=== PATIENT | female | born 2000 | race Caucasian/White ===

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

== ENCOUNTER 2019-04-14 21:14 | Emergency (ER) | payer BC, MEDICAID ==
--- OUTSIDE RECORDS SUMMARY | 2019-04-14 21:16 | XMS REPORT ---
:2000 [facility] Address [address] [place] [address] Care Team Providers Name Role Phone Unavailable Unavailable Unavailable Problems This patient has no known problems. Allergies, Adverse Reactions, Alerts This patient has no known allergies or adverse reactions. Medications This patient has no known medications. Encounters Start End Encounter Admission Attending Care Care Encounter Date/Time Date/Time Type Type Clinicians Facility Department ID 2017-11-27 2017-11-27 Emergency [facility] [id number] 13:56:45 13:56:45
--- OUTSIDE RECORDS SUMMARY | 2019-04-14 21:18 | XMS REPORT | Summary of Care ---
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 U Negative Negative [facility] BRIAN U Negative Negative [facility] AMPHET Negative Negative [facility] THC Negative Negative [facility] METHADONE Negative Negative [facility] Meth U Negative Negative [facility] OPIATES Negative Negative [facility] Cocaine Metabolite Presumptive Negative [facility] Positive (A) HOSPITAL LABORATORY PROPOXY Negative Negative [facility] Tric U Negative Negative [facility] PCP Negative Negative [facility] OXYCOD Negative Negative [facility] Specimen Urine - URINE, CLEAN CATCH Narrative Performed At Urine Drug Cutoff Ranges [facility] Benzodiazepines: 150 ng/mL Barbiturates: 200 ng/mL Amphetamine: 500 ng/mL Cannabinoids: 50ng/mL Methadone: 200 ng/mL Methamphetamine: 500 ng/mL Opiates: 100 ng/mL or 2000 ng/mL Cocaine: 150 ng/mL Propoxyphene:300 ng/mL Tricyclics:300 ng/mL Oxycodone: 100 ng/mL PCP: 25ng/mL The results are to be used only for medical (i.e., treatment) purposes. Unconfirmed screening results must not be used for non-medical purposes (e.g., employment testing, legal testing). Performing Organization Address [facility]/Zipcode Phone Number [facility] CLIA: [id number], [address] [place] [address] CBC WITH DIFFERENTIAL (10/18/2018 2:13 AM CDT) WBC 6.67 4.30 - 11.10 [facility] 10*3/L HOSPITAL LABORATORY RBC 4.52 3.93 - 5.25 [facility] 10*6/L HOSPITAL LABOR[facility]ORY HGB 13.6 11.6 - 15.0 g/dL [facility] HCT 42.4 35.7 - 45.2 % [facility] MCV 93.8 80.6 - 95.5 fL [facility] MCH 30.1 25.9 - 32.8 pg [facility] MCHC 32.1 31.6 - 35.1 g/dL [facility] RDW-SD 48.2 39.0 - 49.9 fL [facility] RDW-CV 13.9 12.0 - 15.5 % [facility] PLT 232 166 - 358 [facility] 10*3/L [facility] MPV 10.3 9.5 - 12.9 fL [facility] NRBC/100 WBC 0.0 0.0 - 10.0 /100 [facility] WBCs [facility] NRBC x10^3 <0.01 10*3/L [facility] GRAN MAT (NEUT) % 46.7 % [facility] IMM GRAN % 0.30 % [facility] LYMPH % 46.8 % [facility] MONO % 5.2 % [facility] EOS % 0.7 % [facility] BASO % 0.3 % [facility] GRAN MAT x10^3(ANC) 3.11 1.88 - 7.09 [facility] 10*3/uL HOSPITAL LABORATORY IMM GRAN x10^3 <0.03 0.00 - 0.06 [facility] 10*3/uL HOSPITAL [facility] LYMPH x10^3 3.12 1.32 - 3.29 [facility] 10*3/uL [facility]ITAL [facility] MONO x10^3 0.35 0.33 - 0.92 [facility] 10*3/uL HOSPITAL LAB[facility] EOS x10^3 0.05 0.03 - 0.39 [facility] 10*3/uL [facility]PITAL LAB[facility] BASO x10^3 <0.03 0.01 - 0.07 [facility] 10*3/uL [facility] Specimen Blood - VENOUS Performing Organization Address City/State/Zipcode Phone Number [facility] CLIA: [id number], [address] [place] [address] [facility] (10/18/2018 2:13 AM CDT) ALCOHOL 203 mg/dL [facility] Specimen Blood - VENOUS Narrative Performed At <10 Negative [facility] 50-100 Toxic >100 Depression of TEACHER DANCING >400 Fatalities Reported Performing Organization Address [facility] Phone Number [facility] CLIA: [id number], [address] [place] [address] SALICYLATE (10/18/2018 2:13 AM CDT) SALICYLATE <10 mg/L [facility] Specimen Blood - VENOUS Narrative Performed At Therapeutic Range: [facility] Analgesic and Antipyretic Use 20-100 mg/L Anti-Inflammatory Use 100-250 mg/L Toxic Range: Greater than 300 mg/L Performing Organization Address [facility] Phone Number [facility] CLIA: [id number], [address] [place] [address] ACETAMINOPHEN (10/18/2018 2:13 AM CDT) ACETAMINOP <10.0 (L) 10.0 - 30.0 ug/mL [facility] Specimen Blood - VENOUS Narrative Performed At Toxic: Greater than 200 ug/mL @ 4 hour post [facility] ingestion or greater than 50 ug/mL @ 12 hour post ingestion Performing Organization Address [facility] Phone Number [facility] CLIA: [id number], [address] [place] [address] URINALYSIS (10/18/2018 2:13 AM CDT) APPEARANCE Clear Clear [facility] COLOR Yellow Yellow [facility] PH 6.0 4.8 - 8.0 [facility] SP GRAVITY 1.015 1.003 - 1.030 [facility] GLU U QUAL Negative Negative [facility] BLOOD Trace (A) Negative [facility] KETONES Negative Negative [facility] PROTEIN Negative Negative [facility] UROBILIN 0.2 mg/dL 0-1.0 mg/dL [facility] BILIRUBIN Negative Negative [facility] NITRITE Negative Negative [facility] LEUK DARREL Negative Negative [facility] RBC/HPF 2 0 - 3 HPF [facility] WBC/HPF 3 0 - 5 HPF [facility] BACTERIA Few (A) Negative [facility] MUCOUS Slight (A) Negative LPF [facility] SQ EPITH 3 HPF [facility] Specimen Urine - URINE, CLEAN CATCH Performing Organization Address City/State/Zipcode Phone Number [facility] CLIA: [id number], [address] [place] [address] COMP. METABOLIC PANEL ([id number]) (10/18/2018 2:13 AM CDT) NA 149 (H) 135 - 145 [facility] mmol/L [facility] K 3.5 3.5 - 5.0 [facility] mmol/L [facility] CL 110 (H) 98 - 108 mmol/L [facility] CO2 TOTAL 24 23 - 31 mmol/L [facility] AGAP 15 2 - 16 [facility] BUN 6 (L) 7 - 23 mg/dL [facility] GLUCOSE 78 70 - 110 mg/dL [facility] CREATININE 0.75 0.50 - 1.04 [facility] mg/dL [facility] TOTAL BILI 0.5 0.1 - 1.1 mg/dL [facility] CALCIUM 9.0 8.6 - 10.6 [facility] mg/dL [facility] T PROTEIN 7.1 6.3 - 8.2 g/dL [facility] ALBUMIN 4.4 3.5 - 5.0 g/dL [facility] ALK PHOS 58 34 - 122 U/L [facility] ALT(SGPT) 25 9 - 51 U/L [facility] AST(SGOT) 36 13 - 40 U/L [facility] eGFR Calculation 99.5 mL/min/1.73m2 [facility] ([facility] LABORATORY English) eGFR Calculation 120.7 mL/min/1.73m2 [facility] () [facility] Specimen Blood - VENOUS Narrative Performed At Association of Glomerular Filtration Rate (GFR) [facility] and Staging of Kidney Disease* + + +- + | GFR (mL/min/1.73 m2)| With Kidney Damage|Without Kidney Damage + + +- + |>90| Stage one| Normal + + +- + |60-89|S tage two| Decreased GFR + + +- + |30-59|S tage three| Stage three + + +- + |15-29|S tage four | Stage four + + +- + |<15 (or dialysis)|Stage five | Stage five + + +- + *Each stage assumes the associated GFR level has been in effect for at least three months.Stages 1 to 5, with or without kidney disease, indicate chronic kidney disease. Notes: Determination of stages one and two (with eGFR >59mL/min/1.73 m2) requires estimation of kidney damage for at least three months as defined by structural or functional abnormalities of the kidney, manifested by either: Pathological abnormalities or Markers of kidney damage (including abnormalities in the composition of the blood or urine or abnormalities in imaging tests). Performing Organization Address City/State/Zipcode Phone Number [facility] CLIA: [id number], [address] [place] [address] documented in this encounter Visit Diagnoses Diagnosis Intentional drug overdose, initial encounter - Primary Respiratory failure requiring intubation Alcoholic intoxication without complication Cocaine abuse Cocaine abuse, unspecified Drug intoxication with complication Intoxication by drug Other specified drug-induced mental disorder documented in this encounter Administered Medications Medication Order MAR Action Action Date Dose Rate Site albuterol (PROVENTIL) 2.5 mg /3 Given 10/20/2018 6:28 PM CDT 2.5 mg mL (0.083 %) nebulizer solution 2.5 mg 2.5 mg, Inhalation, QID, First dose on Tue10/20/18 at 1600, Until Discontinued, Routine Given 10/20/2018 3:58 PM CDT 2.5 mg Given 10/20/2018 12:57 PM CDT 2.5 mg alum-mag hydroxide-simeth (MAALOX PLUS / Given 10/19/2018 2:36 PM CDT 15 mL MAG-AL PLUS) 200-200-20 mg/5 mL suspension 15 mL 15 mL, Oral, Q6HPRN, Starting Shanice 10/19/18 at 1143, Until Discontinued, Routine, Indigestion, Mouth pain benzocaine-menthol (CEPACOL SORE THROAT Given 10/20/2018 12:51 PM CDT 1 Lozenge (FLORIN-MEN)) lozenge 1 Lozenge 1 Lozenge, Oral, Q4HPRN, Starting Tue10/19/18 at 2015, Until Discontinued, Routine, Sore throat Given 10/20/2018 12:00 AM CDT 1 Lozenge ipratropium (ATROVENT) 0.02 % nebulizer Given 10/20/2018 6:28 PM CDT 0.5 mg solution 0.5 mg 0.5 mg, Inhalation, QID, First dose on Tue10/20/18 at 1600, Until Discontinued, Routine Given 10/20/2018 3:58 PM CDT 0.5 mg Given 10/20/2018 12:58 PM CDT 0.5 mg Medication Order MAR Action Action Date Dose Rate Site dexamethasone (DECADRON PHOSPHATE) Given 10/18/2018 2:18 AM CDT 10 mg injection 10 mg 10 mg, IV Push, ONCE, 1 dose, Tue10/18/18 at 0315, STAT esomeprazole (NEXIUM) 40 mg in NaCl 0.9% (NS) Given 10/19/2018 9:36 AM CDT 40 mg 100 mL MINI-BAG 40 mg, IV Piggyback, DAILY, First dose on Tue10/19/18 at 0900, Until Discontinued, 100 mL FENTanyl PF (SUBLIMAZE) STD Rate Change 10/18/2018 1:47 PM CDT 75 mcg/hr 7.5 mL/hr 2,500 mcg in NaCl 0.9% (NS) 250 mL infusion RTU 25 mcg/hr (2.5 mL/hr), IV Infusion, TITRATE, Starting Tue10/18/18 at 0841, Until Tue10/20/18 at 1049 New Bag 10/18/2018 10:23 AM CDT 50 mcg/hr 5 mL/hr lactated ringers IV infusion New Bag 10/18/2018 8:00 PM CDT 1,000 mL 125 mL/hr 1,000 mL at 125 mL/hr, 1,000 mL, IV Infusion, CONTINUOUS, Starting Tue10/18/18 at 1200, Until Tue10/19/18 at 1758, Routine New Bag 10/18/2018 11:17 AM CDT 1,000 mL 125 mL/hr midazolam (VERSED) 50 mg in Rate Change 10/19/2018 5:32 AM CDT 1 mg/hr 1 mL/hr NaCl 0.9% (NS) infusion 2 mg/hr (2 mL/hr), IV Infusion, TITRATE, Starting Tue10/18/18 at 2210, Until Tue10/20/18 at 1049 New Bag 10/18/2018 11:35 PM CDT 2 mg/hr 2 mL/hr midazolam (VERSED) injection 1 mg Given 10/18/2018 1:51 PM CDT 1 mg 1 mg, IV Push, ONCE, 1 dose, Tue10/18/18 at 0815, STAT midazolam (VERSED) injection 2 mg Given 10/18/2018 4:55 AM CDT 2 mg 2 mg, IV Push, ONCE, 1 dose, Tue10/18/18 at 0530, STAT midazolam (VERSED) injection 2 mg Given 10/18/2018 9:28 PM CDT 2 mg 2 mg, IV Push, ONCE, 1 dose, Tue10/18/18 at 2215, Routine propofol injection New Bag 10/19/2018 6:02 AM CDT 65 mcg/kg/min 23.87 mL/hr 5 mcg/kg/min 61.2 kg (1.836 mL/hr, rounded to 1.84 mL/hr), IV Infusion, at 1.84 mL/hr, CONTINUOUS, Starting Tue10/18/18 at 0315, Until Tue10/19/18 at 1010, Routine New Bag 10/19/2018 2:00 AM CDT 80 mcg/kg/min 29.38 mL/hr New Bag 10/18/2018 11:37 PM CDT 80 mcg/kg/min 29.38 mL/hr propofol injection New Bag 10/18/2018 8:42 PM CDT 80 mcg/kg/min 29.38 mL/hr 5 mcg/kg/min 61.2 kg (1.836 mL/hr, rounded to 1.84 mL/hr), IV Infusion, at 1.84 mL/hr, CONTINUOUS, Starting Tue10/18/18 at 0615, Until Tue10/19/18 at 1758, Routine New Bag 10/18/2018 5:44 PM CDT 80 mcg/kg/min 29.38 mL/hr New Bag 10/18/2018 11:32 AM CDT 80 mcg/kg/min 29.38 mL/hr thiamine (VITAMIN B1) 100 mg in NaCl 0.9% Given 10/19/2018 9:37 AM CDT 100 mg (NS) piggyback IV Piggyback, DAILY, First dose on Tue10/18/18 at 1500, Until Discontinued, 50 mL Given 10/18/2018 6:19 PM CDT 100 mg thiamine (VITAMIN B1) 100 mg, foLIC acid New Bag 10/19/2018 9:00 AM CDT 50 mL/hr (FOLATE) 1 mg, multivitamin adult (INFUVITE ADULT) 3,300 unit- 150 mcg/10 mL 10 mL in D5W 0.45% NaCl (1/2NS) IV Solution IV Infusion, at 50 mL/hr, DAILY, First dose on Tue10/18/18 at 1500, Until Discontinued, 1,000 mL New Bag 10/18/2018 6:15 PM CDT 50 mL/hr documented in this encounter Insurance Payer Benefit Plan / Subscriber ID Effective Phone Address Type Group Dates TERRY STEWART xxxxxxxxx 2018-[address] [place] [id number] MANAGED MEDICAID [place], [place]ICA[place] (Home) [place] [address] documented as of this encounter Advance Directives Name Relationship Healthcare Agent Relationship Communication Nimco Rene Grandparent Primary healthcare agent [phone]
--- OUTSIDE RECORDS SUMMARY | 2019-04-14 21:18 | XMS REPORT | Summary of Care ---
:2000 Author Organization [facility] Address [address] [place] [address] Care Team Providers Name Role Phone Lidia Can Primary Care Provider Martina Ervin Insurance Hmo Reason for Visit Reason Comments NURSE VISIT Encounter Details Date Type Department Care Team Description 03/08/2019 Nurse Visit [facility]- Lidia Can, ASSOCIATE SPA DIRECTOR [address] [place] [address] Screening for STD [place] Visit, [facility] Nurse (sexually transmitted [address] [facility] disease) (Primary Dx) [place] [address] Allergies No Known Allergiesdocumented as of this encounter (statuses as of 03/22/2019) Medications No known medicationsdocumented as of this encounter (statuses as of 03/22/2019) Active Problems Problem Noted Date Dysuria 11/30/2018 Intoxication by drug 10/18/2018 Screening examination for venereal disease 09/11/[address] 07/18/2018 Overview: Inserted 07/18/18 Gonorrhea 07/18/2018 Chlamydia 06/29/2018 Trichomoniasis 06/28/2018 Maternal varicella, non-immune 01/11/2018 Overview: Varivax pp History of trauma 01/10/2018 History of depression 01/10/2018 History of anxiety disorder 01/10/2018 Influenza vaccination declined 01/10/2018 documented as of this encounter (statuses as of 03/22/2019) Resolved Problems Problem Noted Date Resolved Date Trichomonosis 06/28/2018 06/28/2018 History of bipolar disorder 01/10/2018 01/10/2018 documented as of this encounter (statuses as of 03/22/2019) Social History Tobacco Use Types Packs/Day Years [...] Health Maintenance Due Date Last Done Comments VARICELLA VACCINES (1 of 2 - 06/07/2000 2-dose childhood series) PNEUMOCOCCAL 0-64 YEARS 06/07/2005 COMBINED SERIES (1 of 1 - PPSV23) MENINGOCOCCAL B VACCINES (1 06/07/2009 of 2 - Risk Bexsero 2-dose series) DTaP,Tdap,and Td Vaccines (1 06/07/2010 - Tdap) HPV VACCINES (1 - Female 06/07/2010 2-dose series) WELL CARE VISIT: 12-21 YEARS 2011 (yearly) INFLUENZA VACCINE (#1) 2018 CHLAMYDIA SCREENING 03/08/2020 03/08/2019, 11/30/2018, 09/11/2018, Additional history exists MENINGOCOCCAL VACCINE Aged Out No longer eligible based on patient's age to complete this topic documented as of this encounter Implants Implanted Type Area Outcomes Specialist Device Shelf Model / Identifier Expiration Serial / Date Lot Control-09/13/2018 Left: Implanted: 09/13/2018 (Quantity not on file) Control Arm documented as of this encounter Procedures Procedure Name Priority Date/Time Associated Diagnosis Comments GC & CHLAMYDIA Routine 03/08/2019 3:50 PM Screening for STD Results for this AMPLIFIED ASSAY 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 documented in this encounter Results GC & CHLAMYDIA AMPLIFIED ASSAY (03/08/2019 3:50 PM OPERATING ROOM TECHNICIAN) C. trachomatis Nucleic Negative Negative [facility] Acid SERVICES N. gonorrhoeae Nucleic Negative Negative [facility] Specimen Fluid - URINE, CLEAN CATCH Performing Organization Address City/State/Zipcode Phone Number [facility] CLIA: [id number], [address] [place] [address] [facility] documented in this encounter Visit Diagnoses Diagnosis Screening for STD (sexually transmitted disease) - Primary Screening examination for venereal disease documented in this encounter Insurance Payer Benefit Plan Subscriber ID Effective Dates Phone Address Type / Group [facility] [id number] 2019-Mac [phone] [address] PPO/POS [place] [id number] [place] [address] (Home) [place] [address] documented as of this encounter Advance Directives Name Relationship Healthcare Agent Relationship Communication Nimco Rene Grandparent Primary healthcare agent
--- OUTSIDE RECORDS SUMMARY | 2019-04-14 21:18 | XMS REPORT | Summary of Care ---
:2000 Author Organization [facility] - Health Address [address] [place] [address] Care Team Providers Name Role Phone Lidia Can LOTTERIES AGENT Primary Care Provider Martina Ervin Insurance Hmo Encounter Details Date Type Department Care Team Description 03/08/2019 Orders Only [facility] Doctor Unassigned, No [address] [facility] [place] [address] [address] [place] [address] Allergies No Known Allergiesdocumented as of this encounter (statuses as of 03/08/2019) Medications No known medicationsdocumented as of this encounter (statuses as of 03/08/2019) Active Problems Problem Noted Date Dysuria 11/30/2018 Intoxication by drug 10/18/2018 Screening examination for venereal disease 09/11/[address] 07/18/2018 Overview: Inserted 07/18/18 Gonorrhea 07/18/2018 Chlamydia 06/29/2018 Trichomoniasis 06/28/2018 Maternal varicella, non-immune 01/11/2018 Overview: Varivax pp History of trauma 01/10/2018 History of depression 01/10/2018 History of anxiety disorder 01/10/2018 Influenza vaccination declined 01/10/2018 documented as of this encounter (statuses as of 03/08/2019) Resolved Problems Problem Noted Date Resolved Date Trichomonosis 06/28/2018 06/28/2018 History of bipolar disorder 01/10/2018 01/10/2018 documented as of this encounter (statuses as of 03/08/2019) Social History Tobacco Use Types Packs/Day Years [...] (yearly) INFLUENZA VACCINE (#1) 2018 CHLAMYDIA SCREENING 12/01/2019 11/30/2018, 09/11/2018, 06/27/2018, Additional history exists MENINGOCOCCAL VACCINE Aged Out No longer eligible based on patient's age to complete this topic documented as of this encounter Implants Implanted Type Area Environmental Services Supervisor Device Shelf Model / Identifier Expiration Serial / Date Lot Control-09/13/2018 Left: Implanted: 09/13/2018 (Quantity not on file) Control Arm documented as of this encounter Procedures Procedure Name Priority Date/Time Associated Diagnosis Comments ASSIGNMENT OF BENEFITS Routine 03/08/2019 1:20 PM TRANSFORMER BUILDER documented in this encounter Results Not on filedocumented in this encounter Insurance Payer Benefit Plan Subscriber ID Effective Phone Address Type / Group Dates [facility] [id number] 2019-Prese [phone] [address] PPO/POS nt [id number] [place] [address] [employer] [place] HTW-RMCHP xxxxxxxxx 2018-Pres [phone] [address] Medicaid WOMEN ent [address] [place] [address] documented as of this encounter Advance Directives Name Relationship Healthcare Agent Relationship Communication Nimco Edgard Grandparent Primary healthcare agent
[2019-04-14 22:40] LABS: Basophils % 0.5 % (0-1.3); Hematocrit 39.8 % (36.0-45.0); Lymphocytes % 20.1 % (15.3-44.8); MPV 8.9 fL (7.6-11.3); Protime INR 1.05; RBC Red Blood Cell Count 4.48 M/uL (3.86-4.86)
[2019-04-14] MEDS ORDERED: NA CHLORIDE 0.9% 1,000 ML ONE (22:45)
[2019-04-14 23:00] LABS: ALT/SGPT 22 U/L (12-78); AST/SGOT 23 U/L (15-37); Alkaline Phosphatase 74 U/L (45-117); BUN Blood Urea Nitrogen 15 mg/dL (7-18); Bicarbonate 25 mmol/L (21-32); Bilirubin Direct 0.2 mg/dL (0-0.2); Bilirubin Total 0.4 mg/dL (0.2-1.0); Glucose Level 78 mg/dL (74-106); Magnesium 2.1 mg/dL (1.8-2.4); NT PRO-BNP 39 pg/mL (<125); Potassium 3.5 mmol/L (3.5-5.1); Protein, Total 7.7 g/dL (6.4-8.2); Sodium Level 138 mmol/L (136-145); Troponin (Emerg Dept Use Only) < 0.02 ng/mL (0.0-0.045)
[2019-04-14] MEDS ORDERED: ACETAMINOPHEN 325 MG TABLET ONE (23:05)
--- NOTE | 2019-04-15 00:11 | EDPHYS ---
Physician Documentation [facility] Name: Angeles Field Age: 18 yrs Sex: Female : 2000 Arrival Date: 04/14/2019 Time: 21:16 Bed 20 Private MD: ED Physician Zain Storey HPI: 04/14 00:12 This 18 yrs old Female presents to ER via Ambulatory with complaints of tw4 Dizziness, Irregular Heart Beat, Weakness. 00:12 The patient presents with dizziness, generalized weakness. Onset: The symptoms/episode tw4 began/occurred today. Context: occurred at home. Modifying factors: The symptoms are alleviated by nothing, the symptoms are aggravated by nothing. Associated signs and symptoms: Pertinent positives: chest pain. Associated signs and symptoms: The patient has no apparent associated signs or symptoms. Severity of symptoms: At their worst the symptoms were moderate in the emergency department the symptoms have resolved. Patient's baseline: Neuro: alert and fully oriented, Motor: no deficits, Ambulation: walks without assistance, Speech: normal. The patient has not experienced similar symptoms in the past. Historical: - Allergies: 21:35 NKA; sg - PMHx: 21:35 Anxiety; Bipolar disorder; mood disorder; psychosis; sg - PSHx: 21:35 None; sg - Immunization history:: Adult Immunizations up to date. - Social history:: Smoking status: Patient denies any tobacco usage or history of. ROS: 04/14 00:12 Constitutional: Negative for fever, chills, and weight loss, Eyes: Negative for injury, tw4 pain, redness, and discharge, Respiratory: Negative for shortness of breath, cough, wheezing, and pleuritic chest pain, Abdomen/GI: Negative for abdominal pain, nausea, vomiting, diarrhea, and constipation, Back: Negative for injury and pain, MS/Extremity: Negative for injury and deformity, Skin: Negative for injury, rash, and discoloration. Cardiovascular: Positive for chest pain, Negative for edema, orthopnea, palpitations, paroxysmal nocturnal dyspnea. Neuro: Positive for dizziness, Negative for altered mental status, gait disturbance, headache, hearing loss, loss of consciousness, numbness, seizure activity, speech changes, syncope, near syncope, tingling, tinnitus, tremor, visual changes. Exam: 00:12 Constitutional: This is a well developed, well nourished patient who is awake, alert, tw4 and in no acute distress. Head/Face: Normocephalic, atraumatic. Chest/axilla: Normal chest wall appearance and motion. Nontender with no deformity. No lesions are appreciated. Respiratory: Lungs have equal breath sounds bilaterally, clear to auscultation and percussion. No rales, rhonchi or wheezes noted. No increased work of breathing, no retractions or nasal flaring. Abdomen/GI: Soft, non-tender, with normal bowel sounds. No distension or tympany. No guarding or rebound. No evidence of tenderness throughout. Back: No spinal tenderness. No costovertebral tenderness. Full range of motion. Skin: Warm, dry with normal turgor. Normal color with no rashes, no lesions, and no evidence of cellulitis. MS/ Extremity: Pulses equal, no cyanosis. Neurovascular intact. Full, normal range of motion. Neuro: Awake and alert, GCS 15, oriented to person, place, time, and situation. Cranial nerves II-XII grossly intact. Motor strength 5/5 in all extremities. Sensory grossly intact. Cerebellar exam normal. Normal gait. 00:12 Cardiovascular: Rate: tachycardic, Rhythm: regular, Pulses: no pulse deficits are appreciated. Vital Signs: 21:30 Pulse 115 MON; Resp 18 S; Pulse Ox 100% on R/A; Weight 74.84 kg (R); Height 5 ft. 9 in. sg (175.26 cm) (R); Pain 8/10; 21:38 BP 119 / 81; lw1 21:38 Temp 99.3(O); lw1 22:21 BP 121 / 72; Pulse 113; Resp 20; Pulse Ox 98% on R/A; lw1 22:45 Temp 101.4; lw1 03 00:15 BP 116 / 77; Pulse 114; Resp 20; Temp 99.6; Pulse Ox 98% on R/A; lw1 21:30 Body Mass Index 24.37 (74.84 kg, 175.26 cm) sg MDM: 21:28 Patient medically screened. tw4 04/14 00:30 Differential diagnosis: cardiac arrhythmia, idiopathic dizziness. Data reviewed: vital tw4 signs, nurses notes. Data interpreted: Pulse oximetry: Interpretation: normal. Counseling: I had a detailed discussion with the patient and/or guardian regarding: the historical points, exam findings, and any diagnostic results supporting the discharge/admit diagnosis, lab results, radiology results. Special discussion: Based on the patient's history, exam, and Dx evaluation, there is no indication for emergent intervention or inpatient Tx. It is understood by the patient/guardian that if the Sx's persist or worsen they need to return immediately for re-evaluation. Based on the patient's history, exam and DX evaluation, there is no indication for emergent intervention or inpatient [place]. It is understood by the patient/guardian that if the SXs persist or worsen they need to return immediately for re-evaluation. 21:34 Order name: Basic Metabolic Panel; Complete Time: 23:48 23:48 Interpretation: Within normal limits. 21:34 Order name: CBC with Diff; Complete Time: 23:48 23:49 Interpretation: Within normal limits. 21:34 Order name: LFT's; Complete Time: 23:48 23:48 Interpretation: Normal except: GLOB 3.7. 21:34 Order name: Magnesium; Complete Time: 23:48 23:49 Interpretation: Within normal limits: MG 2.1. 21:34 Order name: NT PRO-BNP; Complete Time: 23:48 23:49 Interpretation: Within normal limits: NT PRO-BNP 39. 21:34 Order name: PT-INR; Complete Time: 23:48 23:49 Interpretation: PT 12.4. 21:34 Order name: Troponin (emerg Dept Use Only); Complete Time: 23:48 23:49 Interpretation: Within normal limits: TROPED < 0.02. 21:34 Order name: XRAY Chest (1 view) 21:34 Order name: EKG; Complete Time: 21:36 22:05 Order name: D-Dimer; Complete Time: 23:48 22:23 Order name: Urine Dipstick--Ancillary (enter results) [facility] 22:23 Order name: Urine --Ancillary (enter results) [facility] 22:57 Order name: Flu; Complete Time: 00:09 4 21:34 Order name: Cardiac monitoring; Complete Time: 21:56 21:34 Order name: EKG - Nurse/Tech; Complete Time: 21:56 21:34 Order name: IV Saline Lock; Complete Time: 21:50 21:34 Order name: Labs collected and sent; Complete Time: 21:56 21:34 Order name: O2 Per Protocol; Complete Time: :56 21:34 Order name: O2 Sat Monitoring; Complete Time: : EC:45 Rate is 104 beats/min. Rhythm is regular. QRS [place] is Normal. MT interval is normal. tw4 QRS interval is normal. QT interval is normal. No Q waves. T waves are Normal. No ST changes noted. Clinical impression: Sinus tachycardia. Interpreted by me. Reviewed by me. Administered Medications: 22:47 Drug: NS 0.9% 1000 ml Route: IV; Rate: 1 bolus; Site: right antecubital; lw1 Disposition: 04/15/19 00:09 Discharged to Home. Impression: Influenza due to identified novel influenza A virus. - Condition is Stable. - Discharge Instructions: Influenza, Adult. - Prescriptions for Tamiflu 75 mg Oral Capsule - take 1 tablet by ORAL route every 12 hours for 5 days; 10 tablet. - Medication Reconciliation Form, Thank You Letter, Antibiotic Education, Prescription Opioid Use, Work release form form. - Follow up: Private Physician; When: Upon discharge from the Emergency Department; Reason: Recheck today's complaints, Continuance of care. - Problem is new. - Symptoms have improved. Signatures: Dispatcher [employer] EDBhavik Servin, RN RN sg Zain Storey MD MD tw4 Micky Mcqueen RN RN lw1 Corrections: (The following items were deleted from the chart) 04/14 00:24 00:09 04/15/2019 00:09 Discharged to Home. Impression: Influenza due to identified lw1 novel influenza A virus. Condition is Stable. Forms are Medication Reconciliation Form, Thank You Letter, Antibiotic Education, Prescription Opioid Use. Follow up: Private Physician; When: Upon discharge from the Emergency Department; Reason: Recheck today's complaints, Continuance of care. Problem is new. Symptoms have improved. tw4 00:45 00:12 Rhythm is regular. QRS [place] is Normal. MT interval is normal. QRS interval is tw4 normal. QT interval is normal. T waves are Normal. No ST changes noted. Clinical impression: Sinus tachycardia. Interpreted by me. Reviewed by me. tw4
--- NOTE | 2019-04-15 00:11 | ER ---
Nurse's Notes [facility] Name: Angeles Field Age: 18 yrs Sex: Female : 2000 Arrival Date: 04/14/2019 Time: 21:16 Bed 20 Private MD: Diagnosis: Influenza due to identified novel influenza A virus Presentation: 21:30 Chief complaint: Patient states: About two weeks ago, I had what I thought was strep sg throat. I looked up how much abx I would need, and my grandmother had some Azithromycin tablets so I took those. Symptoms improved until about this beginning of this week, So I went to the doctors office and got an abx for Cefdinir, Now my body aches, my chest is so painful when touched, my knees hurt, and my heart rate has been really fast and irregular it feels like, the pain scared me so I came here. Coronavirus screen: The patient has NOT traveled to [place] in the past 14 days. The patient has NOT had contact with known and/or suspected case of Coronavirus. Ebola Screen: Patient negative for fever greater than or equal to 101.5 degrees Fahrenheit, and additional compatible Ebola Virus Disease symptoms Patient denies exposure to infectious person. Patient denies travel to an Ebola-affected area in the 21 days before illness onset. No symptoms or risks identified at this time. Initial Sepsis Screen: Does the patient meet any 2 criteria? HR > 90 bpm. Yes Does the patient have a suspected source of infection? No. Patient's initial sepsis screen is negative. 21:30 Method Of Arrival: Ambulatory sg 21:30 Acuity: CADY 3 sg Historical: - Allergies: 21:35 NKA; sg - PMHx: 21:35 Anxiety; Bipolar disorder; mood disorder; psychosis; sg - PSHx: 21:35 None; sg - Immunization history:: Adult Immunizations up to date. - Social history:: Smoking status: Patient denies any tobacco usage or history of. Vital Signs: 21:30 Pulse 115 MON; Resp 18 S; Pulse Ox 100% on R/A; Weight 74.84 kg (R); Height 5 ft. 9 in. sg (175.26 cm) (R); Pain 8/10; 21:38 BP 119 / 81; lw1 21:38 Temp 99.3(O); lw1 22:21 BP 121 / 72; Pulse 113; Resp 20; Pulse Ox 98% on R/A; lw1 22:45 Temp 101.4; lw1 04/14 00:15 BP 116 / 77; Pulse 114; Resp 20; Temp 99.6; Pulse Ox 98% on R/A; lw1 21:30 Body Mass Index 24.37 (74.84 kg, 175.26 cm) ED Course: 21:16 Patient arrived in ED. cl3 21:28 Zain Storey MD is Attending Physician. tw4 21:29 Micky Mcqueen, RN is Primary Nurse. lw1 21:30 EKG done, by ED staff, reviewed by Zain Storey MD. lw1 21:34 Triage completed. sg 21:34 Arm band placed on. sg 21:49 Inserted saline lock: 20 gauge in right antecubital area, using aseptic technique. lw1 Blood collected. 21:51 Initial lab(s) drawn, by pr, sent to lab. lw1 22:04 XRAY Chest (1 view) In Process Unspecified. EDMS 22:19 Urine collected: clean catch specimen, clear. lw1 23:07 Flu Sent. lw1 23:07 Urine --Ancillary (enter results) Sent. lw1 23:07 Flu and/or RSV swab sent to lab. lw1 04/14 00:15 IV discontinued, intact, No redness/swelling at site. Pressure dressing applied. lw1 Administered Medications: 22:47 Drug: NS 0.9% 1000 ml Route: IV; Rate: 1 bolus; Site: right antecubital; lw1 Outcome: 04/14 00:09 Discharge ordered by . tw4 00:24 Patient left the ED. lw1 Signatures: Dispatcher [employer] EDMS Bhavik Garcia, RN RN Zain Storey MD MD [facility] Cristina Mendez 3 Micky Mcqueen, DILEEP RN lw1
[2019-04-15 00:48] LABS: Urine Blood 2+ (NEG); Urine Glucose NEGATIVE (NEG); Urine Protein NEGATIVE (NEG); Urine pH 6.5 (5.0-7.0)
[2019-04-15 00:51] VITALS: O2SAT 98
[2019-04-15 00:54] VITALS: BP 116/77; TEMP 99.6
--- NOTE | 2019-04-15 05:57 | EKG ---
Test Date: 2019-04-14 Test Time: 21:35:10 Postal Service Clerk: ELIZABETH MEASUREMENT RESULTS: Intervals: Rate: 106 ME: 168 QRSD: 74 QT: 334 QTc: 443 [place]: P: 47 ME: 168 QRS: 44 T: 35 INTERPRETIVE STATEMENTS: Sinus tachycardia Otherwise normal ECG No previous ECG available for comparison Electronically Signed On 04-15-19 05:56:29 JUVENILE PROBATION OFFICER by Cristobal Thomas
--- NOTE | 2019-04-15 11:59 | RAD REPORT ---
EXAM DESCRIPTION: RAD - Chest Single View - 04/14/2019 10:04 pm CLINICAL HISTORY: CHEST PAIN Chest pain. COMPARISON: No comparisons FINDINGS: Portable technique limits examination quality. The lungs are grossly clear. The heart is normal in size. No displaced fractures. IMPRESSION: No acute intrathoracic process suspected.
== END 2019-04-15 00:24 | disposition home or self-care (01) ==
LOC: ER 21:14
DX: J09.X9 Influenza due to identified novel influenza A virus with other manifestations (principal)
CPT/HCPCS: 93005; 85025; 80048; 36415; 83735; 81025; 85610; 85379; 80076; 81003; 84484; 83880; 87804 ×2; 71045; 99284; J7030

== ENCOUNTER 2020-02-23 04:10 | Emergency (ER) | payer BC ==
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
--- OUTSIDE RECORDS SUMMARY | 2020-02-23 04:32 | XMS REPORT | Summary of Care ---
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 Primary Care Provider Madhuri Ervin Insurance H[employer] Reason for Visit Reason Comments Well Woman Exam Encounter Details Date Type Department Care Team Description 12/07/2019 Office Visit [facility]- Faith Davalos Oth er general counseling and advice for contraceptive management (Primary Dx); JONN Coron[place] Nexplanon in place; [address] Screen for STD (sexually transmitted dis ease); Street [address] A Well woman exam [place], [place] [phone] Allergies No Known Allergiesdocumented as of this encounter (statuses as of 12/07/2019) Medications No known medicationsdocumented as of this encounter (statuses as of 12/07/2019) Active Problems Problem Noted Date Well woman exam 12/07/2019 Other general counseling and advice for contraceptive management 12/07/2019 Drug overdose 11/12/2019 Dysuria 11/30/2018 Intoxication by drug 10/18/2018 Screening examination for venereal disease 09/11/[address] 07/18/2018 Overview: Inserted 07/18/18 Gonorrhea 07/18/2018 Chlamydia 06/29/2018 Trichomoniasis 06/28/2018 Maternal varicella, non-immune 01/11/2018 Overview: Varivax pp History of trauma 01/10/2018 History of depression 01/10/2018 History of anxiety disorder 01/10/2018 Influenza vaccination declined 01/10/2018 documented as of this encounter (statuses as of 12/07/2019) Resolved Problems Problem Noted Date Resolved Date Trichomonosis 06/28/2018 06/28/2018 History of bipolar disorder 01/10/2018 01/10/2018 documented as of this encounter (statuses as of 12/07/2019) Social History Tobacco Use Types Packs/Day Years Used Date Current Every Day Smoker Cigarettes 0.2 4 Sta rted: 01/10/2015 Smokeless Tobacco: Never Used Tobacco Cessation: Ready to Quit: No; Co unseling Given: Yes Comments: Smokes 5 ciggs a day Alcohol Use Drinks/Week oz/Week Comments Yes occasional Sex Assigned at Date Recorded Not on file COVID-19 Exposure Response Date Recorded In the last month, have you been in contact with No / Unsure 12/07/2019 2:52 PM CDT someone who was confirmed or suspected to have Coronavirus / COVID-19? documented as of this encounter Last Filed Vital Signs Vital Sign Reading Time Taken Comments Blood Pressure 121/72 12/07/2019 3:12 PM CDT Pulse 73 12/07/2019 3:12 PM CDT Temperature 36.4 C (97.6 F) 12/07/2019 3:12 PM CDT Respiratory Rate 16 12/07/2019 3:12 PM CDT Oxygen Saturation - - Inhaled Oxygen Concentration - - Weight 87.2 kg (192 lb 3 oz) 12/07/2019 3:12 PM CDT Height 177.8 cm (5' 10") 12/07/2019 3:12 PM CDT Body Mass Index 27.58 12/07/2019 3:12 PM CDT documented in this encounter Patient Instructions Patient InstructionsBelen Harrington LVN - 12/07/2019 3:15 PM CDT Patient Education Clinical Breast Exam Many health organizations recommend a yearly clinical breast exam. This exam may be done by a metal cut off saw tender, family healthcare provider, nurse practitioner, nurse ingot header, or specially trained nurse. Yearly breast exams help tomake surethat breast conditions are found early. Your healthcare providers role A healthcare professional knows the tests and follow-up care needed if a problem is found. Your clinical exam is also a great time to ask questions about breast self-exams. You can find out if yourechecking your breasts in the best way. Or you may want to ask how , breast implants, or breast reduction surgery affect the way you should check your breasts. Diagnostic tests If a clinical exam reveals a breast change, you may have other tests to find out more. These tests may include: Mammography. A low-dose X-ray of your breast tissue. Ultrasound. An imaging test that uses sound waves to create images of your breast. Biopsy. A small amount of breast tissue is removed by needle or by a cut (incision). The tissue is then checked under a microscope. Guidelines for having clinical breast exams The [employer] recommends that starting at age 29, you should have a clinical breast exam every 1 to 3 years. After age 40, have a clinical breast exam each year. If youre at higher risk for breast cancer, you may need exams more often. Risk factors for breast cancer may include: Being over 50 or postmenopausal Having a family history of breast cancer Having the BRCA1 or BRCA2 gene mutation or certain other gene mutations Having more menstrual periods due to starting menstruation early(before age 12) or having a late menopause (after age 55) Having no pregnancies Having a first after age 30 Being obese Having a history of radiation treatment to your chest area Exposure to STEVE during your mother's Not being active Drinking too much alcohol Having dense breast tissue Taking hormone therapy after menopause Other health organizations have different recommendations. Talk with your healthcare provider about what is best for you. [employer] last reviewed this educational content on 05/16/201919997118-8864 The [employer]. All rights reserved. This information is not intended as a substitute for professional medical care. Always follow your healthcare professional's instructions. Patient Education Breast Health: Breast Self-Awareness What is breast self-awareness? Breast self-awareness is knowing how your breasts normally look and feel. Your breasts change as yougo through different stages of your life. So its important to learn what is normal for your breasts. Knowing about your breasts helps you spot any changes in them right away. Tell your healthcare provider about any changes. Why is breast self-awareness important? Many experts now say that women should focus on breast self-awareness instead of doing a breast self-examination (BSE). These experts include the [employer] and the [place]. Some experts even advise not teaching women to do a BSE. Thats because research hasnt shown a clear benefit to doing BSEs. Breast self-awareness is different than a BSE. It isnt about following a certain method and schedule. Its about knowing what's normal for your breasts. That way you can spot even small changes right away. If you see any changes, tell your healthcare provider. Changes to look for Call your healthcare provider if you find any changes in your breasts that worry you. These changes may be: A lump Nipple discharge other than breast milk, especially if it's bloody Swelling A change in size or shape Skin changes, such as redness, thickening, or dimpling of the skin Swollen lymph nodes in the armpit Nipple problems, such as pain or redness If you find a lump Call your provider if you find lumpiness in one breast. Also call if you feel something different inthe tissue or feel a definite lump. Sometimes lumpiness may be due to menstrual changes. But there may be reason for concern. Your provider may want to see you right away if you have: Nipple discharge that is bloody Skin changes on your breast, such as dimpling or puckering Its okay to be upset if you find a lump. Be sure to call your provider right away. Remember that most breast lumps are benign. This means they are not cancer. [employer] last reviewed this educational content on 06/15/201919998877-0763 The [employer]. All rights reserved. This information is not intended as a substitute for professional medical care. Always follow your healthcare professional's instructions. Patient Education Prevention Guidelines,Women Ages 18 to 39 Screening tests and vaccines are an important part of managing your health. A screening test is doneto find possible disorders or diseases in people who don't have any symptoms. The goal is to find a disease early so lifestyle changes can be made and you can be watched more closely to reduce the riskof disease, or to detect it early enough to treat it most effectively. Screening tests are not considered diagnostic, but are used to determine if more testing is needed. Health counseling is essential, too. Below are guidelines for these, for women ages 18 to 39. Talk with your healthcare provider tomake sure youre up-to-date on what you need. Screening Who needs it How often Alcohol misuse All women in this age group At routine exams Blood pressure All women in this age group Yearly checkup if your blood pressure is normal Normal blood pressure is less than 120/80 mm Hg If your blood pressure reading is higher than normal, follow the advice of your healthcare provider Breast cancer All women in this age group should talk with their healthcare providers about the needfor clinical breast exams (CBE)1 Clinical breast exam every 3 years1 Cervical cancer Women ages 21 and older Women between ages 21 and 29 should have a Pap test every 3years; women between ages 30 and 65 are advised to have a Pap test plus an HPV test every 5 years Chlamydia Sexually active women ages 24 and younger, and women at increased risk for infection Every 3 years if you're at risk or have symptoms Depression All women in this age group At routine exams Diabetes mellitus, type 2 Adults with no symptoms who are overweight or obese and have 1 or more other risk factors for diabetes At least every 3 years. Also, testing for diabetes during after the 24th week. Gonorrhea Sexually active women at increased risk for infection At routine exams Hepatitis C Anyone at increased risk At routine exams HIV All women At routine exams3 Obesity All women in this age group At routine exams Syphilis Women at increased risk for infection should talk with their healthcare provider At routine exams Tuberculosis Women at increased risk for infection should talk with their healthcare provider Ask your healthcare provider Vision All women in this age group At least 1 complete exam in your 20s, and 2 in your 30s Vaccine Who needs it How often Chickenpox (varicella) All women in this age group who have no record of this infection or vaccine2 doses; the second dose should be given 4 to 8 weeks after the first dose Hepatitis A Women at increased risk for infection should talk with their healthcare provider 2 doses given at least 6 months apart Hepatitis B Women at increased risk for infection should talk with their healthcare provider 3 doses over 6 months; second dose should be given 1 month after the first dose; the third dose should be given at least 2 months after the second dose and at least 4 months after the first dose Haemophilus influenzae Type B (HIB) Women at increased risk for infection should talk with their healthcare provider 1 to 3 doses Human papillomavirus (HPV) All women in this age group up to age 26 3 doses; the second dose should be given 1 to 2 months after the first dose and the third dose given 6 months after the first dose Influenza (flu) All women in this age group Once a year Measles, mumps, rubella (MMR) All women in this age group who have no record of these infections orvaccines 1 or 2 doses Meningococcal Women at increased risk for infection should talk with their healthcare provider 1 ormore doses Pneumococcal conjugate vaccine (PCV13)and pneumococcal polysaccharidevaccine(PPSV23) Women atincreased risk for infection should talk with their healthcare provider PCV13: 1 dose ages 19 to 65(protects against 13 types of pneumococcal bacteria) PPSV23: 1 to2 doses through age 64, or 1 dose at 65 or older (protects against 23 types of pneumococcal bacteria) Tetanus/diphtheria/pertussis (Td/Tdap) booster All women in this age group Td every 10 years, or a one-time dose of Tdap instead of a Td booster after age 18, then Td every 10 years Counseling Who needs it How often BRCA gene mutation testing for breast and ovarian cancer susceptibility Women with increased risk for having gene mutation When your risk is known Breast cancer and chemoprevention Women at high risk for breast cancer When your risk is known Diet and exercise Women who are overweight or obese When diagnosed, and then at routine exams Domestic violence Women at the age in which they are able to have children At routine exams Sexually transmitted infection prevention Women who are sexually active At routine exams Skin cancer Prevention of skin cancer in fair-skinned adults At routine exams Use of tobacco and the health effects it can cause All women in this age group Every visit 1 According to the ACS, women ages 20 to 39 years should have a clinical breast exam (CBE) as part of their routine health exam every 3 years. Breast self-exams are an option for women starting in their 20s.But the U.S. Preventive Services Task Force (USPSTF) does not recommend CBE. 2 Those who are 18 years old and not up-to-date on their childhood vaccines should get all appropriate catch-up vaccines recommended by the CDC. 3 The USPSTF recommends that all people ages 15 to 65 years be screened for HIV and those younger orolder people at increased risk. The CDC recommends that everyone between the ages of 13 and 64 get tested for HIV at least once as part of routine health care. [employer] last reviewed this educational content on 11/14/201619997919-7952 The [employer], [employer]. All rights reserved. This information is not intended as a substitute for professional medical care. Always follow your healthcare professional's instructions. Patient Education Understanding STIs When it comes to sex, nothing is risk-free. Any sexual contact with the penis, vagina, anus, or mouth can spread a sexually transmitted infection (STI). These include chlamydia, gonorrhea, herpes, HIV,and genital warts. STIs are also known as sexually transmitted diseases (STDs). The only sure way toprevent STIs is not having sex (abstinence). But there are ways to make sex safer. Use a latex condom each time you have sex. And choose your partner wisely. Use condoms for safer sex If you have sex, latex condoms provide the best protection against STIs. Latex condoms stop the exchange of body fluids that carry certain STIs. They also limit contact with affected skin. Be aware that a condom doesnt cover all skin. So affected skin that isn't covered can still transfer disease. But youre safer with a condom than without one. Use a condom even if you use other control. control methods such as the pill or IUD help prevent , but they don't protect against STIs. Choose the right condom Condoms made of latex prevent disease best. If youre allergic to latex, use polyurethane condoms instead. Male condoms fit over the penis. Female condoms line the vagina. Before buying a condom, read the label to be sure it prevents disease. Some novelty condoms dont. The right lubricant helps Buy lubricated condoms or use lubricant. This provides greater comfort and reduces the risk for condom breakage. Use only water-based lubricants. Dont use oil, lotion, or petroleum jelly. They can weaken the condom, causing breakage. Also, you may want to choose lubricants without nonoxynol-9. This spermicide may cause irritation. It can raise the risk for certain STIs. Use condoms correctly For condoms to work, they must be used the right way. Keep these tips in mind: Use a new latex condom each time you have sex. Slip the condom on the penis before any contact ismade. When ready to withdraw, hold the rim of the condom as the penis pulls out. This prevents the condom from slipping off. Check the expiration date before using a condom. Dont store condoms in places that can get hot, such as a car or a wallet that is carried in a back pocket. Get to know your partner Safer sex is a process. It involves getting to know your partner and making informed choices. Ask each other how many partners you have had in the past, and how many you have now. Find out if either ofyou has HIV or any other STI. If you decide to have sex, use a condom each time. Dont stop using condoms unless youre sure neither of you has other partners and youve both been tested to confirm you dont have HIV or other STIs. Then stay free of disease by having sex only with each other (monogamy). Keep your cool Dont let alcohol or drugs cloud your judgment. They could lead you to have sex with someone you wouldnt have chosen if you were sober. Or you might forget to use a condom. If you do plan to have sex, keep a latex condom with you. Dont wait until youre in the heat of passion to try to find one. Consider abstinence The only way to be sure you wont get an STI is to abstain from sex. Abstinence is a choice that many people make at some point in their life. Maybe you want to wait until you are sure youre readybefore you have sex. Maybe youd like a break from the responsibilities of sex for a while. Or maybe you just want to know your partner better before taking the next step. Abstinence is a choice you can make now to protect your future. [employer] last reviewed this educational content on 01/14/201819998937-9323 The [employer]. [address] [place] [address], [place] [address]. All rights reserved. This information is not intended as a substitute for professional medical care. Always follow your healthcare professional's instructions. Patient Education Understanding HIV and AIDS It's important to know how HIV can get into your body and what happens once its there. Then youll be better prepared to protect yourself or others against this virus. A person with HIV can look and feel perfectly healthy. But that person can give HIV to others as soon as he or she is infected with the virus. Having unsafe or unprotected sex or sharing needles puts you at risk for HIV. Talk with your healthcare provider about ways to protect yourself or a loved one from getting HIV. How HIV infection progresses After HIV enters the body, it attacks the immune system in the stages below. A person with HIV can infect others once the virus gets into the blood. HIV with no symptoms. A person with HIV may have no symptoms for years. The only sign of infection may be a positive blood test for HIV 2 weeks to 3 months or later after HIV enters the body. HIV with symptoms. Some people develop an illness similar to mono (mononucleosis) 2 to 4 weeks after the virus enters the body. This is called acute retroviral syndrome. Symptoms may include swollen lymph glands, chills, fever, night sweats, weakness, weight loss, skin rashes, mouth ulcers, or sore t hroat. Symptoms may be mild or the person can feel quite sick. Even without treatment the symptoms almost always go away in a few days or up to 2 to 3 weeks. Then the person has no symptoms, often for years. But over time the immune system starts to get weaker and symptoms start appearing. People at this stage may have a yeast infection in the mouth (oral thrush), shingles, skin problems, pneumonia, diarrhea that keeps coming back, or weight loss. AIDS. AIDS is the most advanced stage of HIV infection, when the immune system is severely weakened.Certain rare diseases and cancers that normally would not occur, now can occur because the body can no longer fight them well enough. It is often these diseases that cause in people with AIDS. HIV may also directly attack the brain and nervous system. This causes seizures and loss of memory and body movement. It also affects many other parts of the body. This leads to problems such as anemia, low white blood cell count, diarrhea, belly pain, skin problems, and many others. How HIV enters the body HIV is carried in semen, vaginal fluid, blood, and breastmilk. During sex, HIV can enter the body. It gets in through the fragile tissue and linings, sores, or cuts in or around the vagina, penis, anus, and mouth. During drug use, tattooing, or body piercing, the virus can enter the blood through an infected needle. A mother who has HIV can infect her child during , childbirth, and . [employer]Line last reviewed this educational content on 07/15/201819992526-4118 The [employer]. [address] [place] [address]. All rights reserved. This information is not intended as a substitute for professional medical care. Always follow your healthcare professional's instructions. Patient Education Eating Heart-Healthy Foods Eating has a big impact on your heart health. In fact, eating healthier can improve several of your heart risks at once. For instance, it helps you manage weight, cholesterol, and blood pressure. Here are ideas to help you make heart- healthy changes without giving up allthe foods and flavors you love. Getting started Talk with your healthcare provider about eating plans, such as the DASH or Mediterranean diet. You may also be referred to a dietitian. Change a few things at a time. Give yourself time to get used to a few eating changes before adding more. Work to create a tasty, healthy eating plan that you can stick to for the rest of your life. Goals for healthy eating Below are some tips to improve your eating habits: Limit saturated fats and trans fats. Saturated fats raise your levels of cholesterol, so keep these fats to a minimum. They are found in foods such as fatty meats, whole milk, cheese, and palm and coconut oils. Avoid trans fats because they lower good cholesterol as well as raise bad cholesterol. Trans fats are most often found in processed foods, such as pastries, cookies, pies, muffins, fried foods, stick margarines, and shortening. Reduce how much sodium (salt) you have. Eating too much salt may increase your blood pressure. Limit your sodium intake to 2,300 milligrams (mg) per day(the amount in 1 teaspoon of salt), or less if your healthcare provider recommends it. Dining out less often and eating fewer processed foods aretwo great ways to decrease the amount of salt you consume. At home, flavor your foods with other spices and herbs instead of salt. Managing calories. A calorie is a unit of energy. Your body shaw calories for fuel, but if you eat more calories than your body shaw, the extras are stored as fat. Your healthcare provider can help you create a diet plan to manage your calories. This will likely include eating healthier foods andgetting regular exercise. To help you track your progress, keep a diary to record what you eat and how often you exercise. Choose the right foods Aim to make these foods peace of your diet. If you have diabetes, you may have different recommendations than what is listed here: Fruits and vegetables provide plenty of nutrients without a lot of calories. At meals, fill half your plate with these foods. Choose between fresh, frozen, canned, or dried without added sauces, salt, or sugars. Split the other half of your plate between whole grains and lean protein. Whole grains are high in fiber and rich in vitamins and nutrients. Good choices include whole wheat bread, pasta, oats, and brown rice. Make at least half of your grains whole grains. Lean proteins give you nutrition with less fat. Good choices include fish, skinless chicken and turkey, and beans. Draining the fat from cooked ground meat is another way to reduce the amount of fatyou eat. Low-fat and nonfat dairy provide nutrients without a lot of fat. Try low-fat or nonfat milk, cheese, or yogurt. Healthy fats can be good for you in small amounts. These are unsaturated fats, such as olive oil,nuts, and fish. Try to have at least 2 servings per week of fatty fish, such as salmon, sardines, mackerel, rainbow trout, and albacore tuna. These contain omega-3 fatty acids, which are good for your heart. Flaxseed and walnuts are other sources of heart-healthy fats. More on heart-healthy eating Read food labels Healthy eating starts at the grocery store. Be sure to pay attention to food labels on packaged foods. Look for products that are high in fiber and protein, and low in saturated fat, added sugars, and sodium. Avoid products that contain trans fat. And pay close attention to serving size. For instance,if you plan to eat two servings, double all the numbers on the label. Prepare food right A schreiber part of healthy cooking is cutting down on added fat, sugar and salt. Look on the internet forlower-fat, lower-sodium recipes without a lot of added sugars. Also try these tips: Remove fat from meat and skin from poultry before cooking. Skim fat from the surface of soups and sauces. Broil, roast, boil, bake, steam, grill, or microwave food without added fats. Choose ingredients that spice up your food without adding calories, fat, sugar, or sodium. Try these items: horseradish, hot sauce, lemon, mustard, nonfat salad dressings, and vinegar. Small amountsof olive oil-based vinaigrettes are OK, too. For salt-free herbs and spices, try basil, cilantro, cinnamon, cumin, paprika, pepper, and esme. [employer] last reviewed this educational content on 08/15/201919990367-6888 The [employer]. All rights reserved. This information is not intended as a substitute for professional medical care. Always follow your healthcare professional's instructions. Patient Education Understanding USDA MyPlate The USDA has guidelines to help you make healthy food choices. These are called MyPlate. MyPlate shows the food groups that make up healthy meals using the image of a place setting. Before you eat, think about the healthiest choices for what to put on your plate or in your cup or bowl. To learn more about building a healthy plate, visit www.choosemyplate.gov. The food groups Fruits. Any fruit or 100% fruit juice counts as part of the Fruit Group. Fruits may be fresh, canned, frozen, or dried, and may be whole, cut-up, or pureed. Make 1/2 of your plate fruits and vegetables. Vegetables. Any vegetable or 100% vegetable juice counts as a member of the Vegetable Group. Vegetables may be fresh, frozen, canned, or dried. They can be served raw or cooked and may be whole, cut-up, or mashed. Make 1/2 of your plate fruits and vegetables. Grains. All foods made from grains are part of the Grains Group. These include wheat, rice, oats,cornmeal, and barley. Grains are often used to make foods such as bread, pasta, oatmeal, cereal, tortillas, and grits. Grains should be no more than 1/4 of your plate. At least half of your grains should be whole grains. Protein. This group includes meat, poultry, seafood, beans and peas, eggs, processed soy products(such as tofu), nuts (including nut butters), and seeds. Make protein choices no more than 1/4 of your plate. Meat and poultry choices should be lean or low fat. Dairy. The Dairy Group includes all fluid milk products and foods made from milk that contain calcium, such as yogurt and cheese. (Foods that have little calcium, such as cream, butter, and cream cheese, are not part of this group.) Most dairy choices should be low-fat or fat-free. Oils. Oils aren't a food group, but they do contain essential nutrients. However it's important to watch your intake of oils. These are fats that are liquid at room temperature. They include canola,corn, olive, soybean, vegetable, and sunflower oil. Foods that are mainly oil include mayonnaise, certain salad dressings, and soft margarines. You likely already get your daily oil allowance from the foods you eat. Things to limit Eating healthy also means limiting these things in your diet: Salt (sodium). Many processed foods have a lot of sodium. To keep sodium intake down, eat fresh vegetables, meats, poultry, and seafood when possible. Purchase low-sodium, reduced-sodium, or [id number] food products at the store. And don't add salt to your meals at home. Instead, season them with herbs and spices such as dill, oregano, cumin, and paprika. Or try adding flavor with lemon or limezest and juice. Saturated fat. Saturated fats are most often found in animal products such as beef, pork, and chicken. They are often solid at room temperature, such as butter. To reduce your saturated fat intake, choose leaner cuts of meat and poultry. And try healthier cooking methods such as grilling, broiling,roasting, or baking. For a simple lower-fat swap, use plain nonfat yogurt instead of mayonnaise whenmaking potato salad or macaroni salad. Added sugars. These are sugars added to foods. They are in foods such as ice cream, candy, soda, fruit drinks, sports drinks, energy drinks, cookies, pastries, jams, and syrups. Cut down on added sugars by sharing sweet treats with a family member or friend. You can also choose fruit for dessert, and drink water or other unsweetened beverages. Stra[employer]Line last reviewed this educational content on 07/16/201919999128-0361 The [employer]. All rights reserved. This information is not intended as a substitute for professional medical care. Always follow your healthcare professional's instructions. documented in this encounter Progress Notes Faith Davalos, CNP - 12/07/2019 3:15 PM CDT Chief complaint: Chief Complaint Patient presents with Well Woman Exam HPI: the patient is here today for WWE and contraceptive management. She reports she is doing well for the most part and denies any issues or concerns. She desires STI testing today but declines the need for HIV testing today. She reports nexplanon for control but desires removal due to mood swings and weight gain. Pt (denies) current or past physical, sexual or emotional abuse. Histories OB History Para Term AB Living 1 1 SAB TAB Ectopic Multiple Live Births 1 # Outcome Date GA Lbr Matt/2nd Weight Sex Delivery Anes PTL Lv 1 SAB Past Medical History: Diagnosis Date Anxiety resolved [...] MGFa Alive PGMo PGFa NoFHx (Not Specified) History reviewed. No pertinent surgical history. Social History Socioeconomic History Marital status: Single Spouse name: Not on file Number of children: Not on file Years of education: Not on file Highest education level: Not on file Occupational History Not on file Social Needs Financial resource strain: Not on file Food insecurity Worry: Not on file Inability: Not on file Transportation needs Medical: Not on file Non-medical: Not on file Tobacco Use Smoking status: Current Every Day Smoker Packs/day: 0.20 Years: 4.00 Pack years: 0.80 Types: Cigarettes Start date: 01/10/2015 Smokeless tobacco: Never Used Tobacco comment: Smokes 5 ciggs a day Substance and Sexual Activity Alcohol use: Yes Comment: occasional Drug use: No Sexual activity: Yes Partners: Male control/protection: Implant Comment: last sexual intercourse: 12/06/2019 Lifestyle Physical activity Days per week: Not on file Minutes per session: Not on file Stress: Not on file Relationships Social connections Talks on phone: Not on file Gets together: Not on file Attends sikhism service: Not on file Active member of club or organization: Not on file Attends meetings of clubs or organizations: Not on file Relationship status: Not on file Intimate partner violence Fear of current or ex partner: Not on file Emotionally abused: Not on file Physically abused: Not on file Forced sexual activity: Not on file Other Topics Concern Not on file Social History Narrative Jainism preference none. Patient lives with grandmother. Social History Substance and Sexual Activity Sexual Activity Yes Partners: Male control/protection: Implant Comment: last sexual intercourse: 12/06/2019 Labs No new labs, Labs are pending. and Admission on 11/12/2019, Discharged on 11/13/2019 Component Date Value BENZO U 11/12/2019 Negative BRIAN U 11/12/2019 Negative AMPHET 11/12/2019 Negative THC 11/12/2019 Negative METHADONE 11/12/2019 Negative Meth U 11/12/2019 Negative OPIATES 11/12/2019 Negative Cocaine Metabolite 11/12/2019 Negative PROPOXY 11/12/2019 Negative Tric U 11/12/2019 Negative PCP 11/12/2019 Negative OXYCOD 11/12/2019 Negative ACETAMINOP 11/12/2019 <10.0* NA 11/12/2019 144 K 11/12/2019 4.3 CL 11/12/2019 108 CO2 TOTAL 11/12/2019 27 AGAP 11/12/2019 9 BUN 11/12/2019 9 GLUCOSE 11/12/2019 108 CREATININE 11/12/2019 0.84 TOTAL BILI 11/12/2019 0.3 CALCIUM 11/12/2019 9.5 T PROTEIN 11/12/2019 7.4 ALBUMIN 11/12/2019 4.3 ALK PHOS 11/12/2019 57 ALTv 11/12/2019 22 AST(SGOT) 11/12/2019 31 eGFR Calculation (Non-Af* 11/12/2019 86.4 eGFR Calculation (Lenora* 11/12/2019 104.8 ALCOHOL 11/12/2019 268 POCT PREG 11/12/2019 Negative On board controls accept* 11/12/2019 present POCT PREG LOT # 11/12/2019 [id number] POCT PREG TEST DA* 11/12/2019 10/14/2020 SALICYLATE 11/12/2019 <10 APPEARANCE 11/12/2019 Clear COLOR 11/12/2019 Colorless* PH 11/12/2019 6.0 SP GRAVITY 11/12/2019 1.003 GLU U QUAL 11/12/2019 Normal BLOOD 11/12/2019 1+* KETONES 11/12/2019 Negative PROTEIN 11/12/2019 Negative UROBILIN 11/12/2019 Normal BILIRUBIN 11/12/2019 Negative NITRITE 11/12/2019 Negative LEUK DARREL 11/12/2019 Negative RBC/HPF 11/12/2019 <1 WBC/HPF 11/12/2019 <1 BACTERIA 11/12/2019 Few* SQ EPITH 11/12/2019 1 SARS-CoV-2 Rapid ID NOW 11/12/2019 Not Detected WBC 11/12/2019 6.96 RBC 11/12/2019 4.81 HGB 11/12/2019 14.7 HCT 11/12/2019 44.1 MCH 11/12/2019 30.6 MCV 11/12/2019 91.7 MCHC 11/12/2019 33.3 PLT 11/12/2019 251 MPV 11/12/2019 9.7 RDW-CV 11/12/2019 14.1 RDW-SD 11/12/2019 48.2 NRBC x10^3 11/12/2019 <0.01 NRBC/100 WBC 11/12/2019 0.0 PH 11/12/2019 7.36 PCO2 HERNANDEZ 11/12/2019 46 PO2 HERNANDEZ 11/12/2019 36 HCO3 HERNANDEZ 11/12/2019 25 AC VBE(BEAKER) 11/12/2019 -0.6 THB HERNANDEZ 11/12/2019 15.2 %O2HB HERNANDEZ 11/12/2019 65.3* %COHB HERNANDEZ 11/12/2019 1.4 %METHB HERNANDEZ 11/12/2019 0.3* VOL%O2 HERNANDEZ 11/12/2019 13.9* NA 11/12/2019 143 K+ 11/12/2019 4.1 AC CA IONZ 11/12/2019 5.70* GLUCOSE 11/12/2019 289* LACTIC ACID 11/12/2019 1.90 POCT GLU 11/12/2019 184* MRSA Screen by PCR, Nares 11/12/2019 Negative MSSA Screen by PCR, Nares 11/12/2019 Negative MRSA/MSSA Positive? 11/12/2019 No POCT GLU 11/12/2019 57* POCT GLU 11/12/2019 115* NA 11/12/2019 140 K 11/12/2019 4.7 CL 11/12/2019 107 CO2 TOTAL 11/12/2019 21* AGAP 11/12/2019 12 BUN 11/12/2019 10 GLUCOSE 11/12/2019 116* CREATININE 11/12/2019 0.72 CALCIUM 11/12/2019 8.9 eGFR Calculation (Non-Af* 11/12/2019 103.3 eGFR Calculation (Lenora* 11/12/2019 125.2 NA 11/12/2019 144 K 11/12/2019 4.4 CL 11/12/2019 111* CO2 TOTAL 11/12/2019 23 AGAP 11/12/2019 10 BUN 11/12/2019 9 GLUCOSE 11/12/2019 117* CREATININE 11/12/2019 0.74 CALCIUM 11/12/2019 9.5 eGFR Calculation (Non-Af* 11/12/2019 100.1 eGFR Calculation (Lenora* 11/12/2019 121.3 NA 11/12/2019 140 K 11/12/2019 4.4 CL 11/12/2019 106 CO2 TOTAL 11/12/2019 23 AGAP 11/12/2019 11 BUN 11/12/2019 12 GLUCOSE 11/12/2019 117* CREATININE 11/12/2019 0.70 CALCIUM 11/12/2019 8.7 eGFR Calculation (Non-Af* 11/12/2019 106.7 eGFR Calculation (Lenora* 11/12/2019 129.3 POCT GLU 11/12/2019 107 POCT GLU 11/12/2019 84 NA 11/12/2019 139 K 11/12/2019 3.9 CL 11/12/2019 106 CO2 TOTAL 11/12/2019 24 AGAP 11/12/2019 9 BUN 11/12/2019 10 GLUCOSE 11/12/2019 374* CREATININE 11/12/2019 0.60 CALCIUM 11/12/2019 8.3* eGFR Calculation (Non-Af* 11/12/2019 127.5 eGFR Calculation (Lenora* 11/12/2019 154.5 POCT GLU 11/12/2019 114* POCT GLU 11/12/2019 156* POCT GLU 11/12/2019 103 NA 11/13/2019 135 K 11/13/2019 3.6 CL 11/13/2019 104 CO2 TOTAL 11/13/2019 25 AGAP 11/13/2019 6 BUN 11/13/2019 9 GLUCOSE 11/13/2019 90 CREATININE 11/13/2019 0.66 CALCIUM 11/13/2019 8.3* eGFR Calculation (Non-Af* 11/13/2019 114.2 eGFR Calculation (Lenora* 11/13/2019 138.4 POCT GLU 11/12/2019 68* POCT GLU 11/12/2019 209* POCT GLU 11/12/2019 68* POCT GLU 11/13/2019 59* POCT GLU 11/13/2019 151* POCT GLU 11/13/2019 121* POCT GLU 11/13/2019 100 POCT GLU 11/13/2019 90 POCT GLU 11/13/2019 87 POCT GLU 11/13/2019 127* POCT GLU 11/13/2019 104 Radiology No new radiology. Allergies [place] has No Known Allergies. Medications [place] currently has no medications in their medication list. Review of Systems Constitutional: Negative. HENT: Negative. Eyes: Negative. Respiratory: Negative. Breasts: Negative. Cardiovascular: Negative. Gastrointestinal: Negative. Genitourinary: Negative. Musculoskeletal: Negative. Skin: Negative. Neurological: Negative. Psychiatric/Behavioral: Negative. Endocrine: Endocrine negative BP 121/72 (BP Location: Right arm, Patient Position: Sitting, BP CUFF SIZE: Adult Medium) | Pulse 73 | Temp 36.4 C (97.6 F) (Oral) | Resp 16 | Ht 5' 10" (1.778 m) | Wt 192 lb 3 oz (87.2 kg) |LMP 12/06/2019 (Approximate) | BMI 27.58 kg/m Pregravid BMI: Could not be calculated Physical Exam Vitals reviewed. Constitutional: She is oriented to person, place, and time. She appears well- developed and well-nourished. Her body habitus is normal. Cardiovascular: Regular rate and rhythm. No peripheral edema present. Pulmonary/Chest: Normal inspiratory effort. Neuro/Psychiatric: She has a normal mood and affect. She is oriented to person, place, and time. Skin: Skin normal. No lesion, no rash and no ulceration present. Assessment/Plan Return to clinic in 1 weeks. for nexplanon removal Return to clinic in 1 year for WWE or sooner as needed Rubella/VZV: immune/ health dept BMI: 27 Td: pending health dept Pap Smear: na Gardasil: reports completed, Mammogram/Guaiac/Colonoscopy:na Other general counseling and advice for contraceptive management (primary encounter diagnosis) Nexplanon in place Comment: desires removal Plan: return in 1 week Screen for STD (sexually transmitted disease) Comment: as ordered Plan: GC & CHLAMYDIA AMPLIFIED ASSAY Well woman exam Comment: routine Plan: return in 1 year Over weight Comment: see bmi Plan: BMI discussed, appropriate weight gain, sensible diet, and exercise, increased fiber and waterintake and protein low in fat. Encouraged exercise for 30 min everyday; begin regimen with caution to prevent injury. Encouraged to decrease BMI to <25. Educated on how obesity and smoking can affect future and health. Educated on the effects of chronic health problems, tobacco use, and mental health on future pregnancies and/or senior care health. This visit did not involve counseling and coordination that comprised more than 50% of the visit time. JONN Ly 12/07/2019 4:04 PM Ann Marie Osborne RN - 12/07/2019 3:15 PM CDT19 year old presents to the clinic for wwe. 1) Previous BCM: Nexplanon 2) Desired BCM: None 3) LMP: 11/15/2019 4) Last Iantha: 12/06/2019 5) Last Pap: Never Results: N/A 6) Tdap: N/A 7) Gardasil: Declines 8) C/O: Patient having irregular cycle with depo, requesting nexplanon removal 9) Patient denies history of physical, emotional, or sexual abuse. Patient states that she currently feels safe at home. ANN MARIE OSBORNE RN 12/07/2019 3:21 PM documented in this encounter Plan of Treatment Date Type Specialty Care Team Description 12/14/2019 Office Visit [facility] Dragan Davalos, [facility] [address] [address] [phone] Name Type Priority Associated Diagnoses Order S chedule GC & CHLAMYDIA AMPLIFIED LAB Routine Screen for STD ( sexually Ordered: 12/07/2019 ASSAY transmitted disease) Health Maintenance Due Date Last Done Comments HPV VACCINES (1 - 2-dose 02/06/2020 Postpon ed from series) 06/07/2010 (Refu sed) CHLAMYDIA SCREENING 03/08/2020 03/08/2019, 11/30/2018, 09/11/2018, Additional history exists INFLUENZA VACCINE (#1) 2020 Postponed from 10/16/2019 (Refu sed) DTaP,Tdap,and Td Vaccines 12/06/2020 Postpo dirk from (1 - Tdap) 06/07/2018 (Alternative Guidelines) Depression Screening 12/06/2020 12/07/2019 MENINGOCOCCAL B VACCINES (1 12/06/2020 Post poned from of 2 - Risk Bexsero 2-dose 06/07 series) (Alternative Guidelines) VARICELLA VACCINES (1 of 2 12/06/2020 Postp oned from - 2-dose childhood series) 06/07 (Alternative Guidelines) WELL CARE VISIT: 12-12/06/2020 12/07/2019 YEARS (yearly) MENINGOCOCCAL VACCINE Aged Out No longer eligible based on patient 's age to complete this topic PNEUMOCOCCAL 0-64 YEARS Discontinued COMBINED SERIES documented as of this encounter Implants Implanted Type Area Bilingual Operator Device Shelf Model / Identifier Expiration Serial / Date Lot Control-09/13/2018 Left: Implanted: 09/13/2018 (Quantity not on file) Control Arm documented as of this encounter Results Not on filedocumented in this encounter Visit Diagnoses Diagnosis Other general counseling and advice for contraceptive management - Primary Nexplanon in place Presence of subdermal contraceptive haily ce Screen for STD (sexually transmitted dis ease) Screening examination for venereal disea se Well woman exam Routine general medical examination at a health care facility documented in this encounter Insurance Payer Benefit Plan Subscriber ID Effective Dates Phone Address Type / Group BCBS OF [facility] [id number] 2019-[employer] [phone] [address] PPO/POS [address] [id number] [place] [address] (Home) [place] [address] documented as of this encounter Advance Directives Name Relationship Healthcare Agent Relationship Co mmunication Nimco Rene Grandparent Health Care Agent
--- OUTSIDE RECORDS SUMMARY | 2020-02-23 04:33 | XMS REPORT | Summary of Care ---
:2000 Author Organization [facility] Address [address] [place] [address] Care Team Providers Name Role Phone Fei Can WAGON WINDER Primary Care Provider Madhuri Ervin Insurance Hmo Reason for Visit Reason Comments NEXPLANON Removal Encounter Details Date Type Department Care Team Description 01/30/2020 Office Visit [facility]- Faith Davalos Oth er general counseling and advice for contraceptive management (Primary Dx); JONN Coronado Nexplanon removal [address] [facility] [address] [place], [place] [phone] Allergies No Known Allergiesdocumented as of this encounter (statuses as of 01/30/2020) Medications No known medicationsdocumented as of this encounter (statuses as of 01/30/2020) Active Problems Problem Noted Date Nexplanon removal 01/30/2020 Well woman exam 12/07/2019 Other general counseling and advice for contraceptive management 12/07/2019 Drug overdose 11/12/2019 Dysuria 11/30/2018 Intoxication by drug 10/18/2018 Screening examination for venereal disease 09/11/[address] 07/18/2018 Overview: Inserted 06/04/19 Gonorrhea 07/18/2018 Chlamydia 06/29/2018 Trichomoniasis 06/28/2018 Maternal varicella, non-immune 01/11/2018 Overview: Varivax pp History of trauma 01/10/2018 History of depression 01/10/2018 History of anxiety disorder 01/10/2018 Influenza vaccination declined 01/10/2018 documented as of this encounter (statuses as of 01/30/2020) Resolved Problems Problem Noted Date Resolved Date Trichomonosis 06/28/2018 06/28/2018 History of bipolar disorder 01/10/2018 01/10/2018 documented as of this encounter (statuses as of 01/30/2020) Social History Tobacco Use Types Packs/Day Years Used Date Current Every Day Smoker Cigarettes 0.2 4 Sta rted: 01/10/2015 Smokeless Tobacco: Never Used Comments: Smokes 5 ciggs a day Alcohol Use Drinks/Week oz/Week Comments Yes occasional Sex Assigned at Date Recorded Not on file COVID-19 Exposure Response Date Recorded In the last month, have you been in contact with No / Unsure 01/30/2020 3:42 PM FIREMAN someone who was confirmed or suspected to have Coronavirus / COVID-19? documented as of this encounter Last Filed Vital Signs Vital Sign Reading Time Taken Comments Blood Pressure 115/81 01/30/2020 4:08 PM FIREMAN Pulse 74 01/30/2020 4:08 PM FIREMAN Temperature 36.6 C (97.8 F) 01/30/2020 4:08 PM FIREMAN Respiratory Rate 16 01/30/2020 4:08 PM FIREMAN Oxygen Saturation - - Inhaled Oxygen Concentration - - Weight 90.3 kg (199 lb) 01/30/2020 4:08 PM FIREMAN Height 177.8 cm (5' 10") 01/30/2020 4:08 PM FIREMAN Body Mass Index 28.55 01/30/2020 4:08 PM FIREMAN documented in this encounter Progress Notes Faith Davalos, [facility] - 01/30/2020 3:45 PM CSTNexplanon REMOVAL PROCEDURE NOTE Preoperative Diagnoses: desires removal due to desire for . The risks, benefits and alternatives were discussed. The patient voiced her understanding. She wished to proceed and an informed consent was obtained. Patient has been identified by name and and will be undergoing Nexplanon removal. Patient is right handed. Patient, procedure and site have been confirmed by the following clinicians: Lou Davalos DNP and Amarilis Vogt RN . Timeout performed by JONN Ly at 1620. Procedure: The patient is placed on the exam table in a supine position. The implant was palpated onthe inner aspect of the left arm. The Nexplanon implant site is prepped with alcohol. Local area is injected subcutaneously with 2 cc of lidocaine 1% without epinephrine along the planned incision site. A small incision is made with a sterile scalpel. Straight hemostat is used to access the implant through the incision site. The implant is secured with the hemostat and carefully removed through the incision. There is minimal bleeding from the incision site. Sterile gauze and a pressure dressing isplaced over the removal site. The patient tolerated the procedure well and there were no complications. Post-procedure instructions given. Patient verbalized understanding. Findings/Assessment Nexplanon removed successfully, patient tolerated procedure well Plan Return to clinic in 10 months for WWE or sooner as needed documented in this encounter Plan of Treatment Health Maintenance Due Date Last Done Comments HPV VACCINES (1 - 2-dose 02/06/2020 Postpon ed from series) 06/07/2010 (Refu sed) INFLUENZA VACCINE (#1) 2020 Postponed from 10/16/2019 (Refu sed) CHLAMYDIA SCREENING 12/06/2020 12/07/2019, 03/08/2019, 11/30/2018, Additional history exists DTaP,Tdap,and Td Vaccines 12/06/2020 Postpo dirk from [...] of this encounter Implants Implanted Type Area Traffic Attendant Device Shelf Model / Identifier Expiration Serial / Date Lot Control-09/13/2018 Left: Implanted: 09/13/2018 (Quantity not on file) Control Arm documented as of this encounter Results Not on filedocumented in this encounter Visit Diagnoses Diagnosis Other general counseling and advice for contraceptive management - Primary Nexplanon removal Surveillance of previously prescribed im plantable subdermal contraceptive documented in this encounter Insurance Payer Benefit Plan Subscriber ID Effective Dates Phone Address Type / Group BCBS OF [facility] [id number] 2019-[facility] [phone] [address] PPO/POS [address] [id number] [place] [address] (Home) [place] [address] documented as of this encounter Advance Directives Name Relationship Healthcare Agent Relationship Co mmunication Nimco Rene Grandparent Health Care Agent
--- OUTSIDE RECORDS SUMMARY | 2020-02-23 04:33 | XMS REPORT | Summary of Care ---
:2000 Author Organization [facility] - Health Address [address] [place] [address] Care Team Providers Name Role Phone Fei Can KNIFE SETTER Primary Care Provider Madhuri Ervin Insurance Hmo Encounter Details Date Type Department Care Team Description 01/30/2020 Orders Only [facility] Doctor Unassigned, No [address] [facility] Name [phone] [place] [address] Allergies No Known Allergiesdocumented as of this encounter (statuses as of 02/11/2020) Medications No known medicationsdocumented as of this encounter (statuses as of 02/11/2020) Active Problems Problem Noted Date Nexplanon removal [...] as of this encounter (statuses as of 02/11/2020) Resolved Problems Problem Noted Date Resolved Date Trichomonosis 06/28/2018 06/28/2018 History of bipolar disorder 01/10/2018 01/10/2018 documented as of this encounter (statuses as of 02/11/2020) Social History Tobacco Use Types Packs/Day Years [...] with No / Unsure 01/30/2020 3:42 PM CARBONATOR someone who was confirmed or suspected to have Coronavirus / COVID-19? documented as of this encounter Last Filed Vital Signs Not on filedocumented in this encounter Plan of Treatment Health Maintenance Due Date Last Done Comments HPV VACCINES (1 - 2-dose 06/07/2010 series) INFLUENZA VACCINE (#1) 2020 Postponed from 10/16/2019 [...] series) 06/07 (Alternative Guidelines) WELL CARE VISIT: -12/06/2020 12/07/2019 YEARS (yearly) MENINGOCOCCAL VACCINE Aged Out No longer eligible based on patient 's age to complete this topic PNEUMOCOCCAL 0-64 YEARS Discontinued COMBINED SERIES documented as of this encounter Implants Implanted Type Area Director Of Agriculture Device Shelf Model / Identifier Expiration Serial / Date Lot Control-09/13/2018 Left: Implanted: 09/13/2018 (Quantity not on file) Control Arm documented as of this encounter Procedures Procedure Name Priority Date/Time Associated Diagnosis Comme nts DISCLOSURE AND CONSENT, Routine 01/30/2020 12:01 AM MEDICAL AND SURGICAL CARBONATOR PROCEDURES documented in this encounter Results Not on filedocumented in this encounter Insurance Payer Benefit Plan Subscriber ID Effective Phone Address Typ e / Group Dates [facility] [id number] 2019-Prese [phone] [address] PPO/POS nt [id number] [place] [address] [facility] [id number] 2018-Pres [phone] [address] Medicaid WOMEN ent [id number] [place] [address] documented as of this encounter Advance Directives Name Relationship Healthcare Agent Relationship Co mmunication Nimco Rene Grandparent Health Care Agent
--- OUTSIDE RECORDS SUMMARY | 2020-02-23 04:33 | XMS REPORT | Summary of Care ---
:2000 Author Organization [facility] Address [address] [place] [address] Care Team Providers Name Role Phone Fei Can DIESEL ELECTRICIAN Primary Care Provider Madhuri Ervin Insurance Hmo Reason for Visit Reason Comments NEXPLANON Removal Encounter Details Date Type Department Care Team Description 01/30/2020 Office Visit [facility]- Faith Davalos Oth er general counseling and advice for contraceptive management (Primary Dx); JONN Coronado Nexplanon removal [address] [facility] [address] [place], [place] [phone] Allergies No Known [...] with No / Unsure 01/30/2020 3:42 PM JAVA SYBASE DEVELOPER someone who was confirmed or suspected to have Coronavirus / COVID-19? documented as of this encounter Last Filed Vital Signs Vital Sign Reading Time Taken Comments Blood Pressure 115/81 01/30/2020 4:08 PM JAVA SYBASE DEVELOPER Pulse 74 01/30/2020 4:08 PM JAVA SYBASE DEVELOPER Temperature 36.6 C (97.8 F) 01/30/2020 4:08 PM JAVA SYBASE DEVELOPER Respiratory Rate 16 01/30/2020 4:08 PM JAVA SYBASE DEVELOPER Oxygen Saturation - - Inhaled Oxygen Concentration - - Weight 90.3 kg (199 lb) 01/30/2020 4:08 PM JAVA SYBASE DEVELOPER Height 177.8 cm (5' 10") 01/30/2020 4:08 PM JAVA SYBASE DEVELOPER Body Mass Index 28.55 01/30/2020 4:08 PM JAVA SYBASE DEVELOPER documented in this encounter Progress Notes Faith Davalos, [facility] - 01/30/2020 3:45 PM CSTNexplanon REMOVAL [...] Vogt RN . Timeout performed by JONN yL at 1620. Procedure: The patient is placed [...] of this encounter Implants Implanted Type Area Twister Tender Paper Device Shelf Model / Identifier Expiration Serial [...] Address Type / Group BCBS OF [facility] [id number] 2019-[facility] [phone] [address] PPO/POS [place] [address] [phone] [place] [address] (Home) [place] [address] documented as of this encounter Advance Directives Name Relationship Healthcare Agent Relationship Co mmunication Nimco Rene Grandparent Health Care Agent
--- OUTSIDE RECORDS SUMMARY | 2020-02-23 04:33 | XMS REPORT | Summary of Care ---
:2000 Author Organization [facility] Address [address] [place] [address] Care Team Providers Name Role Phone Fei Can WELDER JOURNEYMAN Primary Care Provider Madhuri Ervin Insurance Hmo Reason for Visit Reason Comments Well Woman Exam Encounter Details Date Type Department Care Team Description 12/07/2019 Office Visit [facility]- Faith Davalos Oth er general counseling and advice for contraceptive management (Primary Dx); JONN Coronado Nexplanon in place; [address] [place] [address] Screen for STD (sexually transmitted dis ease); Street DEMARCUS A Well woman exam [place], [place] [phone] Allergies No Known Allergiesdocumented as of this [...] This exam may be done by a intellectual property legal assistant, family healthcare provider, nurse practitioner, nurse foreign legal consultant, or specially trained nurse. Yearly breast exams [...] Guidelines for having clinical breast exams The [place] College of Obstetricians and Gynecologists recommends that [...] provider about what is best for you. [facility] [facility] last reviewed this educational content on 05/16/201919994145-7118 The [employer]. All rights reserved. This information is not [...] breast self-examination (BSE). These experts include the [place] Cancer Society and the [place] Congress of Obstetricians and Gynecologists. Some experts [...] benign. This means they are not cancer. [employer] last reviewed this educational content on 06/15/201919997518-2112 The [employer]. All rights reserved. This information is not [...] once as part of routine health care. [employer] [facility] last reviewed this educational content on 11/14/201619991685-5097 The [employer], [employer]. All rights reserved. This information is not [...] can make now to protect your future. [employer] [facility] last reviewed this educational content on 01/14/201819996679-2841 The [employer]. [address] [place] [address], [place] [address]. All rights reserved. This information is not [...] her child during , childbirth, and . [employer] last reviewed this educational content on 07/15/201819990115-0302 The [employer]. [address] [place] [address]. All rights reserved. This information is not [...] cilantro, cinnamon, cumin, paprika, pepper, and esme. [employer] [facility] last reviewed this educational content on 08/15/201919995140-3264 The [employer]. All rights reserved. This information is not [...] seafood when possible. Purchase low-sodium, reduced-sodium, or mh-mmwt-kdzrn food products at the store. And don't [...] and drink water or other unsweetened beverages. [employer] [facility] last reviewed this educational content on 07/16/201919996848-9869 The [employer]. All rights reserved. This information is not [...] file Gets together: Not on file Attends jew service: Not on file Active member of [...] Concern Not on file Social History Narrative Mormon preference none. Patient lives with grandmother. Social [...] 11/12/2019 present POCT PREG LOT # 11/12/2019 [id number] POCT PREG TEST DA* 11/12/2019 10/14/2020 SALICYLATE [...] and mental health on future pregnancies and/or long-term health. This visit did not involve counseling and coordination that comprised more than 50% of the visit time. JONN Ly 12/07/2019 4:04 PM Ann Marie Osborne RN - 12/07/2019 3:15 PM CDT19 year old presents to the clinic for wwe. 1) Previous BCM: Nexplanon 2) Desired BCM: None 3) LMP: 11/15/2019 4) Last [place]: 12/06/2019 5) Last Pap: Never Results: N/A [...] 12/14/2019 Office Visit [facility] Dragan Davalos, [facility] [address] [address] [phone] Name Type Priority Associated Diagnoses Order S [...] of this encounter Implants Implanted Type Area Water And Sewer Systems Superintendent Device Shelf Model / Identifier Expiration Serial [...] Phone Address Type / Group BCBS OF [facility] [id number] 2019-Mac [phone] [address] PPO/POS [place] [address] [phone] [place] [address] (Home) [place] [address] documented as of this encounter Advance Directives Name Relationship Healthcare Agent Relationship Co mmunication Nimco Rene Grandparent Health Care Agent
--- OUTSIDE RECORDS SUMMARY | 2020-02-23 04:33 | XMS REPORT | Summary of Care ---
:2000 Author Organization [facility] Address [address] [place] [address] Care Team Providers Name Role Phone Fei Can STAFF FIELD ENGINEER Primary Care Provider Madhuri Ervin Insurance Hmo Reason for Visit Reason Comments Appointment reschedule Nexplanon removal Encounter Details Date Type Department Care Team Description 01/28/2020 Telephone [facility]- AkinsiFaith allison Melida ointment JONN Coronado (reschedule Nexplanon [address] [place] [address] removal) [place], [place] [phone] Allergies No Known Allergiesdocumented as of this encounter (statuses as of 01/28/2020) Medications No known medicationsdocumented as of this encounter (statuses as of 01/28/2020) Active Problems Problem Noted Date Well woman [...] as of this encounter (statuses as of 01/28/2020) Resolved Problems Problem Noted Date Resolved Date Trichomonosis 06/28/2018 06/28/2018 History of bipolar disorder 01/10/2018 01/10/2018 documented as of this encounter (statuses as of 01/28/2020) Social History Tobacco Use Types Packs/Day Years Used Date Current Every Day Smoker Cigarettes 0.2 4 Sta rted: 01/10/2015 Smokeless Tobacco: Never Used Comments: Smokes 5 ciggs a day Alcohol Use Drinks/Week oz/Week Comments Yes occasional Sex Assigned at Date Recorded Not on file documented as of this encounter Last Filed Vital Signs Not on filedocumented in this encounter Miscellaneous Notes Telephone Encounter - Tiffanie Awad - 01/28/2020 2:41 PM CSTPatient has appointment URY PURIFIER Telephone Encounter - Melodie Dow - 01/28/2020 11:16 AM CSTBrangelo Field is a 19 year old female Is calling to reschedule the Nexplanon removal appointment she missed. Please call after 2:00pm. documented in this encounter Plan of Treatment Date Type Specialty Care Team Description 01/30/2020 Office Visit [facility] Dragan Davalos, [facility] [address] [place], [place] [address] [phone] Health Maintenance Due Date Last Done Comments [...] series) 06/07 (Alternative Guidelines) WELL CARE VISIT: 02-0312/06/2020 12/07/2019 YEARS (yearly) MENINGOCOCCAL VACCINE Aged Out No longer eligible based on patient 's age to complete this topic PNEUMOCOCCAL 0-64 YEARS Discontinued COMBINED SERIES documented as of this encounter Implants Implanted Type Area Milling Supervisor Device Shelf Model / Identifier Expiration Serial / Date Lot Control-09/13/2018 Left: Implanted: 09/13/2018 (Quantity not on file) Control Arm documented as of this encounter Results Not on filedocumented in this encounter Insurance Payer Benefit Plan Subscriber ID Effective Phone Address Typ e / Group Dates [facility] [id number] 2019-Prese [phone] [address] PPO/POS nt 87 [id number] [place] [address] [facility] [id number] 2018-Pres [phone] [address] Medicaid WOMEN ent 00 [id number] [place] [address] documented as of this encounter Advance Directives Name Relationship Healthcare Agent Relationship Co mmunication Nimco Rene Grandparent Health Care Agent
--- OUTSIDE RECORDS SUMMARY | 2020-02-23 04:33 | XMS REPORT | Summary of Care ---
:2000 Author Organization [facility] Address [address] [place] [address] Care Team Providers Name Role Phone Fei Can IC DESIGNER GATE ARRAYS Primary Care Provider Madhuri Ervin Insurance Hmo Reason for Visit Reason Comments Well Woman Exam Encounter Details Date Type Department Care Team Description 12/07/2019 Office Visit [facility]- Faith Davalos Oth er general counseling and advice for contraceptive management (Primary Dx); JONN Coronado Nexplanon in place; [address] [place] [address] Screen for STD (sexually transmitted dis ease); Street DEMARCUS A Well woman exam [place], [place] [phone] Allergies No Known Allergiesdocumented as of this [...] This exam may be done by a relay tester, family healthcare provider, nurse practitioner, nurse child attendant, or specially trained nurse. Yearly breast exams [...] Guidelines for having clinical breast exams The [place] College of Obstetricians and Gynecologists recommends that [...] provider about what is best for you. [employer] last reviewed this educational content on 05/16/201919996370-1487 The [employer]. All rights reserved. This information is not [...] breast self-examination (BSE). These experts include the [place] Cancer Society and the [place] Congress of Obstetricians and Gynecologists. Some experts [...] benign. This means they are not cancer. [employer] last reviewed this educational content on 06/15/201919997401-9702 The [employer]. All rights reserved. This information is not [...] once as part of routine health care. [employer]ina Sh[employer] last reviewed this educational content on 11/14/201619990212-7216 The [employer], [employer]. All rights reserved. This information is not [...] can make now to protect your future. Mamina Shkola last reviewed this educational content on 01/14/201819990570-2829 The [employer]. [address] [place] [address], [place] [address]. All rights reserved. This information is not [...] her child during , childbirth, and . Mamina Shk[employer] last reviewed this educational content on 07/15/201819995151-0905 The [employer]. [address] [place] [address]. All rights reserved. This information is not [...] cilantro, cinnamon, cumin, paprika, pepper, and esme. [employer] last reviewed this educational content on 08/15/201919995884-5292 The [employer]. All rights reserved. This information is not [...] seafood when possible. Purchase low-sodium, reduced-sodium, or hw-kxga-oxgaf food products at the store. And don't [...] and drink water or other unsweetened beverages. [employer]ina [employer] last reviewed this educational content on 07/16/201919996505-8353 The [employer]. All rights reserved. This information is not [...] file Gets together: Not on file Attends episcopalian service: Not on file Active member of [...] Concern Not on file Social History Narrative Rastafari preference none. Patient lives with grandmother. Social [...] 11/12/2019 present POCT PREG LOT # 11/12/2019 [id number] POCT PREG TEST DA* 11/12/2019 10/14/2020 SALICYLATE [...] and mental health on future pregnancies and/or correction health. This visit did not involve counseling and coordination that comprised more than 50% of the visit time. JONN Ly 12/07/2019 4:04 PM Ann Marie Osborne RN - 12/07/2019 3:15 PM CDT19 year old presents to the clinic for wwe. 1) Previous BCM: Nexplanon 2) Desired BCM: None 3) LMP: 11/15/2019 4) Last [place]: 12/06/2019 5) Last Pap: Never Results: N/A [...] 12/14/2019 Office Visit [facility] Dragan Davalos, [facility] [address] [place], [place] [address] [phone] Name Type Priority Associated Diagnoses Date/Ti me GC [facility] Routine Screen for STD (sexually 1 4:21 PM CDT AMPLIFIED ASSAY transmitted disease) Health Maintenance Due Date [...] of this encounter Implants Implanted Type Area Communications Executive Device Shelf Model / Identifier Expiration Serial [...] Dates Phone Address Type / Group BCBS [facility] [id number] 2019-Mac [phone] [address] PPO/POS [place] [address] [phone] [id number] [place] [address] (Home) [place] [address] documented as of this encounter Advance Directives Name Relationship Healthcare Agent Relationship Co mmunication Nimco Rene Grandparent Health Care Agent
[2020-02-23 05:20] LABS: Absolute Lymphocytes (CBC) 2.4 K/uL (0.7-4.9); Basophils % 0.5 % (0-1.3); Hematocrit 41.9 % (36.0-45.0); Lymphocytes % 33.5 % (15.3-44.8); MPV 8.9 fL (7.6-11.3); RBC Red Blood Cell Count 4.62 M/uL (3.86-4.86)
[2020-02-23 05:24] LABS: Protime INR 0.94
[2020-02-23] MEDS ORDERED: ACT CHARCOAL/SORB 50 GM/240ML ONE (05:30)
[2020-02-23 05:43] LABS: Barbiturates NEGATIVE (NEGATIVE); Benzodiazepines NEGATIVE (NEGATIVE); Cocaine NEGATIVE (NEGATIVE); METHAMPHETAM NEGATIVE (NEGATIVE); Methadone NEGATIVE (NEGATIVE); Opiates NEGATIVE (NEGATIVE); Phencyclidine NEGATIVE (NEGATIVE); THC Cannibis NEGATIVE (NEGATIVE)
[2020-02-23 05:51] LABS: ALT/SGPT 26 U/L (12-78); AST/SGOT 21 U/L (15-37); Albumin 3.6 g/dL (3.4-5.0); Alkaline Phosphatase 74 U/L (45-117); BUN Blood Urea Nitrogen 10 mg/dL (7-18); Bicarbonate 23 mmol/L (21-32); Bilirubin Direct < 0.1 mg/dL (0-0.2); Bilirubin Total 0.2 mg/dL (0.2-1.0); Glucose Level 101 mg/dL (74-106); Potassium 4.1 mmol/L (3.5-5.1); Protein, Total 7.4 g/dL (6.4-8.2); Sodium Level 144 mmol/L (136-145)
[2020-02-23 05:52] LABS: Urine Blood NEGATIVE (NEG); Urine Glucose NEGATIVE (NEG); Urine Protein NEGATIVE (NEG)
--- NOTE | 2020-02-23 09:06 | ER ---
Nurse's Notes [facility] Name: Angeles Field Age: 19 yrs Sex: Female : 2000 Arrival Date: 02/23/2020 Time: 04:31 Bed 3 Private MD: Diagnosis: Alcohol use, unspecified with intoxication Presentation: 02/22 04:20 Chief complaint: Mother states witnessing patient take handful of pills of lp1 Spironlactone 50mg tablets and Montelukast 10mg tablets about 0400; patient denies taking medications at this time, boyfriend with patient talking to patient's mother on phone. 04:20 Coronavirus screen: Client denies travel out of the [place] in the last 14 days. At this lp1 time, the client does not indicate any symptoms associated with coronavirus-19. Ebola Screen: No symptoms or risks identified at this time. 04:20 Method Of Arrival: Wheelchair lp1 04:35 Initial Sepsis Screen: Does the patient meet any 2 criteria? No. Patient's initial lp1 sepsis screen is negative. Does the patient have a suspected source of infection? No. Patient's initial sepsis screen is negative. Risk Assessment: Do you want to hurt yourself or someone else? Patient reports no desire to harm self or others. Other: Patient reports "I just took them because I wanted to get high". Note Patient agrees to register as ER patient at this time. Onset of symptoms was February 23, 2020 at 04:00. 04:35 Acuity: CADY 2 lp1 THIOKOL OPERATOR: 04:58 LMP N/A - Irregular menses lp1 Historical: - Allergies: 04:58 NKA; lp1 - Home Meds: 04:58 None [Active]; lp1 - PMHx: 04:58 Anxiety; Bipolar disorder; mood disorder; psychosis; lp1 - PSHx: 04:58 None; lp1 - Immunization history:: Adult Immunizations up to date. - Social history:: Smoking status: Patient reports the use of cigarette tobacco products, Patient uses street drugs, cocaine, marijuana. Screenin:59 Abuse screen: Denies threats or abuse. Denies injuries from another. Nutritional lp1 screening: No deficits noted. Tuberculosis screening: No symptoms or risk factors identified. Fall Risk Total Melara Fall Scale indicates High Risk Score (45 or more points). Fall prevention measures have been instituted. Side Rails Up X 2 Family Present and informed to notify staff if the need to leave the bedside As available patient and family educated on Fall Prevention Program and Strategies. Assessment: 04:59 General: Appears in no apparent distress. Behavior is cooperative. Pain: Denies pain. lp1 Neuro: Level of Consciousness is awake, alert, obeys commands, Oriented to person, place, situation. Cardiovascular: Patient's skin is warm and dry. Respiratory: Respiratory effort is even, unlabored. GI: Abdomen is non-distended. : No signs and/or symptoms were reported regarding the genitourinary system. EENT: No signs and/or symptoms were reported regarding the EENT system. Derm: Skin is pink, warm \\T\\ dry. Derm: No deficits noted. Musculoskeletal: No deficits noted. 05:07 Reassessment: Poison Control called, Blu states monitor patient for dehydration, EKG lp1 changes, electrolyte imbalances, for Spironolactone ingestion; Treat with supportive care; Recommended to give Activated Charcoal 1-2g/kg. 05:12 Reassessment: Patient reports to Dr. Herrera drinking "about 6 beers". lp1 05:20 Reassessment: Patient attempting to drink activated charcoal at this time. lp1 05:30 Reassessment: Patient reports "I'm not drinking that"; refuses to drink Activated lp1 Charcoal. 05:59 Reassessment: Patient resting, eyes closed, respirations even, unlabored; significant lp1 other at bedside. 06:10 Reassessment: Spoke with Charis at Poison Control, reports to monitor patient for about lp1 4-6 hours for possible Spironolactone ingestion. 07:00 Reassessment: Patient appears in no apparent distress at this time. Patient and/or bp family updated on plan of care and expected duration. Pain level reassessed. RECD REPORT FROM ALANNA FALK. 19YO WF P/W ETOH ABUSE AND RECREATIONAL INGESTION. ALL CURRENT ORDERS COMPLETE. 07:59 Reassessment: Patient appears in no apparent distress at this time. Patient and/or jd3 family updated on plan of care and expected duration. Pain level reassessed. pt's cell phone handed to boyfriend at bedside. 09:05 Reassessment: Patient appears in no apparent distress at this time. Patient and/or jd3 family updated on plan of care and expected duration. Pain level reassessed. Patient is alert, oriented x 3, equal unlabored respirations, skin warm/dry/pink. pt with even and steady gait to restroom. Patient states feeling better. Neuro: Level of Consciousness is awake, alert, obeys commands, Oriented to person, place, time, situation. 09:16 Reassessment: PT D/C HOME AMBULATORY WITH FAMILY, DX WITH ALCOHOL INTOXICATION. bp Overdose: 05:00 Patient took Spironolactone 50mg tabs x20, estimated; Mother states "a couple" of lp1 Montelukast 10mg tabs. Overdose occurred 30 minutes to 1 hour ago. Vital Signs: 04:35 BP 161 / 134; Pulse 94; Resp 18; Pulse Ox 100% on R/A; Weight 88.45 kg (R); Height 5 lp1 ft. 10 in. (177.80 cm); 05:30 BP 98 / 68; Pulse 93; Resp 16; Temp 97.1; Pulse Ox 99% on R/A; lp1 05:45 BP 105 / 80; Pulse 89; Resp 20; Pulse Ox 98% on R/A; lp1 06:07 BP 111 / 81; Pulse 98; Resp 20; Pulse Ox 97% on R/A; lp1 07:00 BP 103 / 77; Pulse 85; Resp 20; Pulse Ox 98% ; bp 08:02 BP 95 / 64; Pulse 82; Resp 19 S; Pulse Ox 97% on R/A; jd3 09:06 BP 109 / 78; Pulse 87; Resp 17 S; Pulse Ox 99% on R/A; jd3 04:35 Body Mass Index 27.98 (88.45 kg, 177.80 cm) lp1 ED Course: 04:31 Patient arrived in ED. am2 04:47 Josiah Herrera MD is Attending Physician. mh7 04:55 Inserted saline lock: 20 gauge in left antecubital area, using aseptic technique. Blood ds4 collected. 04:58 Triage completed. lp1 04:58 Arm band placed on. lp1 04:58 Patient has correct armband on for positive identification. Placed in gown. Bed in low lp1 position. Call light in reach. school lunch monitor on. Pulse ox on. NIBP on. 05:56 Mini Ambrose, RN is Primary Nurse. lp1 07:05 Attending Physician role handed off by Josiah Herrera MD rn 07:05 Pool Roland MD is Attending Physician. rn 07:11 Primary Nurse role handed off by Mini Ambrose RN bp 07:11 Christian Downing, RN is Primary Nurse. bp 07:34 Warm blanket given. jd3 09:06 No provider procedures requiring assistance completed. jd3 09:20 IV discontinued, intact, bleeding controlled, No redness/swelling at site. Pressure bp dressing applied. Administered Medications: 05:15 Drug: Activated Charcoal Suspension (50 g/240 mL) 1 g/kg Route: PO; lp1 07:12 Follow up: Response: No adverse reaction bp Outcome: 09:06 Discharge ordered by MD. rn 09:16 Discharged to home ambulatory, with family. bp 09:16 Condition: stable 09:16 Discharge instructions given to patient, Instructed on discharge instructions, follow up and referral plans. Demonstrated understanding of instructions, follow-up care. 09:20 Patient left the ED. bp Signatures: Pool Roland MD MD rn Mini Ambrose RN RN lp1 Wayne Linares ds4 Francie Poole am2 Tian Jarquin RN RN Christian Humphrey RN RN bp Josiah Herrera MD MD mh7 Corrections: (The following items were deleted from the chart) 05:14 05:07 Reassessment: Poison Control called, Blu states monitor patient for lp1 dehydration, EKG changes, electrolyte imbalances, for Spironolactone ingestion; Treat with supportive care; Recommended to give Activated Charcoal 1-2mg/kg lp1
--- NOTE | 2020-02-23 09:07 | EDPHYS ---
Physician Documentation [facility] Name: Angeles Field Age: 19 yrs Sex: Female : 2000 Arrival Date: 02/23/2020 Time: 04:31 Bed 3 Private MD: ED Physician Pool Roland HPI: 02/22 05:11 This 19 yrs old Female presents to ER via Wheelchair with complaints of mh7 Possible Overdose. 05:11 The patient presents to the emergency department after a known overdose, that was mh7 intentional, a result of recreational substance abuse. Context: Method: the patient has a confirmed or suspected ingestion, Spironolactone, Montelukast, Time: just prior to arrival, Extent: moderate ingestion, Spironolactone 50 mg tablets, possibly 20. Montelukast 10 mg tablets, possibly 20., the OD/poisoning occurred at at home, and was witnessed by family, mother, Psychiatric history: the patient has a known psychiatric disorder, bipolar disorder, Previous OD/poisoning history: none. Associated signs and symptoms: Pertinent negatives: anxiety, apnea, auditory hallucinations, burning of skin, decreased level of consciousness, depression, diaphoresis, diarrhea, dizziness, incontinence, loss of consciousness, nausea, palpitations, shortness of breath, tearfulness, visual hallucinations, vomiting. Severity of symptoms: At their worst the symptoms were moderate today, in the emergency department the symptoms have improved moderately. Patient admits to drinking alcohol. She states that she took pills to get high. Denies any suicidal or homicidal ideation. Denies any auditory or visual hallucinations.. 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 - Social history:: Smoking status: Patient reports the use of cigarette tobacco products, Patient uses street drugs, cocaine, marijuana. ROS: 05:11 Constitutional: Negative for fever, chills, and weight loss, Eyes: Negative for injury, mh7 pain, redness, and discharge, ENT: Negative for injury, pain, and discharge, Neck: Negative for injury, pain, and swelling, Cardiovascular: Negative for chest pain, palpitations, and edema, Respiratory: Negative for shortness of breath, cough, wheezing, and pleuritic chest pain, Abdomen/GI: Negative for abdominal pain, nausea, vomiting, diarrhea, and constipation, Back: Negative for injury and pain, : Negative for injury, bleeding, discharge, and swelling, MS/Extremity: Negative for injury and deformity, Skin: Negative for injury, rash, and discoloration, Neuro: Negative for headache, weakness, numbness, tingling, and seizure, Psych: Negative for depression, anxiety, suicide ideation, homicidal ideation, and hallucinations, Allergy/Immunology: Negative for hives, rash, and allergies, Endocrine: Negative for neck swelling, polydipsia, polyuria, polyphagia, and marked weight changes, Hematologic/Lymphatic: Negative for swollen nodes, abnormal bleeding, and unusual bruising. Exam: 05:11 Head/Face: Normocephalic, atraumatic. Eyes: Pupils equal round and reactive to light, mh7 extra-ocular motions intact. Lids and lashes normal. Conjunctiva and sclera are non-icteric and not injected. Cornea within normal limits. Periorbital areas with no swelling, redness, or edema. Neck: Trachea midline, no thyromegaly or masses palpated, and no cervical lymphadenopathy. Supple, full range of motion without nuchal rigidity, or vertebral point tenderness. No Meningismus. Chest/axilla: Normal chest wall appearance and motion. Nontender with no deformity. No lesions are appreciated. Cardiovascular: Regular rate and rhythm with a normal S1 and S2. No gallops, murmurs, or rubs. Normal PMI, no JVD. No pulse deficits. Respiratory: Lungs have equal breath sounds bilaterally, clear to auscultation and percussion. No rales, rhonchi or wheezes noted. No increased work of breathing, no retractions or nasal flaring. Abdomen/GI: Soft, non-tender, with normal bowel sounds. No distension or tympany. No guarding or rebound. No evidence of tenderness throughout. Back: No spinal tenderness. No costovertebral tenderness. Full range of motion. Skin: Warm, dry with normal turgor. Normal color with no rashes, no lesions, and no evidence of cellulitis. MS/ Extremity: Pulses equal, no cyanosis. Neurovascular intact. Full, normal range of motion. Neuro: Awake and alert, GCS 15, oriented to person, place, time, and situation. Cranial nerves II-XII grossly intact. Motor strength 5/5 in all extremities. Sensory grossly intact. Cerebellar exam normal. Normal gait. 05:11 Constitutional: The patient appears in no acute distress, alert, awake, Appears intoxicated 05:11 Psych: Behavior/mood is cooperative, Affect is calm, Oriented to person, place, time, Patient has no thoughts/intents to harm self or others. Judgement / Insight is impaired. Memory is normal. Delusions/hallucinations are not present. Vital Signs: 04:35 BP 161 / 134; Pulse 94; Resp 18; Pulse Ox 100% on R/A; Weight 88.45 kg (R); Height 5 lp1 ft. 10 in. (177.80 cm); 05:30 BP 98 / 68; Pulse 93; Resp 16; Temp 97.1; Pulse Ox 99% on R/A; lp1 05:45 BP 105 / 80; Pulse 89; Resp 20; Pulse Ox 98% on R/A; lp1 06:07 BP 111 / 81; Pulse 98; Resp 20; Pulse Ox 97% on R/A; lp1 07:00 BP 103 / 77; Pulse 85; Resp 20; Pulse Ox 98% ; bp 08:02 BP 95 / 64; Pulse 82; Resp 19 S; Pulse Ox 97% on R/A; jd3 09:06 BP 109 / 78; Pulse 87; Resp 17 S; Pulse Ox 99% on R/A; jd3 04:35 Body Mass Index 27.98 (88.45 kg, 177.80 cm) lp1 MDM: 07:05 Patient medically screened. rn 09:05 Differential diagnosis: Ingestion/exposure to ETOH and pills. Data reviewed: vital rn signs, nurses notes, lab test result(s), and as a result, I will discharge patient. Counseling: I had a detailed discussion with the patient and/or guardian regarding: the historical points, exam findings, and any diagnostic results supporting the discharge/admit diagnosis, lab results, the need for outpatient follow up, to return to the emergency department if symptoms worsen or persist or if there are any questions or concerns that arise at home. Response to treatment: the patient's symptoms have markedly improved after treatment, and as a result, I will discharge patient. Special discussion: I discussed with the patient/guardian in detail that at this point there is no indication for admission to the hospital. It is understood, however, that if the symptoms persist or worsen the patient needs to return immediately for re-evaluation. ED course: Pt awake, does not appear clinically intoxicated, stated boyfriend is waiting to take her home, wants to leave, again denies suicidal or homicidal ideation, reports taking meds to "get high". Stable vitals. . 02/22 04:53 Order name: Acetaminophen; Complete Time: 05:51 02/22 04:53 Order name: Basic Metabolic Panel; Complete Time: 05:51 02/22 04:53 Order name: CBC with Diff; Complete Time: 05:51 02/22 04:53 Order name: ETOH Level; Complete Time: 06:06 02/22 04:53 Order name: Hepatic Function; Complete Time: 05:51 02/22 04:53 Order name: PT-INR; Complete Time: 05:51 02/22 04:53 Order name: Ptt, Activated; Complete Time: 05:51 02/22 04:53 Order name: Salicylate; Complete Time: 05:51 02/22 04:53 Order name: Urine Drug Screen; Complete Time: 05:51 02/22 04:53 Order name: EKG; Complete Time: 04:54 02/22 04:53 Order name: EKG - Nurse/Tech; Complete Time: 05:04 02/22 05:24 Order name: Urine --Ancillary (enter results); Complete Time: 06:06 02/22 05:24 Order name: Urine Dipstick--Ancillary (enter results); Complete Time: 06:06 02/22 04:53 Order name: IV Saline Lock; Complete Time: 05:04 02/22 04:53 Order name: Labs collected and sent; Complete Time: 05:04 02/22 04:53 Order name: Urine Dipstick-Ancillary (obtain specimen); Complete Time: 05:19 02/22 04:53 Order name: Urine Test (obtain specimen); Complete Time: 05:19 lp1 Administered Medications: 05:15 Drug: Activated Charcoal Suspension (50 g/240 mL) 1 g/kg Route: PO; lp1 07:12 Follow up: Response: No adverse reaction bp Disposition: 02/23/20 09:06 Discharged to Home. Impression: Alcohol use, unspecified with intoxication. - Condition is Stable. - Discharge Instructions: Alcohol Intoxication. - Medication Reconciliation Form, Thank You Letter, Antibiotic Education, Prescription Opioid Use, Work release form form. - Follow up: Private Physician; When: As needed; Reason: Recheck today's complaints, Re-evaluation by your physician. - Problem is new. - Symptoms have improved. Signatures: Dispatcher [employer] EDMS Pool Roland MD MD rn Pena, Laura, RN RN 1 Christian Downing RN RN bp Holmes, Maurice, MD MD mh7 Corrections: (The following items were deleted from the chart) 09:20 09:06 02/23/2020 09:06 Discharged to Home. Impression: Alcohol use, unspecified with bp intoxication. Condition is Stable. Forms are Medication Reconciliation Form, Thank You Letter, Antibiotic Education, Prescription Opioid Use. Follow up: Private Physician; When: As needed; Reason: Recheck today's complaints, Re-evaluation by your physician. Problem is new. Symptoms have improved. rn
[2020-02-23 09:33] VITALS: TEMP 97.1
[2020-02-23 09:39] VITALS: BP 109/78; O2SAT 99
--- NOTE | 2020-02-24 07:27 | EKG ---
Test Date: 2020-02-23 Test Time: 04:46:07 Clerical Aide: VILMA MEASUREMENT RESULTS: Intervals: Rate: 90 MT: 176 QRSD: 70 QT: 336 QTc: 411 Almond: P: 51 MT: 176 QRS: 63 T: 48 INTERPRETIVE STATEMENTS: Normal sinus rhythm Normal ECG Compared to ECG 04/14/2019 21:35:10 Sinus tachycardia no longer present Electronically Signed On 02-24-20 07:24:14 BERRY PICKER by Cristobal Thomas
== END 2020-02-23 09:20 | disposition home or self-care (01) ==
LOC: ER 04:10
DX: F10.129 Alcohol abuse with intoxication, unspecified (principal); F31.9 Bipolar disorder, unspecified; F41.9 Anxiety disorder, unspecified; F17.210 Nicotine dependence, cigarettes, uncomplicated; Y90.8 Blood alcohol level of 240 mg/100 ml or more
CPT/HCPCS: 36415; 80048; 80076; 80307; 80320; 80329; 81003; 81025; 85025; 85610; 85730; 93005; 99284

== ENCOUNTER 2020-10-08 14:18 | Emergency (ER) | payer BC, SELFPAY ==
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
--- NOTE | 2020-10-08 15:49 | ER ---
Nurse's Notes [facility] Name: Angeles Field Age: 20 yrs Sex: Female : 2000 Arrival Date: 10/08/2020 Time: 14:23 Bed Waiting Private MD: Diagnosis: Acute tonsillitis, unspecified Presentation: 10/08 14:26 Chief complaint: Patient states: body aches, chest pain, vomiting, swollen tonsils, sv fever Tmax 100 x 2 weeks. Coronavirus screen: Client denies travel out of the [place] in the last 14 days. At this time, the client does not indicate any symptoms associated with coronavirus-19. Ebola Screen: No symptoms or risks identified at this time. Risk Assessment: Do you want to hurt yourself or someone else? Patient reports no desire to harm self or others. Onset of symptoms was September 2020. 14:26 Method Of Arrival: Ambulatory sv 14:26 Acuity: CADY 4 sv 14:27 Initial Sepsis Screen: Does the patient meet any 2 criteria? HR > 90 bpm. No. Patient's sv initial sepsis screen is negative. Does the patient have a suspected source of infection? No. Patient's initial sepsis screen is negative. Triage Assessment: 14:26 General: Appears in no apparent distress. comfortable, Behavior is calm, cooperative, sv appropriate for age. Pain: Complains of pain in throat. Neuro: Level of Consciousness is awake, alert, obeys commands, Oriented to person, place, time, situation, Gait is steady. Respiratory: Respiratory effort is even, unlabored, Respiratory pattern is regular, symmetrical. Historical: - Allergies: 14:27 NKA; sv - PMHx: 14:27 Anxiety; Bipolar disorder; mood disorder; psychosis; sv - Immunization history:: Client reports having NOT received the Covid vaccine. - Social history:: Smoking status: Patient denies any tobacco usage or history of. Screenin:44 Abuse screen: Denies threats or abuse. Denies injuries from another. Abuse screen: sv Denies threats or abuse. Nutritional screening: No deficits noted. Tuberculosis screening: No symptoms or risk factors identified. Fall Risk None identified. Assessment: 16:44 Reassessment: Patient appears in no apparent distress at this time. No changes from sv previously documented assessment. Patient and/or family updated on plan of care and expected duration. Pain level reassessed. Patient is alert, oriented x 3, equal unlabored respirations, skin warm/dry/pink. Vital Signs: 14:27 BP 116 / 68; Pulse 111; Resp 16; Temp 98.4; Pulse Ox 100% ; Weight 95.25 kg; Height 5 sv ft. 9 in. (175.26 cm); Pain 4/10; 14:27 Body Mass Index 31.01 (95.25 kg, 175.26 cm) sv ED Course: 14:23 Patient arrived in ED. as 14:25 Jail[facility] Segal [facility]C [facility] kb 14:25 Deon Moss MD is Attending Physician. kb 14:27 Triage completed. sv 14:27 Arm band placed on. sv 14:39 COVID swab sent to lab. sv 16:44 Chapis Alvarado, DILEEP is Primary Nurse. sv 16:44 Patient has correct armband on for positive identification. sv 16:44 No provider procedures requiring assistance completed. Patient did not have IV access sv during this emergency room visit. Administered Medications: No medications were administered Outcome: 15:48 Discharge ordered by MD. kb 16:44 Patient left the ED. sv 16:44 Discharged to home ambulatory. sv 16:44 Condition: stable 16:44 Discharge instructions given to patient, Instructed on discharge instructions, follow up and referral plans. medication usage, Demonstrated understanding of instructions, follow-up care, medications, Prescriptions given X 1. Signatures: Jailyn Segal FNP-C ECLECTIC DOCTOR-Ckb Chapis Alvarado RN RN Rosey Ontiveros as Corrections: (The following items were deleted from the chart) 14:39 14:27 95.25 kg; Height 5 ft. 9 in.; BMI: 31.0; Pain 4/10; sv sv 14:40 14:26 Acuity: CADY 4 sv sv 14:40 14:26 Acuity: CADY 3 sv sv
--- NOTE | 2020-10-08 15:49 | EDPHYS ---
Physician Documentation [facility] Name: Angeles Field Age: 20 yrs Sex: Female : 2000 Arrival Date: 10/08/2020 Time: 14:23 Bed Waiting Private MD: ED Physician Deon Moss HPI: 10/08 15:46 This 20 yrs old Female presents to ER via Ambulatory with complaints of r/o kb covid. 15:46 The patient presents with sore throat. The patient describes throat pain as constant. kb Onset: The symptoms/episode began/occurred 2 week(s) ago. Severity of symptoms: At their worst the symptoms were mild, in the emergency department the symptoms are unchanged. Modifying factors: The symptoms are alleviated by nothing, the symptoms are aggravated by swallowing, Patient's oral intake status: good. Associated signs and symptoms: Pertinent positives: Sore throat bodyaches. The patient has not experienced similar symptoms in the past. The patient has not recently seen a physician. Pt reports sore throat and bodyaches for 2 weeks. States there were white patches on her tonsils, but they have cleared up . Historical: - Allergies: 14:27 NKA; sv - PMHx: 14:27 Anxiety; Bipolar disorder; mood disorder; psychosis; sv - Immunization history:: Client reports having NOT received the Covid vaccine. - Social history:: Smoking status: Patient denies any tobacco usage or history of. ROS: 15:44 Respiratory: Negative for shortness of breath, cough, wheezing, and pleuritic chest kb pain. 15:44 Constitutional: Positive for body aches, Negative for chills, fatigue, fever, malaise, poor PO intake, weight loss. 15:44 ENT: Positive for sore throat. 15:44 All other systems are negative. Exam: 15:44 Constitutional: This is a well developed, well nourished patient who is awake, alert, kb and in no acute distress. Head/Face: Normocephalic, atraumatic. Respiratory: Respirations even and unlabored. No increased work of breathing, no retractions or nasal flaring. Skin: Warm, dry with normal turgor. Normal color. MS/ Extremity: Pulses equal, no cyanosis. Neurovascular intact. Full, normal range of motion. Neuro: Awake and alert, GCS 15, oriented to person, place, time, and situation. Moves all extremities. Normal gait. Psych: Awake, alert, with orientation to person, place and time. Behavior, mood, and affect are within normal limits. 15:44 ENT: Posterior pharynx: Airway: normal, no evidence of obstruction, Tonsils: bilaterally enlarged, with erythema, Uvula: normal, midline, swelling, that is mild, erythema, that is moderate, exudate, is not appreciated. Vital Signs: 14:27 BP 116 / 68; Pulse 111; Resp 16; Temp 98.4; Pulse Ox 100% ; Weight 95.25 kg; Height 5 sv ft. 9 in. (175.26 cm); Pain 4/10; 14:27 Body Mass Index 31.01 (95.25 kg, 175.26 cm) sv MDM: 14:34 Patient medically screened. kb 15:45 Data reviewed: vital signs, nurses notes. Data interpreted: Pulse oximetry: on room air kb is 100 %. Interpretation: normal. Counseling: I had a detailed discussion with the patient and/or guardian regarding: the historical points, exam findings, and any diagnostic results supporting the discharge/admit diagnosis, lab results, the need for outpatient follow up, a family practitioner, to return to the emergency department if symptoms worsen or persist or if there are any questions or concerns that arise at home. 10/08 14:34 Order name: Strep kb 10/08 14:34 Order name: Group A Streptococcus Rapid Sc; Complete Time: 15:29 EDMS 10/08 15:18 Order name: Throat Culture EDMS Administered Medications: No medications were administered Disposition: 10/09 14:49 Co-signature as Attending Physician, Deon Moss MD I agree with the assessment and zion plan of care. Disposition Summary: 10/08/20 15:48 Discharge Ordered Location: Home Condition: Stable kb Diagnosis - Acute tonsillitis, unspecified kb Followup: kb - With: Emergency Department - When: As needed - Reason: Worsening of condition Followup: kb - With: Private Physician - When: 2 - 3 days - Reason: Recheck today's complaints, Continuance of care, Re-evaluation by your physician Discharge Instructions: - Discharge Summary Sheet kb - Tonsillitis, [id number] kb Forms: - Medication Reconciliation Form kb - Thank You Letter kb - Antibiotic Education kb - Prescription Opioid Use kb Prescriptions: - Amoxicillin 875 mg Oral Tablet - take 1 tablet by ORAL route every 12 hours for 10 days; 20 tablet; Refills: 0, kb Product Selection Permitted Signatures: Dispatcher [employer] EDJailyn Link FNP-C FNP-Ckb Verde, Stephanie, RN RN sv Anderson, Corey, MD MD cha Corrections: (The following items were deleted from the chart) 10/08 14:45 14:35 CORONAVIRUS+BRHoward ordered. EDMS EDMS
[2020-10-08 16:48] VITALS: BP 116/68; TEMP 98.4; O2SAT 100
== END 2020-10-08 16:44 | disposition home or self-care (01) ==
LOC: ER 14:18
DX: J03.90 Acute tonsillitis, unspecified (principal)
CPT/HCPCS: 87070; 87081; 99282

== ENCOUNTER 2021-03-14 09:05 | Emergency (ER) | payer OTHER, SELFPAY ==
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
[2021-03-14] MEDS ORDERED: LIDOCAINE VISCOUS 2% SOLN 15 ML UDC ONE (09:22)
[2021-03-14] MEDS ORDERED: dexAMETHasone 4 MG TAB ONE (09:22)
--- NOTE | 2021-03-14 09:22 | ER ---
Nurse's Notes [facility] Name: Angeles Field Age: 20 yrs Sex: Female : 2000 Arrival Date: 03/14/2021 Time: 09:08 Bed Waiting Private MD: Diagnosis: Acute tonsillitis, unspecified Presentation: 03/14 09:13 Chief complaint: Patient states: sore throat, fever, chills, bodyaches for 4 days. vg1 Coronavirus screen: Vaccine status: Patient reports being unvaccinated. Ebola Screen: Patient negative for fever greater than or equal to 101.5 degrees Fahrenheit, and additional compatible Ebola Virus Disease symptoms Patient denies exposure to infectious person. Patient denies travel to an Ebola-affected area in the 21 days before illness onset. No symptoms or risks identified at this time. Initial Sepsis Screen: Does the patient meet any 2 criteria? No. Patient's initial sepsis screen is negative. Does the patient have a suspected source of infection? No. Patient's initial sepsis screen is negative. Risk Assessment: Do you want to hurt yourself or someone else? Patient reports no desire to harm self or others. Onset of symptoms was March 10, 2021. 09:13 Method Of Arrival: Ambulatory 1 09:13 Acuity: CADY 3 vg1 Triage Assessment: 09:16 General: Appears in no apparent distress. comfortable, Behavior is calm, cooperative. vg1 Pain: Complains of pain in left aspect of posterior pharynx and right aspect of posterior pharynx Pain does not radiate. Pain currently is 8 out of 10 on a pain scale. EENT: Throat Cervical nodes enlarged. Historical: - Allergies: 09:16 NKA; vg1 - Home Meds: 09:16 None [Active]; vg1 - PMHx: 09:16 None; vg1 - PSHx: 09:16 None; vg1 - Immunization history:: Adult Immunizations not up to date. - Social history:: Smoking status: Patient denies any tobacco usage or history of. Screenin: Abuse screen: Denies threats or abuse. Nutritional screening: No deficits noted. vg1 Tuberculosis screening: No symptoms or risk factors identified. Fall Risk None identified. Assessment: 09:30 Respiratory: Airway is patent Respiratory effort is even, unlabored. vg1 Vital Signs: 09:13 BP 141 / 98; Pulse 116; Resp 20; Temp 97.6; Pulse Ox 100% ; Weight 99.79 kg; Height 5 vg1 ft. 9 in. (175.26 cm); Pain 8/10; 09:13 Body Mass Index 32.49 (99.79 kg, 175.26 cm) vg1 ED Course: 09:08 Patient arrived in ED. rg4 09:10 Jailyn Segal FNP-C is [facility]. kb 09:10 Deon Moss MD is Attending Physician. kb 09:16 Triage completed. vg1 09:19 Arm band placed on left wrist. vg1 09:29 Patient has correct armband on for positive identification. vg1 09:29 No provider procedures requiring assistance completed. Patient did not have IV access vg1 during this emergency room visit. Administered Medications: 09:27 Drug: Decadron (dexamethasone) 10 mg Route: PO; vg1 09:28 Follow up: Response: Medication administered at discharge. vg1 09:27 Drug: Augmentin (Amoxicillin-Clavulanate) 875 mg Route: PO; vg1 09:28 Follow up: Response: Medication administered at discharge. vg1 09:28 Drug: GI Cocktail without - (Maalox Suspension 30 ml, Lidocaine Liquid 2 % 15 vg1 ml) Route: PO; 09:28 Follow up: Response: Medication administered at discharge. vg1 Outcome: 09:21 Discharge ordered by . kb 09:29 Discharged to home ambulatory, with family. vg1 09:29 Condition: good 09:29 Discharge instructions given to patient, Instructed on discharge instructions, follow up and referral plans. medication usage, Demonstrated understanding of instructions, follow-up care, medications, Prescriptions given X 2. 09:30 Patient left the ED. vg1 Signatures: Jailyn Segal FNP-C FNP-Ckb Garcia, Rubi rg4 Katia Javier RN RN vg1 Corrections: (The following items were deleted from the chart) 09:18 09:16 PMHx: psychosis; vg1 vg1 09:18 09:16 PMHx: mood disorder; vg1 vg1 09:18 09:16 PMHx: Bipolar disorder; vg1 vg1 09:18 09:16 PMHx: Anxiety; vg1 vg1 09:19 09:13 Pulse 116bpm; Resp 20bpm; Pulse Ox 100%; Temp 97.6F; 99.79 kg; Height 5 ft. 9 vg1 in.; BMI: 32.4; Pain 8/10; vg1
--- NOTE | 2021-03-14 09:22 | EDPHYS ---
Physician Documentation [facility] Name: Angeles Field Age: 20 yrs Sex: Female : 2000 Arrival Date: 03/14/2021 Time: 09:08 Bed Waiting Private MD: ED Physician Deon Moss HPI: 03/14 09:53 This 20 yrs old Female presents to ER via Ambulatory with complaints of Fever, Sore kb Throat, Body Aches, Chills. 09:53 The patient presents with sore throat. The patient describes throat pain as constant. kb Onset: The symptoms/episode began/occurred 4 day(s) ago. Severity of symptoms: At their worst the symptoms were moderate, in the emergency department the symptoms are unchanged. Modifying factors: The symptoms are alleviated by nothing, the symptoms are aggravated by swallowing, Patient's oral intake status: good. Associated signs and symptoms: Pertinent positives: chills, fever, Sore throat. The patient has not experienced similar symptoms in the past. The patient has not recently seen a physician. Pt reports fever, chills, bodyaches and sore throat for 4 days. States she went to urgent care and was tested for strep and covid which were both negative. . Historical: - Allergies: 09:16 NKA; vg1 - Home Meds: 09:16 None [Active]; vg1 - PMHx: 09:16 None; vg1 - PSHx: 09:16 None; vg1 - Immunization history:: Adult Immunizations not up to date. - Social history:: Smoking status: Patient denies any tobacco usage or history of. ROS: 09:51 Respiratory: Negative for shortness of breath, cough, wheezing, and pleuritic chest kb pain. 09:51 Constitutional: Positive for body aches, chills, fever. 09:51 ENT: Positive for sore throat. 09:51 All other systems are negative. Exam: 09:52 Constitutional: This is a well developed, well nourished patient who is awake, alert, kb and in no acute distress. Head/Face: Normocephalic, atraumatic. Cardiovascular: Regular rate and rhythm with a normal S1 and S2. No gallops, murmurs, or rubs. No pulse deficits. Respiratory: Respirations even and unlabored. No increased work of breathing. Talking in full sentences Skin: Warm, dry with normal turgor. Normal color. MS/ Extremity: Pulses equal, no cyanosis. Neurovascular intact. Full, normal range of motion. Neuro: Awake and alert, GCS 15, oriented to person, place, time, and situation. Moves all extremities. Normal gait. Psych: Awake, alert, with orientation to person, place and time. Behavior, mood, and affect are within normal limits. 09:52 ENT: Posterior pharynx: Airway: normal, no evidence of obstruction, Tonsils: bilaterally enlarged, with erythema, with exudate, swelling, that is marked, erythema, that is moderate, exudate, that is marked. 09:56 Neck: Lymph nodes: lymphadenopathy is appreciated, anterior cervical nodes, kb submandibular nodes. Vital Signs: 09:13 BP 141 / 98; Pulse 116; Resp 20; Temp 97.6; Pulse Ox 100% ; Weight 99.79 kg; Height 5 vg1 ft. 9 in. (175.26 cm); Pain 8/10; 09:13 Body Mass Index 32.49 (99.79 kg, 175.26 cm) vg1 MDM: 09:10 Patient medically screened. kb 09:51 Data reviewed: vital signs, nurses notes. Data interpreted: Pulse oximetry: on room air kb is 100 %. Interpretation: normal. 09:52 Counseling: I had a detailed discussion with the patient and/or guardian regarding: the kb historical points, exam findings, and any diagnostic results supporting the discharge/admit diagnosis, lab results, the need for outpatient follow up, a family practitioner, to return to the emergency department if symptoms worsen or persist or if there are any questions or concerns that arise at home. Administered Medications: 09:27 Drug: Decadron (dexamethasone) 10 mg Route: PO; vg1 09:28 Follow up: Response: Medication administered at discharge. vg1 09:27 Drug: Augmentin (Amoxicillin-Clavulanate) 875 mg Route: PO; vg1 09:28 Follow up: Response: Medication administered at discharge. vg1 09:28 Drug: GI Cocktail without - (Maalox Suspension 30 ml, Lidocaine Liquid 2 % 15 vg1 ml) Route: PO; 09:28 Follow up: Response: Medication administered at discharge. vg1 Disposition Summary: 03/14/21 09:21 Discharge Ordered Location: Home kb Condition: Stable kb Diagnosis - Acute tonsillitis, unspecified kb Followup: kb - With: Emergency Department - When: As needed - Reason: Worsening of condition Followup: kb - With: Private Physician - When: 2 - 3 days - Reason: Recheck today's complaints, Continuance of care, Re-evaluation by your physician Discharge Instructions: - Discharge Summary Sheet kb - Tonsillitis, [id number] kb Forms: - Medication Reconciliation Form kb - Thank You Letter kb - Antibiotic Education kb - Prescription Opioid Use kb Prescriptions: - Prednisone 20 mg Oral Tablet - take 1 tablet by ORAL route once daily for 5 days; 5 tablet; Refills: 0, kb Product Selection Permitted - Augmentin 875-125 mg Oral Tablet - take 1 tablet by ORAL route every 12 hours for 10 days; 20 tablet; Refills: 0, kb Product Selection Permitted Addendum: 03/15/2021 13:20 Co-signature as Attending Physician, Deon Moss MD I agree with the assessment and c kline plan of care. Signatures: Jailyn Segal, VINYL WELDER AND FABRICATOR-C VINYL WELDER AND FABRICATOR-Ckb Deon Moss MD MD cha Garcia, Victoria, RN RN vg1 Corrections: (The following items were deleted from the chart) 03/14 09:18 09:16 PMHx: psychosis; vg1 vg1 09:18 09:16 PMHx: mood disorder; vg1 vg1 09:18 09:16 PMHx: Bipolar disorder; vg1 vg1 09:18 09:16 PMHx: Anxiety; vg1 vg1 09:57 09:56 Neck: Lymph nodes: lymphadenopathy is appreciated, anterior cervical nodes, kb kb
[2021-03-14] MEDS ORDERED: MAGNES/ALUMIN/SIMET 30ML UCUP ONE (09:23)
[2021-03-14] MEDS ORDERED: AMOX/K CLAV 875 MG TAB ONE (09:24)
[2021-03-14 09:35] VITALS: BP 141/98; TEMP 97.6; O2SAT 100
== END 2021-03-14 09:30 | disposition home or self-care (01) ==
LOC: ER 09:05
DX: J03.90 Acute tonsillitis, unspecified (principal)
CPT/HCPCS: 99283; J8540

== ENCOUNTER 2021-08-03 09:54 | Emergency (ER) | payer OTHER ==
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
--- NOTE | 2021-08-03 13:29 | ER ---
Nurse's Notes [facility] Name: Angeles Field Age: 21 yrs Sex: Female : 2000 Arrival Date: 08/03/2021 Time: 09:55 Bed 12 Private MD: Harmony Tubbs Diagnosis: Acute pharyngitis, unspecified Presentation: 08/03 10:18 Chief complaint: Patient states: rash on chest stomach and back and sore throat and iw swollen lymph nodes. Coronavirus screen: Client presents with at least one sign or symptom that may indicate coronavirus-19. Ebola Screen: Patient negative for fever greater than or equal to 101.5 degrees Fahrenheit, and additional compatible Ebola Virus Disease symptoms Patient denies exposure to infectious person. Patient denies travel to an Ebola-affected area in the 21 days before illness onset. No symptoms or risks identified at this time. Initial Sepsis Screen: Does the patient meet any 2 criteria? No. Patient's initial sepsis screen is negative. Does the patient have a suspected source of infection? No. Patient's initial sepsis screen is negative. Risk Assessment: Do you want to hurt yourself or someone else? Patient reports no desire to harm self or others. Onset of symptoms was July 27, 2021. 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 - Social history:: Smoking status: Patient denies any tobacco usage or history of. Screenin:48 Abuse screen: Denies threats or abuse. Denies injuries from another. Nutritional ld1 screening: No deficits noted. Tuberculosis screening: No symptoms or risk factors identified. Fall Risk None identified. Assessment: 12:48 General: Appears in no apparent distress. comfortable, Behavior is calm, cooperative, ld1 appropriate for age. Pain: Denies pain. Neuro: Level of Consciousness is awake, alert, obeys commands, Oriented to person, place, time, situation. Cardiovascular: Capillary refill < 3 seconds Patient's skin is warm and dry. Respiratory: Airway is patent Respiratory effort is even, unlabored, Breath sounds are clear bilaterally. GI: Abdomen is flat, non-distended. : No signs and/or symptoms were reported regarding the genitourinary system. EENT: Throat is pink is reddened. Derm: No signs and/or symptoms reported regarding the dermatologic system. Musculoskeletal: No signs and/or symptoms reported regarding the musculoskeletal system. Vital Signs: 10:18 BP 109 / 89; Pulse 98; Resp 16; Temp 97.5; Pulse Ox 99% on R/A; Weight 95.25 kg; Height iw 5 ft. 9 in. (175.26 cm); 12:48 BP 111 / 86; Pulse 95; Resp 18; Pulse Ox 99% on R/A; ld1 13:26 BP 116 / 82; Pulse 91; Resp 18; Pulse Ox 99% on R/A; ld1 10:18 Body Mass Index 31.01 (95.25 kg, 175.26 cm) iw ED Course: 09:55 Patient arrived in ED. am2 09:56 Harmony Tubbs MD is Private Physician. am2 10:13 Santiago Townsend PA is PHCP. jmm 10:13 Deon Moss MD is Attending Physician. [facility] 10:17 Elena Mckeon, RN is Primary Nurse. iw 10:19 Triage completed. iw 10:20 Arm band placed on. iw 12:48 Patient has correct armband on for positive identification. Placed in gown. Bed in low ld1 position. Call light in reach. Side rails up X2. spot sprayer on. Pulse ox on. NIBP on. Door closed. Noise minimized. Warm blanket given. 12:48 No provider procedures requiring assistance completed. ld1 13:28 Harmony Tubbs MD is Referral Physician. vern 13:48 Patient did not have IV access during this emergency room visit. ld1 Administered Medications: No medications were administered Medication: 12:48 VIS not applicable for this client. ld1 Outcome: 13:28 Discharge ordered by . roro 13:48 Discharged to home ambulatory. ld1 13:48 Condition: stable 13:48 Discharge instructions given to patient, Instructed on discharge instructions, follow up and referral plans. medication usage, Demonstrated understanding of instructions, follow-up care, medications, Prescriptions given X 1. 13:48 Patient left the ED. ld1 Signatures: Santiago Townsend PA PA jmm Williams, Irene, RN RN Francie Poole Lauren, RN RN ld1 Corrections: (The following items were deleted from the chart) 10:19 10:18 Onset of symptoms was August 03, 2021 [facility] 11:06 10:18 Resp 16bpm; Pulse Ox 99% RA; Temp 97.5F; 95.25 kg; Height 5 ft. 9 in.; BMI: 31.0; iw iw
--- NOTE | 2021-08-03 13:29 | EDPHYS ---
Physician Documentation [facility] Name: Angeles Field Age: 21 yrs Sex: Female : 2000 Arrival Date: 08/03/2021 Time: 09:55 Bed 12 Private MD: Harmony Tubbs ED Physician Deon Moss HPI: 08/03 10:15 This 21 yrs old Female presents to ER via Ambulatory with complaints of lymph node jmm swelling, Sore Throat, Rash. 10:15 The patient presents with sore throat. Onset: The symptoms/episode began/occurred jmm gradually. Modifying factors: The symptoms are alleviated by nothing, the symptoms are aggravated by nothing. This is a 21 year old female with no chronic medical conditions that presents to the ED with complaints of sore throat, rash. Denies vomiting, diarrhea. . 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 - Social history:: Smoking status: Patient denies any tobacco usage or history of. ROS: 10:15 Constitutional: Negative for fever, chills, and weight loss. jmm 10:15 ENT: Positive for sore throat. 10:15 All other systems are negative. Exam: 10:15 Constitutional: This is a well developed, well nourished patient who is awake, alert, jmm and in no acute distress. Head/Face: atraumatic. Eyes: EOMI, no conjunctival erythema appreciated 10:15 Neck: Trachea midline, Supple Chest/axilla: Normal chest wall appearance and motion. Cardiovascular: Regular rate and rhythm. No edema appreciated Respiratory: Normal respirations, no respiratory distress appreciated Abdomen/GI: Non distended, soft Back: Normal ROM Skin: General appearance color normal MS/ Extremity: Moves all extremities, no obvious deformities appreciated, no edema noted to the lower extremities Neuro: Awake and alert Psych: Behavior is normal, Mood is normal, Patient is cooperative and pleasant 10:15 ENT: Posterior pharynx: erythema, that is moderate. Vital Signs: 10:18 BP 109 / 89; Pulse 98; Resp 16; Temp 97.5; Pulse Ox 99% on R/A; Weight 95.25 kg; Height iw 5 ft. 9 in. (175.26 cm); 12:48 BP 111 / 86; Pulse 95; Resp 18; Pulse Ox 99% on R/A; ld1 13:26 BP 116 / 82; Pulse 91; Resp 18; Pulse Ox 99% on R/A; ld1 10:18 Body Mass Index 31.01 (95.25 kg, 175.26 cm) iw MDM: 10:15 Patient medically screened. zion 13:27 Data reviewed: vital signs, nurses notes. Counseling: I had a detailed discussion with [facility] the patient and/or guardian regarding: the historical points, exam findings, and any diagnostic results supporting the discharge/admit diagnosis, the need for outpatient follow up, to return to the emergency department if symptoms worsen or persist or if there are any questions or concerns that arise at home. ED course: Patient is alert and non toxic in appearance in the ED. No signs of resp distress. Advised to follow up with pcp and otherwise given strict return precautions. patient understood and agrees with the plan of care. . 08/03 10:15 Order name: SARS-COV-2 RT PCR (Document "Date of Onset" if Symptomatic); Complete Time: [facility] 12:38 08/03 10:15 Order name: Influenza Screen (a \\T\\ B); Complete Time: 12:03 [facility] 08/03 10:16 Order name: Strep; Complete Time: 12:03 [facility] 08/03 10:46 Order name: [place] Screen Profile; Complete Time: 11:58 [facility] 08/03 12:01 Order name: Throat Culture EDMS Administered Medications: No medications were administered Disposition Summary: 08/03/21 13:28 Discharge Ordered Location: Home [facility] Condition: Stable [facility] Diagnosis - Acute pharyngitis, unspecified [facility] Followup: [facility] - With: Harmony Tubbs MD - When: 2 - 3 days - Reason: Recheck today's complaints, Continuance of care, Re-evaluation by your physician Discharge Instructions: - Discharge Summary Sheet [facility] - Pharyngitis [facility] Forms: - Medication Reconciliation Form [facility] - Thank You Letter [facility] - Antibiotic Education [facility] - Prescription Opioid Use [facility] Prescriptions: - Amoxicillin 875 mg Oral Tablet - take 1 tablet by ORAL route every 12 hours for 10 days; 20 tablet; Refills: 0, jmm Product Selection Permitted Signatures: Dispatcher [employer] Deon Navas MD MD cha Mickail, Joel, PA PA jmm Williams, Irene, RN RN iw
[2021-08-03 14:15] VITALS: TEMP 97.5; O2SAT 99
[2021-08-03 14:19] VITALS: BP 116/82
== END 2021-08-03 13:48 | disposition home or self-care (01) ==
LOC: ER 09:54
DX: J02.9 Acute pharyngitis, unspecified (principal); R21 Rash and other nonspecific skin eruption; Z20.822 Contact with and (suspected) exposure to COVID-19
CPT/HCPCS: 87070; 36415; 86308; 87081; 87804 ×2; U0003; 99284

== ENCOUNTER 2022-02-19 02:17 | Emergency (ER) | payer OTHER ==
--- OUTSIDE RECORDS SUMMARY | 2022-02-19 02:23 | XMS REPORT | Continuity of Care Document ---
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 2022-01-21 16:59:00 [facility] GLOBULIN [facility] SGOT (ASPARTATE AMINO 2022-01-21 16:50:[address] [facility] TRANSFER) Medical Branch ALANINE AMINO 2022-01-21 16:50:00 Rodriguez [facility] TRANSFERASE(SGPT Medical Branch CBC WITH DIFF 2022-01-21 16:50:00 Rodriguez [facility] GALV ONLY - SYPHILIS 2022-01-21 16:50:00 Rodriguez Sapp[facility] IGG/IGM [facility] HEPATITIS B SURFACE 2022-01-21 16:50:00 Rodriguez [facility] ANTIGEN [facility] Branch RPR (QUANTITATIVE) 2022-01-21 16:50:00 Sapphire Frias [facility] HIV 1/2 AG-AB WITH 2022-01-21 16:50:00 Rodriguez [facility] REFLEX [facility] Branch HOSPITAL ADMISSION 2022-01-21 06:01:00 Doctor Unassigned, No Uni [facility] POCT URINALYSIS 2022-01-05 21:44:00 Lidia Gunn [facility] URINALYSIS 2022-01-02 22:59:00 Speedy Dimas [facility] CONSENT/REFUSAL FOR 2022-01-02 21:58:20 Doctor Unassigned, No [facility] [place] DIAGNOSIS AND [facility] TREATMENT L&D VISIT 2022-01-02 06:01:00 Doctor Unassigned, No [facility] (NON-DELIVERED) Name Medical Branch POCT URINALYSIS 2021-12-24 00:00:00 Lidia Gunn [facility] POCT URINALYSIS 2021-12-09 20:24:00 Lidia Gunn [facility] COMP. METABOLIC PANEL 2021-11-26 17:00:00 John Mcgee [facility] ([id number]) Medical Branch CBC WITH DIFF 2021-11-26 17:00:00 John Mcgee [facility] URINALYSIS 2021-11-19 22:35:00 Isauro Samantha [facility] ADC CLC OR LCC ONLY - 2021-11-19 22:35:00 Isauro [facility] ASSIGNMENT OF BENEFITS 2021-11-19 21:49:27 Doctor Unassigned, No [facility] Branch NOTICE OF PRIVACY 2021-11-19 21:49:06 Doctor Unassigned, No [facility] PRACTICES [facility] Medical Branch CONSENT/REFUSAL FOR 2021-11-19 21:48:47 Doctor Unassigned, No [facility] DIAGNOSIS AND [facility] Branch TREATMENT POCT URINALYSIS 2021-11-02 18:52:00 Lidia Gunn [facility] URINALYSIS 2021-11-02 14:43:00 Shamika Garcia [facility] ADC CLC OR LCC ONLY - 2021-11-02 14:43:00 Shamika Garcia [facility] Branch ASSIGNMENT OF BENEFITS 2021-11-02 13:36:01 Doctor Unassigned, No [facility] Branch CONSENT/REFUSAL FOR 2021-11-02 13:35:30 Doctor Unassigned, No [facility] DIAGNOSIS AND Name Medical Branch TREATMENT POCT URINALYSIS 2021-10-05 19:56:00 Lidia Gunn [facility] Plan of Care Planned Activity Planned Date Details Comments Source Future Scheduled Test 2021-11-14 00:00:00 IMM Influenza [facility] Seasonal (>/= 19 yrs) [code = IMM Influenza Seasonal (>/= 19 yrs)] Future Scheduled Test 2020-11-14 00:00:00 IMM Influenza [facility] Seasonal Nov to April (>/= 19 yrs) [code = IMM Influenza Seasonal Nov to April (>/= 19 yrs)] Future Scheduled Test 2020-06-07 00:00:00 Screening for [facility] malignant neoplasm of cervix (procedure) [code = 490969152] Future Scheduled Test 2020-06-07 00:00:00 Screening for [facility] malignant neoplasm of cervix (procedure) [code = 670030793] Future Scheduled Test 2011 00:00:00 COVID-19 Vaccine (1) [facility] [code = COVID-19 Vaccine (1)] Future Scheduled Test 1999 00:00:00 COVID-19 Vaccine (#1) [facility] [code = COVID-19 Vaccine (#1)] Encounters Start End Encounter Admission Attending Care Care Encounter Source Date/Time Date/Time Type Type Clinicians Facility Department ID 2021-11-02 Outpatient X [facility] LUCY [id number] Univers 12:05:16 ity [facility] 2021-08-21 Outpatient Álvarez, [facility] [id number] Common 11:03:02 Pedro [facility] 2021-05-12 Outpatient BOZENAA, [facility] [id number] [place] 09:56:57 FRANCES [id number] [facility] 2021-03-[address] [facility] [id number] Common 09:00:02 Pedro [facility] 2020-12-12 Emergency [facility] [id number] Univers 19:39:41 ity [facility] 2022-03-08 2022-03-08 Outpatient R AKINSIPE, [facility] [id number] Univers 14:00:00 14:00:00 SHARRON xiong o f [facility] 2022-02-15 2022-02-15 [facility] 1.2.251.187 [id number] Univers 15:30:00 15:45:00 Sharron Richter CAR DESIGNER [id number] ity of Visit REGIONAL 4.2.7.2.686 Nick as MATERNAL [phone] [facility] & CHILD [address] [place] [address] 2022-02-15 2022-02-15 Outpatient R [facility] [id number] Univers 15:30:00 15:30:[address]g o f [facility] 2022-02-15 2022-02-15 Orders Doctor FAIN Zendejas2.840.114 [id number] Univers 00:00:00 00:00:00 Only Unassigned, LEATHA [id number] ity of [place] [facility] 4.2.7.2.686 Nick as [phone] [facility] [address] 2022-01-28 2022-01-28 Outpatient R [facility] [id number] Univers 12:45:00 12:45:[address] [facility] 2022-01-26 2022-01-26 Telephone [facility] 1.2.840.114 [id number] Univers 00:00:00 00:00:00 Sharron Richter CAR DESIGNER 350.1.13.[address]2.686 Nick as MATERNAL [phone] Med ical & CHILD 107 [facility] 2022-01-21 2022-01-24 Inpatient X [facility] LUC[facility] [id number] Univers 08:33:00 15:20:[address] [facility] 2022-01-21 2022-01-24 [facility] FANI Goodwin 1.2.840.114 [id number] Univers 08:33:00 15:20:00 Encounter Deon ZHANG 350.1.13.10 ity [place] [id number] Nick as [phone] [facility] [address] 2022-01-22 2022-01-22 Anesthesia Angel Grubbs 1.2.840. 114 [id number] Univers 03:05:00 19:18:00 Event Ye Jurado 350.1.13.10 ity of [facility] 42.7.2.686 Nick as [id number] [facility] [address] 2022-01-21 2022-01-21 Orders Doctor FANI Garay.2.840.114 [id number] Univers 00:00:00 00:00:00 Only Unassigned, LEATHA 350.1.13.10 ity of [place] [facility] 4.2.7.2.686 Nick as [id number] [address] 2022-01-20 2022-01-[address] [facility] 1.2.840.114 [id number] Univers 00:00:00 00:00:00 Sharron C CAR DESIGNER [id number] ity of [facility] 4.2.7.2.686 Nick as MATERNAL [id number] [facility] ical & CHILD [address] [place] [address] 2022-01-19 2022-01-[address] [facility] 1.2.840.114 [id number] Univers 00:00:00 00:00:00 Sharron C CAR DESIGNER 350.1.13.10 ity of [facility] 4.2.7.2.686 Nick as MATERNAL [phone] [facility] & [address] 2022-01-18 2022-01-18 Outpatient R ANOOP, [facility] [id number] Univers 15:15:00 15:55:[address] o f [facility] 2022-01-18 2022-01-[address] [facility] 1.2.189.020 [id number] Univers 15:15:00 15:55:56 Sharron C CAR DESIGNER 350.1.13.10 ity of Visit [facility] 4.2.7.2.686 Nick as MATERNAL [phone] [facility] & CHILD [address] [place] [address] 2022-01-06 2022-01-06 Outpatient R MULU [facility] [id number] Univers 15:45:00 15:45:00 SHAUN ity [facility] 2022-01-05 2022-01-05 Outpatient R ANOOP, [facility] [id number] Univers 15:15:00 16:05:[address]y o f [facility] 2022-01-05 2022-01-05 Routine Akinpe, [facility] 1.2.303.997 [id number] Univers 15:15:00 16:05:00 Sharron C CAR DESIGNER 350.1.13.10 ity of Visit REGIONAL 4.2.7.2.686 Nick as MATERNAL [phone] [facility] ical & CHILD [address] [place] [address] 2022-01-02 2022-01-02 Outpatient X SHAMIKA GARCIA [facility] LUCY [id number] Univers 16:08:00 18:10:[address] [facility] 2022-01-02 2022-01-02 Emergency Judie [place] [facility] 1.2.84 0.114 [id number] Univers 16:08:00 18:10:00 Sandee López HENSEL 350.1.13.10 ity of GarciaShamika Severo [place] 4.2.7.2.686 [facility] [id number] [address] 2021-12-30 2021-12-30 Telephone [facility] 1.2.840.114 [id number] Univers 00:00:00 00:00:00 Sharron Richter CAR DESIGNER 350.1.13.10 ity of REGIONAL 4.2.7.2.686 Nick as MATERNAL [phone] [facility] & CHILD [address] [place] [address] 2021-12-28 2021-12-28 Outpatient R [facility] [id number] Univers 11:00:00 11:00:[address] [facility] 2021-12-24 2021-12-24 Outpatient Fei GUNN [facility] [id number] Univers 10:30:00 11:41:09 [address] o f [facility] 2021-12-24 2021-12-24 Routine Provider, Ang-[facility] 1 .2.840.114 [id number] Univers 10:30:00 11:41:09 Lidia Gunn CAR DESIGNER 350.1.13.1 0 ity of Visit REGIONAL 4.2.7.2.686 Nick as MATERNAL [phone] [facility] & CHILD [address] [place] [address] 2021-12-23 2021-12-23 Outpatient R [facility] [id number] Univers 15:45:00 15:45:[address] ity o f [facility] 2021-12-15 2021-12-15 Telephone Anoop [facility] 1.2.840.114 [id number] Univers 00:00:00 00:00:00 Sharron Richter CAR DESIGNER 350.1.13.10 ity of REGIONAL 4.2.7.2.686 Nick as MATERNAL [id number] [facility] & [address] 2021-12-09 2021-12-09 Outpatient R ANOOP [facility] [id number] Univers 15:15:00 15:37:51 SHARRON smith [facility] 2021-12-09 2021-12-09 Routine Sharron Davalos [facility] 1.2.8 40.114 [id number] Univers 15:15:00 15:30:00 Lidia Gunn CAR DESIGNER 350.1.13.1 0 ity of Visit REGIONAL 4.2.7.2.686 Nick as MATERNAL [phone] [facility] & CHILD [address] [place] [address] 2021-12-07 2021-12-07 Outpatient R LUIS A [facility] [id number] Univers 13:45:00 13:45:00 LIDIA smith [facility] 2021-11-26 2021-11-26 Office Disease, Gloria & Pcp Pedi Infec [facility] 1.2.840.114 [id number] Univers 10:30:00 11:00:00 Visit Arnie Goodman SPECIALTY 350.1.13.1 0 [place] [id number] [address] 2021-11-26 2021-11-26 Outpatient R ARNIE GOODMAN [facility] [id number] Univers 10:30:00 10:30:00 ARNIE GOODMAN [facility] 2021-11-23 2021-11-23 Outpatient R LUIS A [facility] [id number] Univers 13:45:00 14:31:13 LIDIA smith [facility] 2021-11-23 2021-11-23 Routine Luis A [facility] 1.2.840.114 [id number] Univers 13:45:00 14:31:13 Roshunda R CAR DESIGNER 350.1.13.10 ity of Visit REGIONAL 4.2.7.2.686 Nick as MATERNAL [phone] [facility] ica & CHILD [address] [place] [address] 2021-11-19 2021-11-19 Outpatient X [facility] LUCY [id number] Univers 16:58:00 18:45:[address] [facility] 2021-11-19 2021-11-19 Emergency FishSamantha [facility] 1.2.840.114 [id number] Univers 16:58:00 18:45:00 HENSEL 350.1.13.10 i ty of [place] 4.2.7.2.686 [place] [facility] [id number] [facility] [address] 2021-11-19 2021-11-19 Nurse Nurse, Alber [facility] 1.2.840.114 [id number] Univers 16:30:00 16:50:00 Visit [facility] 350.1.13.10 ity [facility] 4.2.7.2.686 Nick as EVE?BLEA [phone] [address] MEDICAL OFFICE BUILDING 2021-11-19 2021-11-19 Outpatient R LINK [facility] [id number] Univers 16:30:00 16:41:32 MELINA ity [facility] 2021-11-19 2021-11-19 Telephone Luis A [facility] 1.2.347.381 [id number] Univers 00:00:00 00:00:00 Rosjuaquinnda R CAR DESIGNER 350.1.13.10 ity of REGIONAL 4.2.7.2.686 Nick as MATERNAL [phone] [facility] & CHILD [address] [place] [address] 2021-11-19 2021-11-19 Orders Doctor MOHR 1.2.840.114 [id number] Univers 00:00:00 00:00:00 Only Unassigned, LEATHA 350.1.13.10 ity of [place] [facility] 4.2.7.2.686 Nick as [phone] [facility] [address] 2021-11-02 2021-11-02 Outpatient R LUIS A [facility] [id number] Univers 13:30:00 14:13:[address] ity o f [facility] 2021-11-02 2021-11-02 Routine Luis [facility] 1.2.840.114 [id number] Univers 13:30:00 14:13:36 Roshunda R CAR DESIGNER 350.1.13.10 ity of Visit [facility] 4.2.7.2.686 Nick as MATERNAL [phone] Med ical & CHILD [address] [place] [address] 2021-11-02 2021-11-02 Outpatient X SHAMIKA GARCIA [facility] LUCY [id number] Univers 08:43:00 12:05:[address] [facility] 2021-11-02 2021-11-02 Emergency [facility] 1.2.840.114 [id number] Univers 08:43:00 12:05:00 [facility] 350.1.13.10 i ty [facility] 4.2.7.2.686 [place] [id number] [facility] [address] 2021-11-02 2021-11-02 Orders Doctor FANI 1.2.840.114 [id number] Univers 00:00:00 00:00:00 Only Unassigned, LEATHA 350.1.13.10 ity of [place] [facility] 4.2.7.2.686 Nick as [phone] [facility] [address] 2021-10-07 2021-10-07 Outpatient R LUIS A [facility] [id number] Univers 15:45:00 15:45:[address]y o f [facility] 2021-10-05 2021-10-05 Outpatient R [facility] [id number] Univers 14:30:00 15:19:[address] ity o f [facility] 2021-10-05 2021-10-05 Routine Luis [facility] 1.2.840.114 [id number] Univers 14:30:00 15:19:47 Roshunda R CAR DESIGNER 350.1.13.10 ity of Visit [facility] 4.2.7.2.686 Nick as MATERNAL [phone] Med ical & CHILD [address] [place] [address] 2021-10-05 2021-10-05 Outpatient R LUIS A [facility] [id number] Univers 14:30:00 14:30:[address] o f [facility] 2021-09-28 2021-09-28 Nurse Visit, [facility] 1.2 .840.114 [id number] Univers 15:00:00 15:56:15 Visit Lidia Gunn CAR DESIGNER 350.1.13.10 [facility]y [facility] 4.2.7.2.686 Nick as MATERNAL [id number] [facility] & CHILD [address] [place] [address] 2021-09-28 2021-09-28 Nurse Visit, [facility] 1.2 .840.114 [id number] [facility] 15:00:00 15:15:00 Visit Lidia Gunn CAR DESIGNER 350.1.13.10 ity [facility] 4.2.7.2.686 Nick as MATERNAL [id number] [facility] & CHILD [address] [place] [address] 2021-09-28 2021-09-28 Outpatient R LUIS A [facility] [id number] Univers 15:00:00 15:00:[address] [facility] 2021-09-21 2021-09-21 Nurse Visit, [facility] 1.2 .840.114 [id number] Univers 15:00:00 15:21:03 Visit Lidia Gunn CAR DESIGNER 350.1.13.10 ity [facility] 4.2.7.2.686 Nick as MATERNAL [id number] [facility] & CHILD [address] [place] [address] 2021-09-21 2021-09-21 Outpatient R LUIS A [facility] [id number] Univers 15:00:00 15:00:00 LIDIA xiong o [facility] 2021-09-21 2021-09-21 Telephone Luis A [facility] 1.2.561.543 [id number] Univers 00:00:00 00:00:00 Roshunda R CAR DESIGNER 350.1.13.10 ity of REGIONAL 4.2.7.2.686 Nick as MATERNAL [phone] [facility] & CHILD [address] [place] [address] 2021-09-18 2021-09-18 Telephone Luis A [facility] 1.2.420.887 [id number] Univers 00:00:00 00:00:00 Ambersocrates R CAR DESIGNER 350.1.13.10 ity of REGIONAL 4.2.7.2.686 Nick as MATERNAL [id number] [facility] & CHILD [address] [place] [address] 2021-09-17 2021-09-17 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 2021-09-17 2021-09-17 Prekindergarten Teacher Lab, AlberRmp [facility] 1.2.840. 114 [id number] Univers 07:45:00 09:50:42 Visit Amber Gunnsocrates Enamorado CAR DESIGNER 350.1.13.10 ity of REGIONAL 4.2.7.2.686 Nick as MATERNAL [phone] [facility] & CHILD [address] [place] [address] 2021-09-17 2021-09-17 Outpatient P [facility] [id number] Univers 09:30:00 09:30:00 ity [facility] 2021-09-17 2021-09-17 Outpatient P [facility] [id number] Univers 09:30:00 09:30:00 ity [facility] 2021-09-17 2021-09-17 Abstract Luis A [facility] 1.2.840.114 [id number] Univers 00:00:00 00:00:00 Roshunda R CAR DESIGNER 350.1.13.10 ity of [facility] 4.2.7.2.686 Nick as MATERNAL [id number] [facility] & CHILD [address] [place] [address] 2021-09-09 2021-09-09 Routine Luis A [facility] 1.2.840.114 [id number] Univers 15:15:00 16:04:04 Roshunda R CAR DESIGNER 350.1.13.10 ity of Visit REGIONAL 4.2.7.2.686 Nick as MATERNAL [phone] [address] 2021-09-09 2021-09-09 Outpatient R LUIS A [facility] [id number] Univers 15:15:00 16:04:04 LIDIA xiong o [facility] 2021-09-09 2021-09-09 Outpatient [facility] [id number] Univers 15:15:00 15:15:00 ASHERNDA tyrese o [facility] 2021-08-28 2021-08-28 (TEL) [facility] [id number] Co mmon 00:00:00 00:00:00 [facility] 2021-08-18 2021-08-18 Telephone Luis [facility] 1.2.113.998 [id number] Univers 00:00:00 00:00:00 Ambersocrates Fei HENSEL 350.1.13.10 ity of [place] 4[place]2.7.2.[place] PROF[place] [id number] Vt dical [address] 2021-08-13 2021-08-13 Case Luis [facility] 1.2.840.114 [id number] Univers 00:00:00 00:00:00 Management Ashernda R CAR DESIGNER 350.1.13.10 ity of [facility] 4.2.7.2.686 Nick as MATERNAL [phone] [facility] & [address] 2021-08-12 2021-08-12 Outpatient R [facility] [id number] Univers 13:15:00 13:49:[address] ity o f [facility] 2021-08-12 2021-08-[address] 1.2.840.114 [id number] Univers 13:15:00 13:49:47 Roshunda R CAR DESIGNER 350.1.13.10 ity of Visit REGIONAL 4.2.7.2.686 Nick as MATERNAL [id number] [facility] & CHILD [address] [place] [address] 2021-08-12 2021-08-12 Outpatient R [facility] [id number] Univers 13:15:00 13:15:00 ROSHUNDA ity o f [facility] 2021-08-11 2021-08-11 Telephone [facility] 1.2.108.335 [id number] Univers 00:00:00 00:00:00 Roshunda R CAR DESIGNER 350.1.13.10 ity of REGIONAL 4.2.7.2.686 Nick as MATERNAL [phone] [facility] & CHILD [address] [place] [address] 2021-08-03 2021-08-03 Outpatient R [facility] [id number] Univers 10:00:00 10:00:[address] o f [facility] 2021-08-03 2021-08-[address] [place] [facility] 1.2.096.736 [id number] Univers 00:00:00 00:00:00 Roshunda R CAR DESIGNER 350.1.13.10 ity of REGIONAL 4.2.7.2.686 Nick as MATERNAL [phone] [facility] & CHILD [address] [place] [address] 2021-07-27 2021-07-27 [facility] 1.2.852.675 [id number] Univers 00:00:00 00:00:00 Roshunda R CAR DESIGNER 350.1.13.10 ity of REGIONAL 4.2.7.2.686 Nick as MATERNAL [phone] [facility] & CHILD [address] [place] [address] 2021-07-16 2021-07-16 [facility]3] [facility] 1.2.840.114 [id number] Univers 00:00:00 00:00:00 Roshunda R CAR DESIGNER 350.1.13.10 ity of REGIONAL 4.2.7.2.686 Nick as MATERNAL [phone] [facility] & CHILD [address] [place] [address] 2021-07-16 2021-07-16 Abstract Luis A [facility] 1.2.840.114 [id number] Univers 00:00:00 00:00:00 Rosjuaquinnda R CAR DESIGNER 350.1.13.10 ity of REGIONAL 4.2.7.2.686 Nick as MATERNAL [phone] [facility] & CHILD [address] [place] [address] 2021-07-15 2021-07-15 Outpatient R LUIS A [facility] [id number] Univers 13:00:00 13:00:[address] o f 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 13.10 ity of REGIONAL 4.2.7.2.686 Nick as MATERNAL [phone] [facility] & CHILD [address] [place] [address] 2021-07-15 2021-07-15 Outpatient P [facility] [id number] Univers 10:00:00 10:00:00 ity [facility] 2021-06-17 2021-06-17 Outpatient R GEORGE [facility] [id number] Univers 14:00:00 14:00:00 FALGUNI itjoshua [facility] 2021-06-17 2021-06-17 Initial [facility] 1.2.840.114 [id number] Univers 09:15:00 10:26:59 Lidia Enamorado CAR DESIGNER 350.1.13.10 ity of Visit [facility] 4.2.7.2.686 Nick as MATERNAL [phone] Med ical & CHILD [address] [place] [address] 2021-06-17 2021-06-17 Outpatient R [facility] [id number] Univers 09:15:00 10:26:[address] o f [facility] 2021-06-17 2021-06-17 Outpatient R [facility] [id number] Univers 09:15:00 09:15:[address] o f [facility] 2021-06-17 2021-06-17 Orders Doctor FANI 1.2.840.114 [id number] Univers 00:00:00 00:00:00 Only Unassigned, LEATHA 350.1.13.10 ity of [place] [facility] 4.2.7.2.686 Nick as [phone] [address] 2021-05-26 2021-05-26 [facility] [id number] Common 00:00:00 00:00:00 EST AGE Spirit 18-39 - [facility] 2021-05-20 2021-05-20 Case [facility] 1.2.782.894 [id number] Univers 00:00:00 00:00:00 Management Gaudencio ROUSSEAU 350.1.13.10 ity of [place] [phone] Vt dical NAL [address] [place] [address] 2021-05-20 2021-05-20 Telephone Alexandro [facility] 1.2.840.114 [id number] Univers 00:00:00 00:00:00 Gaudencio ROUSSEAU 350.1.13.10 i ty of [place] [phone] Vt dical NAL [address] [place] [address] 2021-05-18 2021-05-18 Outpatient R ALEXANDRO [facility] [id number] Univers 11:00:00 12:12:38 GAUDENCIO xiong [facility] 2021-05-18 2021-05-18 Office [facility] 1.2.016.847 [id number] Univers 11:00:00 12:12:38 Visit Gaudenciobabar ROUSSEAU 350.1.13.10 i ty [facility] 4.2.7.2.[place] [phone] Vt simon [place] [address] [address] [facility] 2021-05-18 2021-05-18 Outpatient R ALEXANDRO [facility] [id number] Univers 11:00:00 12:12:38 GAUDENCIO xiong [facility] 2021-04-21 2021-04-21 OFFICE STLMLC STLMLC [id number] Co mmon 00:00:00 00:00:00 VISIT EST Spir it PT LEVEL 3 - [facility] 2021-03-19 2021-03-19 OFFICE STLMLC STLMLC [id number] Co mmon 00:00:00 00:00:00 VISIT NEW Spir it PT LEVEL 3 - [facility] 2021-03-12 2021-03-12 Outpatient Fei THOMSON [facility] [id number] Univers 11:20:00 12:05:20 MELINA xiong [facility] 2021-03-12 2021-03-12 Urgent Melina Thomson [facility] 1.2.840.114 [id number] Univers 11:20:00 11:40:00 [facility] 350.1.13.10 ity [facility] 4.2.7.2.686 Nick as EVE?BLEA [phone] Vt dicofelia [facility] [address] MEDICAL OFFICE BUILDING 2021-01-26 2021-01-26 Олег Alfredo [facility] 1.2.840.114 [id number] Univers 00:00:00 00:00:00 Holly Jean CAR DESIGNER 350.1.13.10 it y [facility] 4.2.7.2.686 Nick as MATERNAL [phone] Med ical & CHILD [address] [place] [address] 2021-01-23 2021-01-23 Outpatient R SAYDA [facility] [id number] Univers 13:00:00 13:49:00 HOLLY xiong [facility] 2021-01-23 2021-01-23 Outpatient R SAYDA [facility] [id number] Univers 13:00:00 13:49:00 HOLLY xiong [facility] 2021-01-23 2021-01-23 Office [facility] 1.2.540.905 [id number] Univers 12:51:03 13:49:00 Visit Holly Miranda CAR DESIGNER 350.1.13.10 it y of [facility] 4.2.7.2.686 Nick as MATERNAL [phone] Med ical & CHILD [address] [place] [address] 2021-01-23 2021-01-23 Orders Doctor FANI 1.2.840.114 [id number] Univers 00:00:00 00:00:00 Only Unassigned, LEATHA 350.1.13.10 ity of [place] [facility] 4.2.7.2.686 Nick as [phone] [facility] [address] 2021-01-23 2021-01-23 Letter [facility] 1.2.807.091 [id number] Univers 00:00:00 00:00:00 (Out) Holly Miranda CAR DESIGNER 350.1.13.10 it y of [facility] 4.2.7.2.686 Nick as MATERNAL [phone] [facility] [address] [place] [address] 2020-02-27 2020-02-27 Emergency [facility] 1.2.625.092 [id number] Univers 18:29:00 21:11:00 Samantha Rousseau 350.1.13.10 i ty of [place].7.2.686 [place] [phone] [facility] [address] 2020-02-27 2020-02-27 Emergency X [facility] ERT [id number] Univers 18:29:00 21:11:00 SAMANTHA xiong [facility] 2020-02-27 2020-02-27 Emergency [facility] 1.2.452.270 [id number] 18:29:00 21:11:00 Samantha Rousseau 350.1.13.10 [place] 4.2.7.2.686 [place] [id number] [id number] 2020-02-27 2020-02-[address] [facility] 1.2.840.114 [id number] Univers 00:00:00 00:00:00 Sharron C CAR DESIGNER 350.1.13.10 ity of REGIONAL 4.2.7.2.686 Nick as MATERNAL [phone] [facility] ical & CHILD [address] [place] [address] 2020-02-27 2020-02-27 Orders Doctor FANI 1.2.840.114 [id number] Univers 00:00:00 00:00:00 Only Unassigned, LEATHA 350.1.13.10 ity of [place] [facility] 4.2.7.2.686 Nick as [phone] [address] 2020-02-27 2020-02-[address] [facility] 1.2.840.114 [id number] 00:00:00 00:00:00 Sharron C CAR DESIGNER 350.1.13.10 REGIONAL 4.2.7.2.686 MATERNAL [phone] & CHILD [address] [place] [address] 2020-02-27 2020-02-27 Orders Doctor FANI 1.2.840.114 [id number] 00:00:00 00:00:00 Only Unassigned, LEATHA 350.1.13.10 [place] [facility] 4.2.7.2.686 [id number] 009 2020-01-30 2020-01-[address] [facility] 1.2.603.961 [id number] [facility] 15:43:52 16:13:52 Visit Sharron C CAR DESIGNER 350.1.13.10 ity of REGIONAL 4.2.7.2.686 Nick as MATERNAL [phone] [facility] ical & CHILD [address] [place] [address] 2020-01-30 2020-01-[address] [facility], [facility] 1.2.377.190 [id number] 15:43:52 16:13:52 Visit Sharron C CAR DESIGNER 350.1.13.10 REGIONAL 4.2.7.2.686 MATERNAL [id number] & CHILD [address] [place] [address] 2020-01-30 2020-01-30 Outpatient R ANOOP, [facility] [id number] Univers 15:45:00 15:45:[address] [facility] 2020-01-30 2020-01-30 Orders Doctor FANI 1.2.840.114 [id number] Univers 00:00:00 00:00:00 Only Unassigned, LEATHA 350.1.13.10 ity of [place] [facility] 4.2.7.2.686 Nick as [phone] [address] 2020-01-30 2020-01-30 Orders Doctor FANI 1.2.840.114 [id number] 00:00:00 00:00:00 Only Unassigned, LEATHA 350.1.13.10 [place] [facility] 4.2.7.2.686 [id number] [facility] 2020-01-28 2020-01-28 Telephone [facility] 1.2.840.114 [id number] Univers 00:00:00 00:00:00 Sharron Richter CAR DESIGNER 350.1.13.10 ity of [facility] 4.2.7.2.686 Nick as MATERNAL [phone] Med ical & CHILD [address] [place] [address] 2019-12-14 2019-12-14 [facility] [id number] Univers 13:30:00 13:30:[address] [facility] 2019-12-07 2019-12-07 Office [facility] 1.2.971.393 [id number] Univers 15:02:34 16:02:09 Visit Sharron Richter CAR DESIGNER 350.1.13.10 ity of [facility] 4.2.7.2.686 Nick as MATERNAL [phone] [facility] ical & CHILD [address] [place] [address] 2019-12-07 2019-12-07 [facility] [id number] Univers 14:45:00 14:45:[address] [facility] 2019-11-14 2019-11-14 Transition Natalia Renee 1.2.840.114 [id number] Univers 00:00:00 00:00:00 of Care Martina Gentiley 350.1.13.10 i ty of [place] 4.2.7.2.686 Akshat berg [phone] [facility] [address] 2019-11-12 2019-11-13 [facility] Josiah Hanna 1.2.840.1 14 [id number] Univers 05:53:00 17:45:00 Encounter Nery Stockton 350.1 .13.10 ity of [place] [facility] 4.2.7.2.686 [place] Juan Goel [phone] [place] [address] [address] 2019-03-08 2019-03-08 Nurse Visit, Kenrick Nurse [facility] 1.2 .840.114 [id number] Univers 13:32:55 13:48:09 Visit Lidia Gunn CAR DESIGNER 350.1.13.10 ity of [facility] 4.2.7.2.686 Nick as MATERNAL [phone] Med ical & CHILD [address] [place] [address] 2019-03-08 2019-03-08 Orders Doctor FANI 1.2.840.114 [id number] Univers 00:00:00 00:00:00 Only Unassigned, LEATHA 350.1.13.10 ity of [place] [facility] 4.2.7.2.686 Nick as [phone] [facility] [address] 2018-10-18 2018-10-20 [facility] Lesley Bhandari 1.2.840. 114 [id number] Univers 02:05:51 21:00:00 Encounter Jairo Issa 350.1.13.10 ity of Anurag Luciano [facility] 4.2.7.2.686 [place] [phone] [facility] [address] 2018-09-14 2018-09-14 Nurse Visit, Sesarsara Nurse [facility] 1.2 .840.114 [id number] Univers 13:53:27 14:21:33 Visit Lidia Gunn CAR DESIGNER 350.1.13.10 ity of [facility] 4.2.7.2.686 Nick as MATERNAL [phone] [facility] ical & CHILD [address] [place] [address] 2018-09-12 2018-09-12 Telephone Luis A [facility] 1.2.305.222 [id number] Univers 00:00:00 00:00:00 Lidia Enamorado CAR DESIGNER 350.1.13.10 ity [facility] 4.2.7.2.686 Nick as MATERNAL [phone] [facility] & CHILD [address] [place] [address] 2018-09-11 2018-09-11 Office Luis A [facility] 1.2.840.114 [id number] Univers 13:17:27 13:32:27 Visit Lidia Enamorado CAR DESIGNER 350.1.13.10 ity of [facility] 4.2.7.2.686 Nick as MATERNAL [phone] [facility] & CHILD [address] [place] [address] 2017-11-27 2017-11-27 Emergency [facility] [id number] Quinn 13:56:45 13:56:45 Health Results Test Description Test Time Test Comments Results Result Comments Source RHO (D) IMMUNE GLOBULIN 2022-01-23 03:35:07 Test Item Value Reference Range Interpretation Comme nts RHIG CANDIDATE? (test code = No- see comment Patient is not a candidate for RhIg- 5055) Patient is Rh P ositive.Performed at [facility] Laboratory Services - [facility] Blood [address] [place] [address] 40[address]Cczv Free: [phone] A No. [id number] [facility] [id number] 00:05:07 Test Item Value Reference Range Interpretation Comments VENOUS BASE EXCESS, mEq/L CORD (test code = 1457943014) VENOUS PH, CORD (test 7.25-7.45 code = 8926203111) VENOUS PC02, CORD See_Comment [Automate d message] The (test code = system which ge nerated 8251978035) this result tra nsmitted reference range : 27 - 49 mmHg. The refer ence range was not used to interpret this result as normal/abnormal . VENOUS PO2, CORD (test See_Comment [Aut omated message] The code = 9430726189) system ich generated this result tra nsmitted reference range : 17 - 41 mmHg. The refer ence range was not used to interpret this result as normal/abnormal . VENOUS BICARBONATE, See_Comment QUES [Au tomated message] CORD (test code = The system which generated 3154792104) this result tra nsmitted reference range : 12 - 29 mEq/L. The refe rence range was not used to interpret this result as normal/abnormal . [facility] [id number] 00:04:42 Test Item Value Reference Range Interpretation Comments BASE EXCESS, CORD mEq/L (test code = 6230298547) AC PH, CORD (BEAKER) 7.18-7.38 (test code = 0853212054) PC02, CORD (test code See_Comment [Auto mated message] The = 9318979118) system which g enerated this result transmit shani reference range : 32 - 66 mmHg. The refer ence range was not used to interpret this result as normal/abnormal . PO2, CORD (test code See_Comment [Autom ated message] The = 0365229106) system which g enerated this result transmit shani reference range : 10 - 30 mmHg. The refer ence range was not used to interpret this result as normal/abnormal . BICARBONATE, CORD See_Comment [Automate d message] The (test code = system which ge nerated this 9199790365) result transmit shani reference range : 17 - 27 mEq/L. The refe rence range was not used to interpret this result as normal/abnormal . [facility] Screen - ONCE [id number] 17:43:42 Test Item Value Reference Range Interpretation Comments ABO & RH (test code A POSITIVE Performe d at [facility] = 20) Laboratory [facility] Blood Bank3 [facility] [address]Rews Free: [phone] A No. [id number] IAT (test code = Negative Performed a t [facility] 1185) Laboratory [facility] Blood Bank3 [facility] [address]Wuak Free: [phone] A No. [id number] [facility] W SPECIFIC [id number] 21:44:00 Test Item Value Reference Range Interpretation Comments POCT U SP GRAV (test code = 3255) . 1.005-1.025 POCT PH U (test code = 3254) . 5-8 POCT U LEUK EST (test code = 3263) . Negative - Negative POCT U NIT (test code = 3262) . Negative - Negative POCT U PROT (test code = 3259) Trace Negative - Negative POCT U GLU (test code = 3256) Neg Negative - Negative POCT U KETONE (test code = 3258) . Negative - Negative POCT U UROBILI (test code = 3260) . 0.2-1 POCT U BILI (test code = 3261) . Negative - Negative POCT U BLD (test code = 3257) . Negative - Negative POCT U COLOR (test code = 3266) . POCT U APPEAR (test code = 3267) . General acute hospital URINALYSIS W SPECIFIC [id number] 21:44:00 Test Item Value Reference Range Interpretation Comments POCT U SP GRAV (test code = 3255) . 1.005-1.025 POCT PH U (test code = 3254) . 5-8 POCT U LEUK EST (test code = 3263) . Negative - Negative POCT U NIT (test code = 3262) . Negative - Negative POCT U PROT (test code = 3259) Trace Negative - Negative POCT U GLU (test code = 3256) Neg Negative - Negative POCT U KETONE (test code = 3258) . Negative - Negative POCT U UROBILI (test code = 3260) . 0.2-1 POCT U BILI (test code = 3261) . Negative - Negative POCT U BLD (test code = 3257) . Negative - Negative POCT U COLOR (test code = 3266) . POCT U APPEAR (test code = 3267) . General acute hospital URINALYSIS W SPECIFIC [id number] 16:48:00 Test Item Value Reference Range Interpretation Comments POCT U SP GRAV (test code = . 1.005-1.025 3255) POCT PH U (test code = 3254) 7 mg/dl 5-8 POCT U LEUK EST (test code = 2+ Negative - Negative 3263) POCT U NIT (test code = 3262) negative Negative - Negative POCT U PROT (test code = 3259) 1+ Negative - Negative POCT U GLU (test code = 3256) negative Negative - Negative POCT U KETONE (test code = 3258) negative Negative - Negative POCT U UROBILI (test code = . 0.2-1 3260) POCT U BILI (test code = 3261) . Negative - Negative POCT U BLD (test code = 3257) negative Negative - Negative POCT U COLOR (test code = 3266) taryn POCT U APPEAR (test code = 3267) clear [facility] W SPECIFIC [id number] 20:24:00 Test Item Value Reference Range Interpretation Comments POCT U SP GRAV (test code = 3255) . 1.005-1.025 POCT PH U (test code = 3254) . 5-8 POCT U LEUK EST (test code = 3263) . Negative - Negative POCT U NIT (test code = 3262) . Negative - Negative POCT U PROT (test code = 3259) Trace Negative - Negative POCT U GLU (test code = 3256) Neg Negative - Negative POCT U KETONE (test code = 3258) . Negative - Negative POCT U UROBILI (test code = 3260) . 0.2-1 POCT U BILI (test code = 3261) . Negative - Negative POCT U BLD (test code = 3257) . Negative - Negative POCT U COLOR (test code = 3266) POCT U APPEAR (test code = 3267) [facility] WITH [id number] 20:26:15 Test Item Value Reference Range Interpretation Comments WBC (test code = See_Comment [Automated 7962-2) message] The sy stem which generated this result transmitted reference range : 4.30 - 11.10 10*3/?L. The reference range was not used to interpret this result as normal/abnormal . RBC (test code = See_Comment [Automated 396-8) message] The sy stem which generated this result transmitted reference range : 3.93 - 5.25 10*6/?L. The reference range was not used to interpret this result as normal/abnormal . HGB (test code = 11.2 g/dL 11.6-15 L 718-7) HCT (test code = 33.1 % 35.7-45.2 L 4544-3) MCV (test code = 82.8 fL 80.6-95.5 787-2) MCH (test code = 28.0 pg 25.9-32.8 785-6) MCHC (test code = 33.8 g/dL 31.6-35.1 786-4) RDW-SD (test code = 42.4 fL 39-49.9 05041-0) RDW-CV (test code = 14.2 % 12-15.5 788-0) PLT (test code = See_Comment [Automated 777-3) message] The sy stem which generated this result transmitted reference range : 166 - 358 10*3/ ?L. The reference r stephan was not used to interpret this result as normal/abnormal . MPV (test code = 10.8 fL 9.5-12.9 83757-2) NRBC/100 WBC (test See_Comment [Automat ed code = 6101742366) message] The system which generated this result transmitted reference range : 0.0 - 10.0 /100 WBCs. The refer ence range was not u sed to interpret th is result as normal/abnormal . NRBC x10^3 (test code See_Comment [Auto mated = 8175803909) message] The s ystem which generated this result transmitted reference range : 10*3/?L. The reference range was not used to interpret this result as normal/abnormal . GRAN MAT (NEUT) % 75.2 % (test code = 770-8) IMM GRAN % (test code 0.60 % = 3283382602) LYMPH % (test code = 18.4 % 736-9) MONO % (test code = 5.2 % 5905-5) EOS % (test code = 0.5 % 713-8) BASO % (test code = 0.1 % 706-2) GRAN MAT x10^3(ANC) 6.63 10*3/uL 1.88-7.09 (test code = 2852874730) IMM GRAN x10^3 (test 0.05 10*3/uL 0-0.06 code = 3494567370) LYMPH x10^3 (test code 1.62 10*3/uL 1.32-3.29 = 731-0) MONO x10^3 (test code 0.46 10*3/uL 0.33-0.92 = 742-7) EOS x10^3 (test code = 0.04 10*3/uL 0.03-0.39 711-2) BASO x10^3 (test code 0.01-0.07 = 704-7) Lab Interpretation Abnormal (test code = 56919-3) [facility] WITH [id number] 20:26:15 Test Item Value Reference Range Interpretation Comments WBC (test code = See_Comment [Automated 5990-2) message] The sy stem which generated this result transmitted reference range : 4.30 - 11.10 10*3/?L. The reference range was not used to interpret this result as normal/abnormal . RBC (test code = See_Comment [Automated 789-8) message] The sy stem which generated this result transmitted reference range : 3.93 - 5.25 10*6/?L. The reference range was not used to interpret this result as normal/abnormal . HGB (test code = 11.2 g/dL 11.6-15 L 718-7) HCT (test code = 33.1 % 35.7-45.2 L 4544-3) MCV (test code = 82.8 fL 80.6-95.5 787-2) MCH (test code = 28.0 pg 25.9-32.8 785-6) MCHC (test code = 33.8 g/dL 31.6-35.1 786-4) RDW-SD (test code = 42.4 fL 39-49.9 58001-6) RDW-CV (test code = 14.2 % 12-15.5 788-0) PLT (test code = See_Comment [Automated 777-3) message] The sy stem which generated this result transmitted reference range : 166 - 358 10*3/ ?L. The reference r stephan was not used to interpret this result as normal/abnormal . MPV (test code = 10.8 fL 9.5-12.9 71009-5) NRBC/100 WBC (test See_Comment [Automat ed code = 3579489674) message] The system which generated this result transmitted reference range : 0.0 - 10.0 /100 WBCs. The refer ence range was not u sed to interpret th is result as normal/abnormal . NRBC x10^3 (test code See_Comment [Auto mated = 0582190074) message] The s ystem which generated this result transmitted reference range : 10*3/?L. The reference range was not used to interpret this result as normal/abnormal . GRAN MAT (NEUT) % 75.2 % (test code = 770-8) IMM GRAN % (test code 0.60 % = [id number]) LYMPH % (test code = 18.4 % 736-9) MONO % (test code = 5.2 % 5905-5) EOS % (test code = 0.5 % 713-8) BASO % (test code = 0.1 % 706-2) GRAN MAT x10^3(ANC) 6.63 10*3/uL 1.88-7.09 (test code = [id number]) IMM GRAN x10^3 (test 0.05 10*3/uL 0-0.06 code = [id number]) LYMPH x10^3 (test code 1.62 10*3/uL 1.32-3.29 = 731-0) MONO x10^3 (test code 0.46 10*3/uL 0.33-0.92 = 742-7) EOS x10^3 (test code = 0.04 10*3/uL 0.03-0.39 711-2) BASO x10^3 (test code 0.01-0.07 = 704-7) Lab Interpretation Abnormal (test code = 46635-2) [facility] WITH [id number] 20:26:15 Test Item Value Reference Range Interpretation Comments WBC (test code = See_Comment [Automated 1890-2) message] The sy stem which generated this result transmitted reference range : 4.30 - 11.10 10*3/?L. The reference range was not used to interpret this result as normal/abnormal . RBC (test code = See_Comment [Automated 249-8) message] The sy stem which generated this result transmitted reference range : 3.93 - 5.25 10*6/?L. The reference range was not used to interpret this result as normal/abnormal . HGB (test code = 11.2 g/dL 11.6-15 L 718-7) HCT (test code = 33.1 % 35.7-45.2 L 4544-3) MCV (test code = 82.8 fL 80.6-95.5 787-2) MCH (test code = 28.0 pg 25.9-32.8 785-6) MCHC (test code = 33.8 g/dL 31.6-35.1 786-4) RDW-SD (test code = 42.4 fL 39-49.9 36041-0) RDW-CV (test code = 14.2 % 12-15.5 788-0) PLT (test code = See_Comment [Automated 777-3) message] The sy stem which generated this result transmitted reference range : 166 - 358 10*3/ ?L. The reference r stephan was not used to interpret this result as normal/abnormal . MPV (test code = 10.8 fL 9.5-12.9 19131-7) NRBC/100 WBC (test See_Comment [Automat ed code = 9711456053) message] The system which generated this result transmitted reference range : 0.0 - 10.0 /100 WBCs. The refer ence range was not u sed to interpret th is result as normal/abnormal . NRBC x10^3 (test code See_Comment [Auto mated = 6080947154) message] The s ystem which generated this result transmitted reference range : 10*3/?L. The reference range was not used to interpret this result as normal/abnormal . GRAN MAT (NEUT) % 75.2 % (test code = 770-8) IMM GRAN % (test code 0.60 % = 8325636239) LYMPH % (test code = 18.4 % 736-9) MONO % (test code = 5.2 % 5905-5) EOS % (test code = 0.5 % 713-8) BASO % (test code = 0.1 % 706-2) GRAN MAT x10^3(ANC) 6.63 10*3/uL 1.88-7.09 (test code = 4645743774) IMM GRAN x10^3 (test 0.05 10*3/uL 0-0.06 code = 0900203950) LYMPH x10^3 (test code 1.62 10*3/uL 1.32-3.29 = 731-0) MONO x10^3 (test code 0.46 10*3/uL 0.33-0.92 = 742-7) EOS x10^3 (test code = 0.04 10*3/uL 0.03-0.39 711-2) BASO x10^3 (test code 0.01-0.07 = 704-7) Lab Interpretation Abnormal (test code = 79107-8) [facility]. METABOLIC PANEL ([id number])2021-11-26 20:12:10 Test Item Value Reference Range Interpretation Comments NA (test code = 135 mmol/L 135-145 4648819755) K (test code = 4.2 mmol/L 3.5-5 3031664550) CL (test code = 107 mmol/L 98-108 7934865698) CO2 TOTAL (test code = 23 mmol/L 23-31 4027921216) AGAP (test code = 2-16 4405717059) BUN (test code = 4 mg/dL 7-23 L 7799317580) GLUCOSE (test code = 74 mg/dL 70-110 2414599419) CREATININE (test code = 0.46 mg/dL 0.5-1.04 L 2332550607) TOTAL BILI (test code = 0.4 mg/dL 0.1-1.7 5426223103) CALCIUM (test code = 9.4 mg/dL 8.6-10.6 4461990813) T PROTEIN (test code = 6.4 g/dL 6.3-8.2 6295087982) ALBUMIN (test code = 3.6 g/dL 3.5-5 1235777772) ALK PHOS (test code = 146 U/L 34-122 H 8083521519) ALTv (test code = 57 U/L 5-35 H 1742-6) AST(SGOT) (test code = 36 U/L 13-40 0183417471) eGFR (test code = mL/min/1.73m2 5668156866) MORTEZA (test code = MORTEZA) Association of Glomerular Filtration Rate (GFR) and Staging of Kidney Disease* + --+ --+ ------+| GFR (mL/min/1.73 m2) ?| With Kidney Damage ?| ?Without Kidney Damage+ --------+ --------+ +| ?>90 ?| ?Stage one ?| ? Normal ?+ ---+ ---+ -------+| ?60-89 ?| ?Stage two ?| ? Decreased GFR ? + --+ --+ ------+| ?30-59 ?| ?Stage three ?| ? Stage three ? + --+ --+ ------+| ?15-29 ?| ?Stage four ? | ? Stage four ?+ ---+ ---+ -------+| ?<15 (or dialysis) ? ?| ?Stage five ? | ? Stage five ?+ ---+ ---+ -------+ *Each stage assumes the associated GFR level has been in effect for at least three months. ?Stages 1 to 5, with or without kidney disease, indicate chronic kidney disease. Notes: Determination of stages one and two (with eGFR >59mL/min/1.73 m2) requires estimation of kidney damage for at least three months as defined by structural or functional abnormalities of the kidney, manifested by either:Pathological abnormalities or Markers of kidney damage (including abnormalities in the composition of the blood or urine or abnormalities in imaging tests). Lab Interpretation Abnormal (test code = 96766-9) [facility]. METABOLIC PANEL ([id number])2021-11-26 20:12:10 Test Item Value Reference Range Interpretation Comments NA (test code = 135 mmol/L 135-145 8582017804) K (test code = 4.2 mmol/L 3.5-5 9697745664) CL (test code = 107 mmol/L 98-108 1463280153) CO2 TOTAL (test code = 23 mmol/L 23-31 9509566662) AGAP (test code = 2-16 3457274431) BUN (test code = 4 mg/dL 7-23 L 0251508216) GLUCOSE (test code = 74 mg/dL 70-110 2267376641) CREATININE (test code = 0.46 mg/dL 0.5-1.04 L 7723675853) TOTAL BILI (test code = 0.4 mg/dL 0.1-1.9 7574872635) CALCIUM (test code = 9.4 mg/dL 8.6-10.6 0582124954) T PROTEIN (test code = 6.4 g/dL 6.3-8.2 6797304841) ALBUMIN (test code = 3.6 g/dL 3.5-5 9268172884) ALK PHOS (test code = 146 U/L 34-122 H 0232237327) ALTv (test code = 57 U/L 5-35 H 1742-6) AST(SGOT) (test code = 36 U/L 13-40 5803358615) eGFR (test code = mL/min/1.73m2 6309407511) MORTEZA (test code = MORTEZA) Association of Glomerular Filtration Rate (GFR) and Staging of Kidney Disease* + --+ --+ ------+| GFR (mL/min/1.73 m2) ?| With Kidney Damage ?| ?Without Kidney Damage+ --------+ --------+ +| ?>90 ?| ?Stage one ?| ? Normal ?+ ---+ ---+ -------+| ?60-89 ?| ?Stage two ?| ? Decreased GFR ? + --+ --+ ------+| ?30-59 ?| ?Stage three ?| ? Stage three ? + --+ --+ ------+| ?15-29 ?| ?Stage four ? | ? Stage four ?+ ---+ ---+ -------+| ?<15 (or dialysis) ? ?| ?Stage five ? | ? Stage five ?+ ---+ ---+ -------+ *Each stage assumes the associated GFR level has been in effect for at least three months. ?Stages 1 to 5, with or without kidney disease, indicate chronic kidney disease. Notes: Determination of stages one and two (with eGFR >59mL/min/1.73 m2) requires estimation of kidney damage for at least three months as defined by structural or functional abnormalities of the kidney, manifested by either:Pathological abnormalities or Markers of kidney damage (including abnormalities in the composition of the blood or urine or abnormalities in imaging tests). Lab Interpretation Abnormal (test code = 46687-9) [facility] METABOLIC PANEL ([id number])2021-11-26 20:12:10 Test Item Value Reference Range Interpretation Comments NA (test code = 135 mmol/L 135-145 6286920173) K (test code = 4.2 mmol/L 3.5-5 3245979112) CL (test code = 107 mmol/L 98-108 5456431951) CO2 TOTAL (test code = 23 mmol/L 23-31 3622769864) AGAP (test code = 2-16 7886062681) BUN (test code = 4 mg/dL 7-23 L 0345779438) GLUCOSE (test code = 74 mg/dL 70-110 9854029408) CREATININE (test code = 0.46 mg/dL 0.5-1.04 L 2304366429) TOTAL BILI (test code = 0.4 mg/dL 0.1-1.6 8158821066) CALCIUM (test code = 9.4 mg/dL 8.6-10.6 2886125157) T PROTEIN (test code = 6.4 g/dL 6.3-8.2 8201671860) ALBUMIN (test code = 3.6 g/dL 3.5-5 7140214299) ALK PHOS (test code = 146 U/L 34-122 H 1336899245) ALTv (test code = 57 U/L 5-35 H 1742-6) AST(SGOT) (test code = 36 U/L 13-40 8354958803) eGFR (test code = mL/min/1.73m2 4583025666) MORTEZA (test code = MORTEZA) Association of Glomerular Filtration Rate (GFR) and Staging of Kidney Disease* + --+ --+ ------+| GFR (mL/min/1.73 m2) ?| With Kidney Damage ?| ?Without Kidney Damage+ --------+ --------+ +| ?>90 ?| ?Stage one ?| ? Normal ?+ ---+ ---+ -------+| ?60-89 ?| ?Stage two ?| ? Decreased GFR ? + --+ --+ ------+| ?30-59 ?| ?Stage three ?| ? Stage three ? + --+ --+ ------+| ?15-29 ?| ?Stage four ? | ? Stage four ?+ ---+ ---+ -------+| ?<15 (or dialysis) ? ?| ?Stage five ? | ? Stage five ?+ ---+ ---+ -------+ *Each stage assumes the associated GFR level has been in effect for at least three months. ?Stages 1 to 5, with or without kidney disease, indicate chronic kidney disease. Notes: Determination of stages one and two (with eGFR >59mL/min/1.73 m2) requires estimation of kidney damage for at least three months as defined by structural or functional abnormalities of the kidney, manifested by either:Pathological abnormalities or Markers of kidney damage (including abnormalities in the composition of the blood or urine or abnormalities in imaging tests). Lab Interpretation Abnormal (test code = 36930-7) [facility] URINALYSIS W SPECIFIC [id number] 18:53:00 Test Item Value Reference Range Interpretation Comments POCT U SP GRAV (test code = * 1.005-1.025 3255) POCT PH U (test code = 3254) * 5-8 POCT U LEUK EST (test code = * Negative - Negative 3263) POCT U NIT (test code = 3262) * Negative - Negative POCT U PROT (test code = 3259) trace Negative - Negative POCT U GLU (test code = 3256) negative Negative - Negative POCT U KETONE (test code = 3258) * Negative - Negative POCT U UROBILI (test code = * 0.2-1 3260) POCT U BILI (test code = 3261) * Negative - Negative POCT U BLD (test code = 3257) * Negative - Negative POCT U COLOR (test code = 3266) * POCT U APPEAR (test code = 3267) * General acute hospital URINALYSIS W SPECIFIC [id number] 19:56:00 Test Item Value Reference Range Interpretation Comments POCT U SP GRAV (test code = * 1.005-1.025 3255) POCT PH U (test code = 3254) * 5-8 POCT U LEUK EST (test code = * Negative - Negative 3263) POCT U NIT (test code = 3262) * Negative - Negative POCT U PROT (test code = 3259) TRACE Negative - Negative POCT U GLU (test code = 3256) NEGATIVE Negative - Negative POCT U KETONE (test code = 3258) * Negative - Negative POCT U UROBILI (test code = * 0.2-1 3260) POCT U BILI (test code = 3261) * Negative - Negative POCT U BLD (test code = 1607) * Negative - Negative POCT U COLOR (test code = 3266) POCT U APPEAR (test code = 3267) [facility]"
[2022-02-19] MEDS ORDERED: ASPIRIN 81 MG CHEWABLE TABLET ONE (02:44)
[2022-02-19] MEDS ORDERED: LORazepam 2 MG/ML VIAL ONE (02:45)
[2022-02-19 02:50] LABS: Hematocrit 38.4 % (36.0-45.0); Lymphocytes % 46.6 % (15.3-44.8); MCV 75.7 fL (80-100); MPV 8.5 fL (7.6-11.3); RBC Red Blood Cell Count 5.07 M/uL (3.86-4.86)
[2022-02-19 03:09] LABS: Potassium 3.4 mmol/L (3.5-5.1); Troponin High Sensitivity 4.1 pg/mL (<58.9)
--- NOTE | 2022-02-19 04:03 | ER ---
Nurse's Notes [facility] Name: Angeles Field Age: 21 yrs Sex: Female : 2000 Arrival Date: 02/19/2022 Time: 02:18 Bed 7 Private MD: Diagnosis: Panic attack;Acute midsternal chest pain Presentation: 02/19 02:27 Chief complaint: Patient states: Patient states " THERE IS SOMETHING WRONG WITH ME! MY tw5 CHEST HURTS, HELP ME." Patient further state that pain started suddenly 20 min prior to arrival when she was sitting in bed breast feeding her new born. Ebola Screen: Patient negative for fever greater than or equal to 101.5 degrees Fahrenheit, and additional compatible Ebola Virus Disease symptoms Patient denies exposure to infectious person. Patient denies travel to an Ebola-affected area in the 21 days before illness onset. Initial Sepsis Screen: Does the patient meet any 2 criteria? HR > 90 bpm. Does the patient have a suspected source of infection? No. Patient's initial sepsis screen is negative. Risk Assessment: Do you want to hurt yourself or someone else? Patient reports no desire to harm self or others. Onset of symptoms was February 19, 2022 at 02:00. 02:27 Method Of Arrival: Wheelchair tw5 02:27 Acuity: CADY 3 tw5 Triage Assessment: 02:32 General: Appears distressed, Behavior is agitated, anxious, crying. Pain: Complains of tw5 pain in mid-sternal area Pain currently is 10 out of 10 on a pain scale. Cardiovascular: Rhythm is sinus rhythm. 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 - Social history:: Smoking status: Patient denies any tobacco usage or history of. Screenin:10 [facility] ED Fall Risk Assessment (Adult) History of falling in the last 3 months, kd3 including since admission No falls in past 3 months (0 pts) Confusion or Disorientation No (0 pts) Intoxicated or Sedated No (0 pts) Impaired Gait No (0 pts) Mobility Assist Device Used No (0 pt) Altered Elimination No (0 pt) Score/Fall Risk Level 0 - 2 = Low Risk Oriented to surroundings. Abuse screen: Denies threats or abuse. Denies injuries from another. Nutritional screening: No deficits noted. Tuberculosis screening: No symptoms or risk factors identified. Assessment: 02:30 General: Appears in no apparent distress. uncomfortable, Behavior is cooperative, jb4 anxious, crying, restless. Pain: Complains of pain in chest Pain does not radiate. Pain currently is 10 out of 10 on a pain scale. Pain began 30 min ago. Neuro: Level of Consciousness is awake, alert, obeys commands, Oriented to person, place, time, situation. Cardiovascular: Patient's skin is warm and dry. Respiratory: Airway is patent Respiratory effort is even, labored, Respiratory pattern is symmetrical, hyperventilation. GI: No signs and/or symptoms were reported involving the gastrointestinal system. : No signs and/or symptoms were reported regarding the genitourinary system. EENT: No signs and/or symptoms were reported regarding the EENT system. Derm: Skin is intact, Skin is pink, warm \\T\\ dry. Musculoskeletal: Circulation, motion, and sensation intact. Range of motion: intact in all extremities. 02:35 General: Patient on the phone with family member stating " THEY ARE NOT TAKING ME tw5 SERIOUSLY!". 03:10 Reassessment: Patient and/or family updated on plan of care and expected duration. Pain kd3 level reassessed. Patient is alert, oriented x 3, equal unlabored respirations, skin warm/dry/pink. Patient states symptoms have improved. 04:15 Reassessment: Patient appears in no apparent distress at this time. Patient and/or jb4 family updated on plan of care and expected duration. Pain level reassessed. Patient is alert, oriented x 3, equal unlabored respirations, skin warm/dry/pink. Patient states feeling better. Patient states symptoms have improved. Vital Signs: 02:27 BP 161 / 102; Pulse 78; Resp 20; Pulse Ox 100% on R/A; tw5 02:28 Temp 98.2(O); kd3 03:10 BP 117 / 89; Pulse 57; Resp 19; Pulse Ox 100% on R/A; kd3 04:15 BP 120 / 79; Pulse 70; Resp 16; Pulse Ox 95% on R/A; jb4 ED Course: 02:18 Patient arrived in ED. ja2 02:21 Connie Valadez, RN is Primary Nurse. kd3 02:23 Chapis De La Rosa MD is Attending Physician. sd2 02:31 Triage completed. tw5 02:32 Arm band placed on right wrist. 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 02:33 EKG done, by ED staff, reviewed by Chapis De La Rosa MD. tw5 02:34 No provider procedures requiring assistance completed. Inserted saline lock: 20 gauge kd3 in right antecubital area, using aseptic technique. Blood collected. Patient maintains SpO2 saturation greater than 95% on room air. 03:04 XRAY Chest (1 view) In Process Unspecified. EDMS 03:11 Patient has correct armband on for positive identification. Placed in gown. Bed in low kd3 position. Call light in reach. Client placed on continuous cardiac and pulse oximetry monitoring. NIBP monitoring applied. tapper shank on. 04:18 IV discontinued, intact, bleeding controlled, No redness/swelling at site. Pressure jb4 dressing applied. Administered Medications: 02:49 Drug: Aspirin Chewable Tablet 324 mg Route: PO; jb4 04:13 Follow up: Response: No adverse reaction kd3 02:49 Drug: Ativan (LORazepam) 1 mg Route: IVP; Site: right antecubital; jb4 04:13 Follow up: Response: No adverse reaction; Anxiety decreased kd3 Medication: 03:11 VIS not applicable for this client. kd3 Outcome: 04:02 Discharge ordered by . sd2 04:17 Discharged to home ambulatory. jb4 04:17 Condition: stable 04:17 Discharge instructions given to patient, Instructed on discharge instructions, follow up and referral plans. Demonstrated understanding of instructions, follow-up care. 04:19 Patient left the ED. jb4 Signatures: Dispatcher [employer] EDChristopher Worthy, RN RN jb4 Cee Mosqueda ja2 Kenia Valdez tw5 Connie Valadez, DILEEP [email or web address] Chapis De La Rosa MD MD sd2 Corrections: (The following items were deleted from the chart) 02:34 02:30 General: Appears in no apparent distress. comfortable, Behavior is calm, jb4 cooperative, appropriate for age, jb4
--- NOTE | 2022-02-19 04:03 | EDPHYS ---
Physician Documentation [facility] Name: Angeles Field Age: 21 yrs Sex: Female : 2000 Arrival Date: 02/19/2022 Time: 02:18 Bed 7 Private MD: ED Physician Chapis De La Rosa HPI: 02/19 02:41 This 21 yrs old Female presents to ER via Wheelchair with complaints of Chest Pain. sd2 02:41 21 yo F presents with CC of midsternal chest pain that started around 0200 after she sd2 finished her baby. Denies associated SOB, nausea, vomiting or diaphoresis. No radiation of pain. Reports pain did not improve and felt like it worsened since she took Tylenol at home for the pain. Denies any prior cardiac history. . 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 - Social history:: Smoking status: Patient denies any tobacco usage or history of. ROS: 02:41 Constitutional: Negative for fever, chills, and weight loss, Eyes: Negative for injury, sd2 pain, redness, and discharge, Cardiovascular: Positive for chest pain, Negative for palpitations, and edema, Respiratory: Negative for shortness of breath, cough, wheezing. Abdomen/GI: Negative for abdominal pain, nausea, vomiting, diarrhea. Skin: Negative for injury, rash, and discoloration, Neuro: Negative for headache, numbness and tingling. Psych: Negative for depression, anxiety, suicide ideation, homicidal ideation, and hallucinations. 02:41 Cardiovascular: Positive for chest pain, Negative for edema, orthopnea, palpitations. 02:41 Abdomen/GI: Exam: 02:41 Constitutional: This is a well developed, well nourished patient who is awake, alert, sd2 and very anxious appearing. Head/Face: Normocephalic, atraumatic. Eyes: EOMI, normal conjunctiva bilaterally Chest/axilla: Normal chest wall appearance and motion. Nontender with no deformity. Cardiovascular: Regular rate and rhythm with a normal S1 and S2. No gallops, murmurs, or rubs. 2+ distal pulses. Respiratory: Lungs have equal breath sounds bilaterally, clear to auscultation and percussion. No rales, rhonchi or wheezes noted. No increased work of breathing, no retractions or nasal flaring. Abdomen/GI: Soft, non-tender, with normal bowel sounds. No guarding or rebound. No evidence of tenderness throughout. Back: No spinal tenderness. No costovertebral tenderness. Full range of motion. Skin: Warm, dry with normal turgor. Normal color with no rashes, no lesions, and no evidence of cellulitis. MS/ Extremity: Pulses equal, no cyanosis. Neurovascular intact. Full, normal range of motion. Ambulatory without difficulty. Psych: Awake, alert, with orientation to person, place and time. Very anxious appearing and tearful. 02:41 ECG was reviewed by the Attending Physician. NSR, rate 69, no STEMI criteria Vital Signs: 02:27 BP 161 / 102; Pulse 78; Resp 20; Pulse Ox 100% on R/A; tw5 02:28 Temp 98.2(O); kd3 03:10 BP 117 / 89; Pulse 57; Resp 19; Pulse Ox 100% on R/A; kd3 04:15 BP 120 / 79; Pulse 70; Resp 16; Pulse Ox 95% on R/A; jb4 MDM: 02:23 Patient medically screened. sd2 02:45 Differential diagnosis: Differential diagnosis includes but is not limited to: ACS, sd2 DVT/PE, pneumothorax, dissection, musculoskeletal, anxiety, anemia, electrolyte abnormality, pneumonia, CHF, COPD among others. Data reviewed: vital signs, nurses notes. 03:58 HEART Score: History: Slightly Suspicious (0), ECG: Normal (0), Age: < or = 45 years sd2 (0), Risk Factors: 1 or 2 risk factors (1), Troponin: < or = 1 x Normal Limit (0), Total Score = 1. Data reviewed: lab test result(s), EKG, radiologic studies. Counseling: I had a detailed discussion with the patient and/or guardian regarding: the historical points, exam findings, and any diagnostic results supporting the discharge/admit diagnosis, lab results, radiology results, the need for outpatient follow up, to return to the emergency department if symptoms worsen or persist or if there are any questions or concerns that arise at home. Medical screen evaluation completed. EMTALA emergency medical condition absent. Medication response: Ativan. Response to treatment: the patient's symptoms have resolved after treatment, the patient's condition has returned to base line, the patient is now symptom free. ED course: Labs and imaging reviewed. Labs grossly WNCL. Trop neg. EKG with no ischemic changes. CXR with no acute process. Pt with resolution of symptoms following Ativan. Suspect panic attack based upon patient's clinical presentation. Pt is also 1 month . Discussed continued supportive care and outpatient resources. Pt is comfortable with plan for discharge and outpatient follow up and verbalizes understanding of strict return precautions. . 02/19 02:35 Order name: CBC with Diff; Complete Time: 03:10 sd2 02/19 02:35 Order name: BMP; Complete Time: 03:10 sd2 02/19 02:35 Order name: Troponin High Sensitivity; Complete Time: 03:10 sd2 02/19 02:35 Order name: XRAY Chest (1 view) sd2 02/19 02:35 Order name: EKG - Nurse/Tech; Complete Time: 02:35 sd2 Administered Medications: 02:49 Drug: Aspirin Chewable Tablet 324 mg Route: PO; jb4 04:13 Follow up: Response: No adverse reaction kd3 02:49 Drug: Ativan (LORazepam) 1 mg Route: IVP; Site: right antecubital; jb4 04:13 Follow up: Response: No adverse reaction; Anxiety decreased kd3 Disposition Summary: 02/19/22 04:02 Discharge Ordered Location: Home sd2 Problem: new sd2 Symptoms: are resolved sd2 Condition: Stable sd2 Diagnosis - Panic attack sd2 - Acute midsternal chest pain sd2 Followup: sd2 - With: Private Physician - When: 2 - 3 days - Reason: Recheck today's complaints, Continuance of care, Re-evaluation by your physician Discharge Instructions: - Discharge Summary Sheet sd2 - Panic Attack sd2 - Baby Blues sd2 - Managing Anxiety, Adult sd2 Forms: - Medication Reconciliation Form sd2 - Thank You Letter sd2 - Antibiotic Education sd2 - Prescription Opioid Use sd2 Signatures: Dispatcher [employer] EDMS Christopher Montgomery RN RN jb4 Kenia Valdez tw5 Chapis De La Rosa MD MD sd2 Connie Valadez RN kd3
[2022-02-19 04:42] VITALS: TEMP 98.2
[2022-02-19 04:44] VITALS: BP 120/79; O2SAT 95
--- NOTE | 2022-02-20 12:04 | RAD REPORT ---
EXAM DESCRIPTION: RAD - Chest Single View - 02/19/2022 3:02 am CLINICAL HISTORY: 21 years, Female, CHEST PAIN COMPARISON: None. FINDINGS: Single view of the chest was obtained portable. No prior films are available for compariso n. The cardiomediastinal silhouette demonstrate to be unremarkable. The heart is not enlarged. The th oracic aorta is unremarkable. The pulmonary vasculature is normal distribution. Costophrenic angles a re sharp. No areas of consolidation or masses are seen. The rest of the soft tissue and bony stru ctures demonstrate to be unremarkable. IMPRESSION: No acute cardiopulmonary disease seen. Electronically signed by: Riki Ballesteros MD 02/19/2022 3:15 AM AIRWORTHINESS INSPECTOR Due to temporary technical issues with the PACS/Fluency reporting system, reports are being signed by the in house radiologists without review as a courtesy to insure prompt reporting. The interpreting radiologist is fully responsible for the content of the report.
--- NOTE | 2022-02-20 17:41 | EKG ---
Test Date: 2022-02-19 Test Time: 02:26:36 Music Engraver: NADIYA MEASUREMENT RESULTS: Intervals: Rate: 69 DE: 152 QRSD: 76 QT: 394 QTc: 422 [place]: P: 27 DE: 152 QRS: 67 T: 56 INTERPRETIVE STATEMENTS: Normal sinus rhythm Normal ECG Compared to ECG 02/23/2020 04:46:07 No significant changes Electronically Signed On 02-20-22 17:39:48 SENIOR OCCUPATIONAL THERAPIST by Scar Almanza
== END 2022-02-19 04:19 | disposition home or self-care (01) ==
LOC: ER 02:17
DX: R07.89 Other chest pain (principal); F41.0 Panic disorder [episodic paroxysmal anxiety]
CPT/HCPCS: 36415; 71045; 80048; 84484; 85025; 93005; 96374; 99285

== ENCOUNTER 2022-09-19 01:39 | Emergency (ER) | payer OTHER ==
--- OUTSIDE RECORDS SUMMARY | 2022-09-19 01:46 | XMS REPORT | Continuity of Care Document ---
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 Completed University of 00:00:00 [facility] HPV9 2022-03-08 Completed University of 00:00:00 [facility] 2022-03-08 Completed [facility] 00:00:00 [facility] 2022-03-08 Completed [facility] of 00:00:00 [facility] Vital Signs Vital Name Observation Time Observation Value Comments Source Systolic blood 2022-05-25 14:40:00 127 mm[Hg] Univer sity of pressure [facility] Diastolic blood 2022-05-25 14:40:00 76 mm[Hg] Unive rsity of pressure [facility] Heart rate 2022-05-25 14:40:00 79 /min Universi ty of [facility] Body temperature 2022-05-25 14:40:00 36.67 Licha [facility] Respiratory rate 2022-05-25 14:40:00 18 /min [facility] Body height 2022-05-25 14:40:00 175.3 cm [facility] Body weight 2022-05-25 14:40:00 96.253 kg [facility] BMI 2022-05-25 14:40:00 31.34 kg/m2 [facility] Systolic blood 2022-05-06 19:52:00 126 mm[Hg] [facility] Diastolic blood 2022-05-06 19:52:00 74 mm[Hg] Unive rsity of [facility] Heart rate 2022-05-06 19:52:00 63 /min [facility] Body temperature 2022-05-06 19:52:00 36.56 Licha [facility] Respiratory rate 2022-05-06 19:52:00 18 /min [facility] Body height 2022-05-06 19:52:00 175.3 cm [facility] Body weight 2022-05-06 19:52:00 95.709 kg [facility] BMI 2022-05-06 19:52:00 31.16 kg/m2 [facility] Systolic blood 2022-03-08 20:22:00 132 mm[Hg] [facility] Diastolic blood 2022-03-08 20:22:00 89 mm[Hg] Unive rsity [facility] Heart rate 2022-03-08 20:22:00 90 /min [facility] Body temperature 2022-03-08 20:22:00 35.89 Licha [facility] Respiratory rate 2022-03-08 20:22:00 20 /min [facility] Body height 2022-03-08 20:22:00 175.3 cm [facility] Body weight 2022-03-08 20:22:00 98.941 kg [facility] BMI 2022-03-08 20:22:00 32.21 kg/m2 Universi ty of [facility] Systolic blood 2022-02-15 21:37:00 113 mm[Hg] Univer [facility]ity [facility] Diastolic blood 2022-02-15 21:37:00 70 mm[Hg] Unive rsity [facility] Heart rate 2022-02-15 21:37:00 71 /min Universi ty of [facility] Body temperature 2022-02-15 21:37:00 36.33 Licha Univ ersity of [facility] Respiratory rate 2022-02-15 21:37:00 18 /min Univ ersity of [facility] Body height 2022-02-15 21:37:00 175.3 cm Universi ty of [facility] Body weight 2022-02-15 21:37:00 96.871 kg Universi ty of [facility] BMI 2022-02-15 21:37:00 31.54 kg/m2 Universi ty of [facility] Systolic blood 2022-01-24 13:44:00 117 mm[Hg] Univer sity of pressure [facility] Diastolic blood 2022-01-24 13:44:00 82 mm[Hg] Unive rsity of pressure [facility] Heart rate 2022-01-24 13:44:00 85 /min Universi ty of [facility] Body temperature 2022-01-24 13:44:00 36.89 Licha Univ ersity of [facility] Respiratory rate 2022-01-24 13:44:00 18 /min Univ ersity of [facility] Oxygen saturation in 2022-01-24 13:44:00 97 /min University of Arterial blood by [facility] Pulse oximetry Branch Systolic blood 2022-01-18 21:33:00 121 mm[Hg] Univer sity of pressure [facility] Diastolic blood 2022-01-18 21:33:00 80 mm[Hg] Unive rsity of pressure [facility] Heart rate 2022-01-18 21:33:00 103 /min Universi ty of [facility] Body temperature 2022-01-18 21:33:00 36.44 Licha Univ ersity of [facility] Respiratory rate 2022-01-18 21:33:00 18 /min Univ ersity of [facility] Body height 2022-01-18 21:33:00 175.3 cm [facility] Body weight 2022-01-18 21:33:00 107.673 kg [facility] BMI 2022-01-18 21:33:00 35.05 kg/m2 [facility] Systolic blood 2022-01-05 21:42:00 130 mm[Hg] Univer sity of pressure [facility] Diastolic blood 2022-01-05 21:42:00 78 mm[Hg] Unive rsity of pressure [facility] Heart rate 2022-01-05 21:42:00 101 /min Universi ty of [facility] Body temperature 2022-01-05 21:42:00 36.39 Licha Univ ersity of [facility] Respiratory rate 2022-01-05 21:42:00 18 /min Univ ersity of [facility] Body height 2022-01-05 21:42:00 175.3 cm [facility] [place] [facility] [place] Body weight 2022-01-05 21:42:00 106.765 kg [facility] BMI 2022-01-05 21:42:00 34.76 kg/m2 [facility] Systolic blood 2022-01-02 22:30:00 112 mm[Hg] Univer sity of pressure [facility] Diastolic blood 2022-01-02 22:30:00 68 mm[Hg] Unive rsity of pressure [facility] Heart rate 2022-01-02 22:30:00 107 /min Universi ty of [facility] Oxygen saturation in 2022-01-02 22:30:00 99 /min University of Arterial blood by [facility] Pulse oximetry Branch Body temperature 2022-01-02 22:06:00 36.67 Licha Univ ersity of [facility] Respiratory rate 2022-01-02 22:06:00 18 /min Univ ersity of [facility] Body height 2022-01-02 22:06:00 175.3 cm [facility] Body weight 2022-01-02 22:00:00 106.142 kg [facility] BMI 2022-01-02 22:00:00 34.56 kg/m2 Universi ty of [facility] Systolic blood 2021-12-24 16:45:00 127 mm[Hg] Univer sity of pressure [facility] Diastolic blood 2021-12-24 16:45:00 71 mm[Hg] Unive rsity of pressure [facility] Heart rate 2021-12-24 16:45:00 113 /min [facility] Body temperature 2021-12-24 16:45:00 36.28 Licha [facility] Respiratory rate 2021-12-24 16:45:00 17 /min [facility] Body height 2021-12-24 16:45:00 175.3 cm [facility] Body weight 2021-12-24 16:45:00 105.371 kg [facility] BMI 2021-12-24 16:45:00 34.30 kg/m2 [facility] Systolic blood 2021-12-09 20:23:00 132 mm[Hg] [facility]iver [facility] Diastolic blood 2021-12-09 20:23:00 73 mm[Hg] Unive rsity of pressure [facility] Heart rate 2021-12-09 20:23:00 84 /min [facility] Body temperature 2021-12-09 20:23:00 36.61 Licha [facility] Respiratory rate 2021-12-09 20:23:00 18 /min [facility] Body height 2021-12-09 20:23:00 175.3 cm [facility] Body weight 2021-12-09 20:23:00 104.951 kg [facility] BMI 2021-12-09 20:23:00 34.17 kg/m2 [facility] Systolic blood 2021-11-26 16:09:00 122 mm[Hg] Univer sity of pressure [facility] Diastolic blood 2021-11-26 16:09:00 78 mm[Hg] Unive rsity of pressure [facility] Heart rate 2021-11-26 16:09:00 99 /min [facility] Body temperature 2021-11-26 16:09:00 36.33 Licha [facility] Respiratory rate 2021-11-26 16:09:00 18 /min [facility] Body height 2021-11-26 16:09:00 175.3 cm [facility] Body weight 2021-11-26 16:09:00 104.3 kg [facility] BMI 2021-11-26 16:09:00 33.96 kg/m2 Universi ty of [facility] Systolic blood 2021-11-23 19:00:00 123 mm[Hg] Univer sity of [facility] Diastolic blood 2021-11-23 19:00:00 72 mm[Hg] Unive rsity of pressure [facility] Heart rate 2021-11-23 19:00:00 95 /min Universi ty of [facility] Body temperature 2021-11-23 19:00:00 36.44 Licha Univ ersity of [facility] Respiratory rate 2021-11-23 19:00:00 16 /min Univ ersity of [facility] Body height 2021-11-23 19:00:00 175.3 cm [facility] Body weight 2021-11-23 19:00:00 104.781 kg [facility] BMI 2021-11-23 19:00:00 34.11 kg/m2 [facility] Heart rate 2021-11-19 23:40:00 86 /min Universi ty of [facility] Oxygen saturation in 2021-11-19 23:40:00 99 /min University Arterial blood by [facility] Pulse oximetry Branch Systolic blood 2021-11-19 22:15:00 127 mm[Hg] Univer sity of pressure [facility] Diastolic blood 2021-11-19 22:15:00 74 mm[Hg] Unive rsity of pressure [facility] Respiratory rate 2021-11-19 22:15:00 18 /min Univ ersity of [facility] Body temperature 2021-11-19 21:55:00 36.72 Licha Univ ersity of [facility] Body height 2021-11-19 21:55:00 175.3 cm [facility] Body weight 2021-11-19 21:55:00 105.008 kg [facility] BMI 2021-11-19 21:55:00 34.19 kg/m2 [facility] Systolic blood 2021-11-19 21:36:00 117 mm[Hg] Univer sity of pressure [facility] Diastolic blood 2021-11-19 21:36:00 80 mm[Hg] Unive rsity of pressure [facility] Heart rate 2021-11-19 21:36:00 90 /min [facility] Body temperature 2021-11-19 21:36:00 37.06 Licha [facility] Respiratory rate 2021-11-19 21:36:00 18 /min Univ [facility] Body weight 2021-11-19 21:36:00 104.872 kg [facility] BMI 2021-11-19 21:36:00 34.14 kg/m2 [facility] Oxygen saturation in 2021-11-19 21:36:00 98 /min University of Arterial blood by [place] [employer] [facility] Pulse oximetry Branch Systolic blood 2021-11-02 18:40:00 119 mm[Hg] Univer sity of pressure [facility] Diastolic blood 2021-11-02 18:40:00 80 mm[Hg] Unive rsity of pressure [facility] Heart rate 2021-11-02 18:40:00 103 /min [facility] Body temperature 2021-11-02 18:40:00 36.72 Licha [facility] Respiratory rate 2021-11-02 18:40:00 18 /min [facility] Body weight 2021-11-02 18:40:00 102.74 kg [facility] BMI 2021-11-02 18:40:00 33.45 kg/m2 [facility] Heart rate 2021-11-02 16:00:00 83 /min [facility] Oxygen saturation in 2021-11-02 16:00:00 100 /min University of Arterial blood by [employer] pat Pulse oximetry Branch Systolic blood 2021-11-02 14:00:00 116 mm[Hg] Univer sity of pressure [facility] Diastolic blood 2021-11-02 14:00:00 76 mm[Hg] Unive rsity of pressure [facility] Body temperature 2021-11-02 13:54:00 36.61 Licha [facility] Respiratory rate 2021-11-02 13:54:00 18 /min [facility] Body height 2021-11-02 13:54:00 175.3 cm [facility] Body weight 2021-11-02 13:54:00 103.511 kg [facility] BMI 2021-11-02 13:54:00 33.70 kg/m2 [facility] Systolic blood 2021-10-05 19:54:00 128 mm[Hg] Univer sity of pressure [facility] Diastolic blood 2021-10-05 19:54:00 72 mm[Hg] Unive rsity of pressure [facility] Heart rate 2021-10-05 19:54:00 80 /min [facility] Body temperature 2021-10-05 19:54:00 35.56 Licha [facility] Respiratory rate 2021-10-05 19:54:00 18 /min [facility] Body weight 2021-10-05 19:54:00 100.381 kg [facility] BMI 2021-10-05 19:54:00 32.68 kg/m2 [facility] Systolic blood 2021-09-28 20:29:00 121 mm[Hg] Univer sity of [facility] Diastolic blood 2021-09-28 20:29:00 74 mm[Hg] Unive rsity of pressure [facility] Heart rate 2021-09-28 20:29:00 107 /min [facility] Body temperature 2021-09-28 20:29:00 36.56 Licha [facility] Respiratory rate 2021-09-28 20:29:00 20 /min [facility] Body height 2021-09-28 20:29:00 175.3 cm [facility] Body weight 2021-09-28 20:29:00 100.154 kg [facility] BMI 2021-09-28 20:29:00 32.61 kg/m2 [facility] Systolic blood 2021-09-28 20:29:00 121 mm[Hg] Univer sity of [facility] Diastolic blood 2021-09-28 20:29:00 74 mm[Hg] Unive rsity of pressure [facility] Heart rate 2021-09-28 20:29:00 107 /min Universi [facility] Body temperature 2021-09-28 20:29:00 36.56 Licha [facility] 2021-09-28 20:29:00 20 /min [facility] Body height 2021-09-28 20:29:00 175.3 cm Universi [facility] Body weight 2021-09-28 20:29:00 100.154 kg [facility] BMI 2021-09-28 20:29:00 32.61 kg/m2 [facility] height 2021-05-26 13:20:00 69 [in_i] [facility] weight 2021-05-26 13:20:00 224.6 [lb_av] [facility] temperature 2021-05-26 13:20:00 98.7 [degF] [facility] bmi 2021-05-26 13:20:00 33.16 kg/m2 [facility] oximetry 2021-05-26 13:20:00 98 % [facility] respiratory rate 2021-05-26 13:20:00 16 /min Comm on [facility] blood pressure 2021-05-26 13:20:00 118 mm[Hg] Common [facility] - systolic [facility] blood pressure 2021-05-26 13:20:00 68 mm[Hg] Common [facility] diastolic [facility] height 2021-04-21 11:20:00 69 [in_i] Common [facility] weight 2021-04-21 11:20:00 219.8 [lb_av] [facility] temperature 2021-04-21 11:20:00 97.9 [degF] [facility] bmi 2021-04-21 11:20:00 32.46 kg/m2 Common S [facility] oximetry 2021-04-21 11:20:00 96 % Common [facility] respiratory rate 2021-04-21 11:20:00 16 /min Comm on [facility] blood pressure 2021-04-21 11:20:00 131 mm[Hg] Common [facility] - systolic [facility] blood pressure 2021-04-21 11:20:00 86 mm[Hg] Common [facility] - diastolic [facility] height 2021-03-19 09:00:00 69 [in_i] [facility] weight 2021-03-19 09:00:00 223.2 [lb_av] [facility] temperature 2021-03-19 09:00:00 97.2 [degF] [facility] bmi 2021-03-19 09:00:00 32.96 kg/m2 [facility] oximetry 2021-03-19 09:00:00 97 % [facility] respiratory rate 2021-03-19 09:00:00 16 /min Comm on [facility] blood pressure 2021-03-19 09:00:00 119 mm[Hg] [facility] systolic [facility] blood pressure 2021-03-19 09:00:00 75 mm[Hg] [facility] diastolic [facility] Procedures Procedure Date / Time Performed Performing Clinician [facility] salomón [facility] PATIENT FINANCIAL 2022-05-25 14:37:06 Doctor Unassigned, No [facility] POLICY Name [facility] POCT TEST 2022-05-25 00:00:00 Adilene [facility] GARDASIL 9 (HPV 9V) 2022-03-08 21:11:07 [facility] CONSENT/REFUSAL FOR 2022-02-15 21:20:48 Doctor Unassigned, No [facility] DIAGNOSIS AND Name [facility] TREATMENT ASSIGNMENT OF BENEFITS 2022-02-15 21:20:31 Doctor Unassigned, No [facility] CBC WITH DIFF 2022-01-23 08:13:00 Jessica [facility] VENOUS CORD GAS 2022-01-22 23:45:00 Rodriguez [facility] CENTRAL NEURAXIAL 2022-01-22 09:35:58 Angel Grubbs [facility] BLOCK [facility] HB ABO GROUPING 2022-01-21 16:59:00 Rodriguez [facility] RHO (D) IMMUNE 2022-01-21 16:59:00 Jessica [facility] GLOBULIN [facility] SGOT (ASPARTATE AMINO 2022-01-21 16:50:00 Rodriguez [facility] TRANSFER) Medical Branch ALANINE AMINO 2022-01-21 16:50:00 Rodriguez [facility] TRANSFERASE(SGPT Medical Branch CBC WITH DIFF 2022-01-21 16:50:00 Rodriguez [facility] GALV ONLY - SYPHILIS 2022-01-21 16:50:00 Rodriguez [place] [facility] IGG/IGM [facility] HEPATITIS B SURFACE 2022-01-21 16:50:00 Rodriguez [facility] ANTIGEN [facility] RPR (QUANTITATIVE) 2022-01-21 16:50:00 Rodriguez [place] [facility] HIV 1/2 AG-AB WITH 2022-01-21 16:50:00 Rodriguez [facility] REFLEX [facility] HOSPITAL ADMISSION 2022-01-21 06:01:00 Doctor [facility]assigned, No [facility] 2022-01-05 21:44:00 Lidia Gunn [facility] URINALYSIS 2022-01-02 22:59:00 Speedy Dimas [facility] CONSENT/REFUSAL FOR 2022-01-02 21:58:20 Doctor Unassigned, No [facility] DIAGNOSIS AND [facility] TREATMENT L&D VISIT 2022-01-02 06:01:00 Doctor Unassigned, No [facility] (NON-DELIVERED) [facility] POCT URINALYSIS 2021-12-24 00:00:00 Lidia Gunn [facility] POCT URINALYSIS 2021-12-09 20:24:00 Lidia Gunn [facility] COMP. METABOLIC PANEL 2021-11-26 17:00:00 Everardo [facility] ([id number]) [facility] CBC WITH DIFF 2021-11-26 17:00:00 John Mcgee [facility] URINALYSIS 2021-11-19 22:35:00 Isauro Samantha [facility] ADC CLC OR LCC ONLY - 2021-11-19 22:35:00 Isauro [facility] ASSIGNMENT OF BENEFITS 2021-11-19 21:49:27 Doctor Unassigned, No [facility] NOTICE OF PRIVACY 2021-11-19 21:49:06 Doctor Unassigned, No [facility] Branch CONSENT/REFUSAL FOR 2021-11-19 21:48:47 Doctor Unassigned, No [facility] TREATMENT POCT URINALYSIS 2021-11-02 18:52:00 Lidia Gunn [facility] URINALYSIS 2021-11-02 14:43:00 Shamika Garcia [facility] ADC CLC OR LCC ONLY - 2021-11-02 14:43:00 Shamika Garcia [facility] Branch ASSIGNMENT OF BENEFITS 2021-11-02 13:36:01 Doctor Unassigned, No [facility] CONSENT/REFUSAL FOR 2021-11-02 13:35:30 Doctor Unassigned, No Un [facility] DIAGNOSIS AND [facility] TREATMENT POCT URINALYSIS 2021-10-05 19:56:00 Lidia Gunn [facility] Plan of Care Planned Activity Planned Date Details Comments Source Future Scheduled Test 2022-11-14 00:00:00 IMM Influenza [facility] Seasonal (>/= 19 yrs) [code = IMM Influenza Seasonal (>/= 19 yrs)] Future Scheduled Test 2021-11-14 00:00:00 IMM Influenza [facility] Seasonal (>/= 19 yrs) [code = IMM Influenza Seasonal (>/= 19 yrs)] Future Scheduled Test 2020-11-14 00:00:00 IMM Influenza [facility] Seasonal Nov to April (>/= 19 yrs) [code = IMM Influenza Seasonal Nov to April (>/= 19 yrs)] Future Scheduled Test 2020-06-07 00:00:00 Screening for [facility] malignant neoplasm of cervix (procedure) [code = 285625405] Future Scheduled Test 2020-06-07 00:00:00 Screening for [facility] malignant neoplasm of cervix (procedure) [code = 717844673] Future Scheduled Test 2020-06-07 00:00:00 Screening for [facility] malignant neoplasm of cervix (procedure) [code = 666922762] Future Scheduled Test 2011 00:00:00 COVID-19 Vaccine (1) [facility] [code = COVID-19 Vaccine (1)] Future Scheduled Test 1999 00:00:00 COVID-19 Vaccine (#1) [facility] [code = COVID-19 Vaccine (#1)] Future Scheduled Test 1999 00:00:00 COVID-19 Vaccine (#1) [facility] [code = COVID-19 Vaccine (#1)] Encounters Start End Encounter Admission Attending Care Care Encounter Source Date/Time Date/Time Type Type Clinicians Facility Department ID 2022-04-[address] TORRES Álvarez [facility] [id number] Common 13:56:01 Pedro [id number] [facility] 2022-02-[address]lvarez [facility] [id number] Common 10:10:02 Pedro [id number] [facility] 2021-11-02 Outpatient X [facility] LUCY [id number] Univers 12:05:16 it of [facility] 2021-08-[address]lvarez [facility] [id number] Common 11:03:02 Pedro [id number] [facility] 2021-05-12 Outpatient ZEBDA, [facility] [id number] [place] 09:56:57 FRANCES [id number] [facility] 2021-03-19 Outpatient Álvarez, [facility] [id number] Common 09:00:02 Pedro [facility] 2020-12-12 Emergency [facility] [id number] Univers 19:39:41 ity of [facility] 2023-05-30 2023-05-30 Outpatient R RASHEL PALAFOXL [facility] U TMB [id number] Univers 10:00:00 10:00:00 ADILENE PALAFOX ity [facility] 2022-09-16 2022-09-16 Outpatient SFA SFA [id number] A[place] 15:25:14 15:25:14 [id number] [facility] [place] 2022-09-01 2022-09-01 Outpatient SFA SFA [id number] [place] 17:48:36 17:48:36 [id number] [facility] [place] 2022-08-11 2022-08-11 Outpatient SFA [facility] [id number] A[place] 09:04:15 09:04:15 [id number] [facility] [place] 2022-06-07 2022-06-07 Outpatient R AKINSIPE, [facility] [id number] Univers 13:15:00 13:15:00 SHARRON ity o f [facility] 2022-05-25 2022-05-25 Office Eddie [facility] [id number] Univers 09:30:00 10:00:00 Visit Adilene berg ONELIA 350.1.13.10 ity [facility] [place].2.7.2.[place]HAR[place] [id number] Md dical [address] 2022-05-25 2022-05-25 Outpatient R RASHEL PALAFOXL [facility] [id number] Univers 09:30:00 09:30:00 [facility]-25 2022-05-25 Orders Doctor MOHR 1.2.840.114 [id number] Univers 00:00:00 00:00:00 Only Unassigned, LEATHA 350.1.13.10 ity of [place] [facility] 4.2.7.2.686 Nick as [id number] [address] 2022-05-10 2022-05-10 [facility] 1.2.533.445 [id number] Univers 00:00:00 00:00:00 Management Gaudencio ONELIA 350.1.13.10 it[place] of [place] [id number] Md dical NAL [address] [facility] 2022-05-10 2022-05-10 Telephone [facility] 1.2.840.114 [id number] Univers 00:00:00 00:00:00 Gaudencio ROUSSEAU 350.1.13.10 i ty of [facility] [place].2.[place] [id number] Md dical NAL [address] [facility] 2022-05-07 2022-05-07 Outpatient R ANOOP, [facility] [id number] Univers 13:30:00 13:30:00 SHARRON ruvalcaba [facility] 2022-05-06 2022-05-06 Titrator 2, Adc Lab [facility] 1.2.840.114 [id number] Univers 15:30:00 15:30:00 Visit Alexandro Gaudenciobabar ROUSSEAU 350.1.13.10 ity [facility] [place].2.[place] [id number] [facility] [address] [facility] 2022-05-06 2022-05-06 Office Alexandro [facility] 1.2.803.692 [id number] Univers 15:00:00 15:30:00 Visit Gaudencio ROUSSEAU 350.1.13.10 i ty [facility] 4.2.7.[place] [phone] Md dical NAL [address] [facility] 2022-05-06 2022-05-06 Outpatient R ALEXANDRO [facility] [id number] Univers 15:00:00 15:08:38 GAUDENCIO xiong [facility] 2022-03-08 2022-03-08 Outpatient R ANOOP, [facility] [id number] Univers 14:00:00 15:21:42 SHARRON ruvalcaba [facility] 2022-03-08 2022-03-08 Office Akinsipe, [facility] 1.2.916.876 [id number] Univers 14:00:00 15:21:42 Visit Sharron C FRESCO ARTIST 350.1.13.10 ity of [facility] 4.2.7.2.686 Nick as MATERNAL [id number] [facility] CHILD [address] [place] [address] 2022-02-15 2022-02-15 Routine [facility] 1.2.105.831 [id number] Univers 15:30:00 15:45:00 Sharron C FRESCO ARTIST 350.1.13.10 ity of Visit [facility] 4.2.7.2.686 Nick as MATERNAL [id number] [facility] & [address] 2022-02-15 2022-02-15 Outpatient R [facility] [id number] Univers 15:30:00 15:30:00 SHARRON ity o f [facility] 2022-02-15 2022-02-15 Orders Doctor FANI 1.2.840.114 [id number] Univers 00:00:00 00:00:00 Only Unassigned, LEATHA 350.1.13.10 ity of [place] [facility] 4.2.7.2.686 Nick as [phone] [address] 2022-01-28 2022-01-28 Outpatient R [facility] [id number] Univers 12:45:00 12:45:00 ity of [facility] 2022-01-26 2022-01-26 Telephone [facility] 1.2.840.114 [id number] Univers 00:00:00 00:00:00 Sharron C FRESCO ARTIST 350.1.13.10 ity of [facility] 4.2.7.2.686 Nick as MATERNAL [id number] [facility] & CHILD [address] [place] [address] 2022-01-21 2022-01-24 Inpatient X BUDDY CASTANFORD LUCY [id number] Univers 08:33:00 15:20:00 DEON ity of [facility] 2022-01-21 2022-01-24 [facility] FANI Goodwin 1.2.840.114 [id number] Univers 08:33:00 15:20:00 Encounter Deon LEATHA 350.1.13.10 ity of HOSPITAL 4.2.7.2.686 Nick as [phone] [facility] [address] 2022-01-22 2022-01-22 Anesthesia Angel Grubbs 1.2.840. 114 [id number] Univers 03:05:00 19:18:00 Event RhiannonYe mcnallyY 350.1.13.10 ity of HOSPITAL 4.2.7.2.686 Nick as [id number] [facility] [address] 2022-01-21 2022-01-21 Orders Doctor FANI 1.2.840.114 [id number] Univers 00:00:00 00:00:00 Only Unassigned, LEATHA 350.1.13.10 ity of [place] [facility] 4.2.7.2.686 Nick as [phone] [facility] [address] 2022-01-20 2022-01-20 Telephone [facility] 1.2.840.114 [id number] Univers 00:00:00 00:00:00 Sharron C FRESCO ARTIST 350.1.13.10 ity of REGIONAL 4.2.7.2.686 Nick as MATERNAL [phone] Med ical & CHILD [address] [place] [address] 2022-01-19 2022-01-19 Telephone [facility] 1.2.840.114 [id number] Univers 00:00:00 00:00:00 Sharron C FRESCO ARTIST 350.1.13.10 ity of [facility] 4.2.7.2.686 Nick as MATERNAL [phone] Med ical & CHILD [address] [place] [address] 2022-01-18 2022-01-18 Outpatient R [facility] [id number] Univers 15:15:00 15:55:56 SHARRONISAAC xiong o f [facility] 2022-01-18 2022-01-18 Routine [facility] 1.2.975.140 [id number] Univers 15:15:00 15:55:56 Sharron C FRESCO ARTIST 350.1.13.10 ity of Visit REGIONAL 4.2.7.2.686 Nick as MATERNAL [id number] [facility] & CHILD [address] [place] [address] 2022-01-06 2022-01-06 Outpatient R MULU [facility] [id number] Univers 15:45:00 15:45:00 SHAUN ity [facility] 2022-01-05 2022-01-05 Outpatient R AKINLE, [facility] [id number] Univers 15:15:00 16:05:00 SHARRON ity o f [facility] 2022-01-05 2022-01-05 Routine [facility], [facility] 1.2.134.731 [id number] Univers 15:15:00 16:05:00 Sharron C FRESCO ARTIST 350.1.13.10 ity of Visit REGIONAL 4.2.7.2.686 Nick as MATERNAL [phone] [facility] & CHILD [address] [place] [address] 2022-01-02 2022-01-02 Outpatient X SHAMIKA GARCIA [facility] LUCY [id number] Univers 16:08:00 18:10:00 ity [facility] 2022-01-02 2022-01-02 Emergency Speedy Dimas [facility] 1.2.84 0.114 [id number] Univers 16:08:00 18:10:00 Sandee López [place] 350.1.13.10 ity of Shamika Garcia 4.2.7.2.686 [facility] [phone] [address] 2021-12-30 2021-12-30 Telephone [facility] 1.2.840.114 [id number] Univers 00:00:00 00:00:00 Sharron C FRESCO ARTIST 350.1.13.10 ity of REGIONAL 4.2.7.2.686 Nick as MATERNAL [phone] [facility] & CHILD [address] [place] [address] 2021-12-28 2021-12-28 Outpatient R [facility] [id number] Univers 11:00:00 11:00:00 ity [facility] 2021-12-24 2021-12-24 Outpatient [facility] [id number] Univers 10:30:00 11:41:09 LIDIA ruvalcaba [facility] 2021-12-24 2021-12-24 Routine Provider, Kenrick Velez [facility] 1 .2.840.114 [id number] Univers 10:30:00 11:41:09 Lidia Gunn R FRESCO ARTIST 350.1.13.1 0 ity of Visit REGIONAL 4.2.7.2.686 Nick as MATERNAL [phone] Med ical & CHILD [address] [place] [address] 2021-12-23 2021-12-23 Outpatient Fei GUNN [facility] [id number] Univers 15:45:00 15:45:00 LIDIA hollisjoshua sarah [facility] 2021-12-15 2021-12-15 Telephone Anoop [facility] 1.2.840.114 [id number] Univers 00:00:00 00:00:00 Sharron Richter FRESCO ARTIST 350.1.13.10 ity of REGIONAL 4.2.7.2.686 Nick as MATERNAL [phone] Med ical & CHILD [address] [place] [address] 2021-12-09 2021-12-09 Outpatient R ANOOP [facility] [id number] Univers 15:15:00 15:37:51 SHARRON smith [facility] 2021-12-09 2021-12-09 Routine Sharron Davalos [facility] 1.2.8 40.114 [id number] Univers 15:15:00 15:30:00 Lidia Gunn R FRESCO ARTIST 350.1.13.1 0 ity of Visit REGIONAL 4.2.7.2.686 Nick as MATERNAL [phone] Med [facility] & CHILD [address] [place] [address] 2021-12-07 2021-12-07 Outpatient Fei GUNN [facility] [id number] Univers 13:45:00 13:45:00 SELINJt ruvalcaba [facility] 2021-11-26 2021-11-26 Office Disease, Gloria & Pcp Pedi Infec [facility] 1.2.840.114 [id number] Univers 10:30:00 11:00:00 Visit Casola, Arnie SPECIALTY 350.1.13.1 0 ity of [place].2.[place] [phone] [facility] [address] 2021-11-26 2021-11-26 Outpatient R CORRIE ARNIE [facility] [id number] Univers 10:30:00 10:30:00 ARNIE GOODMAN itjoshua of [facility] 2021-11-23 2021-11-23 Outpatient [facility] [id number] Univers 13:45:00 14:31:13 ROSHUNDA ity o f [facility] 2021-11-23 2021-11-23 Routine Luis [facility] 1.2.840.114 [id number] Univers 13:45:00 14:31:13 Lidia R FRESCO ARTIST 350.1.13.10 ity of Visit [facility] 4.2.7.2.686 Nick as MATERNAL [id number] Med ical & CHILD [address] [place] [address] 2021-11-19 2021-11-19 Outpatient X [facility] LUCY [id number] Univers 16:58:00 18:45:00 ity [facility] 2021-11-19 2021-11-19 Emergency Fish, Samantha [facility] 1.2.840.114 [id number] Univers 16:58:00 18:45:00 [place] 350.1.13.10 i ty of [place].7.2.[place] [phone] [facility] [address] 2021-11-19 2021-11-19 Nurse Nurse, Alber [facility] 1.2.840.114 [id number] Univers 16:30:00 16:50:00 Visit Goodoc 350.1.13.10 ity of [place] 4.2.7.2.686 Nick as EVE?BLEA [phone] Md simon BABB [address] [place] [address] MEDICAL OFFICE BUILDING 2021-11-19 2021-11-19 Outpatient R ALIX [facility] [id number] Univers 16:30:00 16:41:32 MELINA ity [facility] 2021-11-19 2021-11-19 Олег [facility] 1.2.056.392 [id number] Univers 00:00:00 00:00:00 Roshunda R FRESCO ARTIST 350.1.13.10 ity of REGIONAL 4.2.7.2.686 Nick as MATERNAL [phone] [facility] & CHILD [address] [place] [address] 2021-11-19 2021-11-19 Orders Doctor FANI 1.2.840.114 [id number] Univers 00:00:00 00:00:00 Only Unassigned, LEATHA 350.1.13.10 ity of [place] [facility] 4.2.7.2.686 Nick as [phone] [address] 2021-11-02 2021-11-02 Outpatient R [facility] [id number] Univers 13:30:00 14:13:36 ROSHUNDA ity o f [facility] 2021-11-02 2021-11-02 Routine [facility] 1.2.840.114 [id number] Univers 13:30:00 14:13:36 Rosjennifernda R FRESCO ARTIST 350.1.13.10 ity of Visit REGIONAL 4.2.7.2.686 Nick as MATERNAL [phone] [facility] & [address] 2021-11-02 2021-11-02 Outpatient X SHAMIKA GARCIA [facility] LUCY [id number] Univers 08:43:00 12:05:00 ity of [facility] 2021-11-02 2021-11-02 Emergency Shamika Garcia [facility] 1.2.840.114 [id number] Univers 08:43:00 12:05:00 [facility] 350.1.13.10 i ty of [place].2.[place] [phone] [facility] [address] 2021-11-02 2021-11-02 Orders Doctor FANI 1.2.840.114 [id number] Univers 00:00:00 00:00:00 Only Unassigned, LEATHA 350.1.13.10 ity of [place] [facility] 4.2.7.2.686 Nick as [phone] [address] 2021-10-07 2021-10-07 Outpatient R LUIS A [facility] [id number] Univers 15:45:00 15:45:00 LIDIA ruvalcaba [facility] 2021-10-05 2021-10-05 Outpatient Fei GUNN [facility] [id number] Univers 14:30:00 15:19:47 LIDIA xiong o [facility] 2021-10-05 2021-10-05 Routine Luis [facility] 1.2.840.114 [id number] Univers 14:30:00 15:19:47 Lidia R FRESCO ARTIST 350.1.13.10 ity of Visit REGIONAL 4.2.7.2.686 Nick as MATERNAL [phone] [facility] ical & CHILD [address] [place] [address] 2021-10-05 2021-10-05 Outpatient Fei GUNN [facility] [id number] Univers 14:30:00 14:30:00 LIDIA bunnyjoshua smith [facility] 2021-09-28 2021-09-28 Nurse Visit, Ang-Rmchp Nurse [facility] 1.2 .840.114 [id number] Univers 15:00:00 15:56:15 Visit Lidia Gunn R FRESCO ARTIST 350.1.13.10 ity of REGIONAL 4.2.7.2.686 Nick as MATERNAL [phone] [facility] [address] [place] [address] 2021-09-28 2021-09-28 Nurse Visit, Ang-Rmchp Nurse [facility] 1.2 .840.114 [id number] Univers 15:00:00 15:15:00 Visit Lidia Gunn R FRESCO ARTIST 350.1.13.10 ity of REGIONAL 4.2.7.2.686 Nick as MATERNAL [phone] [facility] & CHILD [address] [place] [address] 2021-09-28 2021-09-28 [facility] [id number] Univers 15:00:00 15:00:00 LIDIA bunnyjoshua smith [facility] 2021-09-21 2021-09-21 Nurse Visit, Ang-Rmchp Nurse [facility] 1.2 .840.114 [id number] Univers 15:00:00 15:21:03 Visit Luis A Lidia Enamorado FRESCO ARTIST 350.1.13.10 ity of REGIONAL 4.2.7.2.686 Nick as MATERNAL [id number] [facility] [address] [place] [address] 2021-09-21 2021-09-21 Outpatient R LUIS A [facility] [id number] Univers 15:00:00 15:00:00 LIDIA xiong o [facility] 2021-09-21 2021-09-21 Telephone Luis [facility] 1.2.205.087 [id number] Univers 00:00:00 00:00:00 Lidia Enamorado FRESCO ARTIST 350.1.13.10 ity of [facility] 4.2.7.2.686 Nick as MATERNAL [id number] [facility] & [address] 2021-09-18 2021-09-18 Telephone Gunn [facility] 1.2.330.268 [id number] Univers 00:00:00 00:00:00 Lidia Enamorado FRESCO ARTIST 350.1.13.10 ity of REGIONAL 4.2.7.2.686 Nick as MATERNAL [id number] [facility] & [address] 2021-09-17 2021-09-17 Titrator [facility] 1.2 .840.114 [id number] Univers 09:30:00 10:45:00 Visit Luis A Lidia Enamorado FRESCO ARTIST 350.1.13.10 ity of [facility] 4.2.7.2.686 Nick as MATERNAL [id number] [facility] CHILD [address] [place] [address] 2021-09-17 2021-09-17 Outpatient Fei GUNN [facility] [id number] Univers 07:45:00 09:50:42 LIDIA ixong o [facility] 2021-09-17 2021-09-17 Titrator Lab, Alber-Rmp [facility] 1.2.840. 114 [id number] Univers 07:45:00 09:50:42 Visit Gunn, Roshunda R FRESCO ARTIST 350.1.13.10 ity of REGIONAL 4.2.7.2.686 Nick as MATERNAL [id number] [facility] [address] [place] [address] 2021-09-17 2021-09-17 Outpatient P [facility] [id number] Univers 09:30:00 09:30:00 ity of [facility] 2021-09-17 2021-09-17 Outpatient P [facility] [id number] Univers 09:30:00 09:30:00 ity of [facility] 2021-09-17 2021-09-17 Abstract Luis [facility] 1.2.840.114 [id number] Univers 00:00:00 00:00:00 Lidia R FRESCO ARTIST 350.1.13.10 ity of REGIONAL 4.2.7.2.686 Nick as MATERNAL [id number] [facility] & CHILD [address] [place] [address] 2021-09-09 2021-09-09 Routine Luis [facility] 1.2.840.114 [id number] Univers 15:15:00 16:04:04 Lidia Enamorado FRESCO ARTIST 350.1.13.10 ity of Visit REGIONAL 4.2.7.2.686 Nick as MATERNAL [id number] [facility] & CHILD [address] [place] [address] 2021-09-09 2021-09-09 Outpatient R LUIS A [facility] [id number] Univers 15:15:00 16:04:04 ROSJENNIFERNDA ity o f [facility] 2021-09-09 2021-09-09 Outpatient [facility] [id number] Univers 15:15:00 15:15:00 ROSHUNDA ity o f [facility] 2021-08-28 2021-08-28 (TEL) STLC STLC [id number] Co mmon 00:00:00 00:00:00 [facility] 2021-08-18 2021-08-18 Telephone Luis A [facility] 1.2.874.679 [id number] Univers 00:00:00 00:00:00 Lidia Enamorado [place] 350.1.13.10 ity of [place] [phone] Md dical [address] 2021-08-13 2021-08-13 Case Luis [facility] 1.2.840.114 [id number] Univers 00:00:00 00:00:00 Management Rosjennifernda R FRESCO ARTIST 350.1.13.10 ity of [facility] 4.2.7.2.686 Nick as MATERNAL [phone] Med ical & CHILD [address] [place] [address] 2021-08-12 2021-08-12 Outpatient R LUIS A [facility] [id number] Univers 13:15:00 13:49:47 ROSHUNDA ity o [facility] 2021-08-12 2021-08-12 Routine Luis [facility] 1.2.840.114 [id number] Univers 13:15:00 13:49:47 Roshunda R FRESCO ARTIST 350.1.13.10 ity of Visit [facility] 4.2.7.2.686 Nick as MATERNAL [phone] [facility] & CHILD [address] [place] [address] 2021-08-12 2021-08-12 Outpatient R LUIS A [facility] [id number] Univers 13:15:00 13:15:00 ROSHUNDA ity o f [facility] 2021-08-11 2021-08-11 Telephone Luis [facility] 1.2.856.855 [id number] Univers 00:00:00 00:00:00 Roshunda R FRESCO ARTIST 350.1.13.10 ity of [facility] 4.2.7.2.686 Nick as MATERNAL [id number] [facility] & CHILD [address] [place] [address] 2021-08-03 2021-08-03 Outpatient R LUIS A [facility] [id number] Univers 10:00:00 10:00:00 ROSHUNDA ity o f [facility] 2021-08-03 2021-08-03 Telephone Luis [facility] 1.2.669.295 [id number] Univers 00:00:00 00:00:00 Roshunda R FRESCO ARTIST 350.1.13.10 ity of REGIONAL 4.2.7.2.686 Nick as MATERNAL [id number] [facility] [address] [place] [address] 2021-07-27 2021-07-27 [facility]phone [facility] 1.2.282.386 [id number] Univers 00:00:00 00:00:00 Roshunda R FRESCO ARTIST 350.1.13.10 ity of REGIONAL 4.2.7.2.686 Nick as MATERNAL [phone] [facility] [address] [place] [address] 2021-07-16 2021-07-16 Abstract [facility] 1.2.840.114 [id number] Univers 00:00:00 00:00:00 Roshunda R FRESCO ARTIST 350.1.13.10 ity of REGIONAL 4.2.7.2.686 Nick as MATERNAL [id number] [address] 2021-07-16 2021-07-16 Abstract [facility] 1.2.840.114 [id number] Univers 00:00:00 00:00:00 Roshunda R FRESCO ARTIST 350.1.13.10 ity of REGIONAL 4.2.7.2.686 Nick as MATERNAL [id number] [address] 2021-07-15 2021-07-15 Outpatient Fei GUNN [facility] [id number] Univers 13:00:00 13:00:00 ROSJENNIFERNDA ity o f [facility] 2021-07-15 2021-07-15 [facility] 1.2.840.114 [id number] Univers 13:00:00 13:00:00 Roshunda R FRESCO ARTIST 350.1.13.10 ity of Visit REGIONAL 4.2.7.2.686 Nick as MATERNAL [id number] [facility] & CHILD [address] [place] [address] 2021-07-15 2021-07-15 [facility] [id number] Univers 13:00:00 11:11:09 ROSJENNIFERNDA ity o f [facility] 2021-07-15 2021-07-15 Titrator Ultrasound, Stephen [facility] 1.2 .840.114 [id number] Univers 10:00:00 10:30:00 Visit Jm Tothanastacia FRESCO ARTIST 350.1. 13.10 ity of [facility] 4.2.7.2.686 Nick as MATERNAL [id number] Med ical & CHILD [address] [facility] 2021-07-15 2021-07-15 Outpatient P [facility] [id number] Univers 10:00:00 10:00:00 ity [facility] 2021-06-17 2021-06-17 Outpatient R GEORGE [facility] [id number] Univers 14:00:00 14:00:00 FALGUNI [facility] 2021-06-17 2021-06-17 [facility] 1.2.840.114 [id number] Univers 09:15:00 10:26:59 Rosnda Fei FRESCO ARTIST 350.1.13.10 ity of Visit [facility] 4.2.7.2.686 Nick as MATERNAL [id number] [facility] ical & CHILD [address] [place] [address] 2021-06-17 2021-06-17 Outpatient R LUIS A [facility] [id number] Univers 09:15:00 10:26:59 ROSHUNDA itjoshua o [facility] 2021-06-17 2021-06-17 Outpatient Fei GUNN [facility] [id number] Univers 09:15:00 09:15:00 ROSNDA itjoshua o [facility] 2021-06-17 2021-06-17 Orders Doctor [facility] 1.2.840.114 [id number] Univers 00:00:00 00:00:00 Only Unassigned, LEATHA 350.1.13.10 ity of [place] [facility] 4.2.7.2.686 Nick as [phone] [address] 2021-05-26 2021-05-26 [facility] [id number] Common 00:00:00 00:00:00 EST AGE Spirit 17-39 - [facility] 2021-05-20 2021-05-20 Case Alexandro [facility] 1.2.542.888 [id number] Univers 00:00:00 00:00:00 Management Gaudencio ROUSSEAU 350.1.13.10 ity [facility] [place] [id number] [address] 2021-05-20 2021-05-20 Telephone [facility] 1.2.840.114 [id number] Univers 00:00:00 00:00:00 Gaudencio ROUSSEAU 350.1.13.10 i ty [facility] [place].2.[place] [id number] [address] 2021-05-18 2021-05-18 Outpatient R ALEXANDRO [facility] [id number] Univers 11:00:00 12:12:38 GAUDENCIO xiong [facility] 2021-05-18 2021-05-18 Office [facility] 1.2.818.552 [id number] Univers 11:00:00 12:12:38 Visit Gaudencio ROUSSEAU 350.1.13.10 i ty of [place] [id number] [address] 2021-05-18 2021-05-18 Outpatient R ALEXANDRO [facility] [id number] Univers 11:00:00 12:12:38 GAUDENCIO tyrese [facility] 2021-04-21 2021-04-21 OFFICE STLC STLC [id number] Co mmon 00:00:00 00:00:00 VISIT EST Spir it PT LEVEL 3 - [facility] 2021-03-19 2021-03-19 OFFICE STLMLC STLMLC [id number] Co mmon 00:00:00 00:00:00 VISIT NEW Spir it PT LEVEL 3 - [facility] 2021-03-12 2021-03-12 Outpatient Fei THOMSON [facility] [id number] Univers 11:20:00 12:05:20 MELINA xiong [facility] 2021-03-12 2021-03-12 Urgent Melina Thomson [facility] 1.2.840.114 [id number] Univers 11:20:00 11:40:00 Care [facility] 350.1.13.10 ity of [place] 4.2.7.2.686 Nick as EVE?BLEA [phone] Md simon [address] MEDICAL OFFICE BUILDING 2021-01-26 2021-01-26 Telephone [facility] 1.2.840.114 [id number] Univers 00:00:00 00:00:00 Holly Jean FRESCO ARTIST 350.1.13.10 it y of REGIONAL 4.2.7.2.686 Nick as MATERNAL [phone] [facility] ical & CHILD [address] [place] [address] 2021-01-23 2021-01-23 [id number] Univers 13:00:00 13:49:00 HOLLY xiong [facility] 2021-01-23 2021-01-23 [facility] [id number] Univers 13:00:00 13:49:00 HOLLY xiong [facility] 2021-01-23 2021-01-23 Office [facility] [id number] Univers 12:51:03 13:49:00 Visit Holly Jean FRESCO ARTIST 350.1.13.10 it y of [facility] 4.2.7.2.686 Nick as MATERNAL [phone] [facility] & [address] 2021-01-23 2021-01-23 Orders Doctor [facility] 1.2.840.114 [id number] Univers 00:00:00 00:00:00 Only Unassigned, LEATHA 350.1.13.10 ity of [place] [facility] 4.2.7.2.686 Nick as [phone] [address] 2021-01-23 2021-01-23 [facility] [id number] Univers 00:00:00 00:00:00 (Out) Holly Jean FRESCO ARTIST 350.1.13.10 it y of REGIONAL 4.2.7.2.686 Nick as MATERNAL [phone] [facility] ical & CHILD [address] [place] [address] 2020-02-27 2020-02-27 Emergency [facility] [id number] Univers 18:29:00 21:11:00 Samantha Rousseau 350.1.13.10 i ty of [place] 4[place]2.7.2.[place] [phone] [facility] [address] [place] 2020-02-27 2020-02-27 Emergency X [facility] [id number] Univers 18:29:00 21:11:00 SAMANTHA ity of [facility] 2020-02-27 2020-02-27 Emergency [facility] [id number] 18:29:00 21:11:00 Samantha Rousseau 350.1.13.10 [place] 4.2.7.2.686 [place] [phone] [facility] 2020-02-27 2020-02-27 Telephone [employer] [facility] 1.2.840.114 [id number] Univers 00:00:00 00:00:00 Sharron Richter FRESCO ARTIST 350.1.13.10 ity of [facility] 4.2.7.2.686 Nick as MATERNAL [phone] Med ical & CHILD [address] [place] [facility] 2020-02-27 2020-02-27 Orders Doctor FANI 1.2.840.114 [id number] Univers 00:00:00 00:00:00 Only Unassigned, LEATHA 350.1.13.10 ity of [place] [facility] 4.2.7.2.686 Nick as [phone] [facility] [address] [place] 2020-02-27 2020-02-27 Telephone [facility], [facility] 1.2.840.114 [id number] 00:00:00 00:00:00 Sharron C FRESCO ARTIST 350.1.13.10 REGIONAL 4.2.7.2.686 MATERNAL [phone] & CHILD [address] [facility] 2020-02-27 2020-02-27 Orders Doctor FANI 1.2.840.114 [id number] 00:00:00 00:00:00 Only Unassigned, LEATHA 350.1.13.10 [place] [facility] 4.2.7.2.686 [id number] [facility] 2020-01-30 2020-01-30 Office [facility] [id number] [id number] Univers 15:43:52 16:13:52 Visit Sharron Richter FRESCO ARTIST 350.1.13.10 ity of [facility] 4.2.7.2.686 Nick as MATERNAL [phone] [facility] ical & CHILD [address] [place] [address] 2020-01-30 2020-01-30 Office [facility] 1.2.526.166 [id number] 15:43:52 16:13:52 Visit Sharron Richter FRESCO ARTIST 350.1.13.10 REGIONAL 4.2.7.2.686 MATERNAL [phone] & [address] 2020-01-30 2020-01-30 Outpatient R [facility] [id number] Univers 15:45:00 15:45:00 SHARRON ruvalcaba [facility] 2020-01-30 2020-01-30 Orders Doctor MOHR 1.2.840.114 [id number] Univers 00:00:00 00:00:00 Only Unassigned, LEATHA 350.1.13.10 ity of [place] [facility] 4.2.7.2.686 Nick as [phone] [address] 2020-01-30 2020-01-30 Orders Doctor MOHR 1.2.840.114 [id number] 00:00:00 00:00:00 Only Unassigned, LEATHA 350.1.13.10 [place] [facility] 4.2.7.2.686 [id number] [facility] 2020-01-28 2020-01-28 Telephone [facility] 1.2.840.114 [id number] Univers 00:00:00 00:00:00 Sharron C FRESCO ARTIST 350.1.13.10 ity of REGIONAL 4.2.7.2.686 Nick as MATERNAL [phone] [facility] ical & CHILD [address] [place] [address] 2019-12-14 2019-12-14 Outpatient R [facility] [id number] Univers 13:30:00 13:30:00 SHARRON ruvalcaba [facility] 2019-12-07 2019-12-07 Office Anoop [facility] 1.2.628.343 [id number] Univers 15:02:34 16:02:09 Visit Sharron Richter FRESCO ARTIST 350.1.13.10 ity of [facility] 4.2.7.2.686 Nick as MATERNAL [phone] [facility] ical & CHILD [address] [place] [address] 2019-12-07 2019-12-07 Outpatient R ANOOP [facility] [id number] Univers 14:45:00 14:45:00 SHARRON ruvalcaba [facility] 2019-11-14 2019-11-14 Transition Natalia Renee 1.2.840.114 [id number] Univers 00:00:00 00:00:00 of Care Martina Meza 350.1.13.10 i [place] of [place]2.7.2.[place] [phone] [facility] [address] 2019-11-12 2019-11-13 [facility] Josiah Hanna 1.2.840.1 14 [id number] Univers 05:53:00 17:45:00 Encounter Nery [place]ton 350.1 .13.10 ity of [facility] 4.2.7.2.686 [place] Goel Juan [phone] [place] 756526 [place] 2019-03-08 2019-03-08 Nurse Visit, [facility] Nurse [facility] 1.2 .840.114 [id number] Univers 13:32:55 13:48:09 Visit Lidia Gunn FRESCO ARTIST 350.1.13.10 ity of [facility] 4.2.7.2.686 Nick as MATERNAL [phone] [facility] ical & CHILD [address] [place] [address] 2019-03-08 2019-03-08 Orders Doctor MOHR 1.2.840.114 [id number] Univers 00:00:00 00:00:00 Only Unassigned, LEATHA 350.1.13.10 ity of [place] [facility] 4.2.7.2.686 Nick as [phone] [facility] [address] [place] 2018-10-18 2018-10-20 [facility] Lesley Bhandari 1.2.840. 114 [id number] Univers 02:05:51 21:00:00 Encounter Jairo Issa 350.1.13.10 ity of [place] Luciano [facility] 4.2.7.2.686 [place] [phone] [facility] [address] [place] 2018-09-14 2018-09-14 Nurse Visit, [facility] Nurse [facility] 1.2 .840.114 [id number] Univers 13:53:27 14:21:33 Visit Luis ALidia FRESCO ARTIST 350.1.13.10 ity of [facility] 4.2.7.2.686 Nick as MATERNAL [phone] [facility] ical & CHILD [address] [place] [address] 2018-09-12 2018-09-12 Telephone Luis A [place] 1.2.219.655 [id number] Univers 00:00:00 00:00:00 Amberstephen FRESCO ARTIST 350.1.13.10 ity of [facility] 4.2.7.2.686 Nick as MATERNAL [phone] Med ical & CHILD [address] [place] [address] 2018-09-11 2018-09-11 Office Luis A [facility] 1.2.840.114 [id number] Univers 13:17:27 13:32:27 Visit Lidia Fei FRESCO ARTIST 350.1.13.10 ity of [facility] 4.2.7.2.686 Nick as MATERNAL [phone] [facility] ical & CHILD [address] [place] [address] 2017-11-27 2017-11-27 Emergency [facility] MED [id number] [place] 13:56:45 13:56:45 Health Results Test Description Test Time Test Comments Results Result Comments Source POCT TEST 2022-05-25 15:07:00 Test Item Value Reference Range Interpretation Comme nts POCT PREG (test code = 1605) Negative On board controls acceptable with C Line (test code = 3574) Yes POCT PREG LOT # (test code = 3575) POCT PREG TEST DATE (test code = 3576) [facility] IMM[facility] [id number] 03:35:07 Test Item Value Reference Range Interpretation Comments RHIG CANDIDATE? No- see comment Patient i s not a (test code = candidate for R hIg- 5055) Patient is Rh Positive.Perfor med at [facility] Laboratory Services - [facility] Blood [address] [place] [address] 189[address]Xdix Free: [phone] A No. [id number] [facility] [id number] 00:05:07 Test Item Value Reference Range Interpretation Comments VENOUS BASE EXCESS, mEq/L CORD (test code = 9949942740) VENOUS PH, CORD (test 7.25-7.45 code = 0376072393) VENOUS PC02, CORD See_Comment [Automate d message] The (test code = system which ge nerated 4005828970) this result tra nsmitted reference range : 27 - 49 mmHg. The refer ence range was not used to interpret this result as normal/abnormal . VENOUS PO2, CORD (test See_Comment [Aut omated message] The code = 4676730416) system wh ich generated this result tra nsmitted reference range : 17 - 41 mmHg. The refer ence range was not used to interpret this result as normal/abnormal . VENOUS BICARBONATE, See_Comment QUES [Au tomated message] CORD (test code = The system which generated 7678074909) this result tra nsmitted reference range : 12 - 29 mEq/L. The refe rence range was not used to interpret this result as normal/abnormal . [facility] C[facility] [id number] 00:04:42 Test Item Value Reference Range Interpretation Comments BASE EXCESS, CORD mEq/L (test code = 6770921286) AC PH, CORD (BEAKER) 7.18-7.38 (test code = 3835540073) PC02, CORD (test code See_Comment [Auto mated message] The = 1605860135) system which g enerated this result transmit shani reference range : 32 - 66 mmHg. The refer ence range was not used to interpret this result as normal/abnormal . PO2, CORD (test code See_Comment [Autom ated message] The = 6572454582) system which g enerated this result transmit shani reference range : 10 - 30 mmHg. The refer ence range was not used to interpret this result as normal/abnormal . BICARBONATE, CORD See_Comment [Automate d message] The (test code = system which ge nerated this 0600055010) result transmit shani reference range : 17 - 27 mEq/L. The refe rence range was not used to interpret this result as normal/abnormal . [facility] and Screen - ONCE [id number] 17:43:42 Test Item Value Reference Range Interpretation Comments ABO & RH (test code A POSITIVE Performe d at [facility] = 20) Laboratory Serv [facility] Blood Bank3 [address] [facility] s [id number] Free: [phone] A No. [id number] IAT (test code = Negative Performed a t [facility] 1185) Laboratory Serv [facility] Blood Bank3 [address] [facility] s [address]Edxj Free: [phone] A No. [id number] [facility] W SPECIFIC [id number] 21:44:00 Test Item Value Reference Range Interpretation [...] U APPEAR (test code = 3267) . [facility] URINALYSIS W SPECIFIC [id number] 21:44:00 Test Item Value Reference Range Interpretation [...] U APPEAR (test code = 3267) . [facility] URINALYSIS W SPECIFIC [id number] 16:48:00 Test Item Value Reference Range Interpretation [...] U APPEAR (test code = 3267) clear [facility] URINALYSIS W SPECIFIC [id number] 20:24:00 Test Item Value Reference Range Interpretation [...] POCT U APPEAR (test code = 3267) General acute hospital WITH [id number] 20:26:15 Test Item Value Reference Range Interpretation Comments WBC (test code = See_Comment [Automated 6690-2) message] The sy stem which generated this [...] RDW-SD (test code = 42.4 fL 39-49.9 81823-8) RDW-CV (test code = 14.2 % 12-15.5 788-0) PLT (test code = See_Comment [Automated 777-3) message] The sy stem which generated this result transmitted reference range : 166 - 358 10*3/ ?L. The reference r stephan was not used to interpret this result as normal/abnormal . MPV (test code = 10.8 fL 9.5-12.9 81062-5) NRBC/100 WBC (test See_Comment [Automat ed code = 1364261362) message] The system which generated this result transmitted reference range : 0.0 - 10.0 /100 WBCs. The refer ence range was not u sed to interpret th is result as normal/abnormal . NRBC x10^3 (test code See_Comment [Auto mated = 6302148326) message] The s ystem which generated this result transmitted reference range : 10*3/?L. The reference range was not used to interpret this result as normal/abnormal . GRAN MAT (NEUT) % 75.2 % (test code = 770-8) IMM GRAN % (test code 0.60 % = 6447735856) LYMPH % (test code = 18.4 % 736-9) MONO % (test code = 5.2 % 5905-5) EOS % (test code = 0.5 % 713-8) BASO % (test code = 0.1 % 706-2) GRAN MAT x10^3(ANC) 6.63 10*3/uL 1.88-7.09 (test code = 0122065318) IMM GRAN x10^3 (test 0.05 10*3/uL 0-0.06 code = 6165407056) LYMPH x10^3 (test code 1.62 10*3/uL 1.32-3.29 = 731-0) MONO x10^3 (test code 0.46 10*3/uL 0.33-0.92 = 742-7) EOS x10^3 (test code = 0.04 10*3/uL 0.03-0.39 711-2) BASO x10^3 (test code 0.01-0.07 = 704-7) Lab Interpretation Abnormal (test code = 52835-0) General acute hospital WITH [id number] 20:26:15 Test Item Value Reference Range Interpretation Comments WBC (test code = See_Comment [Automated 6990-2) message] The sy stem which generated this result transmitted reference range : 4.30 - 11.10 10*3/?L. The reference range was not used to interpret this result as normal/abnormal . RBC (test code = See_Comment [Automated 698-8) message] The sy stem which generated this [...] RDW-SD (test code = 42.4 fL 39-49.9 03690-1) RDW-CV (test code = 14.2 % 12-15.5 788-0) PLT (test code = See_Comment [Automated 777-3) message] The sy stem which generated this result transmitted reference range : 166 - 358 10*3/ ?L. The reference r stephan was not used to interpret this result as normal/abnormal . MPV (test code = 10.8 fL 9.5-12.9 04185-4) NRBC/100 WBC (test See_Comment [Automat ed code = 6829574196) message] The system which generated this result transmitted reference range : 0.0 - 10.0 /100 WBCs. The refer ence range was not u sed to interpret th is result as normal/abnormal . NRBC x10^3 (test code See_Comment [Auto mated = 8693723185) message] The s ystem which generated this result transmitted reference range : 10*3/?L. The reference range was not used to interpret this result as normal/abnormal . GRAN MAT (NEUT) % 75.2 % (test code = 770-8) IMM GRAN % (test code 0.60 % = 7462871087) LYMPH % (test code = 18.4 % 736-9) MONO % (test code = 5.2 % 5905-5) EOS % (test code = 0.5 % 713-8) BASO % (test code = 0.1 % 706-2) GRAN MAT x10^3(ANC) 6.63 10*3/uL 1.88-7.09 (test code = 5700564153) IMM GRAN x10^3 (test 0.05 10*3/uL 0-0.06 code = 4255766950) LYMPH x10^3 (test code 1.62 10*3/uL 1.32-3.29 = 731-0) MONO x10^3 (test code 0.46 10*3/uL 0.33-0.92 = 742-7) EOS x10^3 (test code = 0.04 10*3/uL 0.03-0.39 711-2) BASO x10^3 (test code 0.01-0.07 = 704-7) Lab Interpretation Abnormal (test code = 01209-9) General acute hospital WITH [id number] 20:26:15 Test Item Value Reference Range Interpretation Comments WBC (test code = See_Comment [Automated 6690-2) message] The sy stem which generated this [...] RDW-SD (test code = 42.4 fL 39-49.9 82313-1) RDW-CV (test code = 14.2 % 12-15.5 788-0) PLT (test code = See_Comment [Automated 777-3) message] The sy stem which generated this result transmitted reference range : 166 - 358 10*3/ ?L. The reference r stephan was not used to interpret this result as normal/abnormal . MPV (test code = 10.8 fL 9.5-12.9 35265-4) NRBC/100 WBC (test See_Comment [Automat ed code = 6645352252) message] The system which generated this result transmitted reference range : 0.0 - 10.0 /100 WBCs. The refer ence range was not u sed to interpret th is result as normal/abnormal . NRBC x10^3 (test code See_Comment [Auto mated = 1377618523) message] The s ystem which generated this result transmitted reference range : 10*3/?L. The reference range was not used to interpret this result as normal/abnormal . GRAN MAT (NEUT) % 75.2 % (test code = 770-8) IMM GRAN % (test code 0.60 % = 7204870107) LYMPH % (test code = 18.4 % 736-9) MONO % (test code = 5.2 % 5905-5) EOS % (test code = 0.5 % 713-8) BASO % (test code = 0.1 % 706-2) GRAN MAT x10^3(ANC) 6.63 10*3/uL 1.88-7.09 (test code = 3437188480) IMM GRAN x10^3 (test 0.05 10*3/uL 0-0.06 code = 5144911683) LYMPH x10^3 (test code 1.62 10*3/uL 1.32-3.29 = 731-0) MONO x10^3 (test code 0.46 10*3/uL 0.33-0.92 = 742-7) EOS x10^3 (test code = 0.04 10*3/uL 0.03-0.39 711-2) BASO x10^3 (test code 0.01-0.07 = 704-7) Lab Interpretation Abnormal (test code = 53271-9) [facility] ([id number])2021-11-26 20:12:10 Test Item Value Reference Range Interpretation Comments NA (test code = 135 mmol/L 135-145 1520229683) K (test code = 4.2 mmol/L 3.5-5 5573489844) CL (test code = 107 mmol/L 98-108 6118472565) CO2 TOTAL (test code = 23 mmol/L 23-31 6791820804) AGAP (test code = 2-16 9451905694) BUN (test code = 4 mg/dL 7-23 L 0379906180) GLUCOSE (test code = 74 mg/dL 70-110 6676237359) CREATININE (test code = 0.46 mg/dL 0.5-1.04 L 4268445587) TOTAL BILI (test code = 0.4 mg/dL 0.1-1.7 2586294685) CALCIUM (test code = 9.4 mg/dL 8.6-10.6 6582817431) T PROTEIN (test code = 6.4 g/dL 6.3-8.2 4525645214) ALBUMIN (test code = 3.6 g/dL 3.5-5 7991985744) ALK PHOS (test code = 146 U/L 34-122 H 9845401437) ALTv (test code = 57 U/L 5-35 H 1742-6) AST(SGOT) (test code = 36 U/L 13-40 9059983241) eGFR (test code = mL/min/1.73m2 6158134642) MORTEZA (test code = MORTEZA) Association of [...] tests). Lab Interpretation Abnormal (test code = 68024-6) [facility]. METABOLIC PANEL ([id number])2021-11-26 20:12:10 Test Item Value Reference Range Interpretation Comments NA (test code = 135 mmol/L 135-145 9698377328) K (test code = 4.2 mmol/L 3.5-5 6121258128) CL (test code = 107 mmol/L 98-108 6530755188) CO2 TOTAL (test code = 23 mmol/L 23-31 2090104855) AGAP (test code = 2-16 0299803087) BUN (test code = 4 mg/dL 7-23 L 5554920993) GLUCOSE (test code = 74 mg/dL 70-110 1230058351) CREATININE (test code = 0.46 mg/dL 0.5-1.04 L 2263787136) TOTAL BILI (test code = 0.4 mg/dL 0.1-1.6 7152548462) CALCIUM (test code = 9.4 mg/dL 8.6-10.6 3684782292) T PROTEIN (test code = 6.4 g/dL 6.3-8.2 8720710852) ALBUMIN (test code = 3.6 g/dL 3.5-5 0471861757) ALK PHOS (test code = 146 U/L 34-122 H 6361501899) ALTv (test code = 57 U/L 5-35 H 1742-6) AST(SGOT) (test code = 36 U/L 13-40 5360378446) eGFR (test code = mL/min/1.73m2 8155236867) MORTEZA (test code = MORTEZA) Association of [...] tests). Lab Interpretation Abnormal (test code = 29636-7) [facility]. METABOLIC PANEL ([id number])2021-11-26 20:12:10 Test Item Value Reference Range Interpretation Comments NA (test code = 135 mmol/L 135-145 4320704659) K (test code = 4.2 mmol/L 3.5-5 1373182618) CL (test code = 107 mmol/L 98-108 0941656745) CO2 TOTAL (test code = 23 mmol/L 23-31 6863592854) AGAP (test code = 2-16 7709298106) BUN (test code = 4 mg/dL 7-23 L 7462866637) GLUCOSE (test code = 74 mg/dL 70-110 4502406630) CREATININE (test code = 0.46 mg/dL 0.5-1.04 L 9594891297) TOTAL BILI (test code = 0.4 mg/dL 0.1-1.0 8072872934) CALCIUM (test code = 9.4 mg/dL 8.6-10.6 2373526777) T PROTEIN (test code = 6.4 g/dL 6.3-8.2 3335642247) ALBUMIN (test code = 3.6 g/dL 3.5-5 0664930525) ALK PHOS (test code = 146 U/L 34-122 H 6608797554) ALTv (test code = 57 U/L 5-35 H 1742-6) AST(SGOT) (test code = 36 U/L 13-40 8855100092) eGFR (test code = mL/min/1.73m2 3300240744) MORTEZA (test code = MORTEZA) Association of [...] tests). Lab Interpretation Abnormal (test code = 46929-0) [facility] URINALYSIS W SPECIFIC [id number] 18:53:00 Test Item Value Reference Range Interpretation [...] U APPEAR (test code = 3267) * [facility]IFIC [id number] 19:56:00 Test Item Value Reference Range Interpretation [...] POCT U APPEAR (test code = 3267) [facility]"
[2022-09-19] MEDS ORDERED: LORazepam 2 MG/ML VIAL ONE (01:59)
--- NOTE | 2022-09-19 02:34 | EDPHYS ---
Physician Documentation [facility] Name: Anglees Field Age: 22 yrs Sex: Female : 2000 Arrival Date: 09/19/2022 Time: 01:39 Bed 5 Private MD: ED Physician Luc Jones HPI: 09/19 01:50 This 22 yrs old Female presents to ER via Unassigned with complaints of Anxiety. sb4 01:50 Onset: The symptoms/episode began/occurred just prior to arrival. sb4 02:03 patient states she was just laying in bed with her significant other and child when she sb4 started experiencing a panic attack. she took her hydroxyzine at home without any relief. she states that she feels like she's dying and is experiencing chest discomfort. 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 Last tetanus immunization: < 10 years ago Flu vaccine is not up to date. - Social history:: Smoking status: Patient denies any tobacco usage or history of. Patient/guardian denies using alcohol, street drugs. ROS: 02:03 Constitutional: Negative for fever, chills, and weight loss, Eyes: Negative for injury, sb4 pain, redness, and discharge, ENT: Negative for injury, pain, and discharge, Respiratory: Negative for shortness of breath, cough, wheezing, and pleuritic chest pain, Abdomen/GI: Negative for abdominal pain, nausea, vomiting, diarrhea, and constipation, MS/Extremity: Negative for injury and deformity, Skin: Negative for injury, rash, and discoloration, Neuro: Negative for headache, weakness, numbness, tingling, and seizure. 02:03 Cardiovascular: Positive for chest pain, Negative for edema, orthopnea, palpitations, paroxysmal nocturnal dyspnea. 02:03 Psych: Positive for anxiety, Negative for depression, drug dependence, alcohol dependence, auditory hallucinations, visual hallucinations, homicidal ideation, insomnia, suicide gesture, suicidal ideation. 02:03 All other systems are negative. Exam: 02:03 Head/Face: Normocephalic, atraumatic. Eyes: Extra-ocular motions intact. Periorbital sb4 areas with no swelling, redness, or edema. Cardiovascular: Regular rate and rhythm with a normal S1 and S2. Respiratory: Lungs have equal breath sounds bilaterally, clear to auscultation and percussion. No rales, rhonchi or wheezes noted. No increased work of breathing, no retractions or nasal flaring. Abdomen/GI: Soft, non-tender, no distension. Skin: Warm, dry with normal turgor. Normal color with no rashes, no lesions, and no evidence of cellulitis. MS/ Extremity: Pulses equal, no cyanosis. Neurovascular intact. Full, normal range of motion. Neuro: Awake and alert, GCS 15, oriented to person, place, time, and situation. Cranial nerves II-XII grossly intact. Motor strength 5/5 in all extremities. Sensory grossly intact. Cerebellar exam normal. Normal gait. 02:03 Constitutional: The patient appears alert, awake, restless. 02:03 Psych: Behavior/mood is anxious. Vital Signs: 01:46 BP 128 / 92; Pulse 67; Resp 18; Temp 97.9; Pulse Ox 100% on R/A; Weight 92.99 kg; pf1 Height 5 ft. 9 in. ; Pain 10/10; 01:46 Body Mass Index 30.27 (92.99 kg, 175.26 cm) pf1 01:46 Pain Scale: Adult pf1 MDM: 01:41 Patient medically screened. sb4 02:03 Differential diagnosis: panic attack, generalized anxiety disorder, cardiac arrythmia. sb4 02:31 Data reviewed: vital signs, nurses notes, EKG, and as a result, I will discharge sb4 patient. Test considered but Not performed: Labs: not indicated. Counseling: I had a detailed discussion with the patient and/or guardian regarding: the historical points, exam findings, and any diagnostic results supporting the discharge/admit diagnosis, the need for outpatient follow up, a psychiatrist. ED course: symptoms have resolved. she has an appt with her psychiatrist on Tuesday and will discuss her treatment plan moving forward. 09/19 01:50 Order name: EKG; Complete Time: :50 sb4 EC:54 Rate is 73 beats/min. Rhythm is regular, Normal Sinus Rhythm with Occasional PVCs. SD sb4 interval is normal at 162 msec. QRS interval is normal at 52 msec. QT interval is normal at 406 msec. No Q waves. T waves are Normal. No ST changes noted. Clinical impression: Normal ECG. Interpreted by me. Reviewed by me. Administered Medications: 01:55 Drug: LORazepam IM 1 mg Route: IM; Site: right deltoid; pf1 Disposition: 02:32 Co-signature as Attending Physician, Luc Jones MD I agree with the assessment sp4 and plan of care. I reviewed the patient's care provided by Advanced Practice Provider \T\ agree w/ the diagnosis \T\ care plan. I personally saw the pt \T\ performed a substantive portion of the visit, incldng all aspects of the (History/Exam/Medical Decision Making). Disposition Summary: 09/19/22 02:33 Discharge Ordered Location: Home sb4 Problem: an acute exacerbation sb4 Symptoms: are resolved sb4 Condition: Stable sb4 Diagnosis - Panic Attack sb4 Followup: sb4 - With: Private Physician - When: 1 - 2 days - Reason: Recheck today's complaints, Continuance of care, Re-evaluation by your physician Discharge Instructions: - Discharge Summary Sheet sb4 - Panic Attack, Aihl-ny-Ivny sb4 Forms: - Medication Reconciliation Form sb4 - Thank You Letter sb4 - Antibiotic Education sb4 - Prescription Opioid Use sb4 - Patient Portal Instructions sb4 Signatures: Anya Rivera PA-C PA-C sb4 Vilma Man RN RN pf1 Luc Jones MD MD sp4 Corrections: (The following items were deleted from the chart) 02:07 02:03 patient states she was just laying in bed with her significant other and child sb4 when she started experiencing a panic attack. she took her hydroxyzine at home without any relief. sb4
--- NOTE | 2022-09-19 03:28 | ER ---
Nurse's Notes [facility] Name: Angeles Field Age: 22 yrs Sex: Female : 2000 Arrival Date: 09/19/2022 Time: 01:39 Bed 5 Private MD: Diagnosis: Panic Attack Presentation: 09/19 01:46 Chief complaint: Patient states: anxiety attack with pain of 10,onset 20 mins ago while pf1 laying down in bed. 01:46 Coronavirus screen: Vaccine status: Patient reports being unvaccinated. Client denies pf1 travel out of the [place] in the last 14 days. At this time, the client does not indicate any symptoms associated with coronavirus-19. Ebola Screen: Patient negative for fever greater than or equal to 101.5 degrees Fahrenheit, and additional compatible Ebola Virus Disease symptoms. Initial Sepsis Screen: Does the patient meet any 2 criteria? No. Patient's initial sepsis screen is negative. Does the patient have a suspected source of infection? No. Patient's initial sepsis screen is negative. Risk Assessment: Do you want to hurt yourself or someone else? Patient reports no desire to harm self or others. 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 Last tetanus immunization: < 10 years ago Flu vaccine is not up to date. - Social history:: Smoking status: Patient denies any tobacco usage or history of. Patient/guardian denies using alcohol, street drugs. Screenin:27 [facility] ED Fall Risk Assessment (Adult) History of falling in the last 3 months, jb4 including since admission No falls in past 3 months (0 pts) Confusion or Disorientation No (0 pts) Score/Fall Risk Level 0 - 2 = Low Risk Oriented to surroundings, Maintained a safe environment. Abuse screen: Denies threats or abuse. Nutritional screening: No deficits noted. Tuberculosis screening: No symptoms or risk factors identified. Assessment: 02:15 General: Appears in no apparent distress. uncomfortable, Behavior is cooperative, jb4 anxious. Pain: Denies pain. Neuro: Level of Consciousness is awake, alert, obeys commands, Oriented to person, place, time, situation. Cardiovascular: Patient's skin is warm and dry. Respiratory: Respiratory effort is even, unlabored, Respiratory pattern is regular, symmetrical. Derm: Skin is intact, Skin is pink, warm \T\ dry. 03:26 Reassessment: Pt discharged by provider. jb4 Vital Signs: 01:46 BP 128 / 92; Pulse 67; Resp 18; Temp 97.9; Pulse Ox 100% on R/A; Weight 92.99 kg; pf1 Height 5 ft. 9 in. ; Pain 10/10; 01:46 Body Mass Index 30.27 (92.99 kg, 175.26 cm) pf1 01:46 Pain Scale: Adult pf1 ED Course: 01:40 Patient arrived in ED. mr 01:41 Anya Rivera [facility]-C [facility]. sb4 01:41 Luc Jones MD is Attending Physician. sb4 02:48 Triage completed. pf1 03:27 No provider procedures requiring assistance completed. Patient did not have IV access jb4 during this emergency room visit. Administered Medications: 01:55 Drug: LORazepam IM 1 mg Route: IM; Site: right deltoid; pf1 Outcome: 02:33 Discharge ordered by . sb4 03:26 Discharged to home ambulatory. jb4 03:26 Condition: stable 03:26 Discharge instructions given to patient, Instructed on discharge instructions, follow up and referral plans. Demonstrated understanding of instructions, follow-up care. 03:27 Patient left the ED. jb4 Signatures: Carmen Fierro Christopher Montgomery, RN RN jb4 Anya Rivera PA-C PA-C sb4 Vilma Man RN RN pf1
[2022-09-19 03:32] VITALS: BP 128/92; TEMP 97.9; O2SAT 100
--- NOTE | 2022-09-20 13:04 | EKG ---
Test Date: 2022-09-19 Test Time: 01:51:10 Crew Director: RV MEASUREMENT RESULTS: Intervals: Rate: 73 OR: 162 QRSD: 82 QT: 406 QTc: 447 [place]: P: 77 OR: 162 QRS: 69 T: 75 INTERPRETIVE STATEMENTS: Normal sinus rhythm with PVCs Otherwise normal ECG Electronically Signed On 09-20-22 13:02:51 CDT by Scar Almanza
== END 2022-09-19 03:27 | disposition home or self-care (01) ==
LOC: ER 01:39
DX: F41.0 Panic disorder [episodic paroxysmal anxiety] (principal)
CPT/HCPCS: 93005; 96372; 99284

== ENCOUNTER 2022-12-14 00:18 | Emergency (ER) | payer OTHER ==
--- OUTSIDE RECORDS SUMMARY | 2022-12-14 00:29 | XMS REPORT | Continuity of Care Document ---
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 Branch ALPRAZolam 0 Yes TAKE 1 Unive rs 0.25 mg 8-22 TABLET BY ity of tablet 00:00: MOUTH 00 EVERY DAY Medical NEEDED Branch ALPRAZolam 2022-0 Yes TAKE 1 Unive rs 0.25 mg 8-22 TABLET BY ity of tablet 00:00: MOUTH EVERY DAY Medical NEEDED Branch ALPRAZolam 0 Yes TAKE 1 Unive rs 0.25 mg 8-22 TABLET BY ity of tablet 00:00: MOUTH 00 EVERY DAY Medical NEEDED Branch ALPRAZolam 0 Yes TAKE 1 Unive rs 0.25 mg 8-22 TABLET BY ity of tablet 00:00: MOUTH 00 EVERY DAY Medical NEEDED Branch ALPRAZolam 2022-0 Yes TAKE 1 Unive rs 0.25 mg 8-22 TABLET BY ity of tablet 00:00: MOUTH EVERY DAY Medical NEEDED Branch ALPRAZolam 2022-0 Yes TAKE 1 Unive rs 0.25 mg 8-22 TABLET BY ity of tablet 00:00: MOUTH 00 EVERY DAY Medical NEEDED Branch ALPRAZolam 2022-0 Yes TAKE 1 Unive rs 0.25 mg 8-22 TABLET BY ity of tablet 00:00: MOUTH 00 EVERY DAY Medical NEEDED Branch ALPRAZolam 2022-0 Yes TAKE 1 Unive rs 0.25 mg 8-22 TABLET BY ity of tablet 00:00: MOUTH 00 EVERY DAY Medical NEEDED Branch ALPRAZolam 2022-0 Yes TAKE 1 Unive rs 0.25 mg 8-22 TABLET BY ity of tablet 00:00: MOUTH 00 EVERY DAY Medical NEEDED Branch ALPRAZolam 2022-0 Yes TAKE 1 Unive rs 0.25 mg 8-22 TABLET BY ity of tablet 00:00: MOUTH 00 EVERY DAY Medical NEEDED Branch ALPRAZolam 2022-0 Yes TAKE 1 Unive rs 0.25 mg 8-22 TABLET BY ity of tablet 00:00: MOUTH 00 EVERY DAY Medical NEEDED Branch cloNIDine 3-0 Yes Univers 0.2 mg 8-07 ity of tablet 00:00: [place] 00 [facility] hydrOXYzine 2022-0 Yes Univer s 50 mg 8-07 ity of tablet 00:00: [place] [facility] FLUoxetine 2023-0 Yes Univers 10 mg 8-07 ity of capsule 00:00: [place] [facility] cloNIDine 2023-0 Yes Univers 0.2 mg 8-07 ity of tablet 00:00: [place] [facility] hydrOXYzine 2023-0 Yes Univer s 50 mg 8-07 ity of tablet 00:00: [place] [facility] FLUoxetine 2023-0 Yes Univers 10 mg 8-07 ity of capsule 00:00: [place] [facility] cloNIDine 2023-0 Yes Univers 0.2 mg 8-07 ity of tablet 00:00: [place] [facility] hydrOXYzine 2023-0 Yes Univer s 50 mg 8-07 ity of tablet 00:00: [place] [facility] FLUoxetine 2023-0 Yes Univers 10 mg 8-07 ity of capsule 00:00: [place] [address] [facility] Branch cloNIDine 2023-0 Yes Univers 0.2 mg 8-07 ity of tablet 00:00: [place] [address] [facility] Branch hydrOXYzine 2023-0 Yes Univer s 50 mg 8-07 ity of tablet 00:00: [place] [address] [facility] Branch FLUoxetine 2023-0 Yes Univers 10 mg 8-07 ity of capsule 00:00: [place] [address] [facility] Branch cloNIDine 2023-0 Yes Univers 0.2 mg 8-07 ity of tablet 00:00: [place] [address] [facility] Branch hydrOXYzine 2023-0 Yes Univer s 50 mg 8-07 ity of tablet 00:00: [place] [address] [facility] Branch FLUoxetine 2023-0 Yes Univers 10 mg 8-07 ity of capsule 00:00: [place] [address] [facility] Branch cloNIDine 2023-0 Yes Univers 0.2 mg 8-07 ity of tablet 00:00: [place] [address] [facility] Branch hydrOXYzine 2023-0 Yes Univer s 50 mg 8-07 ity of tablet 00:00: [place] [address] [facility] Branch FLUoxetine 2023-0 Yes Univers 10 mg 8-07 ity of capsule 00:00: [place] [address] [facility] Branch cloNIDine 2023-0 Yes Univers 0.2 mg 8-07 ity of tablet 00:00: [place] [address] [facility] Branch hydrOXYzine 2023-0 Yes Univer s 50 mg 8-07 ity of tablet 00:00: [place] [address] [facility] FLUoxetine 2023-0 Yes Univers 10 mg 8-07 ity of capsule 00:00: [place] [address] [facility] Branch cloNIDine 2023-0 Yes Univers 0.2 mg 8-07 ity of tablet 00:00: [place] [facility] hydrOXYzine 2023-0 Yes Univer s 50 mg 8-07 ity of tablet 00:00: [place] [facility] FLUoxetine 2023-0 Yes Univers 10 mg 8-07 ity of capsule 00:00: [place] [facility] cloNIDine 2023-0 Yes Univers 0.2 mg 8-07 ity of tablet 00:00: [place] [facility] hydrOXYzine 2023-0 Yes Univer s 50 mg 8-07 ity of tablet 00:00: [place] [facility] FLUoxetine 2023-0 Yes Univers 10 mg 8-07 ity of capsule 00:00: [place] [facility] cloNIDine 2023-0 Yes Univers 0.2 mg 8-07 ity of tablet 00:00: [place] [address] [facility] Branch hydrOXYzine 2023-0 Yes Univer s 50 mg 8-07 ity of tablet 00:00: [place] [address] [facility] Branch FLUoxetine 2023-0 Yes Univers 10 mg 8-07 ity of capsule 00:00: [place] [address] [facility] Branch cloNIDine 2023-0 Yes Univers 0.2 mg 8-07 ity of tablet 00:00: [place] [address] [facility] Branch hydrOXYzine 2023-0 Yes Univer s 50 mg 8-07 ity of tablet 00:00: [place] [address] [facility] Branch FLUoxetine 2023-0 Yes Univers 10 mg 8-07 ity of capsule 00:00: [place] [address] [facility] Branch cloNIDine 2023-0 Yes Univers 0.2 mg 8-07 ity of tablet 00:00: [place] [address] [facility] Branch hydrOXYzine 2023-0 Yes Univer s 50 mg 8-07 ity of tablet 00:00: [place] [address] [facility] Branch FLUoxetine 2023-0 Yes Univers 10 mg 8-07 ity of capsule 00:00: [place] [address] [facility] Branch cloNIDine 2023-0 Yes Univers 0.2 mg 8-07 ity of tablet 00:00: [place] [address] [facility] Branch hydrOXYzine 2023-0 Yes Univer s 50 mg 8-07 ity of tablet 00:00: [place] [address] [facility] Branch FLUoxetine 2023-0 Yes Univers 10 mg 8-07 ity of capsule 00:00: [place] [address] [facility] Branch cloNIDine 2023-0 Yes Univers 0.2 mg 8-07 ity of tablet 00:00: [place] [address] [facility] Branch hydrOXYzine 2023-0 Yes Univer s 50 mg 8-07 ity of tablet 00:00: [place] [facility] FLUoxetine 2023-0 Yes Univers 10 mg 8-07 ity of capsule 00:00: [place] [facility] cloNIDine 2023-0 Yes Univers 0.2 mg 8-07 ity of tablet 00:00: [place] [facility] hydrOXYzine 2023-0 Yes Univer s 50 mg 8-07 ity of tablet 00:00: [place] [facility] FLUoxetine 2023-0 Yes Univers 10 mg 8-07 ity of capsule 00:00: [place] [address] [facility] Branch cloNIDine 2023-0 Yes Univers 0.2 mg 8-07 ity of tablet 00:00: [place] [address] [facility] Branch hydrOXYzine 2023-0 Yes Univer s 50 mg 8-07 ity of tablet 00:00: [place] [address] [facility] Branch FLUoxetine 2023-0 Yes Univers 10 mg 8-07 ity of capsule 00:00: [place] [address] [facility] Branch cloNIDine 2023-0 Yes Univers 0.2 mg 8-07 ity of tablet 00:00: [place] [address] [facility] Branch hydrOXYzine 2023-0 Yes Univer s 50 mg 8-07 ity of tablet 00:00: [place] [address] [facility] Branch FLUoxetine 2023-0 Yes Univers 10 mg 8-07 ity of capsule 00:00: [place] [address] [facility] cloNIDine 2023-0 Yes Univers 0.2 mg 8-07 ity of tablet 00:00: [place] [address] [facility] Branch hydrOXYzine 2023-0 Yes Univer s 50 mg 8-07 ity of tablet 00:00: [place] [address] [facility] FLUoxetine 2023-0 Yes Univers 10 mg 8-07 ity of capsule 00:00: [place] [address] [facility] Branch cloNIDine 2023-0 Yes Univers 0.2 mg 8-07 ity of tablet 00:00: [place] [address] [facility] Branch hydrOXYzine 2023-0 Yes Univer s 50 mg 8-07 ity of tablet 00:00: [place] [address] [facility] Branch FLUoxetine 2023-0 Yes Univers 10 mg 8-07 ity of capsule 00:00: [place] [address] [facility] Branch cloNIDine 2023-0 Yes Univers 0.2 mg 8-07 ity of tablet 00:00: [place] [address] [facility] Branch hydrOXYzine 2023-0 Yes Univer s 50 mg 8-07 ity of tablet 00:00: [place] [address] [facility] Branch FLUoxetine 2023-0 Yes Univers 10 mg 8-07 ity of capsule 00:00: [place] [facility] cloNIDine 2023-0 Yes Univers 0.2 mg 8-07 ity of tablet 00:00: [place] [facility] hydrOXYzine 2023-0 Yes Univer s 50 mg 8-07 ity of tablet 00:00: [place] [facility] FLUoxetine 2023-0 Yes Univers 10 mg 8-07 ity of capsule 00:00: [place] [facility] cloNIDine 2023-0 Yes Univers 0.2 mg 8-07 ity of tablet 00:00: [place] [facility] hydrOXYzine 2023-0 Yes Univer s 50 mg 8-07 ity of tablet 00:00: [place] [facility] FLUoxetine 2023-0 Yes Univers 10 mg 8-07 ity of capsule 00:00: [place] [facility] cloNIDine 2023-0 Yes Univers 0.2 mg 8-07 ity of tablet 00:00: [place] [facility] hydrOXYzine 2023-0 Yes Univer s 50 mg 8-07 ity of tablet 00:00: [place] [facility] FLUoxetine 2023-0 Yes [facility] 10 mg 8-07 ity of capsule 00:00: [place] [facility] cloNIDine 2023-0 Yes Univers 0.2 mg 8-07 ity of tablet 00:00: [place] [facility] hydrOXYzine 2023-0 Yes Univer s 50 mg 8-07 ity of tablet 00:00: [place] [address] [facility] FLUoxetine 2023-0 Yes Univers 10 mg 8-07 ity of capsule 00:00: [place] [address] [facility] cloNIDine 2023-0 Yes Univers 0.2 mg 8-07 ity of tablet 00:00: [place] [facility] hydrOXYzine 2023-0 Yes Univer s 50 mg 8-07 ity of tablet 00:00: [place] [address] [facility] FLUoxetine 2023-0 Yes Univers 10 mg 8-07 ity of capsule 00:00: [place] [address] [facility] cloNIDine 2023-0 Yes Univers 0.2 mg 8-07 ity of tablet 00:00: [place] [facility] hydrOXYzine 2023-0 Yes Univer s 50 mg 8-07 ity of tablet 00:00: [place] [address] [facility] FLUoxetine 2023-0 Yes Univers 10 mg 8-07 ity of capsule 00:00: [place] [address] [facility] cloNIDine 2023-0 Yes Univers 0.2 mg 8-07 ity of tablet 00:00: [place] [facility] hydrOXYzine 2023-0 Yes Univer s 50 mg 8-07 ity of tablet 00:00: [place] [facility] FLUoxetine 2023-0 Yes Univers 10 mg 8-07 ity of capsule 00:00: [place] [facility] cloNIDine 2023-0 Yes Univers 0.2 mg 8-07 ity of tablet 00:00: [place] [facility] hydrOXYzine 2023-0 Yes Univer s 50 mg 8-07 ity of tablet 00:00: [place] [facility] FLUoxetine 2023-0 Yes Univers 10 mg 8-07 ity of capsule 00:00: [place] [address] [facility] cloNIDine 2023-0 Yes Univers 0.2 mg 8-07 ity of tablet 00:00: [place] [facility] hydrOXYzine 2023-0 Yes Univer s 50 mg 8-07 ity of tablet 00:00: [place] [address] [facility] FLUoxetine 2023-0 Yes Univers 10 mg 8-07 ity of capsule 00:00: [place] [address] [facility] cloNIDine 2023-0 Yes Univers 0.2 mg 8-07 ity of tablet 00:00: [place] [address] [facility] Branch hydrOXYzine 2023-0 Yes Univer s 50 mg 8-07 ity of tablet 00:00: [place] [address] [facility] FLUoxetine 2023-0 Yes Univers 10 mg 8-07 ity of capsule 00:00: [place] [address] [facility] cloNIDine 2023-0 Yes Univers 0.2 mg 8-07 ity of tablet 00:00: [place] [address] [facility] Branch hydrOXYzine 2023-0 Yes Univer s 50 mg 8-07 ity of tablet 00:00: [place] [address] [facility] FLUoxetine 2023-0 Yes Univers 10 mg 8-07 ity of capsule 00:00: [place] [address] [facility] Branch cloNIDine 2023-0 Yes Univers 0.2 mg 8-07 ity of tablet 00:00: [place] [address] [facility] Branch hydrOXYzine 2023-0 Yes Univer s 50 mg 8-07 ity of tablet 00:00: [place] [address] [facility] FLUoxetine 2023-0 Yes Univers 10 mg 8-07 ity of capsule 00:00: [place] [address] [facility] cloNIDine 2023-0 Yes Univers 0.2 mg 8-07 ity of tablet 00:00: [place] [address] [facility] hydrOXYzine 2023-0 Yes Univer s 50 mg 8-07 ity of tablet 00:00: [place] 00 [facility] FLUoxetine 2023-0 Yes Univers 10 mg 8-07 ity of capsule 00:00: [place] [facility] cloNIDine 2023-0 Yes Univers 0.2 mg 8-07 ity of tablet 00:00: [place] [facility] hydrOXYzine 2023-0 Yes Univer s 50 mg 8-07 ity of tablet 00:00: [place] [facility] FLUoxetine 2023-0 Yes Univers 10 mg 8-07 ity of capsule 00:00: [place] [facility] cloNIDine 2023-0 Yes Univers 0.2 mg 8-07 ity of tablet 00:00: [place] [facility] hydrOXYzine 2023-0 Yes Univer s 50 mg 8-07 ity of tablet 00:00: [place] [address] [facility] FLUoxetine 2023-0 Yes Univers 10 mg 8-07 ity of capsule 00:00: [place] [address] [facility] cloNIDine 2023-0 Yes Univers 0.2 mg 8-07 ity of tablet 00:00: [place] [address] [facility] Branch hydrOXYzine 2023-0 Yes Univer s 50 mg 8-07 ity of tablet 00:00: [place] [address] [facility] FLUoxetine 2023-0 Yes Univers 10 mg 8-07 ity of capsule 00:00: [place] [address] [facility] Branch cloNIDine 2023-0 Yes Univers 0.2 mg 8-07 ity of tablet 00:00: [address] Branch hydrOXYzine 2023-0 Yes Univer s 50 mg 8-07 ity of tablet 00:00: [place] [address] [facility] Branch FLUoxetine 2023-0 Yes Univers 10 mg 8-07 ity of capsule 00:00: [place] [address] [facility] cloNIDine 2023-0 Yes Univers 0.2 mg 8-07 ity of tablet 00:00: [place] [facility] hydrOXYzine 2023-0 Yes Univer s 50 mg 8-07 ity of tablet 00:00: [place] [address] [facility] FLUoxetine 2023-0 Yes Univers 10 mg 8-07 ity of capsule 00:00: [place] [address] [facility] cloNIDine 2023-0 Yes Univers 0.2 mg 8-07 ity of tablet 00:00: [place] [address] [facility] hydrOXYzine 2023-0 Yes Univer s 50 mg 8-07 ity of tablet 00:00: [place] [address] [facility] FLUoxetine 2023-0 Yes Univers 10 mg 8-07 ity of capsule 00:00: [place] 00 [facility] Branch cloNIDine 2023-0 Yes Univers 0.2 mg 8-07 ity of tablet 00:00: [place] [facility] hydrOXYzine 2023-0 Yes Univer s 50 mg 8-07 ity of tablet 00:00: [place] [facility] FLUoxetine 2023-0 Yes Univers 10 mg 8-07 ity of capsule 00:00: [place] [facility] cloNIDine 2023-0 Yes Univers 0.2 mg 8-07 ity of tablet 00:00: [place] [facility] hydrOXYzine 2023-0 Yes Univer s 50 mg 8-07 ity of tablet 00:00: [place] [facility] FLUoxetine 2023-0 Yes Univers 10 mg 8-07 ity of capsule 00:00: [place] [facility] cloNIDine 2023-0 Yes Univers 0.2 mg 8-07 ity of tablet 00:00: [place] [facility] hydrOXYzine 2023-0 Yes Univer s 50 mg 8-07 ity of tablet 00:00: [place] [facility] FLUoxetine 2023-0 Yes Univers 10 mg 8-07 ity of capsule 00:00: [place] [address] [facility] cloNIDine 2023-0 Yes Univers 0.2 mg 8-07 ity of tablet 00:00: [place] [address] [facility] hydrOXYzine 2023-0 Yes Univer s 50 mg 8-07 ity of tablet 00:00: [place] [address] [facility] FLUoxetine 2023-0 Yes Univers 10 mg 8-07 ity of capsule 00:00: [place] [facility] cloNIDine 2023-0 Yes Univers 0.2 mg 8-07 ity of tablet 00:00: [place] [address] [facility] hydrOXYzine 2023-0 Yes Univer s 50 mg 8-07 ity of tablet 00:00: [place] [address] [facility] FLUoxetine 2023-0 Yes Univers 10 mg 8-07 ity of capsule 00:00: [place] [address] [facility] Branch cloNIDine 2023-0 Yes Univers 0.2 mg 8-07 ity of tablet 00:00: [place] [address] [facility] Branch hydrOXYzine 2023-0 Yes Univer s 50 mg 8-07 ity of tablet 00:00: [place] [address] [facility] FLUoxetine 2023-0 Yes [facility] 10 mg 8-07 ity of capsule 00:00: [place] [address] [facility] Branch cloNIDine 2023-0 Yes Univers 0.2 mg 8-07 ity of tablet 00:00: [place] [address] [facility] Branch hydrOXYzine 2023-0 Yes Univer s 50 mg 8- ity of tablet 00:00: [place] 00 [facility] Branch FLUoxetine 2022-0 Yes Univers 10 mg 8- ity of capsule 00:00: [place] 00 [facility] norethindro 2022-0 Yes [id number] 1{tbl} Take 1 Univers ne-e.estrad 4-11 tablet by ity of ioL-iron 00:00: mouth in [place] ([facility]) 1.5 morning. Branch mg-30 mcg (21)/75 mg (7) per tablet norethindro 2023-0 Yes [id number] 1{tbl} Take 1 Univers ne-e.estrad 4-11 tablet by ity of ioL-iron 00:00: mouth in [place] ([facility]) 1.5 morning. Branch mg-30 mcg (21)/75 mg (7) per tablet norethindro 2022-0 Yes [id number] 1{tbl} Take 1 Univers ne-e.estrad 4-11 tablet by ity of ioL-iron 00:00: mouth in [place] ([facility] [address] [place] [address]) 1.5 morning. Branch mg-30 mcg (21)/75 mg (7) per tablet norethindro 2023-0 Yes [id number] 1{tbl} Take 1 Univers ne-e.estrad 4-11 tablet by ity of ioL-iron 00:00: mouth in [place] (MI[facility]GE[facility] [address] [place] [address]) 1.5 morning. Branch mg-30 mcg (21)/75 mg (7) per tablet norethindro 3-0 Yes [id number] 1{tbl} Take 1 Univers ne-e.estrad 4-11 tablet by ity of ioL-iron 00:00: mouth in [place] (MI[facility]GE[facility] [address] [place] [address]) 1.5 morning. Branch mg-30 mcg (21)/75 mg (7) per tablet norethindro 2023-0 Yes [id number] 1{tbl} Take 1 Univers ne-e.estrad 4-11 tablet by ity of ioL-iron 00:00: mouth in [place] ([facility]) 1.5 morning. Branch mg-30 mcg (21)/75 mg (7) per tablet norethindro 2023-0 Yes [id number] 1{tbl} Take 1 Univers ne-e.estrad 4-11 tablet by ity of ioL-iron 00:00: mouth in [place] ([facility]) 1.5 morning. Branch mg-30 mcg (21)/75 mg (7) per tablet norethindro 2023-0 Yes [id number] 1{tbl} Take 1 Univers ne-e.estrad 4-11 tablet by ity of ioL-iron 00:00: mouth in [place] ([facility]) 1.5 morning. Branch mg-30 mcg (21)/75 mg (7) per tablet norethindro 2023-0 Yes [id number] 1{tbl} Take 1 Univers ne-e.estrad 4-11 tablet by ity of ioL-iron 00:00: mouth in [place] ([address]) 1.5 morning. Branch mg-30 mcg (21)/75 mg (7) per tablet norethindro 2023-0 Yes [id number] 1{tbl} Take 1 Univers ne-e.estrad 4-11 tablet by ity of ioL-iron 00:00: mouth in [place] ([address]) 1.5 morning. Branch mg-30 mcg (21)/75 mg (7) per tablet norethindro 2023-0 Yes [id number] 1{tbl} Take 1 Univers ne-e.estrad 4-11 tablet by ity of ioL-iron 00:00: mouth in [place] ([address]) 1.5 morning. Branch mg-30 mcg (21)/75 mg (7) per tablet norethindro 2023-0 Yes [id number] 1{tbl} Take 1 Univers ne-e.estrad 4-11 tablet by ity of ioL-iron 00:00: mouth in [place] ([address]) 1.5 morning. Branch mg-30 mcg (21)/75 mg (7) per tablet norethindro 2023-0 Yes [id number] 1{tbl} Take 1 Univers ne-e.estrad 4-11 tablet by ity of ioL-iron 00:00: mouth in [place] (MICROGESTI 00 [facility]) 1.5 morning. Branch mg-30 mcg (21)/75 mg (7) per tablet norethindro 2023-0 Yes [id number] 1{tbl} Take 1 Univers ne-e.estrad 4-11 tablet by ity of ioL-iron 00:00: mouth in [place] (MICROGESTI 00 [facility]) 1.5 morning. Branch mg-30 mcg (21)/75 mg (7) per tablet norethindro 3-0 2022- No [id number] 1{tbl} Take 1 Univers ne-e.estrad 4-11 - tablet by it y of ioL-iron 00:00: 00:00 mouth in [facility] (MICROGESTI 00 :00 the [facility]) 1.5 morning. Branch mg-30 mcg (21)/75 mg (7) per tablet metroNIDAZO 2022-0 Yes [id number] 500mg Take 1 Univers LE 500 mg 3-27 tablet by ity o f tablet 00:00: mouth [place] 00 every 12 Medical (twelve) Branch hours. metroNIDAZO 2022-0 Yes [id number] 500mg Take 1 Univers LE 500 mg 3-27 tablet by ity o f tablet 00:00: mouth [place] 00 every 12 Medical (twelve) Branch hours. fluconazole 2022-0 Yes TAKE 1 Univ ers 150 mg 3-27 TABLET BY ity of tablet 00:00: MOUTH ONCE 00 NOW FOR 1 Medical DOSE. Branch metroNIDAZO 2022-0 Yes [id number] 500mg Take 1 Univers LE 500 mg 3-27 tablet by ity o f tablet 00:00: mouth [place] 00 every 12 Medical (twelve) Branch hours. fluconazole 2022-0 Yes TAKE 1 Univ ers 150 mg 3-27 TABLET BY ity of tablet 00:00: MOUTH ONCE 00 NOW FOR 1 Medical DOSE. Branch metroNIDAZO 3-0 Yes [id number] 500mg Take 1 Univers LE 500 mg 3-27 tablet by ity o f tablet 00:00: mouth [place] 00 every 12 Medical (twelve) Branch hours. fluconazole 2023-0 Yes TAKE 1 Univ ers 150 mg 3-27 TABLET BY ity of tablet 00:00: MOUTH ONCE 00 NOW FOR 1 Medical DOSE. Branch metroNIDAZO 3-0 Yes [id number] 500mg Take 1 Univers LE 500 mg 3-27 tablet by ity o f tablet 00:00: mouth [place] 00 every 12 Medical (twelve) Branch hours. fluconazole 3-0 Yes TAKE 1 Univ ers 150 mg 3-27 TABLET BY ity of tablet 00:00: MOUTH ONCE [place] 00 NOW FOR 1 Medical DOSE. Branch metroNIDAZO 3-0 Yes [id number] 500mg Take 1 Univers LE 500 mg 3-27 tablet by ity o f tablet 00:00: mouth [place] 00 every 12 Medical (twelve) Branch hours. fluconazole 3-0 Yes TAKE 1 Univ ers 150 mg 3-27 TABLET BY ity of tablet 00:00: MOUTH ONCE [place] 00 NOW FOR 1 Medical DOSE. Branch metroNIDAZO 3-0 Yes [id number] 500mg Take 1 Univers LE 500 mg 3-27 tablet by ity o f tablet 00:00: mouth [place] 00 every 12 Medical (twelve) Branch hours. fluconazole 3-0 Yes TAKE 1 Univ ers 150 mg 3-27 TABLET BY ity of tablet 00:00: MOUTH ONCE 00 NOW FOR 1 Medical DOSE. Branch metroNIDAZO 2022-0 Yes [id number] 500mg Take 1 Univers LE 500 mg 3-27 tablet by ity o f tablet 00:00: mouth [place] 00 every 12 Medical (twelve) Branch hours. fluconazole 3-0 Yes TAKE 1 Univ ers 150 mg 3-27 TABLET BY ity of tablet 00:00: MOUTH ONCE [place] 00 NOW FOR 1 Medical DOSE. Branch metroNIDAZO 3-0 Yes [id number] 500mg Take 1 Univers LE 500 mg 3-27 tablet by ity o f tablet 00:00: mouth [place] 00 every 12 Medical (twelve) Branch hours. fluconazole 3-0 Yes TAKE 1 Univ ers 150 mg 3-27 TABLET BY ity of tablet 00:00: MOUTH ONCE 00 NOW FOR 1 Medical DOSE. Branch metroNIDAZO 3-0 Yes [id number] 500mg Take 1 Univers LE 500 mg 3-27 tablet by ity o f tablet 00:00: mouth [place] 00 every 12 Medical (twelve) Branch hours. fluconazole 3-0 Yes TAKE 1 Univ ers 150 mg 3-27 TABLET BY ity of tablet 00:00: MOUTH ONCE [place] 00 NOW FOR 1 Medical DOSE. Branch metroNIDAZO 3-0 Yes [id number] 500mg Take 1 Univers LE 500 mg 3-27 tablet by ity o f tablet 00:00: mouth [place] 00 every 12 Medical (twelve) Branch hours. fluconazole 2022-0 Yes TAKE 1 Univ ers 150 mg 3-27 TABLET BY ity of tablet 00:00: MOUTH ONCE [place] 00 NOW FOR 1 Medical DOSE. Branch metroNIDAZO 2022-0 Yes [id number] 500mg Take 1 Univers LE 500 mg 3-27 tablet by ity o f tablet 00:00: mouth [place] 00 every 12 Medical (twelve) Branch hours. fluconazole 2022-0 Yes TAKE 1 Univ ers 150 mg 3-27 TABLET BY ity of tablet 00:00: MOUTH ONCE [place] 00 NOW FOR 1 Medical DOSE. Branch metroNIDAZO 2022-0 Yes [id number] 500mg Take 1 Univers LE 500 mg 3-27 tablet by ity o f tablet 00:00: mouth [place] 00 every 12 Medical (twelve) Branch hours. fluconazole 2022-0 Yes TAKE 1 Univ ers 150 mg 3-27 TABLET BY ity of tablet 00:00: MOUTH ONCE 00 NOW FOR 1 Medical DOSE. Branch metroNIDAZO 2022-0 Yes [id number] 500mg Take 1 Univers LE 500 mg 3-27 tablet by ity o f tablet 00:00: mouth [place] 00 every 12 Medical (twelve) Branch hours. fluconazole 2022-0 Yes TAKE 1 Univ ers 150 mg 3-27 TABLET BY ity of tablet 00:00: MOUTH ONCE [place] 00 NOW FOR 1 Medical DOSE. Branch metroNIDAZO 2022-0 Yes [id number] 500mg Take 1 Univers LE 500 mg 3-27 tablet by ity o f tablet 00:00: mouth [place] 00 every 12 Medical (twelve) Branch hours. fluconazole 2022-0 Yes TAKE 1 Univ ers 150 mg 3-27 TABLET BY ity of tablet 00:00: MOUTH ONCE [place] 00 NOW FOR 1 Medical DOSE. Branch metroNIDAZO 2022-0 Yes [id number] 500mg Take 1 Univers LE 500 mg 3-27 tablet by ity o f tablet 00:00: mouth [place] 00 every 12 Medical (twelve) Branch hours. fluconazole 2022-0 Yes TAKE 1 Univ ers 150 mg 3-27 TABLET BY ity of tablet 00:00: MOUTH ONCE [place] 00 NOW FOR 1 Medical DOSE. Branch metroNIDAZO 2022-0 2023- No [id number] 500mg Take 1 Univers LE 500 mg 3-27 10-15 tablet by ity of tablet 00:00: 00:00 mouth [place] 00 :00 every 12 Medical (twelve) Branch hours. fluconazole 2022- No TAKE 1 Uni vers 150 mg 05-10 TABLET BY ity of tablet 00:00: 00:[place] :[place] NOW FOR 1 Medical DOSE. Branch fluconazole 2022- No [id number] 150mg Take 1 [facility] 150 mg 05-10 tablet by ity of tablet 00:00: 04:59 [place] :[place] now for 1 Medical dose. Branch fluconazole 2022- No [id number] 150mg Take 1 [facility] 150 mg 05-06 tablet by ity of tablet 00:00: 04:59 [place] :[place] now for 1 Medical dose. [place] fluconazole 2022- No [id number] 150mg Take 1 [facility] 150 mg 05-06 tablet by ity of tablet 00:00: 04:59 [place] 00 :[place] now for 1 Medical dose. [place] fluconazole 2022- No [id number] 150mg Take 1 Univers 150 mg 05-06 tablet by ity of tablet 00:00: 04:59 [place] 00 :[place] now for 1 Medical dose. Branch busPIRone 5 Yes 1 tablet Un radames mg tablet -09 Orally ity of 00:00: Twice a [place] 00 day for 30 Medical days Branch venlafaxine 0 Yes 1 tablet Un radames 37.5 mg - with food ity of tablet 00:00: Orally [place] 00 Once a day Medical for 30 Branch day(s) busPIRone 5 2022-0 Yes 1 tablet Un radames mg tablet -09 Orally ity of 00:00: Twice a [place] 00 day for 30 Medical days Branch venlafaxine 2022-0 Yes 1 tablet [facility] 37.5 mg -09 with food ity of tablet 00:00: Orally [place] 00 Once a day Medical for 30 Branch day(s) busPIRone 5 2022-0 Yes 1 tablet [facility] mg tablet -09 Orally ity of 00:00: Twice a [place] 00 day for 30 Medical days Branch venlafaxine 2022-0 Yes 1 tablet [facility] 37.5 mg 1-09 with food ity of tablet 00:00: Orally [place] 00 Once a day Medical for 30 Branch day(s) busPIRone 5 2022-0 Yes 1 tablet [facility] mg tablet 1-09 Orally ity of 00:00: Twice a 00 day for 30 Medical days Branch venlafaxine 2022-0 Yes 1 tablet [facility] 37.5 mg 1-09 with food ity of tablet 00:00: Orally [place] 00 Once a day Medical for 30 Branch day(s) busPIRone 5 2022-0 Yes 1 tablet [facility] mg tablet 1-09 Orally ity of 00:00: Twice a [place] 00 day for 30 Medical days Branch venlafaxine 2022-0 Yes 1 tablet [facility] 37.5 mg 1-09 with food ity of tablet 00:00: Orally [place] 00 Once a day Medical for 30 Branch day(s) busPIRone 5 2022-0 Yes 1 tablet [facility] mg tablet 1-09 Orally ity of 00:00: Twice a [place] 00 day for 30 Medical days Branch venlafaxine 2022-0 Yes 1 tablet [facility] 37.5 mg 1-09 with food ity of tablet 00:00: Orally [place] 00 Once a day Medical for 30 Branch day(s) busPIRone 5 2022-0 Yes 1 tablet [facility] mg tablet 1-09 Orally ity of 00:00: Twice a [place] 00 day for 30 Medical days Branch venlafaxine 2022-0 Yes 1 tablet [facility] 37.5 mg 1-09 with food ity of tablet 00:00: Orally [place] 00 Once a day Medical for 30 Branch day(s) busPIRone 5 2022-0 Yes 1 tablet [facility] mg tablet 1-09 Orally ity of 00:00: Twice a [place] 00 day for 30 Medical days Branch venlafaxine 2022-0 Yes 1 tablet [facility] 37.5 mg 1-09 with food ity of tablet 00:00: Orally [place] 00 Once a day Medical for 30 Branch day(s) busPIRone 5 2022-0 Yes 1 tablet [facility] mg tablet 1-09 Orally ity of 00:00: Twice a [place] 00 day for 30 Medical days Branch venlafaxine 2022-0 Yes 1 tablet [facility] 37.5 mg 1-09 with food ity of tablet 00:00: Orally [place] 00 Once a day Medical for 30 Branch day(s) busPIRone 5 2022-0 Yes 1 tablet [facility] mg tablet 1-09 Orally ity of 00:00: Twice a 00 day for 30 Medical days Branch venlafaxine 2022-0 Yes 1 tablet [facility] 37.5 mg 1-09 with food ity of tablet 00:00: Orally [place] 00 Once a day Medical for 30 Branch day(s) busPIRone 5 2022-0 Yes 1 tablet [facility] mg tablet 1-09 Orally ity of 00:00: Twice a [place] 00 day for 30 Medical days Branch venlafaxine 2022-0 Yes 1 tablet [facility] 37.5 mg 1-09 with food ity of tablet 00:00: Orally [place] 00 Once a day Medical for 30 Branch day(s) busPIRone 5 2022-0 Yes 1 tablet [facility] mg tablet 1-09 Orally ity of 00:00: Twice a [place] 00 day for 30 Medical days Branch venlafaxine 2022-0 Yes 1 tablet [facility] 37.5 mg 1-09 with food ity of tablet 00:00: Orally [place] 00 Once a day Medical for 30 Branch day(s) busPIRone 5 2022-0 Yes 1 tablet [facility] mg tablet 1-09 Orally ity of 00:00: Twice a [place] 00 day for 30 Medical days Branch venlafaxine 2022-0 Yes 1 tablet [facility] 37.5 mg 1-09 with food ity of tablet 00:00: Orally [place] 00 Once a day Medical for 30 Branch day(s) busPIRone 5 2022-0 Yes 1 tablet [facility] mg tablet 1-09 Orally ity of 00:00: Twice a [place] 00 day for 30 Medical days Branch venlafaxine 2022-0 Yes 1 tablet [facility] 37.5 mg 1-09 with food ity of tablet 00:00: Orally [place] 00 Once a day Medical for 30 Branch day(s) busPIRone 5 2022-0 Yes 1 tablet [facility] mg tablet 1-09 Orally ity of 00:00: Twice a [place] 00 day for 30 Medical days Branch venlafaxine 2022-0 Yes 1 tablet [facility] 37.5 mg 1-09 with food ity of tablet 00:00: Orally [place] 00 Once a day Medical for 30 Branch day(s) busPIRone 5 2022-0 Yes 1 tablet [facility] mg tablet 1-09 Orally ity of 00:00: Twice a [place] 00 day for 30 Medical days Branch venlafaxine 2022-0 Yes 1 tablet [facility] 37.5 mg 1-09 with food ity of tablet 00:00: Orally [place] 00 Once a day Medical for 30 Branch day(s) busPIRone 5 2022-0 Yes 1 tablet [facility] mg tablet 1-09 Orally ity of 00:00: Twice a 00 day for 30 Medical days Branch venlafaxine 2022-0 Yes 1 tablet [facility] 37.5 mg 1-09 with food ity of tablet 00:00: Orally [place] 00 Once a day Medical for 30 Branch day(s) busPIRone 5 2022-0 Yes 1 tablet [facility] mg tablet 1-09 Orally ity of 00:00: Twice a [place] 00 day for 30 Medical days Branch venlafaxine 2022-0 Yes 1 tablet [facility] 37.5 mg 1-09 with food ity of tablet 00:00: Orally [place] 00 Once a day Medical for 30 Branch day(s) busPIRone 5 2022-0 Yes 1 tablet [facility] mg tablet 1-09 Orally ity of 00:00: Twice a [place] 00 day for 30 Medical days Branch venlafaxine 2022-0 Yes 1 tablet [facility] 37.5 mg 1-09 with food ity of tablet 00:00: Orally [place] 00 Once a day Medical for 30 Branch day(s) busPIRone 5 2022-0 Yes 1 tablet [facility] mg tablet 1-09 Orally ity of 00:00: Twice a [place] 00 day for 30 Medical days Branch venlafaxine 2022-0 Yes 1 tablet [facility] 37.5 mg 1-09 with food ity of tablet 00:00: Orally [place] 00 Once a day Medical for 30 Branch day(s) busPIRone 5 2022-0 Yes 1 tablet [facility] mg tablet 1-09 Orally ity of 00:00: Twice a [place] 00 day for 30 Medical days Branch venlafaxine 2022-0 Yes 1 tablet [facility] 37.5 mg 1-09 with food ity of tablet 00:00: Orally [place] 00 Once a day Medical for 30 Branch day(s) busPIRone 5 2022-0 Yes 1 tablet [facility] mg tablet 1-09 Orally ity of 00:00: Twice a 00 day for 30 Medical days Branch venlafaxine 2022-0 Yes 1 tablet [facility] 37.5 mg 1-09 with food ity of tablet 00:00: Orally [place] 00 Once a day Medical for 30 Branch day(s) busPIRone 5 2022-0 Yes 1 tablet [facility] mg tablet 1-09 Orally ity of 00:00: Twice a 00 day for 30 Medical days Branch venlafaxine 2022-0 Yes 1 tablet [facility] 37.5 mg 1-09 with food ity of tablet 00:00: Orally [place] 00 Once a day Medical for 30 Branch day(s) busPIRone 5 2022-0 Yes 1 tablet [facility] mg tablet 1-09 Orally ity of 00:00: Twice a [place] 00 day for 30 Medical days Branch venlafaxine 2022-0 Yes 1 tablet [facility] 37.5 mg 1-09 with food ity of tablet 00:00: Orally [place] 00 Once a day Medical for 30 Branch day(s) busPIRone 5 2022-0 Yes 1 tablet [facility] mg tablet 1-09 Orally ity of 00:00: Twice a 00 day for 30 Medical days Branch venlafaxine 2022-0 Yes 1 tablet [facility] 37.5 mg 1-09 with food ity of tablet 00:00: Orally [place] 00 Once a day Medical for 30 Branch day(s) busPIRone 5 2022-0 Yes 1 tablet [facility] mg tablet 1-09 Orally ity of 00:00: Twice a 00 day for 30 Medical days Branch venlafaxine 2022-0 Yes 1 tablet [facility] 37.5 mg 1-09 with food ity of tablet 00:00: Orally [place] 00 Once a day Medical for 30 Branch day(s) busPIRone 5 2022-0 Yes 1 tablet [facility] mg tablet 1-09 Orally ity of 00:00: Twice a 00 day for 30 Medical days Branch venlafaxine 2022-0 Yes 1 tablet [facility] 37.5 mg 1-09 with food ity of tablet 00:00: Orally [place] 00 Once a day Medical for 30 Branch day(s) busPIRone 5 2022-0 Yes 1 tablet [facility] mg tablet 1-09 Orally ity of 00:00: Twice a 00 day for 30 Medical days Branch venlafaxine 2022-0 Yes 1 tablet [facility] 37.5 mg 1-09 with food ity of tablet 00:00: Orally [place] 00 Once a day Medical for 30 Branch day(s) busPIRone 5 2022-0 Yes 1 tablet [facility] mg tablet 1-09 Orally ity of 00:00: Twice a 00 day for 30 Medical days Branch venlafaxine 2022-0 Yes 1 tablet [facility] 37.5 mg 1-09 with food ity of tablet 00:00: Orally [place] 00 Once a day Medical for 30 Branch day(s) busPIRone 5 2022-0 Yes 1 tablet [facility] mg tablet 1-09 Orally ity of 00:00: Twice a [place] 00 day for 30 Medical days Branch venlafaxine 2022-0 Yes 1 tablet [facility] 37.5 mg 1-09 with food ity of tablet 00:00: Orally [place] 00 Once a day Medical for 30 Branch day(s) busPIRone 5 2022-0 Yes 1 tablet [facility] mg tablet 1-09 Orally ity of 00:00: Twice a [place] 00 day for 30 Medical days Branch venlafaxine 2022-0 Yes 1 tablet [facility] 37.5 mg 1-09 with food ity of tablet 00:00: Orally [place] 00 Once a day Medical for 30 Branch day(s) busPIRone 5 2022-0 Yes 1 tablet [facility] mg tablet 1-09 Orally ity of 00:00: Twice a 00 day for 30 Medical days Branch venlafaxine 2022-0 Yes 1 tablet [facility] 37.5 mg 1-09 with food ity of tablet 00:00: Orally [place] 00 Once a day Medical for 30 Branch day(s) busPIRone 5 2022-0 Yes 1 tablet [facility] mg tablet 1-09 Orally ity of 00:00: Twice a [place] 00 day for 30 Medical days Branch venlafaxine 2022-0 Yes 1 tablet [facility] 37.5 mg 1-09 with food ity of tablet 00:00: Orally [place] 00 Once a day Medical for 30 Branch day(s) busPIRone 5 2022-0 Yes 1 tablet [facility] mg tablet 1-09 Orally ity of 00:00: Twice a [place] 00 day for 30 Medical days Branch venlafaxine 2022-0 Yes 1 tablet [facility] 37.5 mg 1-09 with food ity of tablet 00:00: Orally [place] 00 Once a day Medical for 30 Branch day(s) busPIRone 5 2022-0 Yes 1 tablet [facility] mg tablet 1-09 Orally ity of 00:00: Twice a 00 day for 30 Medical days Branch venlafaxine 2022-0 Yes 1 tablet [facility] 37.5 mg 1-09 with food ity of tablet 00:00: Orally [place] 00 Once a day Medical for 30 Branch day(s) busPIRone 5 2022-0 Yes 1 tablet [facility] mg tablet 1-09 Orally ity of 00:00: Twice a [place] 00 day for 30 Medical days Branch venlafaxine 2022-0 Yes 1 tablet [facility] 37.5 mg 1-09 with food ity of tablet 00:00: Orally [place] 00 Once a day Medical for 30 Branch day(s) busPIRone 5 2022-0 Yes 1 tablet [facility] mg tablet 1-09 Orally ity of 00:00: Twice a 00 day for 30 Medical days Branch venlafaxine 2022-0 Yes 1 tablet [facility] 37.5 mg 1-09 with food ity of tablet 00:00: Orally [place] 00 Once a day Medical for 30 Branch day(s) busPIRone 5 2022-0 Yes 1 tablet [facility] mg tablet 1-09 Orally ity of 00:00: Twice a [place] 00 day for 30 Medical days Branch venlafaxine 2022-0 Yes 1 tablet [facility] 37.5 mg 1-09 with food ity of tablet 00:00: Orally [place] 00 Once a day Medical for 30 Branch day(s) busPIRone 5 2022-0 Yes 1 tablet [facility] mg tablet 1-09 Orally ity of 00:00: Twice a [place] 00 day for 30 Medical days Branch venlafaxine 2022-0 Yes 1 tablet [facility] 37.5 mg 1-09 with food ity of tablet 00:00: Orally [place] 00 Once a day Medical for 30 Branch day(s) busPIRone 5 2022-0 Yes 1 tablet [facility] mg tablet 1-09 Orally ity of 00:00: Twice a [place] 00 day for 30 Medical days Branch venlafaxine 2022-0 Yes 1 tablet [facility] 37.5 mg 1-09 with food ity of tablet 00:00: Orally [place] 00 Once a day Medical for 30 Branch day(s) busPIRone 5 2022-0 Yes 1 tablet [facility] mg tablet 1-09 Orally ity of 00:00: Twice a [place] 00 day for 30 Medical days Branch venlafaxine 2022-0 Yes 1 tablet [facility] 37.5 mg 1-09 with food ity of tablet 00:00: Orally [place] 00 Once a day Medical for 30 Branch day(s) busPIRone 5 2022-0 Yes 1 tablet [facility] mg tablet 1-09 Orally ity of 00:00: Twice a [place] 00 day for 30 Medical days Branch venlafaxine 2022-0 Yes 1 tablet [facility] 37.5 mg 1-09 with food ity of tablet 00:00: Orally [place] 00 Once a day Medical for 30 Branch day(s) busPIRone 5 2022-0 Yes 1 tablet [facility] mg tablet 1-09 Orally ity of 00:00: Twice a [place] 00 day for 30 Medical days Branch venlafaxine 2022-0 Yes 1 tablet [facility] 37.5 mg 1-09 with food ity of tablet 00:00: Orally [place] 00 Once a day Medical for 30 Branch day(s) busPIRone 5 2022-0 Yes 1 tablet [facility] mg tablet 1-09 Orally ity of 00:00: Twice a [place] 00 day for 30 Medical days Branch venlafaxine 2022-0 Yes 1 tablet [facility] 37.5 mg 1-09 with food ity of tablet 00:00: Orally [place] 00 Once a day Medical for 30 Branch day(s) busPIRone 5 2022-0 Yes 1 tablet [facility] mg tablet 1-09 Orally ity of 00:00: Twice a [place] 00 day for 30 Medical days Branch venlafaxine 2022-0 Yes 1 tablet [facility] 37.5 mg 1-09 with food ity of tablet 00:00: Orally [place] 00 Once a day Medical for 30 Branch day(s) busPIRone 5 2022-0 Yes 1 tablet [facility] mg tablet 1-09 Orally ity of 00:00: Twice a [place] 00 day for 30 Medical days Branch venlafaxine 2022-0 Yes 1 tablet [facility] 37.5 mg 1-09 with food ity of tablet 00:00: Orally [place] 00 Once a day Medical for 30 Branch day(s) busPIRone 5 2022-0 Yes 1 tablet [facility] mg tablet 1-09 Orally ity of 00:00: Twice a [place] 00 day for 30 Medical days Branch venlafaxine 2022-0 Yes 1 tablet [facility] 37.5 mg 1-09 with food ity of tablet 00:00: Orally [place] 00 Once a day Medical for 30 Branch day(s) busPIRone 5 2022-0 Yes 1 tablet [facility] mg tablet 1-09 Orally ity of 00:00: Twice a [place] 00 day for 30 Medical days Branch venlafaxine 2022-0 Yes 1 tablet [facility] 37.5 mg 1-09 with food ity of tablet 00:00: Orally [place] 00 Once a day Medical for 30 Branch day(s) busPIRone 5 2022-0 Yes 1 tablet [facility] mg tablet 1-09 Orally ity of 00:00: Twice a [place] 00 day for 30 Medical days Branch venlafaxine 2022-0 Yes 1 tablet [facility] 37.5 mg 1-09 with food ity of tablet 00:00: Orally [place] 00 Once a day Medical for 30 Branch day(s) busPIRone 5 2022-0 Yes 1 tablet [facility] mg tablet 1-09 Orally ity of 00:00: Twice a [place] 00 day for 30 Medical days Branch venlafaxine 2022-0 Yes 1 tablet [facility] 37.5 mg 1-09 with food ity of tablet 00:00: Orally [place] 00 Once a day Medical for 30 Branch day(s) busPIRone 5 2022-0 Yes 1 tablet [facility] mg tablet 1-09 Orally ity of 00:00: Twice a [place] 00 day for 30 Medical days Branch venlafaxine 2022-0 Yes 1 tablet [facility] 37.5 mg 1-09 with food ity of tablet 00:00: Orally [place] 00 Once a day Medical for 30 Branch day(s) ampicillin 2021-02 2g 2,000 mg [facility] (POLYCILLIN 2-10 01-23 (2 g), IV it y of -N) [...] IV Push, ity of (PF)) 03:32: Q8HPRN, [place] injection 4 50 Starting Medi pat mg [...] QDAILYPRN, [place] mg 50 Starting Medical on Fri Branch 01/22/22 at 2132, Until Discontinu ed, Routine, Constipati on magnesium 2021-02 Yes 30mL 30 mL, Univer s hydroxide 2-10 Oral, ity of (MILK OF 03:32: QDAILYPRN, [place] as MAGNESIA) 50 Starting Medica l 400 mg/5 mL on Fri Branch suspension 01/22/22 at 30 mL 2131, [...] (after last modificati on) on Tue01/22/22 at 2014, Administer over 30 Minutes, 50 mL
Reas on for Anti-Infec tive: Empiric Therapy for Suspected Infection< br>Empiric Therapy Site: Pelvic
Duration of therapy: 72 hours ibuprofen 2021-02 Yes 600mg 600 mg, [facility] ers (IBU) 2-10 Oral, ity of tablet 600 01:49: Q6HPRN, [place] mg 02 Starting Medical on Fri Branch 01/22/22 at 1949, Until Discontinu ed, Routine, Pain (scale 4-6) acetaminoph 2021-02 Yes 650mg 650 mg, [facility] en 2-10 Oral, ity of (TYLENOL) 01:49: Q6HPRN, [place] tablet 650 02 Starting Medic al mg on Fri Branch 01/22/22 at 1949, Until Discontinu ed, Routine, Pain (scale 1-3) acetaminoph 2021-02 Yes [id number] 650mg Take 2 [facility] en 2-10 tablets by ity of (TYLENOL) 00:00: mouth [place] 325 mg 00 every 6 Medical tablet (six) Branch hours as needed for Pain (scale 1-3) or Pain (scale 4-6). docusate 2021-02 Yes [id number] 200mg Take 2 [facility] 100 mg 2-10 capsules ity of capsule 00:00: by mouth [place] 00 once daily Medical as needed Branch for Constipati on. ibuprofen 2021-02 Yes [id number] 600mg Take 1 U nivers 600 mg 2-10 tablet by ity of tablet 00:00: mouth [place] 00 every 6 Medical (six) Branch hours as needed (Pain). Take with food or milk. 2021-02 Yes [id number] 1{tbl} Take 1 U nivers vitamin 2-10 tablet by ity of w/FA tablet 00:00: mouth in [place] 00 the Medical morning. Branch ferrous 2021-02 Yes [id number] 325mg Take 1 Uni vers sulfate 325 2-10 tablet by ity of mg (65 mg 00:00: mouth [place] iron) 00 every Medical tablet other day. Branch foLIC acid 2021-02 Yes [id number] 1mg Take 1 U nivers 1 mg tablet 2-10 tablet by ity of 00:00: mouth in [place] 00 the Medical morning. Branch acetaminoph 2021-02 Yes [id number] 650mg Take 2 [facility] en 2-10 tablets by ity of (TYLENOL) 00:00: mouth [place] 325 mg 00 every 6 Medical tablet (six) Branch hours as needed for Pain (scale 1-3) or Pain (scale 4-6). docusate 2021-02 Yes [id number] 200mg Take 2 [facility] 100 mg 2-10 capsules ity of capsule 00:00: by mouth [place] 00 once daily Medical as needed Branch for Constipati on. ibuprofen 2021-02 Yes [id number] 600mg Take 1 U nivers 600 mg 2-10 tablet by ity of tablet 00:00: mouth [place] 00 every 6 Medical (six) Branch hours as needed (Pain). Take with food or milk. 2021-02 Yes [id number] 1{tbl} Take 1 U nivers vitamin 2-10 tablet by ity of w/FA tablet 00:00: mouth in [place] 00 the Medical morning. Branch ferrous 2021-02 Yes [id number] 325mg Take 1 Uni vers sulfate 325 2-10 tablet by ity of mg (65 mg 00:00: mouth [place] iron) 00 every Medical tablet other day. Branch foLIC acid 2021-02 Yes [id number] 1mg Take 1 U nivers 1 mg tablet 2-10 tablet by ity of 00:00: mouth in [place] 00 the Medical morning. Branch acetaminoph 2021-02 Yes [id number] 650mg Take 2 [facility] en 2-10 tablets by ity of (TYLENOL) 00:00: mouth [place] 325 mg 00 every 6 Medical tablet (six) Branch hours as needed for Pain (scale 1-3) or Pain (scale 4-6). docusate 2021-02 Yes [id number] 200mg Take 2 [facility] 100 mg 2-10 capsules ity of capsule 00:00: by mouth [place] 00 once daily Medical as needed Branch for Constipati on. ibuprofen 2021-02 Yes [id number] 600mg Take 1 U nivers 600 mg 2-10 tablet by ity of tablet 00:00: mouth [place] 00 every 6 Medical (six) Branch hours as needed (Pain). Take with food or milk. 2021-02 Yes [id number] 1{tbl} Take 1 U nivers vitamin 2-10 tablet by ity of w/FA tablet 00:00: mouth in [facility] the Medical morning. Branch ferrous 2021-02 Yes [id number] 325mg Take 1 Uni vers sulfate 325 2-10 tablet by ity of mg (65 mg 00:00: mouth [place] iron) 00 every Medical tablet other day. Branch foLIC acid 2021-02 Yes [id number] 1mg Take 1 U nivers 1 mg tablet 2-10 tablet by ity of 00:00: mouth in [place] 00 the Medical morning. Branch acetaminoph 2021-02 Yes [id number] 650mg Take 2 [facility] en 2-10 tablets by ity of (TYLENOL) 00:00: mouth [place] 325 mg 00 every 6 Medical tablet (six) Branch hours as needed for Pain (scale 1-3) or Pain (scale 4-6). docusate 2021-02 Yes [id number] 200mg Take 2 [facility] 100 mg 2-10 capsules ity of capsule 00:00: by mouth [place] 00 once daily Medical as needed Branch for Constipati on. ibuprofen 2021-02 Yes [id number] 600mg Take 1 U nivers 600 mg 2-10 tablet by ity of tablet 00:00: mouth [place] 00 every 6 Medical (six) Branch hours as needed (Pain). Take with food or milk. 2021-02 Yes [id number] 1{tbl} Take 1 U nivers vitamin 2-10 tablet by ity of w/FA tablet 00:00: mouth in [place] 00 the Medical morning. Branch ferrous 2021-02 Yes [id number] 325mg Take 1 Uni vers sulfate 325 2-10 tablet by ity of mg (65 mg 00:00: mouth [place] iron) 00 every Medical tablet other day. Branch foLIC acid 2021-02 Yes [id number] 1mg Take 1 U nivers 1 mg tablet 2-10 tablet by ity of 00:00: mouth in [place] 00 the Medical morning. Branch acetaminoph 2021-02 Yes [id number] 650mg Take 2 Univers en 2-10 tablets by ity of (TYLENOL) 00:00: mouth [place] 325 mg 00 every 6 Medical tablet (six) Branch hours as needed for Pain (scale 1-3) or Pain (scale 4-6). docusate 2021-02 Yes [id number] 200mg Take 2 [facility] 100 mg 2-10 capsules ity of capsule 00:00: by mouth [place] 00 once daily Medical as needed Branch for Constipati on. ibuprofen 2021-02 Yes [id number] 600mg Take 1 U nivers 600 mg 2-10 tablet by ity of tablet 00:00: mouth [place] 00 every 6 Medical (six) Branch hours as needed (Pain). Take with food or milk. 2021-02 Yes [id number] 1{tbl} Take 1 U nivers vitamin 2-10 tablet by ity of w/FA tablet 00:00: mouth in [place] 00 the Medical morning. Branch ferrous 2021-02 Yes [id number] 325mg Take 1 Uni vers sulfate 325 2-10 tablet by ity of mg (65 mg 00:00: mouth [place] iron) 00 every Medical tablet other day. Branch foLIC acid 2021-02 Yes [id number] 1mg Take 1 U nivers 1 mg tablet 2-10 tablet by ity of 00:00: mouth in [place] 00 the Medical morning. Branch acetaminoph 2021-02 Yes [id number] 650mg Take 2 [facility] en 2-10 tablets by ity of (TYLENOL) 00:00: mouth [place] 325 mg 00 every 6 Medical tablet (six) Branch hours as needed for Pain (scale 1-3) or Pain (scale 4-6). docusate 2021-02 Yes [id number] 200mg Take 2 [facility] 100 mg 2-10 capsules ity of capsule 00:00: by mouth [place] 00 once daily Medical as needed Branch for Constipati on. ibuprofen 2021-02 Yes [id number] 600mg Take 1 U nivers 600 mg 2-10 tablet by ity of tablet 00:00: mouth [place] 00 every 6 Medical (six) Branch hours as needed (Pain). Take with food or milk. 2021-02 Yes [id number] 1{tbl} Take 1 U nivers vitamin 2-10 tablet by ity of w/FA tablet 00:00: mouth in [place] 00 the Medical morning. Branch ferrous 2021-02 Yes [id number] 325mg Take 1 Uni vers sulfate 325 2-10 tablet by ity of mg (65 mg 00:00: mouth [place] iron) 00 every Medical tablet other day. Branch foLIC acid 2021-02 Yes [id number] 1mg Take 1 U nivers 1 mg tablet 2-10 tablet by ity of 00:00: mouth in [place] 00 the Medical morning. Branch acetaminoph 2021-02 Yes [id number] 650mg Take 2 [facility] en 2-10 tablets by ity of (TYLENOL) 00:00: mouth [place] 325 mg 00 every 6 Medical tablet (six) Branch hours as needed for Pain (scale 1-3) or Pain (scale 4-6). docusate 2021-02 Yes [id number] 200mg Take 2 [facility] 100 mg 2-10 capsules ity of capsule 00:00: by mouth [place] 00 once daily Medical as needed Branch for Constipati on. ibuprofen 2021-02 Yes [id number] 600mg Take 1 U nivers 600 mg 2-10 tablet by ity of tablet 00:00: mouth [place] 00 every 6 Medical (six) Branch hours as needed (Pain). Take with food or milk. 2021-02 Yes [id number] 1{tbl} Take 1 U nivers vitamin 2-10 tablet by ity of w/FA tablet 00:00: mouth in [place] 00 the Medical morning. Branch ferrous 2021-02 Yes [id number] 325mg Take 1 Uni vers sulfate 325 2-10 tablet by ity of mg (65 mg 00:00: mouth [place] iron) 00 every Medical tablet other day. Branch foLIC acid 2021-02 Yes [id number] 1mg Take 1 U nivers 1 mg tablet 2-10 tablet by ity of 00:00: mouth in [place] 00 the Medical morning. Branch acetaminoph 2021-02 Yes [id number] 650mg Take 2 [facility] en 2-10 tablets by ity of (TYLENOL) 00:00: mouth [place] 325 mg 00 every 6 Medical tablet (six) Branch hours as needed for Pain (scale 1-3) or Pain (scale 4-6). docusate 2021-02 Yes [id number] 200mg Take 2 [facility] 100 mg 2-10 capsules ity of capsule 00:00: by mouth [place] 00 once daily Medical as needed Branch for Constipati on. ibuprofen 2021-02 Yes [id number] 600mg Take 1 U nivers 600 mg 2-10 tablet by ity of tablet 00:00: mouth [place] 00 every 6 Medical (six) Branch hours as needed (Pain). Take with food or milk. 2021-02 Yes [id number] 1{tbl} Take 1 U nivers vitamin 2-10 tablet by ity of w/FA tablet 00:00: mouth in [facility] the Medical morning. Branch ferrous 2021-02 Yes [id number] 325mg Take 1 Uni vers sulfate 325 2-10 tablet by ity of mg (65 mg 00:00: mouth [place] iron) 00 every Medical tablet other day. Branch foLIC acid 2021-02 Yes [id number] 1mg Take 1 U nivers 1 mg tablet 2-10 tablet by ity of 00:00: mouth in [place] 00 the Medical morning. Branch acetaminoph 2021-02 Yes [id number] 650mg Take 2 [facility] en 2-10 tablets by ity of (TYLENOL) 00:00: mouth [place] 325 mg 00 every 6 Medical tablet (six) Branch hours as needed for Pain (scale 1-3) or Pain (scale 4-6). docusate 2021-02 Yes [id number] 200mg Take 2 [facility] 100 mg 2-10 capsules ity of capsule 00:00: by mouth [place] 00 once daily Medical as needed Branch for Constipati on. ibuprofen 2021-02 Yes [id number] 600mg Take 1 U nivers 600 mg 2-10 tablet by ity of tablet 00:00: mouth [place] 00 every 6 Medical (six) Branch hours as needed (Pain). Take with food or milk. 2021-02 Yes [id number] 1{tbl} Take 1 U nivers vitamin 2-10 tablet by ity of w/FA tablet 00:00: mouth in [place] 00 the Medical morning. Branch ferrous 2021-02 Yes [id number] 325mg Take 1 Uni vers sulfate 325 2-10 tablet by ity of mg (65 mg 00:00: mouth [place] iron) 00 every Medical tablet other day. Branch foLIC acid 2021-02 Yes [id number] 1mg Take 1 U nivers 1 mg tablet 2-10 tablet by ity of 00:00: mouth in [place] 00 the Medical morning. Branch acetaminoph 2021-02 Yes [id number] 650mg Take 2 [facility] en 2-10 tablets by ity of (TYLENOL) 00:00: mouth [place] 325 mg 00 every 6 Medical tablet (six) Branch hours as needed for Pain (scale 1-3) or Pain (scale 4-6). docusate 2021-02 Yes [id number] 200mg Take 2 [facility] 100 mg 2-10 capsules ity of capsule 00:00: by mouth [place] 00 once daily Medical as needed Branch for Constipati on. ibuprofen 2021-02 Yes [id number] 600mg Take 1 U nivers 600 mg 2-10 tablet by ity of tablet 00:00: mouth [place] 00 every 6 Medical (six) Branch hours as needed (Pain). Take with food or milk. 2021-02 Yes [id number] 1{tbl} Take 1 U nivers vitamin 2-10 tablet by ity of w/FA tablet 00:00: mouth in [place] 00 the Medical morning. Branch ferrous 2021-02 Yes [id number] 325mg Take 1 Uni vers sulfate 325 2-10 tablet by ity of mg (65 mg 00:00: mouth [place] iron) 00 every Medical tablet other day. Branch foLIC acid 2021-02 Yes [id number] 1mg Take 1 U nivers 1 mg tablet 2-10 tablet by ity of 00:00: mouth in [place] 00 the Medical morning. Branch acetaminoph 2021-02 Yes [id number] 650mg Take 2 [facility] en 2-10 tablets by ity of (TYLENOL) 00:00: mouth [place] 325 mg 00 every 6 Medical tablet (six) Branch hours as needed for Pain (scale 1-3) or Pain (scale 4-6). docusate 2021-02 Yes [id number] 200mg Take 2 Un radames 100 mg 2-10 capsules ity of capsule 00:00: by mouth [place] 00 once daily Medical as needed Branch for Constipati on. ibuprofen 2021-02 Yes [id number] 600mg Take 1 U nivers 600 mg 2-10 tablet by ity of tablet 00:00: mouth [place] 00 every 6 Medical (six) Branch hours as needed (Pain). Take with food or milk. 2021-02 Yes [id number] 1{tbl} Take 1 U nivers vitamin 2-10 tablet by ity of w/FA tablet 00:00: mouth in [place] 00 the Medical morning. Branch ferrous 2021-02 Yes [id number] 325mg Take 1 Uni vers sulfate 325 2-10 tablet by ity of mg (65 mg 00:00: mouth [place] iron) 00 every Medical tablet other day. Branch foLIC acid 2021-02 Yes [id number] 1mg Take 1 U nivers 1 mg tablet 2-10 tablet by ity of 00:00: mouth in [place] 00 the Medical morning. Branch acetaminoph 2021-02 Yes [id number] 650mg Take 2 [facility] en 2-10 tablets by ity of (TYLENOL) 00:00: mouth [place] 325 mg 00 every 6 Medical tablet (six) Branch hours as needed for Pain (scale 1-3) or Pain (scale 4-6). docusate 2021-02 Yes [id number] 200mg Take 2 Un radames 100 mg 2-10 capsules ity of capsule 00:00: by mouth [place] 00 once daily Medical as needed Branch for Constipati on. ibuprofen 2021-02 Yes [id number] 600mg Take 1 U nivers 600 mg 2-10 tablet by ity of tablet 00:00: mouth [place] 00 every 6 Medical (six) Branch hours as needed (Pain). Take with food or milk. 2021-02 Yes [id number] 1{tbl} Take 1 U nivers vitamin 2-10 tablet by ity of w/FA tablet 00:00: mouth in [place] 00 the Medical morning. Branch ferrous 2021-02 Yes [id number] 325mg Take 1 Uni vers sulfate 325 2-10 tablet by ity of mg (65 mg 00:00: mouth [place] iron) 00 every Medical tablet other day. Branch foLIC acid 2021-02 Yes [id number] 1mg Take 1 U nivers 1 mg tablet 2-10 tablet by ity of 00:00: mouth in [place] 00 the Medical morning. Branch acetaminoph 2021-02 Yes [id number] 650mg Take 2 [facility] en 2-10 tablets by ity of (TYLENOL) 00:00: mouth [place] 325 mg 00 every 6 Medical tablet (six) Branch hours as needed for Pain (scale 1-3) or Pain (scale 4-6). docusate 2021-02 Yes [id number] 200mg Take 2 Un radames 100 mg 2-10 capsules ity of capsule 00:00: by mouth [place] 00 once daily Medical as needed Branch for Constipati on. ibuprofen 2021-02 Yes [id number] 600mg Take 1 U nivers 600 mg 2-10 tablet by ity of tablet 00:00: mouth [place] 00 every 6 Medical (six) Branch hours as needed (Pain). Take with food or milk. 2021-02 Yes [id number] 1{tbl} Take 1 U nivers vitamin 2-10 tablet by ity of w/FA tablet 00:00: mouth in [facility] the Medical morning. Branch ferrous 2021-02 Yes [id number] 325mg Take 1 Uni vers sulfate 325 2-10 tablet by ity of mg (65 mg 00:00: mouth [place] iron) 00 every Medical tablet other day. Branch foLIC acid 2021-02 Yes [id number] 1mg Take 1 U nivers 1 mg tablet 2-10 tablet by ity of 00:00: mouth in [place] 00 the Medical morning. Branch acetaminoph 2021-02 Yes [id number] 650mg Take 2 [facility] en 2-10 tablets by ity of (TYLENOL) 00:00: mouth [place] 325 mg 00 every 6 Medical tablet (six) Branch hours as needed for Pain (scale 1-3) or Pain (scale 4-6). docusate 2021-02 Yes [id number] 200mg Take 2 Un radames 100 mg 2-10 capsules ity of capsule 00:00: by mouth [place] 00 once daily Medical as needed Branch for Constipati on. ibuprofen 2021-02 Yes [id number] 600mg Take 1 U nivers 600 mg 2-10 tablet by ity of tablet 00:00: mouth [place] 00 every 6 Medical (six) Branch hours as needed (Pain). Take with food or milk. 2021-02 Yes [id number] 1{tbl} Take 1 U nivers vitamin 2-10 tablet by ity of w/FA tablet 00:00: mouth in [place] 00 the Medical morning. Branch ferrous 2021-02 Yes [id number] 325mg Take 1 Uni vers sulfate 325 2-10 tablet by ity of mg (65 mg 00:00: mouth [place] iron) 00 every Medical tablet other day. Branch foLIC acid 2021-02 Yes [id number] 1mg Take 1 U nivers 1 mg tablet 2-10 tablet by ity of 00:00: mouth in [place] 00 the Medical morning. Branch acetaminoph 2021-02 Yes [id number] 650mg Take 2 [facility] en 2-10 tablets by ity of (TYLENOL) 00:00: mouth [place] 325 mg 00 every 6 Medical tablet (six) Branch hours as needed for Pain (scale 1-3) or Pain (scale 4-6). docusate 2021-02 Yes [id number] 200mg Take 2 Un radames 100 mg 2-10 capsules ity of capsule 00:00: by mouth [place] 00 once daily Medical as needed Branch for Constipati on. ibuprofen 2021-02 Yes [id number] 600mg Take 1 U nivers 600 mg 2-10 tablet by ity of tablet 00:00: mouth [place] 00 every 6 Medical (six) Branch hours as needed (Pain). Take with food or milk. 2021-02 Yes [id number] 1{tbl} Take 1 U nivers vitamin 2-10 tablet by ity of w/FA tablet 00:00: mouth in [place] 00 the Medical morning. Branch ferrous 2021-02 Yes [id number] 325mg Take 1 Uni vers sulfate 325 2-10 tablet by ity of mg (65 mg 00:00: mouth [place] iron) 00 every Medical tablet other day. Branch foLIC acid 2021-02 Yes [id number] 1mg Take 1 U nivers 1 mg tablet 2-10 tablet by ity of 00:00: mouth in [place] 00 the Medical morning. Branch acetaminoph 2021-02 Yes [id number] 650mg Take 2 [facility] en 2-10 tablets by ity of (TYLENOL) 00:00: mouth [place] 325 mg 00 every 6 Medical tablet (six) Branch hours as needed for Pain (scale 1-3) or Pain (scale 4-6). docusate 2021-02 Yes [id number] 200mg Take 2 Un radames 100 mg 2-10 capsules ity of capsule 00:00: by mouth [place] 00 once daily Medical as needed Branch for Constipati on. ibuprofen 2021-02 Yes [id number] 600mg Take 1 U nivers 600 mg 2-10 tablet by ity of tablet 00:00: mouth [place] 00 every 6 Medical (six) Branch hours as needed (Pain). Take with food or milk. 2021-02 Yes [id number] 1{tbl} Take 1 U nivers vitamin 2-10 tablet by ity of w/FA tablet 00:00: mouth in [place] 00 the Medical morning. Branch ferrous 2021-02 Yes [id number] 325mg Take 1 Uni vers sulfate 325 2-10 tablet by ity of mg (65 mg 00:00: mouth [place] iron) 00 every Medical tablet other day. Branch foLIC acid 2021-02 Yes [id number] 1mg Take 1 U nivers 1 mg tablet 2-10 tablet by ity of 00:00: mouth in [place] 00 the Medical morning. Branch acetaminoph 2021-02 Yes [id number] 650mg Take 2 [facility] en 2-10 tablets by ity of (TYLENOL) 00:00: mouth [place] 325 mg 00 every 6 Medical tablet (six) Branch hours as needed for Pain (scale 1-3) or Pain (scale 4-6). docusate 2021-02 Yes [id number] 200mg Take 2 Un radames 100 mg 2-10 capsules ity of capsule 00:00: by mouth [place] 00 once daily Medical as needed Branch for Constipati on. ibuprofen 2021-02 Yes [id number] 600mg Take 1 U nivers 600 mg 2-10 tablet by ity of tablet 00:00: mouth [place] 00 every 6 Medical (six) Branch hours as needed (Pain). Take with food or milk. 2021-02 Yes [id number] 1{tbl} Take 1 U nivers vitamin 2-10 tablet by ity of w/FA tablet 00:00: mouth in [place] 00 the Medical morning. Branch ferrous 2021-02 Yes [id number] 325mg Take 1 Uni vers sulfate 325 2-10 tablet by ity of mg (65 mg 00:00: mouth [place] iron) 00 every Medical tablet other day. Branch foLIC acid 2021-02 Yes [id number] 1mg Take 1 U nivers 1 mg tablet 2-10 tablet by ity of 00:00: mouth in [place] 00 the Medical morning. Branch acetaminoph 2021-02 Yes [id number] 650mg Take 2 [facility] en 2-10 tablets by ity of (TYLENOL) 00:00: mouth [place] 325 mg 00 every 6 Medical tablet (six) Branch hours as needed for Pain (scale 1-3) or Pain (scale 4-6). docusate 2021-02 Yes [id number] 200mg Take 2 Un radames 100 mg 2-10 capsules ity of capsule 00:00: by mouth [place] 00 once daily Medical as needed Branch for Constipati on. ibuprofen 2021-02 Yes [id number] 600mg Take 1 U nivers 600 mg 2-10 tablet by ity of tablet 00:00: mouth [place] 00 every 6 Medical (six) Branch hours as needed (Pain). Take with food or milk. 2021-02 Yes [id number] 1{tbl} Take 1 U nivers vitamin 2-10 tablet by ity of w/FA tablet 00:00: mouth in [facility] the Medical morning. Branch ferrous 2021-02 Yes [id number] 325mg Take 1 Uni vers sulfate 325 2-10 tablet by ity of mg (65 mg 00:00: mouth [place] iron) 00 every Medical tablet other day. Branch foLIC acid 2021-02 Yes [id number] 1mg Take 1 U nivers 1 mg tablet 2-10 tablet by ity of 00:00: mouth in [place] 00 the Medical morning. Branch acetaminoph 2021-02 Yes [id number] 650mg Take 2 [facility] en 2-10 tablets by ity of (TYLENOL) 00:00: mouth [place] 325 mg 00 every 6 Medical tablet (six) Branch hours as needed for Pain (scale 1-3) or Pain (scale 4-6). docusate 2021-02 Yes [id number] 200mg Take 2 Un radames 100 mg 2-10 capsules ity of capsule 00:00: by mouth [place] 00 once daily Medical as needed Branch for Constipati on. ibuprofen 2021-02 Yes [id number] 600mg Take 1 U nivers 600 mg 2-10 tablet by ity of tablet 00:00: mouth [place] 00 every 6 Medical (six) Branch hours as needed (Pain). Take with food or milk. 2021-02 Yes [id number] 1{tbl} Take 1 U nivers vitamin 2-10 tablet by ity of w/FA tablet 00:00: mouth in [place] 00 the Medical morning. Branch ferrous 2021-02 Yes [id number] 325mg Take 1 Uni vers sulfate 325 2-10 tablet by ity of mg (65 mg 00:00: mouth [place] iron) 00 every Medical tablet other day. Branch foLIC acid 2021-02 Yes [id number] 1mg Take 1 U nivers 1 mg tablet 2-10 tablet by ity of 00:00: mouth in [place] 00 the Medical morning. Branch acetaminoph 2021-02 Yes [id number] 650mg Take 2 [facility] en 2-10 tablets by ity of (TYLENOL) 00:00: mouth [place] 325 mg 00 every 6 Medical tablet (six) Branch hours as needed for Pain (scale 1-3) or Pain (scale 4-6). docusate 2021-02 Yes [id number] 200mg Take 2 Un radames 100 mg 2-10 capsules ity of capsule 00:00: by mouth [place] 00 once daily Medical as needed Branch for Constipati on. ibuprofen 2021-02 Yes [id number] 600mg Take 1 U nivers 600 mg 2-10 tablet by ity of tablet 00:00: mouth [place] 00 every 6 Medical (six) Branch hours as needed (Pain). Take with food or milk. 2021-02 Yes [id number] 1{tbl} Take 1 U nivers vitamin 2-10 tablet by ity of w/FA tablet 00:00: mouth in [place] 00 the Medical morning. Branch ferrous 2021-02 Yes [id number] 325mg Take 1 Uni vers sulfate 325 2-10 tablet by ity of mg (65 mg 00:00: mouth [place] iron) 00 every Medical tablet other day. Branch foLIC acid 2021-02 Yes [id number] 1mg Take 1 U nivers 1 mg tablet 2-10 tablet by ity of 00:00: mouth in [place] 00 the Medical morning. Branch acetaminoph 2021-02 Yes [id number] 650mg Take 2 [facility] en 2-10 tablets by ity of (TYLENOL) 00:00: mouth [place] 325 mg 00 every 6 Medical tablet (six) Branch hours as needed for Pain (scale 1-3) or Pain (scale 4-6). docusate 2021-02 Yes [id number] 200mg Take 2 Un radames 100 mg 2-10 capsules ity of capsule 00:00: by mouth [place] 00 once daily Medical as needed Branch for Constipati on. ibuprofen 2021-02 Yes [id number] 600mg Take 1 U nivers 600 mg 2-10 tablet by ity of tablet 00:00: mouth [place] 00 every 6 Medical (six) Branch hours as needed (Pain). Take with food or milk. 2021-02 Yes [id number] 1{tbl} Take 1 U nivers vitamin 2-10 tablet by ity of w/FA tablet 00:00: mouth in [place] 00 the Medical morning. Branch ferrous 2021-02 Yes [id number] 325mg Take 1 Uni vers sulfate 325 2-10 tablet by ity of mg (65 mg 00:00: mouth [place] iron) 00 every Medical tablet other day. Branch foLIC acid 2021-02 Yes [id number] 1mg Take 1 U nivers 1 mg tablet 2-10 tablet by ity of 00:00: mouth in [place] 00 the Medical morning. Branch acetaminoph 2021-02 Yes [id number] 650mg Take 2 [facility] en 2-10 tablets by ity of (TYLENOL) 00:00: mouth [place] 325 mg 00 every 6 Medical tablet (six) Branch hours as needed for Pain (scale 1-3) or Pain (scale 4-6). docusate 2021-02 Yes [id number] 200mg Take 2 Un radames 100 mg 2-10 capsules ity of capsule 00:00: by mouth [place] 00 once daily Medical as needed Branch for Constipati on. ibuprofen 2021-02 Yes [id number] 600mg Take 1 U nivers 600 mg 2-10 tablet by ity of tablet 00:00: mouth [place] 00 every 6 Medical (six) Branch hours as needed (Pain). Take with food or milk. 2021-02 Yes [id number] 1{tbl} Take 1 U nivers vitamin 2-10 tablet by ity of w/FA tablet 00:00: mouth in [place] 00 the Medical morning. Branch ferrous 2021-02 Yes [id number] 325mg Take 1 Uni vers sulfate 325 2-10 tablet by ity of mg (65 mg 00:00: mouth [place] iron) 00 every Medical tablet other day. Branch foLIC acid 2021-02 Yes [id number] 1mg Take 1 U nivers 1 mg tablet 2-10 tablet by ity of 00:00: mouth in [place] 00 the Medical morning. Branch acetaminoph 2021-02 Yes [id number] 650mg Take 2 Univers en 2-10 tablets by ity of (TYLENOL) 00:00: mouth [place] 325 mg 00 every 6 Medical tablet (six) Branch hours as needed for Pain (scale 1-3) or Pain (scale 4-6). docusate 2021-02 Yes [id number] 200mg Take 2 Un radames 100 mg 2-10 capsules ity of capsule 00:00: by mouth [place] 00 once daily Medical as needed Branch for Constipati on. ibuprofen 2021-02 Yes [id number] 600mg Take 1 U nivers 600 mg 2-10 tablet by ity of tablet 00:00: mouth [place] 00 every 6 Medical (six) Branch hours as needed (Pain). Take with food or milk. 2021-02 Yes [id number] 1{tbl} Take 1 U nivers vitamin 2-10 tablet by ity of w/FA tablet 00:00: mouth in [facility] the Medical morning. Branch ferrous 2021-02 Yes [id number] 325mg Take 1 Uni vers sulfate 325 2-10 tablet by ity of mg (65 mg 00:00: mouth [place] iron) 00 every Medical tablet other day. Branch foLIC acid 2021-02 Yes [id number] 1mg Take 1 U nivers 1 mg tablet 2-10 tablet by ity of 00:00: mouth in [place] 00 the Medical morning. Branch acetaminoph 2021-02 Yes [id number] 650mg Take 2 Univers en 2-10 tablets by ity of (TYLENOL) 00:00: mouth [place] 325 mg 00 every 6 Medical tablet (six) Branch hours as needed for Pain (scale 1-3) or Pain (scale 4-6). docusate 2021-02 Yes [id number] 200mg Take 2 Un radames 100 mg 2-10 capsules ity of capsule 00:00: by mouth [place] 00 once daily Medical as needed Branch for Constipati on. ibuprofen 2021-02 Yes [id number] 600mg Take 1 U nivers 600 mg 2-10 tablet by ity of tablet 00:00: mouth [place] 00 every 6 Medical (six) Branch hours as needed (Pain). Take with food or milk. 2021-02 Yes [id number] 1{tbl} Take 1 U nivers vitamin 2-10 tablet by ity of w/FA tablet 00:00: mouth in [place] 00 the Medical morning. Branch ferrous 2021-02 Yes [id number] 325mg Take 1 Uni vers sulfate 325 2-10 tablet by ity of mg (65 mg 00:00: mouth [place] iron) 00 every Medical tablet other day. Branch foLIC acid 2021-02 Yes [id number] 1mg Take 1 U nivers 1 mg tablet 2-10 tablet by ity of 00:00: mouth in [place] 00 the Medical morning. Branch acetaminoph 2021-02 Yes [id number] 650mg Take 2 Univers en 2-10 tablets by ity of (TYLENOL) 00:00: mouth [place] 325 mg 00 every 6 Medical tablet (six) Branch hours as needed for Pain (scale 1-3) or Pain (scale 4-6). docusate 2021-02 Yes [id number] 200mg Take 2 Un radames 100 mg 2-10 capsules ity of capsule 00:00: by mouth [place] 00 once daily Medical as needed Branch for Constipati on. ibuprofen 2021-02 Yes [id number] 600mg Take 1 U nivers 600 mg 2-10 tablet by ity of tablet 00:00: mouth [place] 00 every 6 Medical (six) Branch hours as needed (Pain). Take with food or milk. 2021-02 Yes [id number] 1{tbl} Take 1 U nivers vitamin 2-10 tablet by ity of w/FA tablet 00:00: mouth in [place] 00 the Medical morning. Branch ferrous 2021-02 Yes [id number] 325mg Take 1 Uni vers sulfate 325 2-10 tablet by ity of mg (65 mg 00:00: mouth [place] iron) 00 every Medical tablet other day. Branch foLIC acid 2021-02 Yes [id number] 1mg Take 1 U nivers 1 mg tablet 2-10 tablet by ity of 00:00: mouth in [place] 00 the Medical morning. Branch acetaminoph 2021-02 Yes [id number] 650mg Take 2 [facility] en 2-10 tablets by ity of (TYLENOL) 00:00: mouth [place] 325 mg 00 every 6 Medical tablet (six) Branch hours as needed for Pain (scale 1-3) or Pain (scale 4-6). docusate 2021-02 Yes [id number] 200mg Take 2 Un radames 100 mg 2-10 capsules ity of capsule 00:00: by mouth [place] 00 once daily Medical as needed Branch for Constipati on. ibuprofen 2021-02 Yes [id number] 600mg Take 1 U nivers 600 mg 2-10 tablet by ity of tablet 00:00: mouth [place] 00 every 6 Medical (six) Branch hours as needed (Pain). Take with food or milk. 2021-02 Yes [id number] 1{tbl} Take 1 U nivers vitamin 2-10 tablet by ity of w/FA tablet 00:00: mouth in [place] 00 the Medical morning. Branch ferrous 2021-02 Yes [id number] 325mg Take 1 Uni vers sulfate 325 2-10 tablet by ity of mg (65 mg 00:00: mouth [place] iron) 00 every Medical tablet other day. Branch foLIC acid 2021-02 Yes [id number] 1mg Take 1 U nivers 1 mg tablet 2-10 tablet by ity of 00:00: mouth in [place] 00 the Medical morning. Branch acetaminoph 2021-02 Yes [id number] 650mg Take 2 Univers en 2-10 tablets by ity of (TYLENOL) 00:00: mouth [place] 325 mg 00 every 6 Medical tablet (six) Branch hours as needed for Pain (scale 1-3) or Pain (scale 4-6). docusate 2021-02 Yes [id number] 200mg Take 2 Un radames 100 mg 2-10 capsules ity of capsule 00:00: by mouth [place] 00 once daily Medical as needed Branch for Constipati on. ibuprofen 2021-02 Yes [id number] 600mg Take 1 U nivers 600 mg 2-10 tablet by ity of tablet 00:00: mouth [place] 00 every 6 Medical (six) Branch hours as needed (Pain). Take with food or milk. 2021-02 Yes [id number] 1{tbl} Take 1 U nivers vitamin 2-10 tablet by ity of w/FA tablet 00:00: mouth in [place] 00 the Medical morning. Branch ferrous 2021-02 Yes [id number] 325mg Take 1 Uni vers sulfate 325 2-10 tablet by ity of mg (65 mg 00:00: mouth [place] iron) 00 every Medical tablet other day. Branch foLIC acid 2021-02 Yes [id number] 1mg Take 1 U nivers 1 mg tablet 2-10 tablet by ity of 00:00: mouth in [place] 00 the Medical morning. Branch acetaminoph 2021-02 Yes [id number] 650mg Take 2 Univers en 2-10 tablets by ity of (TYLENOL) 00:00: mouth [place] 325 mg 00 every 6 Medical tablet (six) Branch hours as needed for Pain (scale 1-3) or Pain (scale 4-6). docusate 2021-02 Yes [id number] 200mg Take 2 Un radames 100 mg 2-10 capsules ity of capsule 00:00: by mouth [place] 00 once daily Medical as needed Branch for Constipati on. ibuprofen 2021-02 Yes [id number] 600mg Take 1 U nivers 600 mg 2-10 tablet by ity of tablet 00:00: mouth [place] 00 every 6 Medical (six) Branch hours as needed (Pain). Take with food or milk. 2021-02 Yes [id number] 1{tbl} Take 1 U nivers vitamin 2-10 tablet by ity of w/FA tablet 00:00: mouth in [facility] 00 the Medical morning. Branch ferrous 2021-02 Yes [id number] 325mg Take 1 Uni vers sulfate 325 2-10 tablet by ity of mg (65 mg 00:00: mouth [place] iron) 00 every Medical tablet other day. Branch foLIC acid 2021-02 Yes [id number] 1mg Take 1 U nivers 1 mg tablet 2-10 tablet by ity of 00:00: mouth in [place] 00 the Medical morning. Branch acetaminoph 2021-02- No [id number] 650mg Take 2 Univers en 2-10 09-01 tablets by ity of (TYLENOL) 00:00: 00:00 mouth [place] 325 mg 00 :00 every 6 Medical tablet (six) Branch hours as needed for Pain (scale 1-3) or Pain (scale 4-6). docusate 2021-02- No [id number] 200mg Take 2 U nivers 100 mg 2-10 09-01 capsules ity of capsule 00:00: 00:00 by mouth [place] 00 :00 once daily Medical as needed Branch for Constipati on. ibuprofen 2021-02- No [id number] 600mg Take 1 [facility] 600 mg 2-10 - tablet by ity of tablet 00:00: 00:00 mouth [place] 00 :00 every 6 Medical (six) Branch hours as needed (Pain). Take with food or milk. 2021-02- No [id number] 1{tbl} Take 1 [facility] vitamin 2-10 - tablet by ity of w/FA tablet 00:00: 00:00 mouth in [place] 00 :00 the Medical morning. Branch ferrous 2021-02- No [id number] 325mg Take 1 Un radames sulfate 325 2-10 - tablet by it y of mg (65 mg 00:00: 00:00 mouth [place] iron) 00 :00 every Medical tablet other day. Branch foLIC acid 2021-02- No [id number] 1mg Take 1 Univers 1 mg tablet 03-26 tablet by it y of 00:00: 00:00 mouth in [place] 00 :00 the Medical morning. Branch 2021-02- No [id number] 1{tbl} Take 1 [facility] vitamin 2-10 12-10 tablet by ity of w/FA tablet 00:00: 00:00 mouth in [place] :00 the Medical morning. Branch docusate 2021-02- No [id number] 200mg Take 2 U nivers 100 mg 2-10 12-10 capsules ity of capsule 00:00: 00:00 by mouth [place] 00 :00 once daily Medical as needed Branch for Constipati on. ferrous 2021-02- No [id number] 325mg Take 1 Un radames sulfate 325 2-10 12-10 tablet by it y of mg (65 mg 00:00: 00:00 mouth [place] iron) 00 :00 every Medical tablet other day. Branch ibuprofen 2021-02- No [id number] 600mg Take 1 [facility] 600 mg 2-10 12-10 tablet by ity of tablet 00:00: 00:00 mouth [place] 00 :00 every 6 Medical (six) Branch hours as needed (Pain). Take with food or milk. acetaminoph 2021-02- No [id number] 650mg Take 2 Univers en 2-10 12-10 tablets by ity of (TYLENOL) 00:00: 00:00 mouth [place] 325 mg 00 :00 every 6 Medical tablet (six) Branch hours as needed for Pain (scale 1-3) or Pain (scale 4-6). foLIC acid 2021-02 No [id number] 1mg Take 1 Univers 1 mg tablet [...] First dose Bran ch 100 mL on Tue MINI-BAG 01/22/22 at 1215, Until Discontinu ed, [...] Dose >=24mg ECG monitoring is advisable.
ropivacaine 2021-02 No Epidural, Univers 0.2 % 03-25 12-10 CONTINUOUS ity of (NAROPIN 09:26: 01:18 PRN, [place] (PF)) 00 :17 Starting Medical epidural on Tue Branch infusion 01/22/22 at 0326, Until Tue01/22/22 at 1918, Routine, Intra-op lidocaine-e 2021-02 No Intraderma Univers pinephrine 03-25 12-10 l, ONCE ity o f (XYLOCAINE 09:24: 01:18 INTRA [place] W/EPINEPHRI 00 :17 PROCEDURE, [place] [facility]) 1.5 Starting Branch %-1:200,000 on Fri injection 01/22/22 at 0324, Until 01/22/22 at 1918, Routine, Intra-op lactated 2021-02 No 500mL at 999 Unive rs ringers IV 03-25 mL/hr, 500 it y of infusion 09:00: 08:35 mL, IV [place] 500 mL 00 :11 Infusion, Medical ONCE, 1 Branch dose, On 01/22/22 at 0300, Routine sodium 2021-02 No 30mL 30 mL, Univers citrate-cit 03-25 [...] exas 10 mg 00 :00 dose, On [facility] Fri Branch 01/22/22 at 0045, Routine butorphanol 2021-02- No 1mg 1 mg, Univ ers (STADOL) 03-25 Intravenou ity of injection 1 02:15: 01:37 s, ONCE, 1 [place] mg 00 :00 [facility], Routine proMETHazin 2021-02- No 25mg 25 mg, IV Univers e 03-25 Piggyback, ity of (PHENERGAN) 02:00: 02:35 at 200 [place] as 25 mg in NS 00 :00 mL/hr Medical 50 mL IV Administer Branc h piggyback over 15 (CNR) Minutes, ONCE, 1 dose, On [place] 01/21/22 at 2000, Routine proMETHazin 2021-02- No 25mg 25 mg, IV Univers e 03-24-08 Piggyback, ity of (PHENERGAN) 17:45: 18:25 at [...] Tue01/22/22 at 2132, Routine cefdinir 2021-02- No [id number] 300mg Take 1 Univers 300 mg 1-19 11-25 capsule by ity of capsule 00:00: 05:59 mouth [place] 00 :00 every 12 Medical (twelve) Branch hours for 5 days. cefdinir 2021-02- No [id number] 300mg Take 1 Univers 300 mg 1-19 11-25 capsule by ity of capsule 00:00: 05:59 mouth [place] 00 :00 every 12 Medical (twelve) Branch hours for 5 days. cefdinir 2021-02- No [id number] 300mg Take 1 [facility] 300 mg 1-19 11-25 capsule by ity of capsule 00:00: 05:59 mouth [place] 00 :00 every 12 Medical (twelve) Branch hours for 5 days. emtricitabi 2021-02- No [id number] 1{tbl} Take 1 Univers ne-tenofovi 0-13 11-13 tablet by it y of r, TDF, 00:00: 05:59 mouth in [place] 200-300 mg 00 :00 the Medical tablet morning Branch for 30 days. [facility]- No [id number] 1{tbl} Take 1 Univers ne-tenofovi 0-13 11-13 tablet by it y of r, TDF, 00:00: 05:59 mouth in [place] 200-300 mg 00 :00 the Medical tablet morning Branch for 30 days. [facility]- No [id number] 1{tbl} Take 1 Univers ne-tenofovi 0-13 11-13 tablet by it y of r, TDF, 00:00: 05:59 mouth in [place] 200-300 mg 00 :00 the Medical tablet morning Branch for 30 days. [facility]- No [id number] 1{tbl} Take 1 Univers ne-tenofovi 0-13 11-13 tablet by it y of r, TDF, 00:00: 05:59 mouth in [place] 200-300 mg 00 :00 the Medical tablet morning Branch [facility]. [facility] [facility] 2021-02- No [id number] 1{tbl} Take 1 Univers ne-tenofovi 0-13 11-13 tablet by it y of r, TDF, 00:00: 05:59 mouth in [place] 200-300 mg 00 :00 the Medical tablet morning Branch for 30 days. [facility] No [id number] 1{tbl} Take 1 Univers ne-tenofovi 0-13 11-13 tablet by it y of r, TDF, 00:00: 05:59 mouth in [place] 200-300 mg 00 :00 the Medical tablet morning Branch [facility] 30 days. [facility]- No [id number] 1{tbl} Take 1 Univers ne-tenofovi 0-13 10-13 tablet by it y of r, TDF, 00:00: 00:00 mouth in [place] 200-300 mg 00 :00 the Medical tablet morning Branch for 30 days. [facility]- No [id number] 1{tbl} Take 1 Univers ne-tenofovi 0-13 10-13 tablet by it y of r, TDF, 00:00: 00:00 mouth in [place] 200-300 mg 00 :00 the Medical tablet morning Branch for 30 days. [facility]- No [id number] 1{tbl} Take 1 Univers ne-tenofovi 0-13 10-13 tablet by it y of r, TDF, 00:00: 00:00 mouth in [place] 200-300 mg 00 :00 the Medical tablet morning Branch for 30 days. Nitrofurant 2021-02- No [id number] 100mg Take 1 Univers oin&Nit. 0-06 10-14 capsule by ity of Macrocryst 00:00: 04:59 mouth in [place] 100 mg 00 :00 the Medical capsule morning Branch and 1 capsule in the evening. Do all this for 7 days. Nitrofurant 2021-02- No [id number] 100mg Take 1 Univers oin&Nit. 0-06 10-14 capsule by ity of Macrocryst 00:00: 04:59 mouth in [place] 100 mg 00 :00 the Medical capsule morning Branch and 1 capsule in the evening. Do all this for 7 days. Nitrofurant 2021-02- No [id number] 100mg Take 1 Univers oin&Nit. 0-06 10-14 capsule by ity of Macrocryst 00:00: 04:59 mouth in [place] 100 mg 00 :00 the Medical capsule morning Branch and 1 capsule in the evening. Do all this for 7 days. Nitrofurant 2021-02- No [id number] 100mg Take 1 Univers oin&Nit. 0-06 10-14 capsule by ity of Macrocryst 00:00: 04:59 mouth in [place] 100 mg 00 :00 the Medical capsule morning Branch and 1 capsule in the evening. Do all this for 7 days. Nitrofurant 2021-02- No [id number] 100mg Take 1 Univers oin&Nit. 0-06 10-14 capsule by ity of Mac[place]ryst 00:00: 04:59 mouth in [place] 100 mg 00 :00 the Medical capsule morning Branch and 1 capsule in the evening. Do all this for 7 days. Nitrofurant 2021-02- No [id number] 100mg Take 1 Univers oin&Nit. 0-06 10-14 [...]
Reason for Anti-Infec tive: Documented Infection< br>Documen shain Infection Site: Pelvic
Duration of Therapy: Other (see Comments) metroNIDAZO 2021-0 Yes [id number] 500mg Take 1 Univers LE (FLAGYL) 9-19 tablet by ity of 500 mg 00:00: mouth [place] tablet 00 every 12 Medical (twelve) Branch hours. metroNIDAZO 2021-0 Yes [id number] 500mg Take 1 Univers LE (FLAGYL) 9-19 tablet by ity of 500 mg 00:00: mouth [place] tablet 00 every 12 Medical (twelve) Branch hours. metroNIDAZO 2021-0 Yes [id number] 500mg Take 1 Univers LE (FLAGYL) 9-19 tablet by ity of 500 mg 00:00: mouth [place] tablet 00 every 12 Medical (twelve) Branch hours. metroNIDAZO 2021-0 Yes [id number] 500mg Take 1 Univers LE (FLAGYL) 9-19 tablet by ity of 500 mg 00:00: mouth [place] tablet 00 every 12 Medical (twelve) Branch hours. metroNIDAZO 2021-0 Yes [id number] 500mg Take 1 Univers LE (FLAGYL) 9-19 tablet by ity of 500 mg 00:00: mouth [place] tablet 00 every 12 Medical (twelve) Branch hours. metroNIDAZO 2021-0 Yes [id number] 500mg Take 1 Univers LE (FLAGYL) 9-19 tablet by ity of 500 mg 00:00: mouth [place] tablet 00 every 12 Medical (twelve) Branch hours. metroNIDAZO 2-0 Yes [id number] 500mg Take 1 [facility] LE (FLAGYL) 9-19 tablet by ity of 500 mg 00:00: mouth [place] tablet 00 every 12 Medical (twelve) Branch hours. metroNIDAZO 2021-0 Yes [id number] 500mg Take 1 [facility] LE (FLAGYL) 9-19 tablet by ity of 500 mg 00:00: mouth [place] tablet 00 every 12 Medical (twelve) Branch hours. metroNIDAZO 2021-0 Yes [id number] 500mg Take 1 [facility] LE (FLAGYL) 9-19 tablet by ity of 500 mg 00:00: mouth [place] tablet 00 every 12 Medical (twelve) Branch hours. metroNIDAZO 2021-0 Yes [id number] 500mg Take 1 Univers LE (FLAGYL) 9-19 tablet by ity of 500 mg 00:00: mouth [place] tablet 00 every 12 Medical (twelve) Branch hours. metroNIDAZO 2021-0 Yes [id number] 500mg Take 1 [facility] LE (FLAGYL) 9-19 tablet by ity of 500 mg 00:00: mouth [place] tablet 00 every 12 Medical (twelve) Branch hours. metroNIDAZO 2021-0 Yes [id number] 500mg Take 1 [facility] LE (FLAGYL) 9-19 tablet by ity of 500 mg 00:00: mouth [place] tablet 00 every 12 Medical (twelve) Branch hours. metroNIDAZO 2021-0 Yes [id number] 500mg Take 1 [facility] LE (FLAGYL) 9-19 tablet by ity of 500 mg 00:00: mouth [place] tablet 00 every 12 Medical (twelve) Branch hours. metroNIDAZO 2021-0 Yes [id number] 500mg Take 1 [facility] LE (FLAGYL) 9-19 tablet by ity of 500 mg 00:00: mouth [place] tablet 00 every 12 Medical (twelve) Branch hours. metroNIDAZO 2021-0 Yes [id number] 500mg Take 1 [facility] LE (FLAGYL) 9-19 tablet by ity of 500 mg 00:00: mouth [place] tablet 00 every 12 Medical (twelve) Branch hours. metroNIDAZO 2021-0 Yes [id number] 500mg Take 1 [facility] LE (FLAGYL) 9-19 tablet by ity of 500 mg 00:00: mouth [place] tablet 00 every 12 Medical (twelve) Branch hours. metroNIDAZO 2-0 Yes [id number] 500mg Take 1 [facility] LE (FLAGYL) 9-19 tablet by ity of 500 mg 00:00: mouth [place] tablet 00 every 12 Medical (twelve) Branch hours. metroNIDAZO 2-0 Yes [id number] 500mg Take 1 [facility] LE (FLAGYL) 9-19 tablet by ity of 500 mg 00:00: mouth [place] tablet 00 every 12 Medical (twelve) Branch hours. metroNIDAZO 2021-0 Yes [id number] 500mg Take 1 [facility] LE (FLAGYL) 9-19 tablet by ity of 500 mg 00:00: mouth [place] tablet 00 every 12 Medical (twelve) Branch hours. metroNIDAZO 2021-0 Yes [id number] 500mg Take 1 [facility] LE (FLAGYL) 9-19 tablet by ity of 500 mg 00:00: mouth [place] tablet 00 every 12 Medical (twelve) Branch hours. metroNIDAZO 2021-0 Yes [id number] 500mg Take 1 [facility] LE (FLAGYL) 9-19 tablet by ity of 500 mg 00:00: mouth [place] tablet 00 every 12 Medical (twelve) Branch hours. metroNIDAZO 2021-0 Yes [id number] 500mg Take 1 [facility] LE (FLAGYL) 9-19 tablet by ity of 500 mg 00:00: mouth [place] tablet 00 every 12 Medical (twelve) Branch hours. metroNIDAZO 2021-0 Yes [id number] 500mg Take 1 [facility] LE (FLAGYL) 9-19 tablet by ity of 500 mg 00:00: mouth [place] tablet 00 every 12 Medical (twelve) Branch hours. metroNIDAZO 0 Yes [id number] 500mg Take 1 [facility] LE (FLAGYL) 9-19 tablet by ity of 500 mg 00:00: mouth [place] tablet 00 every 12 Medical (twelve) Branch hours. metroNIDAZO 2021- No [id number] 500mg Take 1 [facility] LE (FLAGYL) 9-19 12-10 tablet by it y of 500 mg 00:00: 00:00 mouth [place] tablet 00 :00 every 12 Medical (twelve) Branch hours. penicillin 2021- No [id number] 2.410 U nivers g 09-22 ity of benzathine 14:00: 13:59 [place] (BICILLIN 00 :00 Medical L-A) Branch injection 2.4 Million Units penicillin 2021- No [id number] 2.410 2.4 U nivers g 09-22 Million [...] Therapy: Other (see Comments) penicillin 2021- No [id number] 2.410 2.4 U nivers g 09-22 08-22 [...] uration of Therapy: Other (see Comments) Yes [id number] 1{packe Take 1 Univers vit 5-04 t} Packet by ity of 33-iron-fol 00:00: mouth [place] ic-dha 00 daily. Medical (SELECT-OB Branch + DHA) 29 mg iron-1 mg -250 mg combo pack Yes [id number] 1{packe Take 1 Univers vit 5-04 t} Packet by ity of 33-iron-fol 00:00: mouth [place] ic-dha 00 daily. Medical (SELECT-OB Branch + DHA) 29 mg iron-1 mg -250 mg combo pack Yes [id number] 1{packe Take 1 Univers vit 5-04 t} Packet by ity of 33-iron-fol 00:00: mouth [place] ic-dha 00 daily. Medical (SELECT-OB Branch + DHA) 29 mg iron-1 mg -250 mg combo pack Yes [id number] 1{packe Take 1 Univers vit 5-04 t} Packet by ity of 33-iron-fol 00:00: mouth [place] ic-dha 00 daily. Medical (SELECT-OB Branch + DHA) 29 mg iron-1 mg -250 mg combo pack Yes [id number] 1{packe Take 1 Univers vit 5-04 t} Packet by ity of 33-iron-fol 00:00: mouth [place] ic-dha 00 daily. Medical (SELECT-OB Branch + DHA) 29 mg iron-1 mg -250 mg combo pack Yes [id number] 1{packe Take 1 Univers vit 5-04 t} Packet by ity of 33-iron-fol 00:00: mouth [place] ic-dha 00 daily. Medical (SELECT-OB Branch + DHA) 29 mg iron-1 mg -250 mg combo pack Yes [id number] 1{packe Take 1 Univers vit 5-04 t} Packet by ity of 33-iron-fol 00:00: mouth [place] ic-dha 00 daily. Medical (SELECT-OB Branch + DHA) 29 mg iron-1 mg -250 mg combo pack Yes [id number] 1{packe Take 1 Univers vit 5-04 t} Packet by ity of 33-iron-fol 00:00: mouth [place] ic-dha 00 daily. Medical (SELECT-OB Branch + DHA) 29 mg iron-1 mg -250 mg combo pack Yes [id number] 1{packe Take 1 Univers vit 5-04 t} Packet by ity of 33-iron-fol 00:00: mouth [place] ic-dha 00 daily. Medical (SELECT-OB Branch + DHA) 29 mg iron-1 mg -250 mg combo pack Yes [id number] 1{packe Take 1 Univers vit 5-04 t} Packet by ity of 33-iron-fol 00:00: mouth [place] ic-dha 00 daily. Medical (SELECT-OB Branch + DHA) 29 mg iron-1 mg -250 mg combo pack Yes [id number] 1{packe Take 1 Univers vit 5-04 t} Packet by ity of 33-iron-fol 00:00: mouth [place] ic-dha 00 daily. Medical (SELECT-OB Branch + DHA) 29 mg iron-1 mg -250 mg combo pack Yes [id number] 1{packe Take 1 Univers vit 5-04 t} Packet by ity of 33-iron-fol 00:00: mouth [place] ic-dha 00 daily. Medical (SELECT-OB Branch + DHA) 29 mg iron-1 mg -250 mg combo pack Yes [id number] 1{packe Take 1 Univers vit 5-04 t} Packet by ity of 33-iron-fol 00:00: mouth [place] ic-dha 00 daily. Medical (SELECT-OB Branch + DHA) 29 mg iron-1 mg -250 mg combo pack Yes [id number] 1{packe Take 1 Univers vit 5-04 t} Packet by ity of 33-iron-fol 00:00: mouth [place] ic-dha 00 daily. Medical (SELECT-OB Branch + DHA) 29 mg iron-1 mg -250 mg combo pack Yes [id number] 1{packe Take 1 Univers vit 5-04 t} Packet by ity of 33-iron-fol 00:00: mouth [place] ic-dha 00 daily. Medical (SELECT-OB Branch + DHA) 29 mg iron-1 mg -250 mg combo pack Yes [id number] 1{packe Take 1 Univers vit 5-04 t} Packet by ity of 33-iron-fol 00:00: mouth [place] ic-dha 00 daily. Medical (SELECT-OB Branch + DHA) 29 mg iron-1 mg -250 mg combo pack Yes [id number] 1{packe Take 1 Univers vit 5-04 t} Packet by ity of 33-iron-fol 00:00: mouth [place] ic-dha 00 daily. Medical (SELECT-OB Branch + DHA) 29 mg iron-1 mg -250 mg combo pack Yes [id number] 1{packe Take 1 Univers vit 5-04 t} Packet by ity of 33-iron-fol 00:00: mouth [place] ic-dha 00 daily. Medical (SELECT-OB Branch + DHA) 29 mg iron-1 mg -250 mg combo pack Yes [id number] 1{packe Take 1 Univers vit 5-04 t} Packet by ity of 33-iron-fol 00:00: mouth [place] ic-dha 00 daily. Medical (SELECT-OB Branch + DHA) 29 mg iron-1 mg -250 mg combo pack Yes [id number] 1{packe Take 1 Univers vit 5-04 t} Packet by ity of 33-iron-fol 00:00: mouth [place] ic-dha 00 daily. Medical (SELECT-OB Branch + DHA) 29 mg iron-1 mg -250 mg combo pack Yes [id number] 1{packe Take 1 Univers vit 5-04 t} Packet by ity of 33-iron-fol 00:00: mouth [place] ic-dha 00 daily. Medical (SELECT-OB Branch + DHA) 29 mg iron-1 mg -250 mg combo pack Yes [id number] 1{packe Take 1 Univers vit 5-04 t} Packet by ity of 33-iron-fol 00:00: mouth [place] ic-dha 00 daily. Medical (SELECT-OB Branch + DHA) 29 mg iron-1 mg -250 mg combo pack Yes [id number] 1{packe Take 1 Univers vit 5-04 t} Packet by ity of 33-iron-fol 00:00: mouth [place] ic-dha 00 daily. Medical (SELECT-OB Branch + DHA) 29 mg iron-1 mg -250 mg combo pack Yes [id number] 1{packe Take 1 Univers vit 5-04 t} Packet by ity of 33-iron-fol 00:00: mouth [place] ic-dha 00 daily. Medical (SELECT-OB Branch + DHA) 29 mg iron-1 mg -250 mg combo pack Yes [id number] 1{packe Take 1 Univers vit 5-04 t} Packet by ity of 33-iron-fol 00:00: mouth [place] ic-dha 00 daily. Medical (SELECT-OB Branch + DHA) 29 mg iron-1 mg -250 mg combo pack Yes [id number] 1{packe Take 1 Univers vit 5-04 t} Packet by ity of 33-iron-fol 00:00: mouth [place] ic-dha 00 daily. Medical (SELECT-OB Branch + DHA) 29 mg iron-1 mg -250 mg combo pack Yes [id number] 1{packe Take 1 Univers vit 5-04 t} Packet by ity of 33-iron-fol 00:00: mouth [place] ic-dha 00 daily. Medical (SELECT-OB Branch + DHA) 29 mg iron-1 mg -250 mg combo pack Yes [id number] 1{packe Take 1 Univers vit 5-04 t} Packet by ity of 33-iron-fol 00:00: mouth [place] ic-dha 00 daily. Medical (SELECT-OB Branch + DHA) 29 mg iron-1 mg -250 mg combo pack Yes [id number] 1{packe Take 1 Univers vit 5-04 t} Packet by ity of 33-iron-fol 00:00: mouth [place] ic-dha 00 daily. Medical (SELECT-OB Branch + DHA) 29 mg iron-1 mg -250 mg combo pack 0 202- No [id number] 1{packe Take 1 Univers vit 5-04 12-10 [...] No Known No Common Medications Medications S [facility] PROzac 10 PROzac 10 No 1{capsu QD PROzac 10 MG MG le} MG hydrOXYzine hydrOXYzine No 1{table TID hydrOXYzin HCl 50 MG HCl 50 MG t_as_ne e HCl 50 eded} MG cloNIDine cloNIDine No 1{table QD cloNIDine HCl 0.3 MG HCl 0.3 MG t} HCl 0.3 MG traZODone traZODone No 1{table QD traZODone HCl 50 MG HCl 50 MG t_at_be HCl 50 MG dtime_a s_neede d} Immunizations Ordered Filled Date Status Comments Source Immunization Name Immunization Name HPV9 2022-03-08 Completed [facility] 00:00:00 [facility] 2022-03-08 Completed University 00:00:00 [facility] 2022-03-08 Completed University of 00:00:00 [facility] HPV9 2022-03-08 Completed University of 00:00:00 [facility] HPV9 2022-03-08 Completed University of 00:00:00 [facility] HPV9 2022-03-08 Completed University of 00:00:00 [facility] HPV9 2022-03-08 Completed University of 00:00:00 [facility] HPV9 2022-03-08 Completed University of 00:00:00 [place] [facility] HPV9 2022-03-08 Completed University of 00:00:00 [facility] HPV9 2022-03-08 Completed University of 00:00:00 [facility] HPV9 2022-03-08 Completed University of 00:00:00 [facility] HPV9 2022-03-08 Completed University of 00:00:00 [facility] HPV9 2022-03-08 Completed University of 00:00:00 [facility] HPV9 2022-03-08 Completed University of 00:00:00 [facility] HPV9 2022-03-08 Completed University of 00:00:00 [facility] HPV9 2022-03-08 Completed University of 00:00:00 [facility] HPV9 2022-03-08 Completed University of 00:00:00 [facility] HPV9 2022-03-08 Completed University of 00:00:00 [facility] HPV9 2022-03-08 Completed University of 00:00:00 [facility] HPV9 2022-03-08 Completed University of 00:00:00 [facility] HPV9 2022-03-08 Completed University of 00:00:00 [facility] HPV9 2022-03-08 Completed University of 00:00:00 [facility] HPV9 2022-03-08 Completed University of 00:00:00 [facility] HPV9 2022-03-08 Completed University of 00:00:00 [facility] HPV9 2022-03-08 Completed University of 00:00:00 [facility] HPV9 2022-03-08 Completed University of 00:00:00 [place] [facility] HPV9 2022-03-08 Completed University of 00:00:00 [place] [facility] HPV9 2022-03-08 Completed University of 00:00:00 [place] [facility] HPV9 2022-03-08 Completed University of 00:00:00 [facility] HPV9 Unknown Completed [facility] HPV9 Unknown Completed [facility] HPV9 Unknown Completed [facility] HPV9 Unknown Completed [facility] HPV9 Unknown Completed [facility] HPV9 Unknown Completed [facility] HPV9 Unknown Completed [facility] HPV9 Unknown Completed [facility] HPV9 Unknown Completed [facility] HPV9 Unknown Completed [facility] HPV9 Unknown Completed [facility] HPV9 Unknown Completed [facility] HPV9 Unknown Completed [facility] HPV9 Unknown Completed [facility] HPV9 Unknown Completed [facility] HPV9 Unknown Completed [facility] HPV9 Unknown Completed [facility] HPV9 Unknown Completed [facility] HPV9 Unknown Completed [facility] HPV9 Unknown Completed [facility] HPV9 Unknown Completed [facility] HPV9 Unknown Completed [facility] HPV9 Unknown Completed [facility] HPV9 Unknown Completed [facility] HPV9 Unknown Completed [facility] HPV9 Unknown Completed [facility] HPV9 Unknown Completed [facility] HPV9 Unknown Completed [facility] HPV9 Unknown Completed [facility] HPV9 Unknown Completed [facility] Vital Signs Vital Name Observation Time Observation Value Comments Source Systolic blood 2022-12-09 20:26:00 110 mm[Hg] Univer sity of pressure [facility] Diastolic blood 2022-12-09 20:26:00 74 mm[Hg] Unive rsity of pressure [facility] Heart rate 2022-12-09 20:26:00 87 /min [facility] Body temperature 2022-12-09 20:26:00 37.17 [facility] 2022-12-09 20:26:00 18 /[facility] 2022-12-09 20:26:00 94.53 kg [facility] BMI 2022-12-09 20:26:00 30.78 kg/m2 [facility] Oxygen saturation in 2022-12-09 20:26:00 99 /min [facility] Arterial blood by [facility] Pulse oximetry Branch Systolic blood 2022-12-02 13:12:00 138 mm[Hg] Univer sity of pressure [facility] Diastolic blood 2022-12-02 13:12:00 89 mm[Hg] Unive rsity of pressure [facility] Heart rate 2022-12-02 13:12:00 98 /min Universi ty of [place] [facility] Body temperature 2022-12-02 13:12:00 37.06 Licha Univ ersity of [place] [facility] Respiratory rate 2022-12-02 13:12:00 18 /min Univ ersity of [place] [facility] Body weight 2022-12-02 13:12:00 95.981 kg Universi ty of [place] [facility] BMI 2022-12-02 13:12:00 31.25 kg/m2 [facility] [place] [facility] Systolic blood 2022-11-16 16:15:00 98 mm[Hg] Univer sity of pressure [facility] Diastolic blood 2022-11-16 16:15:00 67 mm[Hg] Unive rsity of pressure [facility] Respiratory rate 2022-11-16 16:15:00 19 /min Univ ersity of [facility] Oxygen saturation in 2022-11-16 16:15:00 94 /min University of Arterial blood by [facility] Pulse oximetry Branch Heart rate 2022-11-16 16:00:00 82 /min Universi ty of [facility] Body temperature 2022-11-16 15:40:00 36.67 Licha Univ ersity of [place] [facility] Body height 2022-11-16 13:54:00 175.3 cm [facility] of [facility] [place] Body weight 2022-11-16 13:54:00 97.523 kg Universi ty of [place] [facility] BMI 2022-11-16 13:54:00 31.75 kg/m2 [facility] [place] [facility] Systolic blood 2022-11-16 13:54:00 121 mm[Hg] Univer sity of pressure [facility] Diastolic blood 2022-11-16 13:54:00 72 mm[Hg] Unive rsity of pressure [facility] Heart rate 2022-11-16 13:54:00 87 /min Universi ty of [facility] [place] Body temperature 2022-11-16 13:54:00 36.61 Licha Univ ersity of [place] [facility] Respiratory rate 2022-11-16 13:54:00 19 /min Univ ersity of [facility] Body height 2022-11-16 13:54:00 175.3 cm [facility]i ty of [place] [facility] Body weight 2022-11-16 13:54:00 97.523 kg Universi ty of [place] [facility] BMI 2022-11-16 13:54:00 31.75 kg/m2 [facility]i ty of [place] [facility] Oxygen saturation in 2022-11-16 13:54:00 99 /min [facility] Arterial blood by [facility] Pulse oximetry Branch Systolic blood 2022-11-10 16:12:00 122 mm[Hg] Univer sity of pressure [facility] Diastolic blood 2022-11-10 16:12:00 75 mm[Hg] Unive rsity of pressure [facility] Heart rate 2022-11-10 16:12:00 83 /min Universi ty of [place] [facility] Body temperature 2022-11-10 16:12:00 36.78 L[facility] Univ ersity of [place] [facility] Body height 2022-11-10 16:12:00 175.3 cm [facility]i ty [facility] [place] [facility] Body weight 2022-11-10 16:12:00 97.523 kg [facility]i ty [facility] [place] [facility] BMI 2022-11-10 16:12:00 31.75 kg/m2 [facility] [place] [facility] Systolic blood 2022-11-01 15:59:00 116 mm[Hg] Univer sity of pressure [facility] Diastolic blood 2022-11-01 15:59:00 71 mm[Hg] Unive rsity of pressure [facility] Heart rate 2022-11-01 15:59:00 74 /min Universi ty [facility] [place] [facility] Body temperature 2022-11-01 15:59:00 36.5 Licha Univ ersity of [place] [facility] Respiratory rate 2022-11-01 15:59:00 18 /min Univ ersity of [place] [facility] Body height 2022-11-01 15:59:00 175.3 cm [facility]i [facility] [place] [facility] Body weight 2022-11-01 15:59:00 99.701 kg [facility] [place] [facility] BMI 2022-11-01 15:59:00 32.46 kg/m2 [facility] Oxygen saturation in 2022-11-01 15:59:00 99 /min University of Arterial blood by [facility] Pulse oximetry Branch Systolic blood 2022-10-14 15:07:00 135 mm[Hg] Univer sity of pressure [facility] Diastolic blood 2022-10-14 15:07:00 83 mm[Hg] Unive rsity of pressure [facility] Heart rate 2022-10-14 15:07:00 82 /min [facility]i ty [facility] Body temperature 2022-10-14 15:07:00 36.67 Licha Univ ersity of [place] [facility] Body height 2022-10-14 15:07:00 175.3 cm [facility]i [facility] Body weight 2022-10-14 15:07:00 98.793 kg [facility]i ty [facility] BMI 2022-10-14 15:07:00 32.16 kg/m2 [facility] Systolic blood 2022-10-13 20:28:00 119 mm[Hg] Univer sity of pressure [facility] Diastolic blood 2022-10-13 20:28:00 81 mm[Hg] Unive rsity of pressure [facility] Heart rate 2022-10-13 20:28:00 91 /min [facility]i ty [facility] Body temperature 2022-10-13 20:28:00 36.67 Licha Univ ersity of [facility] Respiratory rate 2022-10-13 20:28:00 18 /min Univ ersity of [facility] Body height 2022-10-13 20:28:00 175.3 cm [facility]i [facility] Body weight 2022-10-13 20:28:00 98.793 kg [facility]i ty [facility] BMI 2022-10-13 20:28:00 32.16 kg/m2 [facility] Oxygen saturation in 2022-10-13 20:28:00 98 /min University of Arterial blood by [facility] Pulse oximetry Branch Systolic blood 2022-10-06 14:04:00 121 mm[Hg] Univer sity of pressure [facility] Diastolic blood 2022-10-06 14:04:00 75 mm[Hg] Unive rsity of pressure [facility] Heart rate 2022-10-06 14:04:00 74 /min [facility]i ty [facility] Body temperature 2022-10-06 14:04:00 36.67 Licha Univ ersity [facility] Body height 2022-10-06 14:04:00 175.3 cm [facility]i ty [facility] Body weight 2022-10-06 14:04:00 99.882 kg [facility]i ty [facility] [place] [facility] BMI 2022-10-06 14:04:00 32.52 kg/m2 [facility]i ty [facility] Oxygen saturation in 2022-10-06 14:04:00 98 /min University of Arterial blood by [facility] Pulse oximetry Branch Systolic blood 2022-09-23 13:17:00 115 mm[Hg] Univer sity of pressure [facility] Diastolic blood 2022-09-23 13:17:00 82 mm[Hg] Unive rsity of pressure [facility] Heart rate 2022-09-23 13:17:00 83 /min [facility]i [facility] Body height 2022-09-23 13:17:00 175.3 cm [facility] Body weight 2022-09-23 13:17:00 98.34 kg [facility] ty [facility] [place] [facility] BMI 2022-09-23 13:17:00 32.02 kg/m2 [facility] Oxygen saturation in 2022-09-23 13:17:00 98 /min University of Arterial blood by [facility] Pulse oximetry Branch Systolic blood 2022-05-25 14:40:00 127 mm[Hg] Univer sity of pressure [facility] Diastolic blood 2022-05-25 14:40:00 76 mm[Hg] Unive rsity of pressure [facility] Heart rate 2022-05-25 14:40:00 79 /min [facility] Body temperature 2022-05-25 14:40:00 36.67 Licha [facility] Respiratory rate 2022-05-25 14:40:00 18 /min [facility] Body height 2022-05-25 14:40:00 175.3 cm [facility] Body weight 2022-05-25 14:40:00 96.253 kg [facility] BMI 2022-05-25 14:40:00 31.34 kg/m2 [facility] Systolic blood 2022-05-06 19:52:00 126 mm[Hg] Univer sity of pressure [facility] Diastolic blood 2022-05-06 19:52:00 74 mm[Hg] Unive rsity of pressure [facility] Heart rate 2022-05-06 19:52:00 63 /min [facility] Body temperature 2022-05-06 19:52:00 36.56 Licha [facility]ity of [facility] Respiratory rate 2022-05-06 19:52:00 18 /min Univ ersity of [facility] Body height 2022-05-06 19:52:00 175.3 cm [facility] Body weight 2022-05-06 19:52:00 95.709 kg [facility] BMI 2022-05-06 19:52:00 31.16 kg/m2 [facility] Systolic blood 2022-03-08 20:22:00 132 mm[Hg] Univer sity of [facility] Diastolic blood 2022-03-08 20:22:00 89 mm[Hg] Unive rsity of pressure [facility] Heart rate 2022-03-08 20:22:00 90 /min Universi ty of [facility] Body temperature 2022-03-08 20:22:00 35.89 Licha [facility] Respiratory rate 2022-03-08 20:22:00 20 /min Univ [facility] Body height 2022-03-08 20:22:00 175.3 cm [facility] Body weight 2022-03-08 20:22:00 98.941 kg [facility] BMI 2022-03-08 20:22:00 32.21 kg/m2 Universi ty of [facility] height 2022-02-22 10:00:00 69 [in_i] Common [facility] weight 2022-02-22 10:00:00 210 [lb_av] [facility] bmi 2022-02-22 10:00:00 31.01 kg/m2 [facility] Systolic blood 2022-02-15 21:37:00 113 mm[Hg] [facility] Diastolic blood 2022-02-15 21:37:00 70 mm[Hg] Unive [facility] Heart rate 2022-02-15 21:37:00 71 /min [facility] Body temperature 2022-02-15 21:37:00 36.33 Licha [facility] Respiratory rate 2022-02-15 21:37:00 18 /min [facility] Body height 2022-02-15 21:37:00 175.3 cm [facility] Body weight 2022-02-15 21:37:00 96.871 kg [facility] BMI 2022-02-15 21:37:00 31.54 kg/m2 [facility] Systolic blood 2022-01-24 13:44:00 117 mm[Hg] Univer sity of pressure [facility] Diastolic blood 2022-01-24 13:44:00 82 mm[Hg] Unive rsity of pressure [facility] Heart rate 2022-01-24 13:44:00 85 /min [facility] Body temperature 2022-01-24 13:44:00 36.89 Licha [facility] Respiratory rate 2022-01-24 13:44:00 18 /min Univ [facility] Oxygen saturation in 2022-01-24 13:44:00 97 /min University Arterial blood by [facility] Pulse oximetry Branch Systolic blood 2022-01-18 21:33:00 121 mm[Hg] Univer sity of pressure [facility] Diastolic blood 2022-01-18 21:33:00 80 mm[Hg] Unive rsity of pressure [facility] Heart rate 2022-01-18 21:33:00 103 /min Universi ty of [facility] Body temperature 2022-01-18 21:33:00 36.44 Lich[address] [facility] Respiratory rate 2022-01-18 21:33:00 18 /min Univ ersity of [facility] Body height 2022-01-18 21:33:00 175.3 cm [facility] Body weight 2022-01-18 21:33:00 107.673 kg [facility] BMI 2022-01-18 21:33:00 35.05 kg/m2 [...] 2022-01-05 21:42:00 18 /min [facility] Body height 2022-01-05 21:42:00 175.3 cm [...] 2022-01-02 22:30:00 107 /min [facility] Oxygen saturation in 2022-01-02 22:30:00 99 /min University Arterial blood by [facility] Pulse oximetry Branch Body temperature 2022-01-02 22:06:00 36.67 Licha [facility] Respiratory rate 2022-01-02 22:06:00 18 /min [facility] Body height 2022-01-02 22:06:00 175.3 cm [facility] Body weight 2022-01-02 22:00:00 106.142 [...] 20:23:00 132 mm[Hg] [facility]iver [facility] Diastolic blood 2021-12-09 20:23:00 73 [...] 2021-11-26 16:09:00 99 /min [facility] Body temperature 2021-11-26 16:09:00 36.33 Licha [facility] Respiratory rate 2021-11-26 16:09:00 18 /min [facility] Body height 2021-11-26 16:09:00 175.3 cm [facility] Body weight 2021-11-26 16:09:00 104.3 [...] 23:40:00 99 /min University Arterial blood by [facility] Pulse oximetry Branch Systolic blood 2021-11-19 22:15:00 [...] 2021-11-19 21:55:00 34.19 kg/m2 [facility] Systolic blood 2021-11-19 21:36:00 117 [...] 2021-11-19 21:36:00 34.14 kg/m2 [facility] Oxygen saturation in 2021-11-19 21:36:00 98 /min University of Arterial blood by [employer] [facility] Pulse oximetry Branch Systolic blood 2021-11-02 18:40:00 [...] 100 /min University of Arterial blood by [employer] pat Pulse oximetry Branch Systolic blood 2021-11-02 14:00:00 116 mm[Hg] Univer [facility]ity [facility] Diastolic blood 2021-11-02 14:00:00 76 mm[Hg] Unive rsity of [facility] Body temperature 2021-11-02 13:54:00 36.61 Licha [facility] Respiratory rate 2021-11-02 13:54:00 18 /min [facility] Body height 2021-11-02 13:54:00 175.3 cm [facility] Body weight 2021-11-02 13:54:00 103.511 kg [facility] BMI 2021-11-02 13:54:00 33.70 kg/m2 [facility] Systolic blood 2021-10-05 19:54:00 128 mm[Hg] [facility] Diastolic blood 2021-10-05 19:54:00 72 mm[Hg] [facility]ive [facility]ity [facility] Heart rate 2021-10-05 19:54:00 80 /min [facility] Body temperature 2021-10-05 19:54:00 35.56 Licha [facility] Respiratory rate 2021-10-05 19:54:00 18 /min [facility] Body weight 2021-10-05 19:54:00 100.381 kg [facility] BMI 2021-10-05 19:54:00 32.68 kg/m2 [facility] Systolic blood 2021-09-28 20:29:00 121 mm[Hg] [facility] Diastolic blood 2021-09-28 20:29:00 74 mm[Hg] Unive [facility]ity [facility] Heart rate 2021-09-28 20:29:00 107 /min [facility] Body temperature 2021-09-28 20:29:00 36.56 Licha [facility] Respiratory rate 2021-09-28 20:29:00 20 /min [facility] Body height 2021-09-28 20:29:00 175.3 cm [facility] Body weight 2021-09-28 20:29:00 100.154 kg [facility] BMI 2021-09-28 20:29:00 32.61 kg/m2 [facility] Systolic blood 2021-09-28 20:29:00 121 mm[Hg] [facility] Diastolic blood 2021-09-28 20:29:00 74 mm[Hg] Unive [facility]ity [facility] Heart rate 2021-09-28 20:29:00 107 /min Universi ty [facility] Body temperature 2021-09-28 20:29:00 36.56 Licha [facility] Res[facility] rate 2021-09-28 20:29:00 20 /min [facility] Body height 2021-09-28 20:29:00 175.3 cm Universi ty [facility] Body weight 2021-09-28 20:29:00 100.154 kg Universi ty [facility] BMI 2021-09-28 20:29:00 32.61 kg/m2 Universi ty [facility] height 2021-05-26 13:20:00 69 [in_i] Common [facility] weight 2021-05-26 13:20:00 224.6 [lb_av] [facility] temperature 2021-05-26 13:20:00 98.7 [degF] [facility] bmi 2021-05-26 13:20:00 33.16 kg/m2 [facility] oximetry 2021-05-26 13:20:00 98 % [facility] respiratory rate 2021-05-26 13:20:00 16 /min Comm on [facility] blood pressure 2021-05-26 13:20:00 118 mm[Hg] Common [facility] - systolic [facility] blood pressure 2021-05-26 13:20:00 68 mm[Hg] Common [facility] - diastolic [facility] height 2021-04-21 11:20:00 69 [in_i] Common [facility] weight 2021-04-21 11:20:00 219.8 [lb_av] [facility] temperature 2021-04-21 11:20:00 97.9 [degF] [facility] bmi 2021-04-21 11:20:00 32.46 kg/m2 [facility] oximetry 2021-04-21 11:20:00 96 % [facility] respiratory rate 2021-04-21 11:20:00 16 /min Comm on [facility] blood pressure 2021-04-21 11:20:00 131 mm[Hg] [facility] systolic [facility] blood pressure 2021-04-21 11:20:00 86 mm[Hg] [facility] diastolic [facility] oximetry 2021-03-19 09:00:00 97 % [facility] respiratory rate 2021-03-19 09:00:00 16 /min Comm on [facility] blood pressure 2021-03-19 09:00:00 119 mm[Hg] [facility] systolic [facility] blood pressure 2021-03-19 09:00:00 75 mm[Hg] [facility] diastolic [facility] height 2021-03-19 09:00:00 69 [in_i] [facility] weight 2021-03-19 09:00:00 223.2 [lb_av] [facility] temperature 2021-03-19 09:00:00 97.2 [degF] [facility] bmi 2021-03-19 09:00:00 32.96 kg/m2 [facility] Procedures Procedure Date / Time Performing Clinician Source Performed POCT TEST 2022-12-09 00:00:00 Shamika Garcia [facility] TOTAL BETA HCG ASSAY 2022-12-02 13:31:00 Shamika Garcia [facility] POCT TEST 2022-12-02 13:13:00 Shamika Garcia [facility] DILATION AND CURETTAGE 2022-11-16 14:39:00 Shamika Garcia [facility] DAY SURGERY - ADC 2022-11-16 05:01:00 Doctor Unassigned, No Univ [facility] Name [facility] BASIC METABOLIC PANEL 2022-11-15 16:48:00 Shamika Garcia [facility] [place] (NA, K, CL, CO2, Medical Branch GLUCOSE, BUN, CREATININE, CA) CBC WITH DIFF 2022-11-15 16:48:00 Sham[facility] HB ABO GROUPING 2022-11-15 16:48:00 [facility] HIV 1/2 AG-AB WITH 2022-11-15 16:48:00 Sharron Davalos [facility] DSU PRE-OP 2022-11-10 05:01:00 Doctor Unassigned, No [facility] DSU PRE-OP 2022-11-10 05:01:00 Doctor Unassigned, No [facility] US FIRST 2022-11-09 22:18:00 Shamika Garcia [facility] TRIMESTER LESS THAN 14 [facility] WEEKS WITH TRANSVAGINAL US OB TRANSVAGINAL 2022-11-01 16:32:04 [facility] ULTRASOUND 2022-11-01 05:01:00 Doctor Unassigned, No [facility] DME/SUPPLY JUSTIFICATION 2022-10-25 05:01:00 Doctor Unassigned, No [facility] TOTAL BETA HCG ASSAY 2022-10-19 20:50:00 Shamika Garcia [facility] CARDIOLOGY EVENT MONITOR 2022-10-17 05:01:00 Doctor Unassigned, No [facility] GC & CHLAMYDIA AMPLIFIED 2022-10-14 15:25:00 Shamika Garcia [facility] POCT TEST 2022-10-14 00:00:00 Shamika Garcia [facility] POCT URINALYSIS W/O 2022-10-14 00:00:00 Shamika Garcia [facility] SPECIFIC GRAVITY [facility] TRANSTHORACIC ECHO (TTE) 2022-10-13 18:28:25 Oanh Byrne [facility] COMPLETE [facility] EXTERNAL PROVIDER - ADC 2022-09-22 05:01:00 Doctor Unassigned, N o [facility] PATIENT FINANCIAL 2022-05-25 14:37:06 Doctor Unassigned, No [facility] POCT TEST 2022-05-25 00:00:00 [facility] (HPV 9V) 2022-03-08 21:11:07 Sharron Davalos Uni [facility] VACCINE [facility] CONSENT/REFUSAL FOR 2022-02-15 21:20:48 Doctor Unassigned, No [facility] [place] ASSIGNMENT OF BENEFITS 2022-02-15 21:20:31 Doctor Unassigned, No [facility] CBC WITH DIFF 2022-01-23 08:13:00 Janeth Lopez [facility] VENOUS CORD GAS 2022-01-22 23:45:00 Rodriguez [facility] CENTRAL NEURAXIAL BLOCK 2022-01-22 09:35:58 [facility] GROUPING 2022-01-21 16:59:00 Rodriguez [facility] RHO (D) IMMUNE GLOBULIN 2022-01-21 16:59:00 Janeth Lopez [facility] SGOT (ASPARTATE AMINO 2022-01-21 16:50:00 Rodriguez [facility] TRANSFER) [facility] ALANINE AMINO 2022-01-21 16:50:00 Rodriguez [facility] TRANSFERASE(SGPT [facility] CBC WITH DIFF 2022-01-21 16:50:00 Rodriguez [facility] GALV ONLY - SYPHILIS 2022-01-21 16:50:00 Rodriguez [facility] IGG/IGM [facility] HEPATITIS B SURFACE 2022-01-21 16:50:00 Rodriguez [facility] ANTIGEN [facility] RPR (QUANTITATIVE) 2022-01-21 16:50:00 Rodriguez [facility] HIV 1/2 AG-AB WITH 2022-01-21 16:50:00 Rodriguez [facility] REFLEX [facility] HOSPITAL ADMISSION 2022-01-21 06:01:00 Doctor Unassigned, No [facility] 2022-01-05 21:44:00 Lidia Gunn [facility] URINALYSIS 2022-01-02 22:59:[address] [facility] CONSENT/REFUSAL FOR 2022-01-02 21:58:20 Doctor Unassigned, No [facility] [place] DIAGNOSIS AND TREATMENT [facility] L&D VISIT 2022-01-02 06:01:00 Doctor Unassigned, No [facility] (NON-DELIVERED) [facility] POCT URINALYSIS 2021-12-24 00:00:00 Lidia Gunn [facility] POCT URINALYSIS 2021-12-09 20:24:00 Lidia Gunn [facility] COMP. METABOLIC PANEL 2021-11-26 17:00:00 [facility] ([id number]) [facility] CBC WITH DIFF 2021-11-26 17:00:00 John Mcgee [facility] URINALYSIS 2021-11-19 22:35:00 Samantha Box [facility] ADC CLC OR LCC ONLY - 2021-11-19 22:35:00 Isauro Samantha [facility] ASSIGNMENT OF BENEFITS 2021-11-19 21:49:27 Doctor Unassigned, No [facility] NOTICE OF PRIVACY 2021-11-19 21:49:06 Doctor Unassigned, No [facility] CONSENT/REFUSAL FOR 2021-11-19 21:48:47 Doctor Unassigned, No [facility] TREATMENT [facility] POCT URINALYSIS 2021-11-02 18:52:00 Lidia Gunn [facility] URINALYSIS 2021-11-02 14:43:00 Shamika Garcia [facility] ADC CLC OR LCC ONLY - 2021-11-02 14:43:00 Shamika Garcia [facility] ASSIGNMENT OF BENEFITS 2021-11-02 13:36:01 Doctor Unassigned, No [facility] CONSENT/REFUSAL FOR 2021-11-02 13:35:30 Doctor Unassigned, No [facility] DIAGNOSIS AND TREATMENT [facility] POCT URINALYSIS 2021-10-05 19:56:00 Lidia Gunn [facility] INSURANCE CORRESPONDENCE Doctor Unassigned, No [facility] Plan of Care Planned Activity Planned Date Details Comments Source Future Scheduled Test 2022-11-14 00:00:00 IMM Influenza [facility] Seasonal (>/= 19 yrs) [code = IMM Influenza Seasonal (>/= 19 yrs)] Future Scheduled Test 2022-10-15 00:00:00 IMM Influenza [facility] Seasonal (>/= 19 yrs) [code = IMM Influenza Seasonal (>/= 19 yrs)] Future Scheduled Test 2022-10-15 00:00:00 IMM Influenza [facility] Seasonal (>/= 19 yrs) [code = IMM Influenza Seasonal (>/= 19 yrs)] Future Scheduled Test 2021-11-14 00:00:00 IMM Influenza [facility] Seasonal (>/= 19 yrs) [code = IMM Influenza Seasonal (>/= 19 yrs)] Future Scheduled Test 2020-11-14 00:00:00 IMM Influenza [facility] Seasonal Nov to April (>/= 19 yrs) [code = IMM Influenza Seasonal Oct to April (>/= 19 yrs)] Future Scheduled Test 2020-06-07 00:00:00 Screening for [facility] malignant neoplasm of cervix (procedure) [code = 232407859] Future Scheduled Test 2020-06-07 00:00:00 Screening for [facility] malignant neoplasm of cervix (procedure) [code = 974899841] Future Scheduled Test 2020-06-07 00:00:00 Screening for [facility] malignant neoplasm of cervix (procedure) [code = 809117380] Future Scheduled Test 2020-06-07 00:00:00 Screening for [facility] malignant neoplasm of cervix (procedure) [code = 538032884] Future Scheduled Test 2020-06-07 00:00:00 Screening for [facility] malignant neoplasm of cervix (procedure) [code = 136885896] Future Scheduled Test 2020-06-07 00:00:00 Screening for [facility] malignant neoplasm of cervix (procedure) [code = 108838322] Future Scheduled Test 2011 00:00:00 COVID-19 Vaccine [facility] [code = COVID-19 Vaccine (1)] Future Scheduled Test 1999 00:00:00 COVID-19 Vaccine (#1) [facility] [code = COVID-19 Vaccine (#1)] Future Scheduled Test 1999 00:00:00 COVID-19 Vaccine (#1) [facility] [code = COVID-19 Vaccine (#1)] Future Scheduled Test 1999 00:00:00 COVID-19 Vaccine (#1) [facility] [code = COVID-19 Vaccine (#1)] Future Scheduled Test 1999 00:00:00 COVID-19 Vaccine (#1) [facility] [code = COVID-19 Vaccine (#1)] Encounters Start End Encounter Admission Attending Care Care Encounter Source Date/Time Date/Time Type Type Clinicians Facility Department ID 2022-10-01 Outpatient Álvarez, [facility]ARLC [facility] [id number] Common 09:31:00 Pedro [id number] [facility] 2022-09-20 Outpatient Álvarez, STCESARLC [facility] [id number] Common 13:45:00 Pedro [id number] [facility] 2022-04-21 Outpatient Álvarez, STCESRALC [facility] [id number] Common 13:56:01 Pedro [id number] [facility] 2022-02-22 Outpatient Álvarez, STCESARLC [facility] [id number] Common 10:10:02 Pedro [id number] [facility] 2021-11-02 Outpatient X [facility] LUCY [id number] Univers 12:05:16 it of [facility] 2021-08-21 Outpatient Álvarez, STCESARLC ST[facility] [id number] Common 11:03:02 Pedro [id number] [facility] 2021-05-12 Outpatient BOZENAA, [facility] [id number] [place] 09:56:57 FRANCES [id number] [facility] 2021-03-19 Outpatient Álvarez, STLMLC STLC [id number] Common 09:00:02 Pedro [facility] 2020-12-12 Emergency [facility] [id number] Univers 19:39:41 ity [facility] 2023-05-30 2023-05-30 Outpatient R ADILENE PALAFOX [facility] U [facility] [id number] Univers 10:00:00 10:00:00 ADILENE PALAFOX ity [facility] 2022-12-13 2022-12-13 Day Care Assistant 2, Adc Lab [facility] [id number] Univers 16:15:00 16:30:00 Visit Shamika Garcia Severo [place] [id number] ity [facility] [id number] [phone] [facility] [address] [facility] 2022-12-13 2022-12-13 Outpatient R RADHA SHAMIKA [facility] [id number] Univers 16:15:00 16:15:00 ity [facility] 2022-12-09 2022-12-09 Outpatient R GARCIA SHAMIKA [facility] [id number] Univers 15:15:00 15:47:12 ity [facility] 2022-12-09 2022-12-09 Office Shamika Garcia [facility] [id number] Univers 15:15:00 15:47:12 Visit Severo ROUSSEAU [id number] i ty of [id number] [id number] [place] N[place] 134 [facility] 2022-12-09 2022-12-09 [facility] [id number] Univers 00:00:00 00:00:00 Severo ROUSSEAU [id number] i ty of [facility] [id number] [phone] [place] 134 [facility] 2022-12-08 2022-12-08 Outpatient R RADHA SHAMIKA [facility] [id number] Univers 10:00:00 10:35:14 ity [facility] 2022-12-08 2022-12-08 Day Care Assistant 2, Adc Lab [facility] [id number] Univers 10:00:00 10:15:00 Visit Shamika GarciaTON [id number] ity of [id number] [id number] [place] 353 [facility] 2022-12-03 2022-12-03 Case Shamika Garcia [facility] [id number] Univers 00:00:00 00:00:00 Management Cam [place] [id number] ity [id number] [id number] [place] 134 [facility] 2022-12-02 2022-12-02 Day Care Assistant 2, Adc Lab [facility] [id number] Univers 08:30:00 08:34:37 Visit Shamika Garcia [id number] it[place] of [place] [id number] [id number] [place] 353 [facility] 2022-12-02 2022-12-02 Outpatient R SHAMIKA GARCIA [facility] [id number] Univers 08:30:00 08:30:00 ity of [facility] 2022-12-02 2022-12-02 Office Shamika Garcia [facility] [id number] Univers 08:00:00 08:21:22 Visit Severo ROUSSEAU [id number] i ty of [place] [id number] [phone] [place] 134 [facility] 2022-12-01 2022-12-01 Outpatient R SHAMIKA GARCIA [facility] [id number] Univers 13:15:00 13:15:00 ity of [facility] 2022-11-23 2022-11-23 Patient Shamika Garcia [facility] [id number] Univers 00:00:00 00:00:00 Secure Msg Severo [place] [id number] ity of [place] [id number] [id number] [place] 134 [facility] 2022-11-17 2022-11-17 Case Shamika Garcia [facility] [id number] Univers 00:00:00 00:00:00 Management Cam [place] [id number] [id number] [id number] [place] 134 [facility] 2022-11-17 2022-11-17 Case Shamika Garcia [facility] [id number] Univers 00:00:00 00:00:00 Management Cam [place] [id number] [id number] [id number] [place] 134 [facility] 2022-11-17 2022-11-17 Telephone Shamika Garcia [facility] [id number] Univers 00:00:00 00:00:00 Cam [place] [id number] i ty of [place] [id number] [id number] [place]ical NAL [address] [place] [address] 2022-11-16 2022-11-16 Outpatient R SHAMIKA GARCIA [facility] COMMAND AND CONTROL [id number] Univers 08:49:00 11:26:00 ity of [facility] 2022-11-16 2022-11-16 [facility] Shamika Garcia [facility] 1.2.840.114 [id number] Univers 08:49:00 11:26:00 Encounter Cam [place] 350.1.13.10 ity of [place] [id number] [facility] ical CENTER [address] [place] 2022-11-16 2022-11-16 Surgery Shamika Garcia [facility] 1.2.192.123 [id number] Univers 09:14:00 10:25:00 Cam [place] 350.1.13.10 i ty of [place] [id number] [facility] ical CENTER [address] [place] 2022-11-16 2022-11-16 Telephone Shamika Garcia [facility] 1.2.840.114 10 [id number] Univers 00:00:00 00:00:00 Cam ONELIA 350.1.13.10 i ty of [place] [id number] [place] dical NAL 134 [facility] 2022-11-16 2022-11-16 Orders Doctor FANI 1.2.840.114 [id number] Univers 00:00:00 00:00:00 Only Unassigned, ALEKSANDRA 350.1.13.10 ity of [facility] 4.2.7.2.686 Nick as [phone] [address] 2022-11-15 2022-11-15 Outpatient R TYE GARCIAEN [facility] [id number] Univers 16:00:00 16:00:00 ity of [facility] 2022-11-15 2022-11-15 Day Care Assistant 2, Adc Lab [facility] 1..840.114 [id number] Univers 11:45:00 12:56:29 Visit Shamika Garcia Severo [place] 350.1.13.10 ity of [place] [id number] [place] dical NAL 353 [facility] 2022-11-15 2022-11-15 Outpatient R SHAMIKA GARCIA [facility] [id number] Univers 11:45:00 11:45:00 ity of [facility] 2022-11-15 2022-11-15 Patient Shamika Garcia [facility] 1.2.686.311 [id number] Univers 00:00:00 00:00:00 Secure Msg Severo [place] 350.1.13.10 ity of [place] [phone] [place] dical NAL 134 [facility] 2022-11-10 2022-11-10 Outpatient R SHAMIKA GARCIA [facility] [id number] Univers 11:00:00 12:07:02 ity of [facility] 2022-11-10 2022-11-10 Office Radha [facility] 1.2.383.300 [id number] Univers 11:00:00 12:07:02 Visit Cam [place] 350.1.13.10 i ty of [place] [id number] [place] dical NAL [address] [place] [address] 2022-11-10 2022-11-10 Prep For Shamika Garcia [facility] 1.2.840.114 [id number] Univers 00:00:00 00:00:00 Surgery Cam [place] 350.1.13.10 i ty of [facility] 4.2.7.2.[place] [phone] [place] dical NAL [address] [place] [address] 2022-11-09 2022-11-09 Outpatient R SHAMIKA GARCIA [facility] [id number] Univers 16:44:57 23:59:00 ity of [facility] 2022-11-09 2022-11-09 Hospital Shamika Garcia [facility] 1.2.840.114 [id number] Univers 16:44:57 23:59:00 Encounter Cam [place] 350.1.13.10 ity of [facility] 4.2.7.2.[place] C[place] [id number] [facility] [address] [place] 2022-11-09 2022-11-09 Telephone Shamika Garcia [facility] 1.2.840.114 [id number] Univers 00:00:00 00:00:00 Cam [place] 350.1.13.10 i ty of [facility] 4.2.7.2.[place] [phone] [place] dical NAL [address] [place] [address] 2022-11-01 2022-11-01 Outpatient R SHAMIKA GARCIA [facility] [id number] Univers 10:45:00 11:25:49 ity of [facility] 2022-11-01 2022-11-01 Routine Shamika Garcia [facility] 1.2.946.948 [id number] Univers 10:45:00 11:25:49 Cam [place] 350.1.13.10 ity of Visit [place] 4.2.[place].2.[place] [id number] [place] dical NAL [address] [place] [address] 2022-11-01 2022-11-01 Orders Doctor MOHR 1.2.840.114 [id number] Univers 00:00:00 00:00:00 Only Unassigned, ALEKSANDRA 350.1.13.10 ity of [place] [facility] 4.2.7.2.686 Nick as [phone] [address] 2022-10-25 2022-10-25 Orders Doctor FANI 1.2.840.114 [id number] Univers 00:00:00 00:00:00 Only Unassigned, ALEKSANDRA 350.1.13.10 ity of [place] [facility] 4.2.7.2.686 Nick as [phone] [address] 2022-10-21 2022-10-21 Day Care Assistant 2, Adc Lab [facility] 1.2.840.114 [id number] Univers 16:00:00 16:15:00 Visit Shamika Garcia 350.1.13.10 ity of [facility] 4.2.7.2.[place] [id number] [place] dical NAL 353 [facility] 2022-10-21 2022-10-21 Outpatient R RADHA SHAMIKA [facility] [id number] Univers 16:00:00 16:00:00 ity of [facility] 2022-10-20 2022-10-20 Patient Doctor [facility] 1.2.840.114 [id number] Univers 00:00:00 00:00:00 Secure Msg Unassigned, [place] 350.1.13.10 ity of [place] 4.2.7.2.[place] [id number] Ky dical NAL 134 [facility] 2022-10-19 2022-10-19 Outpatient R SHAMIKA GARCIA [facility] [id number] Univers 15:45:00 15:52:47 ity of [facility] 2022-10-19 2022-10-19 Day Care Assistant 2, Adc Lab [facility] 1.2.840.114 [id number] Univers 15:45:00 15:52:47 Visit Shamika Garcia 350.1.13.10 ity of [place] 4.[place].2.[place] [id number] Ky dical NAL 353 [facility] 2022-10-17 2022-10-17 Orders Doctor FANI 1.2.840.114 [id number] Univers 00:00:00 00:00:00 Only Unassigned, ALEKSANDRA 350.1.13.10 ity of [place] [facility] 4.2.7.2.686 Nick as [phone] [address] 2022-10-15 2022-10-15 Patient Shamika Garcia [facility] 1.2.570.749 [id number] Univers 00:00:00 00:00:00 Secure Msg Cam [place] 350.1.13.10 ity of [place] 4.[place] [phone] [facility] 134 [facility] 2022-10-14 2022-10-14 Day Care Assistant 2, Adc Lab [facility] 1.2.840.114 [id number] Univers 11:00:00 11:00:00 Visit Shamika Garcia Severo [place] 350.1.13.10 ity of [place] 4.[place].2.[place] [id number] [facility] 353 [facility] 2022-10-14 2022-10-14 Outpatient R SHAMIKA GARCIA [facility] [id number] Univers 10:00:00 10:30:45 ity of [facility] 2022-10-14 2022-10-14 Initial Shamika Garcia [facility] 1.2.659.978 [id number] Univers 10:00:00 10:30:45 Severo [place] 350.1.13.10 ity of Visit [place] 4.2.[place].2.[place] [id number] [facility] 134 [facility] 2022-10-13 2022-10-13 Outpatient R SIMRAN BYRNE [facility] [id number] Univers 15:30:00 23:59:00 SIMRAN BYRNE ity of [facility] 2022-10-13 2022-10-13 [facility] 1.2.840.114 10 [id number] Univers 13:26:11 23:59:00 Encounter Myranda [place] 350.1.13.10 ity of [place].7.2.[place] [phone] [place] dical NAL 846 [facility] 2022-10-13 2022-10-13 Office [facility] 1.2.840.114 [id number] [facility] [place] 15:00:00 15:59:06 Visit Sendil James [place] 350.1.13.10 ity of [place] [id number] [place] dical NAL 059 [facility] 2022-10-13 2022-10-13 [facility] 1.2.840.114 10 [id number] [facility] [place] 12:49:00 13:25:00 Encounter Myranda GABIMARLINE 350.1.13.10 ity of [place] [phone] Ky dicde NAL 843 [facility] 2022-10-06 2022-10-06 Office [facility] 1.2.840.114 [id number] [facility] [place] 09:00:00 09:30:00 Visit Sendemmanuel James ASHLEYMARLINE 350.1.13.10 ity of [place] [phone] Ky dicde NAL 059 [facility] 2022-10-06 2022-10-06 Outpatient R DAVIDA [facility] [id number] Univers 09:00:00 09:00:00 SENDIL tyrese [facility] 2022-09-23 2022-09-23 Outpatient R SIMRAN BYRNE [facility] [id number] Univers 08:00:00 08:43:58 SIMRAN BYRNE ity [facility] 2022-09-23 2022-09-23 Office [facility] 1.2.840.114 [id number] [facility] [place] 08:00:00 08:43:58 Visit Uzielmoriah [place] 350.1.13.10 ity of [place].2.[place] [id number] [place] dical NAL 059 [facility] 2022-09-22 2022-09-22 Orders Doctor FANI 1.2.840.114 [id number] Univers 00:00:00 00:00:00 Only Unassigned, LAEKSANDRA 350.1.13.10 ity of [place] [facility] 4.2.7.2.686 Nick as [id number] [address] 2022-09-20 2022-09-20 Outpatient SFA SFA [id number] [place] 14:42:38 14:42:38 [id number] F [place] 2022-09-16 2022-09-16 Outpatient SFA SFA [id number]- [id number] [place] 15:25:14 15:25:14 [id number] F Emin[place] 2022-09-01 2022-09-01 Outpatient SFA SFA [id number]- [id number] [place] 17:48:36 17:48:36 [id number] F [place] 2022-08-11 2022-08-11 Outpatient SFA SFA [id number]- [id number] [place] 09:04:15 09:04:15 [id number] F [place] 2022-06-07 2022-06-07 Outpatient R AKINSIPE, [facility] [id number] Univers 13:15:00 13:15:00 SHARRON ity o f [facility] 2022-05-25 2022-05-25 Office Pinto-Terra [facility] 1.2.840.114 [id number] Univers 09:30:00 10:00:00 Visit Adilene bergMARLINE 350.1.13.10 ity of [place].2.[place] [id number] Ky dical NAL 134 [facility] 2022-05-25 2022-05-25 Outpatient R LEE-KODY LIZARRAGASOL [facility] U TMB [id number] Univers 09:30:00 09:30:00 LEE-ELHAM ADILENE ity of [facility] 2022-05-25 2022-05-25 Orders Doctor MOHR 1.2.840.114 [id number] Univers 00:00:00 00:00:00 Only Unassigned, ALEKSANDRA 350.1.13.10 ity of [place] [facility] 4.2.7.2.686 Nick as [phone] [address] 2022-05-10 2022-05-10 Telephone Alexandro [facility] 1.2.840.114 10 [id number] Univers 00:00:00 00:00:00 Gaudencio [place] 350.1.13.10 i ty of [facility] [place] [phone] [facility] 134 [facility] 2022-05-10 2022-05-10 Case [facility] 1.2.619.968 [id number] Univers 00:00:00 00:00:00 Management Gaudencio ASHELYMARLINE 350.1.13.10 ity of [facility] [place].2.7.2.[place] [id number] [address] 2022-05-07 2022-05-07 Outpatient R ANOOP, [facility] [id number] Univers 13:30:00 13:30:00 SHARRON ruvalcaba [facility] 2022-05-06 2022-05-06 Day Care Assistant 2, Adc Lab [facility] 1.2.840.114 [id number] Univers 15:30:00 15:30:00 Visit Tamy Mcbabar [place] 350.1.13.10 ity of [facility] 4.2.7.2.[place] [id number] [facility] 353 [facility] 2022-05-06 2022-05-06 Office [facility] 1.2.459.162 [id number] Univers 15:00:00 15:30:00 Visit Gaudencio ONELIA 350.1.13.10 i ty of [facility] 4.2.7.2.[place] [id number] [facility] 134 [facility] 2022-05-06 2022-05-06 Outpatient R ALEXANDRO [facility] [id number] Univers 15:00:00 15:08:38 GAUDENCIO xiong [facility] 2022-03-08 2022-03-08 Outpatient R ANOOP, [facility] [id number] Univers 14:00:00 15:21:42 SHARRON ruvalcaba [facility] 2022-03-08 2022-03-08 [facility] 1.2.541.089 [id number] Univers 14:00:00 15:21:42 Visit Sharron Richter E BUSINESS MANAGER 350.1.13.10 ity of [place] 4.2.7.2.686 Nick as MATERNAL [id number] [facility] ical & CHILD [address] [place] [address] 2022-02-22 2022-02-[address] [facility] [id number] Co mmon 00:00:00 00:00:00 VISIT Spirit ESTAB PT - CHI LEVEL 4 [facility] 2022-02-15 2022-02-15 Outpatient R [facility] [id number] Univers 15:30:00 15:59:28 SHARRON xiong o f [facility] 2022-02-15 2022-02-15 Routine [facility] 1.2.679.305 [id number] Univers 15:30:00 15:45:00 Sharron Richter E BUSINESS MANAGER 350.1.13.10 ity of Visit REGIONAL 4.2.7.2.686 Nick as MATERNAL [phone] [facility] & CHILD [address] [place] [address] 2022-02-15 2022-02-15 Orders Doctor FANI 1.2.840.114 [id number] Univers 00:00:00 00:00:00 Only Unassigned, ALEKSANDRA 350.1.13.10 ity of [place] [facility] 4.2.7.2.686 Nick as [id number] [address] 2022-01-28 2022-01-28 Outpatient R [facility] [id number] Univers 12:45:00 12:45:00 ity of [facility] 2022-01-26 2022-01-26 Telephone [facility] 1.2.840.114 [id number] Univers 00:00:00 00:00:00 Sharron C E BUSINESS MANAGER 350.1.13.10 ity of [facility] 4.2.7.2.686 Nick as MATERNAL [id number] [facility] & CHILD [address] [place] [address] 2022-01-21 2022-01-24 Inpatient X [facility] LUCY [id number] Univers 08:33:00 15:20:00 DEON ity of [facility] 2022-01-21 2022-01-24 Hospital FANI Goodwin 1.2.840.114 [id number] Univers 08:33:00 15:20:00 Encounter Deonjoshua ZHANG 350.1.13.10 ity of [facility] 4.2.7.2.686 Nick as [id number] [facility] [address] 2022-01-22 2022-01-22 Anesthesia Angel Grubbs 1.2.840. 114 [id number] Univers 03:05:00 19:18:00 Event Rhiannon Ye ZHANG 350.1.13.10 ity of [facility] 4.2.7.2.686 Nick as [phone] [facility] [address] 2022-01-21 2022-01-21 Orders Doctor FANI 1.2.840.114 [id number] Univers 00:00:00 00:00:00 Only Unassigned, ALEKSANDRA 350.1.13.10 ity of [place] [facility] 4.2.7.2.686 Nick as [id number] [facility] [address] 2022-01-20 2022-01-20 Telephone [facility] [place] 1.2.840.114 [id number] Univers 00:00:00 00:00:00 Sharron C E BUSINESS MANAGER 350.1.13.10 ity of [facility] 4.2.7.2.686 Nick as MATERNAL [phone] Med ical & CHILD [address] [place] [address] 2022-01-19 2022-01-19 Telephone Jose [facility]ef[facility]NOR[facility] 1.2.840.114 [id number] Univers 00:00:00 00:00:00 Sharron C E BUSINESS MANAGER 350.1.13.10 ity of [facility] 4.2.7.2.686 Nick as MATERNAL [id number] [facility] ical & CHILD [address] [place] [address] 2022-01-18 2022-01-18 Outpatient R ANOOP [facility] [id number] Univers 15:15:00 15:55:56 SHARRON ity o f [facility] 2022-01-18 2022-01-18 Routine Akinpe, [facility] 1.2.777.853 [id number] Univers 15:15:00 15:55:56 Sharron C E BUSINESS MANAGER 350.1.13.10 ity of Visit REGIONAL 4.2.7.2.686 Nick as MATERNAL [phone] [facility] & CHILD [address] [place] [address] 2022-01-06 2022-01-06 Outpatient R MULU, [facility] [id number] Univers 15:45:00 15:45:00 SHAUN ity [facility] 2022-01-05 2022-01-05 Outpatient R AKINSIPE, [facility] [id number] Univers 15:15:00 16:05:00 SHARRON ity o f [facility] 2022-01-05 2022-01-05 Routine Akinon license [facility], [facility] 1.2.792.255 [id number] Univers 15:15:00 16:05:00 Sharron C E BUSINESS MANAGER 350.1.13.10 ity of Visit REGIONAL 4.2.7.2.686 Nick as MATERNAL [phone] [facility] & CHILD [address] [place] [address] 2022-01-02 2022-01-02 Outpatient X SHAMIKA GARCIA [facility] LUCY [id number] Univers 16:08:00 18:10:00 ity of [facility] 2022-01-02 2022-01-02 Emergency Speedy Dimas Lee [facility] 1.2.84 0.114 [id number] Univers 16:08:00 18:10:00 Sandee López [place] 350.1.13.10 ity of Shamika Garcia 4.2.7.2.686 [facility] [id number] [address] 2021-12-30 2021-12-30 Telephone Akinpe, [facility] 1.2.840.114 [id number] Univers 00:00:00 00:00:00 Sharron C E BUSINESS MANAGER 350.1.13.10 ity of [facility] 4.2.7.2.686 Nick as MATERNAL [id number] [facility] & CHILD [address] [place] [address] 2021-12-28 2021-12-28 Outpatient R [facility] [id number] Univers 11:00:00 11:00:00 ity of [facility] 2021-12-24 2021-12-24 Outpatient R LUIS [facility] [id number] Univers 10:30:00 11:41:09 LIDIA xiong o f [facility] 2021-12-24 2021-12-24 [facility]ine [facility] 1 .2.840.114 [id number] Univers 10:30:00 11:41:09 Gunn, Lidia R E BUSINESS MANAGER 350.1.13.1 0 ity of Visit REGIONAL 4.2.7.2.686 Nick as MATERNAL [phone] Med ical & CHILD [address] [place] [address] 2021-12-23 2021-12-23 Outpatient Fei GUNN [facility] [id number] Univers 15:45:00 15:45:00 LIDIA xiong o [facility] 2021-12-15 2021-12-15 Telephone Anoop [facility] 1.2.840.114 [id number] Univers 00:00:00 00:00:00 Sharron C E BUSINESS MANAGER 350.1.13.10 ity of [place] 4.2.7.2.686 Nick as MATERNAL [phone] Med ical & CHILD [address] [place] [address] 2021-12-09 2021-12-09 Outpatient R ANOOP [facility] [id number] Univers 15:15:00 15:37:51 SHARRON xiong o [facility] 2021-12-09 2021-12-09 Routine AkinSharron richards [facility] 1.2.8 40.114 [id number] Univers 15:15:00 15:30:00 Amber Gunnsocrates R E BUSINESS MANAGER 350.1.13.1 0 ity of Visit REGIONAL 4.2.7.2.686 Nick as MATERNAL [phone] [facility] ical & CHILD [address] [place] [address] 2021-12-07 2021-12-07 Outpatient Fei GUNN [facility] [id number] Univers 13:45:00 13:45:00 LIDIA xiong o f [facility] 2021-11-30 2021-11-30 Patient Luis A [facility] 1.2.840.114 [id number] Univers 00:00:00 00:00:00 Secure Msg Lidia R E BUSINESS MANAGER 350.1.13.10 ity of [facility] 4.2.7.2.686 Nick as MATERNAL [id number] [facility] [address] [place] [address] 2021-11-26 2021-11-26 Office Disease, Gloria & Pcp Pedi Infec [facility] 1.2.840.114 [id number] Univers 10:30:00 11:00:00 Visit Arnie Goodman SPECIALTY 350.1.13.1 0 ity of [place].2.[place] [id number] [facility] [address] 2021-11-26 2021-11-26 Outpatient R ARNIE GOODMAN [facility] [id number] Univers 10:30:00 10:30:00 ARNIE GOODMAN ity of [facility] 2021-11-23 2021-11-23 Outpatient R GUNN [facility] [id number] Univers 13:45:00 14:31:13 SELINA bunnyy o f [facility] 2021-11-23 2021-11-23 Routine Luis A [facility] 1.2.840.114 [id number] Univers 13:45:00 14:31:13 Lidia R E BUSINESS MANAGER 350.1.13.10 ity of Visit REGIONAL 4.2.7.2.686 Nick as MATERNAL [id number] [facility] & CHILD [address] [place] [address] 2021-11-19 2021-11-19 Outpatient X [facility] LUCY [id number] Univers 16:58:00 18:45:00 ity of [facility] 2021-11-19 2021-11-19 Emergency Fish, Samantha [facility] 1.2.840.114 [id number] Univers 16:58:00 18:45:00 DE SOTO 350.1.13.10 i ty of [place] [id number] [facility] [address] [place] 2021-11-19 2021-11-19 Nurse Nurse, [facility] 1.2.840.114 [id number] Univers 16:30:00 16:50:00 Visit [place] Gordon [facility] 350.1.13.10 ity [facility] 4.2.7.2.686 Nick as EVE?BLEA [phone] Ky simon [address] MEDICAL OFFICE BUILDING 2021-11-19 2021-11-19 Outpatient R LINK [facility] [id number] Univers 16:30:00 16:41:32 RANIA ity [facility] 2021-11-19 2021-11-19 Telephone Luis [facility] 1.2.943.491 [id number] Univers 00:00:00 00:00:00 Lidia R E BUSINESS MANAGER 350.1.13.10 ity of [place] 4.2.7.2.686 Nick as MATERNAL [phone] Med ical & CHILD [address] [place] [address] 2021-11-19 2021-11-19 Orders Doctor FANI 1.2.840.114 [id number] Univers 00:00:00 00:00:00 Only Unassigned, ALEKSANDRA 350.1.13.10 ity of [place] [facility] 4.2.7.2.686 Nick as [phone] [address] 2021-11-02 2021-11-02 Outpatient R LUIS A [facility] [id number] Univers 13:30:00 14:13:36 ROSJENNIFERNDJt ity o f [facility] 2021-11-02 2021-11-02 Routine Luis [facility] 1.2.840.114 [id number] Univers 13:30:00 14:13:36 Roselvera R E BUSINESS MANAGER 350.1.13.10 ity of Visit REGIONAL 4.2.7.2.686 Nick as MATERNAL [id number] [facility] ical & CHILD [address] [place] [address] 2021-11-02 2021-11-02 Outpatient X SHAMIKA GARCIA [facility] LUCY [id number] Univers 08:43:00 12:05:00 ity [facility] 2021-11-02 2021-11-02 Emergency Garcia, Shamika [facility] 1.2.840.114 [id number] Univers 08:43:00 12:05:00 [facility] [id number] i ty of [place]2.7.2.[place] [phone] [facility] [address] [place] 2021-11-02 2021-11-02 Orders Doctor FANI 1.2.840.114 [id number] Univers 00:00:00 00:00:00 Only Unassigned, ALEKSANDRA 350.1.13.10 ity of [place] [facility] 4.2.7.2.686 Nick as [phone] [facility] [address] [place] 2021-10-07 2021-10-07 Outpatient Fei GUNN [facility] [id number] Univers 15:45:00 15:45:00 LIDIA smith [facility] 2021-10-05 2021-10-05 Outpatient Fei GUNN [facility] [id number] Univers 14:30:00 15:19:47 LIDIA ruvalcaba [facility] 2021-10-05 2021-10-05 Routine [facility] 1.2.840.114 [id number] Univers 14:30:00 15:19:47 Lidia Enamorado E BUSINESS MANAGER 350.1.13.10 ity of Visit [facility] [id number] Nick as MATERNAL [phone] Med ical & CHILD [address] [place] [address] 2021-10-05 2021-10-05 Outpatient Fei GUNN [facility] [id number] Univers 14:30:00 14:30:00 LIDIA ruvalcaba [facility] 2021-09-28 2021-09-28 [facility] 1.2 .840.114 [id number] Univers 15:00:00 15:56:15 Visit Lidia Gunn E BUSINESS MANAGER [id number] ity of [facility] [id number] Nick as MATERNAL [phone] [facility] ical & CHILD [address] [place] [address] 2021-09-28 2021-09-28 Nurse Visit, LanieRmchp Nurse [facility] 1.2 .840.114 [id number] Univers 15:00:00 15:15:00 Visit Amber Gunnsocrates Enamorado E BUSINESS MANAGER 350.1.13.10 ity of REGIONAL [id number] Nick as MATERNAL [phone] [facility] & [address] 2021-09-28 2021-09-28 Outpatient R LUIS [facility] [id number] Univers 15:00:00 15:00:00 ASHERNDA ity o [facility] 2021-09-21 2021-09-21 [facility] 1.2 .840.114 [id number] Univers 15:00:00 15:21:03 Visit Amber Gunnsocrates Enamorado E BUSINESS MANAGER [id number] ity of REGIONAL [id number] Nick as MATERNAL [phone] [address] 2021-09-21 2021-09-21 Outpatient R [facility] [facility] [id number] Univers 15:00:00 15:00:00 ASHERNDA tyrese o [facility] 2021-09-21 2021-09-21 [facility]phone [facility] 1.2.738.899 [id number] Univers 00:00:00 00:00:00 Lidia Enamorado E BUSINESS MANAGER 350.1.13.10 ity of REGIONAL 4.2.7.2.686 Nick as MATERNAL [phone] [address] 2021-09-18 2021-09-18 [facility]phone [facility] 1.2.976.725 [id number] Univers 00:00:00 00:00:00 Asherndjt R E BUSINESS MANAGER 350.1.13.10 ity of REGIONAL 4.2.7.2.686 Nick as MATERNAL [phone] [address] 2021-09-17 2021-09-17 Day Care Assistant [facility] 1.2 .840.114 [id number] Univers 09:30:00 10:45:00 Visit GunnLidia R E BUSINESS MANAGER 350.1.13.10 ity of REGIONAL 4.2.7.2.686 Nick as MATERNAL [phone] [facility] [address] [facility] 2021-09-17 2021-09-17 Outpatient R LUIS A [facility] [id number] Univers 07:45:00 09:50:42 ROSHUNDA ity o f [facility] 2021-09-17 2021-09-17 Day Care Assistant Lab, [facility] 1.2.840. 114 [id number] Univers 07:45:00 09:50:42 Visit Luis A Lidia R E BUSINESS MANAGER 350.1.13.10 ity of REGIONAL 4.2.7.2.686 Nick as MATERNAL [phone] [facility] & CHILD [address] [place] [address] 2021-09-17 2021-09-17 Outpatient P [facility] [id number] Univers 09:30:00 09:30:00 ity of [facility] 2021-09-17 2021-09-17 Outpatient P [facility] [id number] Univers 09:30:00 09:30:00 ity [facility] 2021-09-17 2021-09-17 Abstract Luis [facility] 1.2.840.114 [id number] Univers 00:00:00 00:00:00 Ashernda R E BUSINESS MANAGER 350.1.13.10 ity of REGIONAL 4.2.7.2.686 Nick as MATERNAL [phone] [facility] & CHILD [address] [place] [address] 2021-09-09 2021-09-09 Routine Luis [facility] 1.2.840.114 [id number] Univers 15:15:00 16:04:04 Roshunda R E BUSINESS MANAGER 350.1.13.10 ity of Visit REGIONAL 4.2.7.2.686 Nick as MATERNAL [phone] [facility] [address] [place] [address] 2021-09-09 2021-09-09 Outpatient R LUIS [facility] [id number] Univers 15:15:00 16:04:04 ROSHUNDA ity o f [facility] 2021-09-09 2021-09-09 Outpatient R GUNN [facility] [id number] Univers 15:15:00 15:15:00 ROSJENNIFERNDA ity o f [facility] 2021-08-28 2021-08-28 (TEL) STLMLC STLMLC [id number] Co mmon 00:00:00 00:00:00 [facility] 2021-08-18 2021-08-18 Telephone [facility] 1.2.369.181 [id number] Univers 00:00:00 00:00:00 Ashernda Fei DE SOTO 350.1.13.10 ity of [place].7.[place] [phone] [address] 2021-08-13 2021-08-13 Case [facility] 1.2.840.114 [id number] Univers 00:00:00 00:00:00 Management Ashernda R E BUSINESS MANAGER 350.1.13.10 ity of [facility] 4.2.7.2.686 Nick as MATERNAL [phone] Med ical & CHILD [address] [place] [address] 2021-08-12 2021-08-12 Outpatient Fei GUNN [facility] [id number] Univers 13:15:00 13:49:47 ROSHUNDA ity o f [facility] 2021-08-12 2021-08-12 Routine [facility] 1.2.840.114 [id number] Univers 13:15:00 13:49:47 Roshunda R E BUSINESS MANAGER 350.1.13.10 ity of Visit [facility] 4.2.7.2.686 Nick as MATERNAL [phone] Med ical & CHILD [address] [place] [address] 2021-08-12 2021-08-12 Outpatient Fei GUNN [facility] [id number] Univers 13:15:00 13:15:00 ROSHUNDA ity o f [facility] 2021-08-11 2021-08-11 Telephone [facility] 1.2.164.002 [id number] Univers 00:00:00 00:00:00 Roshunda R E BUSINESS MANAGER 350.1.13.10 ity of REGIONAL 4.2.7.2.686 Nick as MATERNAL [phone] [facility] [address] [place] [address] 2021-08-03 2021-08-03 Outpatient R LUIS A [facility] [id number] Univers 10:00:00 10:00:00 ASHERNDA ity o f [facility] 2021-08-03 2021-08-03 [facility] 1.2.011.003 [id number] Univers 00:00:00 00:00:00 Ashernda R E BUSINESS MANAGER 350.1.13.10 ity of REGIONAL 4.2.7.2.686 Nick as MATERNAL [phone] [facility] [address] [place] [address] 2021-07-27 2021-07-27 Telephone [facility] 1.2.722.478 [id number] Univers 00:00:00 00:00:00 Ashernda R E BUSINESS MANAGER 350.1.13.10 ity of REGIONAL 4.2.7.2.686 Nick as MATERNAL [id number] [facility] [address] [place] [address] 2021-07-16 2021-07-16 [facility] 1.2.840.114 [id number] Univers 00:00:00 00:00:00 Ashernda R E BUSINESS MANAGER 350.1.13.10 ity of REGIONAL 4.2.7.2.686 Nick as MATERNAL [id number] [facility] [address] [place] [address] 2021-07-16 2021-07-16 [facility] 1.2.840.114 [id number] Univers 00:00:00 00:00:00 Ashernda R E BUSINESS MANAGER 350.1.13.10 ity of REGIONAL 4.2.7.2.686 Nick as MATERNAL [phone] [facility] [address] [place] [address] 2021-07-15 2021-07-15 Outpatient R LUIS A [facility] [id number] Univers 13:00:00 13:00:00 ROSJENNIFERNDA ity o f [facility] 2021-07-15 2021-07-15 Routine Luis A [facility] 1.2.840.114 [id number] Univers 13:00:00 13:00:00 Roshunda R E BUSINESS MANAGER 350.1.13.10 ity of Visit REGIONAL 4.2.7.2.686 Nick as MATERNAL [id number] [facility] [address] [place] [address] 2021-07-15 2021-07-15 Outpatient Fei GUNN [facility] [id number] Univers 13:00:00 11:11:09 ROSHUNDA ity o f [facility] 2021-07-15 2021-07-15 Day Care Assistant [facility]trasound, [facility] 1.2 .840.114 [id number] Univers 10:00:00 10:30:00 Visit Jm Toth Denae E BUSINESS MANAGER 350.1. 13.10 ity of REGIONAL 4.2.7.2.686 Nick as MATERNAL [phone] [facility] [address] [facility] 2021-07-15 2021-07-15 Outpatient P [facility] [id number] Univers 10:00:00 10:00:00 ity [facility] 2021-06-17 2021-06-17 Outpatient Fei VAZQUEZ [facility] [id number] Univers 14:00:00 14:00:00 [facility] 2021-06-17 2021-06-17 Rico [facility] 1.2.840.114 [id number] Univers 09:15:00 10:26:59 Roshunda R E BUSINESS MANAGER 350.1.13.10 ity of Visit REGIONAL 4.2.7.2.686 Nick as MATERNAL [phone] [facility] & [address] 2021-06-17 2021-06-17 Outpatient Fei GUNN [facility] [id number] Univers 09:15:00 10:26:59 ROSHUNDA ity o f [facility] 2021-06-17 2021-06-17 Outpatient Fei GUNN [facility] [id number] Univers 09:15:00 09:15:00 ROSHUNDA ity o f [facility] 2021-06-17 2021-06-17 Orders Doctor FANI 1.2.840.114 [id number] Univers 00:00:00 00:00:00 Only Unassigned, ALEKSANDRA 350.1.13.10 ity of [place] [facility] 4.2.7.2.686 Nick as [phone] [address] 2021-05-26 2021-05-26 PREV VISIT [facility] [id number] Common 00:00:00 00:00:00 EST AGE Spirit 18-39 - [facility] 2021-05-20 2021-05-20 Case [facility] 1.2.000.556 [id number] Univers 00:00:00 00:00:00 Management Gaudencio ROUSSEAU 350.1.13.10 ity of [facility] [place].2.[place].2.[place] [phone] [place] dical NAL [address] [place] [address] 2021-05-20 2021-05-20 Telephone [facility] 1.2.840.114 [id number] Univers 00:00:00 00:00:00 Gaudencio ROUSSEAU 350.1.13.10 i ty of [place] [phone] [address] 2021-05-18 2021-05-18 [facility] [id number] Univers 11:00:00 12:12:38 GAUDENCIO xiong [facility] 2021-05-18 2021-05-18 Office [facility] 1.2.799.312 [id number] Univers 11:00:00 12:12:38 Visit Gaudencio ROUSSEAU 350.1.13.10 i ty of [place] [phone] [place] dic[address] 2021-05-18 2021-05-18 [facility] [id number] Univers 11:00:00 12:12:38 GAUDENCIO xiong [facility] 2021-04-21 2021-04-21 OFFICE [facility] [id number] Co mmon 00:00:00 00:00:00 VISIT EST Spir it PT LEVEL 3 - [facility] 2021-03-19 2021-03-19 [facility]ICE [facility] [id number] Co mmon 00:00:00 00:00:00 VISIT NEW Spir it PT LEVEL 3 - [facility] 2021-03-12 2021-03-12 Outpatient R LINK [facility] [id number] Univers 11:20:00 12:05:20 TRINALAURIE tyrese [facility] 2021-03-12 2021-03-12 Urgent Melina Thomson [facility] 1.2.840.114 [id number] Univers 11:20:00 11:40:00 [facility] 350.1.13.10 [facility] 4.2.7.2.686 Nick as EVE?BLEA [phone] [address] MEDICAL OFFICE [facility] 2021-01-26 2021-01-26 Telephone [facility] 1.2.840.114 [id number] Univers 00:00:00 00:00:00 Holly Jean E BUSINESS MANAGER 350.1.13.10 it y of [facility] 4.2.7.2.686 Nick as MATERNAL [phone] [facility] [address] [place] [address] 2021-01-23 2021-01-23 Outpatient R SAYDA [facility] [id number] Univers 13:00:00 13:49:00 HOLLY xiong [facility] 2021-01-23 2021-01-23 [facility] [id number] Univers 13:00:00 13:49:00 HOLLY xiong [facility] 2021-01-23 2021-01-23 Office [facility] 1.2.911.045 [id number] Univers 12:51:03 13:49:00 Visit Holly Jean E BUSINESS MANAGER 350.1.13.10 it y of [facility] 4.2.7.2.686 Nick as MATERNAL [phone] [facility] & CHILD [address] [place] [address] 2021-01-23 2021-01-23 Love [facility] 1.2.840.114 [id number] Univers 00:00:00 00:00:00 Only Unassigned, ALEKSANDRA 350.1.13.10 ity of [place] [facility] 4.2.7.2.686 Nick as [phone] [facility] 009 [place] 2021-01-23 2021-01-23 [facility] 1.2.575.444 [id number] Univers 00:00:00 00:00:00 (Out) Holly Jean E BUSINESS MANAGER 350.1.13.10 it y of [facility] 4.2.7.2.686 Nick as MATERNAL [phone] Med ical & CHILD [address] [place] [address] 2020-02-27 2020-02-27 Emergency [facility] 1.2.081.850 [id number] 18:29:00 21:11:00 Samantha Rousseau 350.1.13.10 [place] 4.2.7.2.686 [place] [phone] [facility] 2020-02-27 2020-02-27 Emergency [facility] 1.2.324.703 [id number] Univers 18:29:00 21:11:00 Samantha Rousseau 350.1.13.10 i ty of [place] 4.2.7.2.686 [facility] [phone] [address] 2020-02-27 2020-02-27 Emergency X [facility] ERT [id number] Univers 18:29:00 21:11:00 SAMANTHA ity of [facility] 2020-02-27 2020-02-27 Telephone [facility] 1.2.840.114 [id number] 00:00:00 00:00:00 Sharron Richter E BUSINESS MANAGER 350.1.13.10 REGIONAL 4.2.7.2.686 MATERNAL [phone] & CHILD [address] [place] [address] 2020-02-27 2020-02-27 Orders Doctor [facility] 1.2.840.114 [id number] 00:00:00 00:00:00 Only Unassigned, ALEKSANDRA 350.1.13.10 [place] [facility] 4.2.7.2.686 [id number] [facility] 2020-02-272020-02-27 Telephone [facility] 1.2.840.114 [id number] Univers 00:00:00 00:00:00 Sharron C E BUSINESS MANAGER 350.1.13.10 ity of REGIONAL 4.2.7.2.686 Nick as MATERNAL [phone] [facility] [address] [place] [address] 2020-02-27 2020-02-27 Orders Doctor FANI 1.2.840.114 [id number] Univers 00:00:00 00:00:00 Only Unassigned, ALEKSANDRA 350.1.13.10 ity of [place] [facility] 4.2.7.2.686 Nick as [phone] [address] 2020-01-30 2020-01-30 Office [facility] 1.2.044.602 [id number] 15:43:52 16:13:52 Visit Sharron Richter E BUSINESS MANAGER 350.1.13.10 REGIONAL 4.2.7.2.686 MATERNAL [phone] & CHILD [address] [place] [address] 2020-01-30 2020-01-30 Office [facility] 1.2.296.083 [id number] Univers 15:43:52 16:13:52 Visit Sharron Richter E BUSINESS MANAGER 350.1.13.10 ity of REGIONAL 4.2.7.2.686 Nick as MATERNAL [id number] [facility] & CHILD [address] [place] [address] 2020-01-30 2020-01-30 Outpatient R [facility] [id number] [facility] [place] 15:45:00 15:45:00 SHARRON ity o f [facility] 2020-01-30 2020-01-30 Orders Doctor FANI 1.2.840.114 [id number] 00:00:00 00:00:00 Only Unassigned, ALEKSANDRA 350.1.13.10 [place] [facility] 4.2.7.2.686 [id number] 009 2020-01-30 2020-01-30 Orders Doctor FANI 1.2.840.114 [id number] Univers 00:00:00 00:00:00 Only Unassigned, ALEKSANDRA 350.1.13.10 ity of [place] [facility] 4.2.7.2.686 Nick as [phone] [facility] [address] 2020-01-28 2020-01-28 Telephone [facility] 1.2.840.114 [id number] Univers 00:00:00 00:00:00 Sharron Richter E BUSINESS MANAGER 350.1.13.10 ity [facility] 4.2.7.2.686 Nick as MATERNAL [phone] [facility] ical & CHILD [address] [place] [address] 2019-12-14 2019-12-14 Outpatient R [facility] [id number] Univers 13:30:00 13:30:00 SHARRON xiong o f [facility] 2019-12-07 2019-12-07 Office [facility] 1.2.459.431 [id number] Univers 15:02:34 16:02:09 Visit Sharron Richter E BUSINESS MANAGER 350.1.13.10 ity [facility] 4.2.7.2.686 Nick as MATERNAL [phone] [facility] & [address] 2019-12-07 2019-12-07 Outpatient R [facility] [id number] Univers 14:45:00 14:45:00 SHARRONISAAC xiong o f [facility] 2019-11-14 2019-11-14 Transition Natalia Renee 1.2.840.114 [id number] Univers 00:00:00 00:00:00 of Care Martina Meza 350.1.13.10 i ty of [place] [phone] [facility] [address] 2019-11-12 2019-11-13 [facility] Josiah Hanna 1.2.840.1 14 [id number] Univers 05:53:00 17:45:00 Encounter Nery Stockton 350.1 .13.10 ity of [place] [facility] 4.2.7.2.686 [place] Juan Goel [phone] Medical 6 [place] 2019-03-08 2019-03-08 Nurse Visit, Ang-Rmchp Nurse [facility] 1.2 .840.114 [id number] Univers 13:32:55 13:48:09 Visit Gunn, Lidia Enamorado E BUSINESS MANAGER 350.1.13.10 ity of [facility] 4.2.7.2.686 Nick as MATERNAL [phone] Med ical & CHILD 107 [facility] 2019-03-08 2019-03-08 Orders Doctor FANI 1.2.840.114 [id number] Univers 00:00:00 00:00:00 Only Unassigned, ALEKSANDRA 350.1.13.10 ity of [place] [facility] 4.2.7.2.686 Nick as [phone] [facility] [address] 2018-10-18 2018-10-20 [facility] Lesley Bhandari 1.2.840. 114 [id number] Univers 02:05:51 21:00:00 Encounter Jairo Issa Aleksandra 350.1.13.10 ity of Anurag Luciano [facility] 4.2.7.2.686 [place] [phone] [facility] [address] [place] 2018-09-14 2018-09-14 Nurse Visit, [facility] Nurse [facility] 1.2 .840.114 [id number] Univers 13:53:27 14:21:33 Visit Lidia Gunn E BUSINESS MANAGER 350.1.13.10 ity of [facility] 4.2.7.2.686 Nick as MATERNAL [id number] Med ical & CHILD [address] [place] [address] 2018-09-12 2018-09-12 Telephone Luis A [facility] 1.2.432.690 [id number] Univers 00:00:00 00:00:00 Lidia Enamordao E BUSINESS MANAGER 350.1.13.10 ity of [facility] 4.2.7.2.686 Nick as MATERNAL [phone] Med ical & CHILD 107 [facility] 2018-09-11 2018-09-11 Office Luis A [facility] 1.2.840.114 [id number] Univers 13:17:27 13:32:27 Visit Lidia Enamorado E BUSINESS MANAGER 350.1.13.10 ity of [facility] 4.2.7.2.686 Nick as MATERNAL [phone] Med ical & CHILD 107 [facility] 2017-11-27 2017-11-27 Emergency [facility] [id number] [place] 13:56:45 13:56:45 Health Orders Doctor FANI 1.2.840.114 [id number] Univers 00:00:00 00:00:00 Only Unassigned, ALEKSANDRA 350.1.13.10 ity of [place] [facility] 4.2.7.2.686 Nick as [phone] [address] Results Test Description Test Time Test Comments Results Result Comments Source POCT TEST 2022-12-09 20:25:00 Test Item Value Reference Range Interpretation Comme nts POCT PREG (test code = 1605) Negative On board controls acceptable with C Line (test code = 3574) Yes POCT PREG LOT # (test code = 3575) POCT PREG TEST DATE (test code = 3576) [facility] [id number] 20:25:00 Test Item Value Reference Range Interpretation Comments POCT PREG (test code = 1605) Negative On board controls acceptable with C Yes Line (test code = 3574) POCT PREG LOT # (test code = 3575) PO[facility] PREG TEST DATE (test code = 3576) [id number] 13:13:00 Test Item Value Reference Range Interpretation Comments POCT PREG (test code = Negative 1605) On board controls Yes acceptable with C Line (test code = 3574) POCT PREG LOT # (test code = 3575) POCT PREG TEST DATE (test code = 3576) MORTEZA (test code = MORTEZA) accurate development and interpretation of all internal controls Lab Interpretation Normal (test code = 42341-2) [facility] [id number] 13:13:00 Test Item Value Reference Range Interpretation Comments POCT PREG (test code = Negative 1605) On board controls Yes acceptable with C Line (test code = 3574) POCT PREG LOT # (test code = 3575) POCT PREG TEST DATE (test code = 3576) MORTEZA (test code = MORTEZA) accurate development and interpretation of all internal controls Lab Interpretation Normal (test code = 02267-5) [facility] BETA HCG [id number] 22:49:23 Test Item Value Reference Range Interpretation Comments BETA HCG (test 1433.50 See_Comment [Automated m essage] code = The system [employer] [id number]) generated this result transmit shain reference range : Non- fe male and male patien ts: <5 mIU/mL. The reference range was not used to interpret this result as normal/abnormal . MORTEZA (test code Gestational Age ? ? = MORTEZA) ?Range (mIU/mL) 1-10 ?Weeks ?23-73208105-37 Weeks ?49224-79587805-33 Weeks ?7533-61241443-40 Weeks ?2967-757474 Biotin has been reported to cause a negative bias, interpret results relative to patient's use of biotin. [facility] [id number] 15:08:00 Test Item Value Reference Range Interpretation Comments POCT PREG (test code = 1605) Positive On board controls acceptable with C Yes Line (test code = 3574) POCT PREG LOT # (test code = 3575) POCT PREG TEST DATE (test code = 3576) [facility] URINALYSIS W/O SPECIFIC [id number] 15:07:00 Test Item Value Reference Range Interpretation Comments POCT PH U (test code = 3254) 8 mg/dl 5-8 POCT U LEUK EST (test code = Negative Negative - Negative 3263) POCT U NIT (test code = 3262) Negative Negative - Negative POCT U PROT (test code = 3259) Negative Negative - Negative POCT U GLU (test code = 3256) Negative Negative - Negative POCT U KETONE (test code = 3258) Negative Negative - Negative POCT U BLD (test code = 3257) Negative Negative - Negative [facility] (TTE)2022-10-14 00:19:24 Test Item Value Reference Range Interpretation Comments Height (test code = 69 in 8301045206) Weight (test code = 220 lbs 0445060674) Systolic BP (test code = 117 mmHg 8705035659) Diastolic BP (test code 79 mmHg = 1446483928) Heart Rate (test code = 85 bpm 0239703445) Ao root diam (test code 2.90 cm = 2612282427) Aortic root (test code = 2.9 cm 6380349622) Ao root annulus (test 2.9 cm code = 5902914619) BSA (test code = 2.15 m2 8211930470) LVOT diameter (test code 2.21 cm = 1677065871) LVOT area (test code = 3.80 cm2 4247135509) LA size (test code = 3.5 cm 5194796605) ACS (test code = 2.36 cm 9734528027) LVIDD (test code = 4.80 cm 6127679079) Left Ventricular End 110.0 mL Diastolic Volume by Teichholz Method (test code = 4963592) IVS (test code = 1.11 cm 0691361167) Interventricular Septum 1.11 cm Diastolic Thickness by 2D (test code = 0010097) LVPWD (test code = 0.94 cm 7205091093) PW (test code = 0.94 cm 0.6-1.4 1923436641) EF(Teich) (test code = 55.80 % 2311324168) LVIDS (test code = 3.40 cm 6344667965) Left Ventricular End 48.6 mL Systolic Volume by Teichholz Method (test code = 5428838) FS (test code = 29 % 3839592277) EF - 2D (test code = 55.80 % 60121651) PV PEAK VELOCITY (test 86.5 cm/s code = 2356226693) PV peak gradient (test 3.0 mmHg code = 4304511725) LAV(MOD-sp4) (test code 34.40 mL = 1154903218) MV E-F slope (test code 31.70 cm/s = 4392409196) MV Peak E Kymberly (test code 82.3 cm/s = 7603048817) MV Peak A Kymberly (test code 67.1 cm/s = 5760442173) E/A ratio (test code = 1.23 ratio 5364430188) MV valve area p 1/2 3.50 cm2 method (test code = 7803696191) MV dec slope (test code 391.90 cm/s2 = 3946709363) MV P1/2t max kymberly (test 83.30 cm/s code = 3247704152) MR max PG (test code = 33.00 mm[Hg] 9323416675) MR max kymberly (test code = 287.10 cm/s 0360788324) Mr max kymberly (test code = 287.1 m/s 8159938492) LVOT stroke volume (test 74.30 cm3 code = 1176954706) LVOT peak kymberly (test code 114.8 cm/s = 5756725205) LVOT mn grad (test code 2.4 mmHg = 6434970018) AV LVOT peak gradient 5.3 mmHg (test code = 6013860674) LVOT peak VTI (test code 19.4 cm = 4677375030) LV V1 mean (test code = 71.50 cm/s 2598900933) Aortic valve mean 95.0 cm/s velocity (test code = 6728796097) Ao peak kymberly (test code = 155.6 cm/s 4202454152) Ao VTI (test code = 30.4 cm 5326300495) AV area by cont VTI 2.5 cm2 (test code = 5199447174) AV area peak kymberly (test 2.8 cm2 code = 4914341830) Ao max PG (test code = 9.70 mm[Hg] 1639678804) AV peak gradient (test 9.7 mmHg code = 1011498743) AV valve area (test code 2.45 cm2 = 7710609142) AV mean gradient (test 4.3 mmHg code = 0690651463) LA Volume Index (BP) 17.0 mL/m2 (test code = 2929024299) LA volume (BP) (test 36.5 mL code = 0200505557) LAV(MOD-sp2) (test code 34.10 mL = 4453261192) Radiology Study observation (narrative) (test code = 53654-0) MORTEZA (test code = MORTEZA) ?Left?Ventricle: Left ventricle size is normal. Normal wall thickness. Normal wall motion. Normal systolic function with a visually estimated EF of 50 - 55%. Normal diastolic function. ?Right?Ventricle: Right ventricle size is normal. Normal systolic function. ?Tricuspid?Valve: Insufficient tricuspid regurgitation jet to estimate RVSP . ?RA pressure is 0-5 mmHg. Left VentricleLeft ventricle size is normal. Normal wall thickness. Normal wall motion. Normal systolic function with a visually estimated EF of 50 - 55%. Normal diastolic function.Right VentricleRight ventricle size is normal. Normal systolic function.Left AtriumLeft atrium size is normal.Right AtriumRight atrium size is normal.IVC/SVCIVC diameter is less than or equal to 21 mm and decreases greater than 50% during inspiration; therefore the estimated right atrial pressure is normal (~0-5 mmHg).Mitral ValveMitral valve structure is normal. Trace transvalvular regurgitation.Tricusp id ValveTricuspid valve structure is normal. Trace transvalvular regurgitation. Insufficient tricuspid regurgitation jet to estimate RVSP . RA pressure is 0-5 mmHg.Aortic ValveTricuspid.Pulmon ic ValvePulmonic valve is normal in structure and function. Trace transvalvular regurgitation.Ascendi ng AortaNormal sized aorta.PericardiumThe pericardium is normal. No pericardial effusion.Study DetailsStudy quality was adequate. A complete echocardiogram was performed using 2D, color flow Doppler and spectral Doppler. [facility] [id number] 15:07:00 Test Item Value Reference Range Interpretation Comments POCT PREG (test code = 1605) Negative On board controls acceptable with C Yes Line (test code = 3574) POCT PREG LOT # (test code = 3575) POCT PREG TEST DATE (test code = 3576) [facility] IMMUNE [id number] 03:35:07 Test Item Value Reference Range Interpretation Comments RHIG CANDIDATE? No- see comment Patient i s not a (test code = candidate for R [facility]- 5055) Patient is Rh Positive.Perfor med at [facility] Laboratory Services - [facility] Blood [address] [place] [id number] Free: [phone] A No. [id number] [facility] [id number] 00:05:07 Test Item Value Reference Range Interpretation Comments VENOUS BASE EXCESS, mEq/L CORD (test code = 5148363009) VENOUS PH, CORD (test 7.25-7.45 code = 8724743510) VENOUS PC02, CORD See_Comment [Automate d message] The (test code = system which ge nerated 9752228810) this result tra nsmitted reference range : 27 - 49 mmHg. The refer ence range was not used to interpret this result as normal/abnormal . VENOUS PO2, CORD (test See_Comment [Aut omated message] The code = 6706178293) system wh ich generated this result tra nsmitted reference range : 17 - 41 mmHg. The refer ence range was not used to interpret this result as normal/abnormal . VENOUS BICARBONATE, See_Comment QUES [Au tomated message] CORD (test code = The system which generated 6064875903) this result tra nsmitted reference range : 12 - 29 mEq/L. The refe rence range was not used to interpret this result as normal/abnormal . [facility] CORD [id number] 00:04:42 Test Item Value Reference Range Interpretation Comments BASE EXCESS, CORD mEq/L (test code = 2541485420) AC PH, CORD (BEAKER) 7.18-7.38 (test code = 0032491799) PC02, CORD (test code See_Comment [Auto mated message] The = 6039476904) system which g enerated this result transmit sahni reference range : 32 - 66 mmHg. The refer ence range was not used to interpret this result as normal/abnormal . PO2, CORD (test code See_Comment [Autom ated message] The = 6963257634) system which g enerated this result transmit shani reference range : 10 - 30 mmHg. The refer ence range was not used to interpret this result as normal/abnormal . BICARBONATE, CORD See_Comment [Automate d message] The (test code = system which ge nerated this 6059279649) result transmit shani reference range : 17 - 27 mEq/L. The refe rence range was not used to interpret this result as normal/abnormal . [facility] and Screen - ONCE [id number] 17:43:42 Test Item Value Reference Range Interpretation Comments ABO & RH (test code A POSITIVE Performe d at [facility] = 20) Laboratory [facility] Blood Bank3 [address] [facility] s [address]Hxvq Free: [phone] A No. [id number] IAT (test code = Negative Performed a t [facility] 1185) Laboratory [facility] Blood Bank3 [address] [facility] [address]Waht Free: [phone] A No. [id number] [facility] URINALYSIS W SPECIFIC [id number] 21:44:00 Test Item Value Reference Range Interpretation [...] U APPEAR (test code = 3267) . [facility] URINALYSIS W SPECIFIC [id number] 21:44:00 Test Item Value Reference Range Interpretation [...] U APPEAR (test code = 3267) . [facility] URINALYSIS W SPECIFIC [id number] 16:48:00 Test Item Value Reference Range Interpretation [...] POCT U COLOR (test code = 3266) trayn POCT U APPEAR (test code = 3267) clear [facility] URINALYSIS W SPECIFIC [id number] 20:24:00 Test Item Value Reference Range Interpretation [...] POCT U APPEAR (test code = 3267) [facility] WITH [id number] 20:26:15 Test Item Value Reference Range Interpretation Comments WBC (test code = See_Comment [Automated 8076-2) message] The sy stem which generated this [...] RDW-SD (test code = 42.4 fL 39-49.9 55380-1) RDW-CV (test code = 14.2 % 12-15.5 788-0) PLT (test code = See_Comment [Automated 777-3) message] The sy stem which generated this result transmitted reference range : 166 - 358 10*3/ ?L. The reference r stephan was not used to interpret this result as normal/abnormal . MPV (test code = 10.8 fL 9.5-12.9 53156-1) NRBC/100 WBC (test See_Comment [Automat ed code = 4845222355) message] The system which generated this result transmitted reference range : 0.0 - 10.0 /100 WBCs. The refer ence range was not u sed to interpret th is result as normal/abnormal . NRBC x10^3 (test code See_Comment [Auto mated = 9736125852) message] The s ystem which generated this result transmitted reference range : 10*3/?L. The reference range was not used to interpret this result as normal/abnormal . GRAN MAT (NEUT) % 75.2 % (test code = 770-8) IMM GRAN % (test code 0.60 % = 7298180685) LYMPH % (test code = 18.4 % 736-9) MONO % (test code = 5.2 % 5905-5) EOS % (test code = 0.5 % 713-8) BASO % (test code = 0.1 % 706-2) GRAN MAT x10^3(ANC) 6.63 10*3/uL 1.88-7.09 (test code = 3354045483) IMM GRAN x10^3 (test 0.05 10*3/uL 0-0.06 code = 5813956019) LYMPH x10^3 (test code 1.62 10*3/uL 1.32-3.29 = 731-0) MONO x10^3 (test code 0.46 10*3/uL 0.33-0.92 = 742-7) EOS x10^3 (test code = 0.04 10*3/uL 0.03-0.39 711-2) BASO x10^3 (test code 0.01-0.07 = 704-7) Lab Interpretation Abnormal (test code = 17689-5) [facility] WITH [id number] 20:26:15 Test Item Value Reference Range Interpretation Comments WBC (test code = See_Comment [Automated 8590-2) message] The sy stem which generated this result transmitted reference range : 4.30 - 11.10 10*3/?L. The reference range was not used to interpret this result as normal/abnormal . RBC (test code = See_Comment [Automated 509-8) message] The sy stem which generated this [...] RDW-SD (test code = 42.4 fL 39-49.9 25411-3) RDW-CV (test code = 14.2 % 12-15.5 788-0) PLT (test code = See_Comment [Automated 457-3) message] The sy stem which generated this result transmitted reference range : 166 - 358 10*3/ ?L. The reference r stephan was not used to interpret this result as normal/abnormal . MPV (test code = 10.8 fL 9.5-12.9 50804-2) NRBC/100 WBC (test See_Comment [Automat ed code = 9398442639) message] The system which generated this result transmitted reference range : 0.0 - 10.0 /100 WBCs. The refer ence range was not u sed to interpret th is result as normal/abnormal . NRBC x10^3 (test code See_Comment [Auto mated = 3734052023) message] The s ystem which generated this result transmitted reference range : 10*3/?L. The reference range was not used to interpret this result as normal/abnormal . GRAN MAT (NEUT) % 75.2 % (test code = 770-8) IMM GRAN % (test code 0.60 % = 9414464863) LYMPH % (test code = 18.4 % 736-9) MONO % (test code = 5.2 % 5905-5) EOS % (test code = 0.5 % 713-8) BASO % (test code = 0.1 % 706-2) GRAN MAT x10^3(ANC) 6.63 10*3/uL 1.88-7.09 (test code = 4216799118) IMM GRAN x10^3 (test 0.05 10*3/uL 0-0.06 code = 1195182004) LYMPH x10^3 (test code 1.62 10*3/uL 1.32-3.29 = 731-0) MONO x10^3 (test code 0.46 10*3/uL 0.33-0.92 = 742-7) EOS x10^3 (test code = 0.04 10*3/uL 0.03-0.39 711-2) BASO x10^3 (test code 0.01-0.07 = 704-7) Lab Interpretation Abnormal (test code = 33055-1) [facility] WITH [id number] 20:26:15 Test Item Value Reference Range Interpretation [...] RDW-SD (test code = 42.4 fL 39-49.9 18854-1) RDW-CV (test code = 14.2 % 12-15.5 788-0) PLT (test code = See_Comment [Automated 777-3) message] The sy stem which generated this result transmitted reference range : 166 - 358 10*3/ ?L. The reference r stephan was not used to interpret this result as normal/abnormal . MPV (test code = 10.8 fL 9.5-12.9 78948-6) NRBC/100 WBC (test See_Comment [Automat ed code = 4353642797) message] The system which generated this result transmitted reference range : 0.0 - 10.0 /100 WBCs. The refer ence range was not u sed to interpret th is result as normal/abnormal . NRBC x10^3 (test code See_Comment [Auto mated = 9836143706) message] The s ystem which generated this result transmitted reference range : 10*3/?L. The reference range was not used to interpret this result as normal/abnormal . GRAN MAT (NEUT) % 75.2 % (test code = 770-8) IMM GRAN % (test code 0.60 % = 8581735112) LYMPH % (test code = 18.4 % 736-9) MONO % (test code = 5.2 % 5905-5) EOS % (test code = 0.5 % 713-8) BASO % (test code = 0.1 % 706-2) GRAN MAT x10^3(ANC) 6.63 10*3/uL 1.88-7.09 (test code = 4947562937) IMM GRAN x10^3 (test 0.05 10*3/uL 0-0.06 code = 9221899538) LYMPH x10^3 (test code 1.62 10*3/uL 1.32-3.29 = 731-0) MONO x10^3 (test code 0.46 10*3/uL 0.33-0.92 = 742-7) EOS x10^3 (test code = 0.04 10*3/uL 0.03-0.39 711-2) BASO x10^3 (test code 0.01-0.07 = 704-7) Lab Interpretation Abnormal (test code = 63332-4) [facility]. METABOLIC PANEL ([id number])2021-11-26 20:12:10 Test Item Value Reference Range Interpretation Comments NA (test code = 135 mmol/L 135-145 8766554366) K (test code = 4.2 mmol/L 3.5-5 8938960185) CL (test code = 107 mmol/L 98-108 6122137857) CO2 TOTAL (test code = 23 mmol/L 23-31 9164165347) AGAP (test code = 2-16 1079646373) BUN (test code = 4 mg/dL 7-23 L 5968875850) GLUCOSE (test code = 74 mg/dL 70-110 9656311180) CREATININE (test code = 0.46 mg/dL 0.5-1.04 L 5991711144) TOTAL BILI (test code = 0.4 mg/dL 0.1-1.8 6923644328) CALCIUM (test code = 9.4 mg/dL 8.6-10.6 6332616485) T PROTEIN (test code = 6.4 g/dL 6.3-8.2 4082470486) ALBUMIN (test code = 3.6 g/dL 3.5-5 8147553767) ALK PHOS (test code = 146 U/L 34-122 H 5075384995) ALTv (test code = 57 U/L 5-35 H 1742-6) AST(SGOT) (test code = 36 U/L 13-40 7349024138) eGFR (test code = mL/min/1.73m2 3023507755) MORTEZA (test code = MORTEZA) Association of [...] tests). Lab Interpretation Abnormal (test code = 07276-1) [facility] MET[facility]OLIC PANEL ([id number])2021-11-26 20:12:10 Test Item Value Reference Range Interpretation Comments NA (test code = 135 mmol/L 135-145 6540635788) K (test code = 4.2 mmol/L 3.5-5 2756716751) CL (test code = 107 mmol/L 98-108 5073831274) CO2 TOTAL (test code = 23 mmol/L 23-31 0660117771) AGAP (test code = 2-16 0494009441) BUN (test code = 4 mg/dL 7-23 L 4898437813) GLUCOSE (test code = 74 mg/dL 70-110 6252962110) CREATININE (test code = 0.46 mg/dL 0.5-1.04 L 8609806915) TOTAL BILI (test code = 0.4 mg/dL 0.1-1.8 3865554705) CALCIUM (test code = 9.4 mg/dL 8.6-10.6 7868506310) T PROTEIN (test code = 6.4 g/dL 6.3-8.2 0937479165) ALBUMIN (test code = 3.6 g/dL 3.5-5 0211248995) ALK PHOS (test code = 146 U/L 34-122 H 4215492469) ALTv (test code = 57 U/L 5-35 H 1742-6) AST(SGOT) (test code = 36 U/L 13-40 7616087239) eGFR (test code = mL/min/1.73m2 5897192753) MORTEZA (test code = MORTEZA) Association of [...] tests). Lab Interpretation Abnormal (test code = 05242-2) [facility]. METABOLIC PANEL ([id number])2021-11-26 20:12:10 Test Item Value Reference Range Interpretation Comments NA (test code = 135 mmol/L 135-145 8101613302) K (test code = 4.2 mmol/L 3.5-5 4979611200) CL (test code = 107 mmol/L 98-108 0874923750) CO2 TOTAL (test code = 23 mmol/L 23-31 3921351321) AGAP (test code = 2-16 2533439137) BUN (test code = 4 mg/dL 7-23 L 2337227752) GLUCOSE (test code = 74 mg/dL 70-110 4830806477) CREATININE (test code = 0.46 mg/dL 0.5-1.04 L 6665745765) TOTAL BILI (test code = 0.4 mg/dL 0.1-1.9 8629717095) CALCIUM (test code = 9.4 mg/dL 8.6-10.6 4405704138) T PROTEIN (test code = 6.4 g/dL 6.3-8.2 7842429633) ALBUMIN (test code = 3.6 g/dL 3.5-5 7774321167) ALK PHOS (test code = 146 U/L 34-122 H 6531533244) ALTv (test code = 57 U/L 5-35 H 1742-6) AST(SGOT) (test code = 36 U/L 13-40 2180138615) eGFR (test code = mL/min/1.73m2 9907440639) MORTEZA (test code = MORTEZA) Association of [...] tests). Lab Interpretation Abnormal (test code = 91758-7) [facility] URINALYSIS W SPECIFIC [id number] 18:53:00 Test Item Value Reference Range Interpretation [...] U APPEAR (test code = 3267) * [facility] URINALYSIS W SPECIFIC [id number] 19:56:00 Test Item Value Reference Range Interpretation [...] POCT U APPEAR (test code = 3267) [facility]"
[2022-12-14] MEDS ORDERED: LORazepam 2 MG/ML VIAL ONE (00:50)
[2022-12-14] MEDS ORDERED: ASPIRIN 81 MG CHEWABLE TABLET ONE (00:50)
[2022-12-14 01:41] LABS: Absolute Lymphocytes (CBC) 2.9 K/uL (0.7-4.9); Hematocrit 38.4 % (36.0-45.0); MCV 81.7 fL (80-100); MPV 8.9 fL (7.6-11.3); Platelets 214 thou/uL (152-406)
[2022-12-14 01:53] LABS: Protime INR 1.09
[2022-12-14 02:05] LABS: ALT/SGPT 21 U/L (13-56); AST/SGOT 15 U/L (15-37); Albumin 3.3 g/dL (3.4-5.0); Alkaline Phosphatase 68 U/L (45-117); BUN Blood Urea Nitrogen 10 mg/dL (7-18); Bicarbonate 27 mEq/L (21-32); Bilirubin Total 0.2 mg/dL (0.2-1.0); Glomerular Filtration Rate 96 ml/min (=/>90); Glucose Level 119 mg/dL (74-106); Magnesium 1.9 mg/dL (1.6-2.4); NT PRO-BNP 176 pg/mL (<125); Potassium 3.3 mEq/L (3.5-5.1); Protein, Total 6.8 g/dL (6.4-8.2); Sodium Level 142 mEq/L (136-145); Troponin High Sensitivity 3.6 pg/mL (<58.9)
[2022-12-14 02:15] LABS: Bilirubin Direct < 0.1 mg/dL (0-0.2); Bilirubin Indirect, Calculated ND mg/dL (0.2-0.8)
--- NOTE | 2022-12-14 02:37 | ER ---
Nurse's Notes [facility] Name: Angeles Field Age: 22 yrs Sex: Female : 2000 Arrival Date: 12/14/2022 Time: 00:18 Bed 14 Private MD: Diagnosis: Anxiety disorder, unspecified;Acute anxiety attack Presentation: 12/14 00:26 Chief complaint: Patient states: "I SUFFER BAD PANIC ATTACKS AND I DON'T HAVE INSURANCE bp FOR MEDICINE, SO I COME HERE.". Coronavirus screen: At this time, the client does not indicate any symptoms associated with coronavirus-19. Ebola Screen: No symptoms or risks identified at this time. Initial Sepsis Screen: Does the patient meet any 2 criteria? No. Patient's initial sepsis screen is negative. Does the patient have a suspected source of infection? No. Patient's initial sepsis screen is negative. Risk Assessment: Do you want to hurt yourself or someone else? Patient reports no desire to harm self or others. Onset of symptoms was December 14, 2022 at 00:00. 00:26 Method Of Arrival: Ambulatory bp 00:26 Acuity: CADY 3 bp Triage Assessment: 00:28 General: Appears distressed, Behavior is agitated, anxious, uncooperative. Pain: bp Complains of pain in chest. Cardiovascular: Reports chest pain. Historical: - Allergies: 00:28 NKA; bp - PMHx: 00:28 Panic Attacks; Anxiety; bp - Immunization history:: Adult Immunizations up to date. - Social history:: Smoking status: Patient denies any tobacco usage or history of. - Family history:: not pertinent. Screenin:26 [facility] ED Fall Risk Assessment (Adult) History of falling in the last 3 months, ha1 including since admission No falls in past 3 months (0 pts) Confusion or Disorientation No (0 pts) Intoxicated or Sedated No (0 pts) Impaired Gait No (0 pts) Mobility Assist Device Used No (0 pt) Altered Elimination No (0 pt) Score/Fall Risk Level 0 - 2 = Low Risk Oriented to surroundings, Maintained a safe environment, Educated pt \\T\\ family on fall prevention, incl call for assistance when getting out of bed, Hourly rounding (assess needs \\T\\ fall precautionary measures) done. Abuse screen: Denies threats or abuse. Denies injuries from another. Nutritional screening: No deficits noted. Tuberculosis screening: No symptoms or risk factors identified. Assessment: 00:26 General: Appears uncomfortable, Behavior is anxious, restless, uncooperative. Pain: ha1 Complains of pain in chest Pain does not radiate. Pain currently is 10 out of 10 on a pain scale. Quality of pain is described as heavy, pressure, Pain began suddenly. Neuro: Level of Consciousness is awake, alert, obeys commands, Oriented to person, place, time, situation. Neuro: Reports anxiety attack . Cardiovascular: Heart tones S1 S2 present Capillary refill < 3 seconds Patient's skin is warm and dry. Respiratory: Airway is patent Respiratory effort is even, unlabored, Respiratory pattern is regular, symmetrical. GI: No signs and/or symptoms were reported involving the gastrointestinal system. 01:00 Reassessment: pt. refused X-ray states" there is nothing wrong with my heart I just ha1 have anxiety ". 01:40 Reassessment: Patient and/or family updated on plan of care and expected duration. Pain ha1 level reassessed. Patient is alert, oriented x 3, equal unlabored respirations, skin warm/dry/pink. Patient states feeling better. Patient states symptoms have improved. Vital Signs: 00:26 BP 167 / 103; Pulse 75; Resp 18; Temp 97.5; Pulse Ox 97% ; bp 01:40 BP 131 / 95; Pulse 64; Resp 17 S; Pulse Ox 100% on R/A; ha1 ED Course: 00:19 Patient arrived in ED. jj6 00:20 Luc Jones MD is Attending Physician. sp4 00:26 Patient has correct armband on for positive identification. Placed in gown. Bed in low ha1 position. Call light in reach. Side rails up X 1. 00:26 Client placed on continuous cardiac and pulse oximetry monitoring. NIBP monitoring ha1 applied. 00:26 Patient maintains SpO2 saturation greater than 95% on room air. ha1 00:27 Triage completed. bp 00:28 Arm band placed on. bp 01:00 Inserted saline lock: 22 gauge in right antecubital area, using aseptic technique. ha1 Blood collected. 01:31 Noreen Mayorga RN is Primary Nurse. ha1 01:32 Basic Metabolic Panel Sent. ha1 01:32 CBC with Diff Sent. ha1 02:27 No provider procedures requiring assistance completed. IV discontinued, intact, ha1 bleeding controlled, No redness/swelling at site. Pressure dressing applied. 02:28 Provided Education on: follow up with PCP . ha1 Administered Medications: 00:35 Not Given (Patient Refused): [id number] mg PO once sp4 00:43 Drug: Aspirin PO Chewable Tablet 324 mg PO once; 81 mg tablets x 4 Route: PO; ha1 02:23 Follow up: Response: No adverse reaction ha1 00:43 Drug: LORazepam IM 2 mg IM once Route: IM; Site: right deltoid; ha1 01:40 Follow up: Response: No adverse reaction; Anxiety decreased; RASS: Alert and Calm (0) ha1 Medication: 02:27 VIS not applicable for this client. ha1 Outcome: 02:27 Discharged to home ambulatory, with family, ha1 02:27 Condition: stable 02:27 Discharge instructions given to patient, family, Instructed on discharge instructions, follow up and referral plans. Demonstrated understanding of instructions, follow-up care, 02:36 Discharge ordered by . sp4 02:40 Patient left the ED. ha1 Signatures: Christian Downing, RN RN bp Chiquita Serrano jj6 Noreen Mayorga RN RN ha1 Luc Jones MD MD sp4 Corrections: (The following items were deleted from the chart) 00:28 00:26 Chief complaint: Patient states: "I SUFFER BAD PANIC ATTACKS AND I DON'T HAVE bp INSURANCE" bp
--- NOTE | 2022-12-14 02:37 | EDPHYS ---
Physician Documentation [facility] Name: Angeles Field Age: 22 yrs Sex: Female : 2000 Arrival Date: 12/14/2022 Time: 00:18 Bed 14 Private MD: ED Physician Luc Jones HPI: 12/14 00:21 This 22 yrs old Black Female presents to ER via Unassigned with complaints of Chest sp4 Pain, Anxiety. 03:48 22-year-old female presents complaining of acute anxiety attack unprovoked starting sp4 this evening. Patient is restless on arrival requesting IV or intramuscular Ativan. . Historical: - Allergies: 00:28 NKA; bp - PMHx: 00:28 Panic Attacks; Anxiety; bp - Immunization history:: Adult Immunizations up to date. - Social history:: Smoking status: Patient denies any tobacco usage or history of. - Family history:: not pertinent. ROS: 03:48 Constitutional: Negative for fever, chills, and weight loss, positive for acute anxiety sp4 03:48 All other systems are negative, Exam: 03:48 Constitutional: This is a well developed, well nourished patient who is awake, alert, sp4 appears anxious restless and emotionally upset Head/Face: Normocephalic, atraumatic. Eyes: Pupils equal round and reactive to light, extra-ocular motions intact. Lids and lashes normal. Conjunctiva and sclera are not injected. Cornea within normal limits. Periorbital areas with no swelling, redness, or edema. ENT: Nares patent. No nasal discharge, no septal abnormalities noted. Tympanic membranes are normal and external auditory canals are clear. Oropharynx with no redness, swelling, or masses, exudates, or evidence of obstruction, uvula midline. Mucous membranes moist. Neck: Trachea midline, no thyromegaly or masses palpated, and no cervical lymphadenopathy. Supple, full range of motion without nuchal rigidity, or vertebral point tenderness. Chest/axilla: Normal chest wall appearance and motion. Nontender with no deformity. No lesions are appreciated. Cardiovascular: Regular rate and rhythm with a normal S1 and S2. No gallops, murmurs, or rubs. Normal PMI, no JVD. No pulse deficits. Respiratory: Lungs have equal breath sounds bilaterally, clear to auscultation and percussion. No rales, rhonchi or wheezes noted. No increased work of breathing, no retractions or nasal flaring. Abdomen/GI: Soft, non-tender, with normal bowel sounds. No distension or tympany. No guarding or rebound. No evidence of tenderness throughout. Back: No spinal tenderness. No costovertebral tenderness. Skin: Warm, dry with normal turgor. Normal color with no rashes, no lesions, and no evidence of cellulitis. MS/ Extremity: Pulses equal, no cyanosis. Neurovascular intact. Full, normal range of motion. Neuro: Awake and alert, GCS 15, oriented to person, place, time, and situation. Cranial nerves II-XII grossly intact. Motor strength 5/5 in all extremities. Sensory grossly intact. Psych: Awake, alert, with orientation to person, place and time. Behavior, mood, and affect are within normal limits 03:48 ECG was reviewed by the Attending Physician. EKG 0032 normal sinus rhythm at the rate sp4 of 68, normal EKG no ST elevation or depression Vital Signs: 00:26 BP 167 / 103; Pulse 75; Resp 18; Temp 97.5; Pulse Ox 97% ; bp 01:40 BP 131 / 95; Pulse 64; Resp 17 S; Pulse Ox 100% on R/A; ha1 MDM: 00:21 Patient medically screened. sp4 03:52 HEART Score: History: Slightly Suspicious (0), ECG: Normal (0), Age: < or = 45 years sp4 (0), Risk Factors: No Risk Factors Known (0), Troponin: < or = 1 x Normal Limit (0), Total Score = 0. Data reviewed: vital signs, nurses notes, old medical records, lab test result(s), EKG. ED course: Patient reported feeling better after intramuscular Ativan and was discharged home in stable condition. . 12/14 00:20 Order name: Basic Metabolic Panel; Complete Time: 03:53 sp4 12/14 00:20 Order name: CBC with Diff; Complete Time: 03:53 sp4 12/14 00:20 Order name: LFT's; Complete Time: 03:53 sp4 12/14 00:20 Order name: Magnesium; Complete Time: 03:53 sp4 12/14 00:20 Order name: NT PRO-BNP; Complete Time: 03:53 sp4 12/14 00:20 Order name: PT-INR; Complete Time: 03:53 sp4 12/14 00:20 Order name: Troponin HS; Complete Time: 03:53 sp4 12/14 00:20 Order name: EKG; Complete Time: 00:21 sp4 12/14 00:20 Order name: Cardiac monitoring; Complete Time: 00:43 sp4 12/14 00:20 Order name: EKG - Nurse/Tech; Complete Time: 00:36 sp4 12/14 00:20 Order name: IV Saline Lock; Complete Time: 01:32 sp4 12/14 00:20 Order name: Labs collected and sent; Complete Time: :32 sp4 12/14 00:20 Order name: O2 Per Protocol; Complete Time: 00:36 sp4 12/14 00:20 Order name: O2 Sat Monitoring; Complete Time: 00:36 sp4 EC:48 Rate is 68 beats/min. Rhythm is regular, Normal Sinus Rhythm. QRS [place] is Normal. RI sp4 interval is normal. QRS interval is normal. QT interval is normal. No Q waves. T waves are Normal. No ST changes noted. Clinical impression: Normal ECG. Interpreted by me. Administered Medications: 00:35 Not Given (Patient Refused): [id number] mg PO once sp4 00:43 Drug: Aspirin PO Chewable Tablet 324 mg PO once; 81 mg tablets x 4 Route: PO; ha1 02:23 Follow up: Response: No adverse reaction ha1 00:43 Drug: LORazepam IM 2 mg IM once Route: IM; Site: right deltoid; ha1 01:40 Follow up: Response: No adverse reaction; Anxiety decreased; RASS: Alert and Calm (0) ha1 Disposition Summary: 12/14/22 02:36 Discharge Ordered Notes: Location: Home sp4 Problem: new sp4 Symptoms: have improved sp4 Condition: Stable sp4 Diagnosis - Anxiety disorder, unspecified sp4 - Acute anxiety attack sp4 Followup: sp4 - With: Private Physician - When: 7 - 10 days - Reason: Recheck today's complaints Discharge Instructions: - Discharge Summary Sheet sp4 - Panic Attack sp4 Forms: - Patient Portal Instructions sp4 Signatures: Dispatcher [employer] Christian Nguyen RN RN Noreen Matias RN RN ha1 Luc Jones MD MD sp4 Corrections: (The following items were deleted from the chart) 01:16 00:21 Chest Single View+[email or web address] ordered. EDMS EDMS
[2022-12-14 02:45] VITALS: TEMP 97.5
[2022-12-14 02:47] VITALS: BP 131/95; O2SAT 100
--- NOTE | 2022-12-14 07:49 | EKG ---
Test Date: 2022-12-14 Test Time: 00:32:02 Ball Point Splitter: JEFRY MEASUREMENT RESULTS: Intervals: Rate: 68 TX: 172 QRSD: 86 QT: 408 QTc: 433 [place]: P: 7 TX: 172 QRS: 57 T: 61 INTERPRETIVE STATEMENTS: Normal sinus rhythm Normal ECG Compared to ECG 09/19/2022 01:51:10 Ventricular premature complex(es) no longer present Electronically Signed On 12-14-22 07:48:25 CDT by Scar Almanza
== END 2022-12-14 02:40 | disposition home or self-care (01) ==
LOC: ER 00:18
DX: F41.0 Panic disorder [episodic paroxysmal anxiety] (principal)
CPT/HCPCS: 36415; 80048; 80076; 83735; 83880; 84484; 85025; 85610; 93005; 96372; 99285

== ENCOUNTER → 2023-03-13 | Emergency (ER) | payer OTHER ==
--- NOTE | 2023-03-13 07:41 | EDPHYS ---
Physician Documentation [facility] Name: Angeles Field Age: 22 yrs Sex: Female : 2000 Arrival Date: 03/13/2023 Time: 07:02 Bed IW1 Private MD: ED Physician Hemanth Gutierrez HPI: 03/13 07:33 This 22 yrs old Female presents to ER via Ambulatory with complaints of Chest Pain, rt Shortness Of Breath. 07:33 Patient presents to the ED with chest pain, shortness of breath. The patient states rt that she has had the symptoms since 11 PM and have been constant since then. Denies aggravating alleviating factors. Patient states that she has had multiple evaluations for the same, has been told it was anxiety. Was set up for an outpatient stress test, was unable to do so due to funding. Patient states that about 3 to 4 days ago, she abruptly stopped Paxil after being on it for about a week. Denies other acute complaints, symptoms are moderate severity, no other aggravating relieving factors. 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 - Social history:: Smoking status: Reported history of juuling and/or vaping. - Family history:: not pertinent. ROS: 07:33 Constitutional: Negative for fever, chills, and weight loss, Abdomen/GI: Negative for rt abdominal pain, nausea, vomiting, diarrhea, and constipation, Skin: Negative for injury, rash, and discoloration, Neuro: Negative for headache, weakness, numbness, tingling, and seizure, 07:33 Cardiovascular: Positive for chest pain, Negative for edema, 07:33 Respiratory: Positive for shortness of breath, Negative for cough, 07:33 Psych: Positive for anxiety, Negative for suicidal ideation, Exam: 07:33 Constitutional: This is a well developed, well nourished patient who is awake, alert, rt and in no acute distress. Head/Face: Normocephalic, atraumatic. Chest/axilla: Normal chest wall appearance and motion. Nontender with no deformity. No lesions are appreciated. Cardiovascular: Regular rate and rhythm with a normal S1 and S2. No gallops, murmurs, or rubs. Normal PMI, no JVD. No pulse deficits. Respiratory: Lungs have equal breath sounds bilaterally, clear to auscultation and percussion. No rales, rhonchi or wheezes noted. No increased work of breathing, no retractions or nasal flaring. Abdomen/GI: Soft, non-tender, with normal bowel sounds. No distension or tympany. No guarding or rebound. No evidence of tenderness throughout. Skin: Warm, dry with normal turgor. Normal color with no rashes, no lesions, and no evidence of cellulitis. MS/ Extremity: Pulses equal, no cyanosis. Neurovascular intact. Full, normal range of motion. Neuro: Awake and alert, GCS 15, oriented to person, place, time, and situation. Cranial nerves II-XII grossly intact. Motor strength 5/5 in all extremities. Sensory grossly intact. Cerebellar exam normal. Normal gait. 07:33 Psych: Affect anxious, tearful. Vital Signs: 07:20 BP 115 / 76; Pulse 82; Resp 19 S; Temp 97.9(TE); Pulse Ox 100% on R/A; aa5 MDM: 07:20 Patient medically screened. rt 07:40 ED course: Patient was seen and evaluated by me at triage, workup was started, no rt available beds immediately for the patient. Patient left from the waiting room after being evaluated up for any diagnostic studies could be performed or before I was able to speak to her regarding risks and benefits of leaving.. 03/13 07:29 Order name: EKG; Complete Time: 07:29 rt 03/13 07:29 Order name: Cardiac monitoring rt 03/13 07:29 Order name: EKG - Nurse/Tech rt 03/13 07:29 Order name: IV Saline Lock rt 03/13 07:29 Order name: Labs collected and sent rt 03/13 07:29 Order name: O2 Per Protocol rt 03/13 07:29 Order name: O2 Sat Monitoring rt Administered Medications: No medications were administered Disposition Summary: 03/13/23 07:40 Discharge Ordered Notes: Location: Home rt Problem: an ongoing problem rt Symptoms: are unchanged rt Condition: Undetermined rt Diagnosis - Chest pain, unspecified rt Followup: rt - With: Private Physician - When: 2 - 3 days - Reason: Forms: - Medication Reconciliation Form rt - Thank You Letter rt - Antibiotic Education rt - Prescription Opioid Use rt - Patient Portal Instructions rt - Leadership Thank You Letter rt Signatures: Dispatcher [employer] Kaur Rolon, RN RN aa5 Hemanth Gutierrez MD MD rt
--- NOTE | 2023-03-13 07:41 | ER ---
Nurse's Notes [facility] Name: Angeles Field Age: 22 yrs Sex: Female : 2000 Arrival Date: 03/13/2023 Time: 07:02 Bed IW1 Private MD: Diagnosis: Chest pain, unspecified Presentation: 03/13 07:20 Chief complaint: Patient states: "I've been having chest pain around 11pm last night". aa5 Pt also reports SOB. Pt states "I've had it before since February last year and I keep getting told they are panic attacks". Pt states "I take Ativan that my doctor gave me but it's not working". 07:20 Coronavirus screen: At this time, the client does not indicate any symptoms associated aa5 with coronavirus-19. Ebola Screen: Patient denies travel to an Ebola-affected area in the 21 days before illness onset. Initial Sepsis Screen: Does the patient meet any 2 criteria? No. Patient's initial sepsis screen is negative. Does the patient have a suspected source of infection? No. Patient's initial sepsis screen is negative. Risk Assessment: Do you want to hurt yourself or someone else? Patient reports no desire to harm self or others. Onset of symptoms was March 12, 2023. 07:20 Method Of Arrival: Ambulatory aa5 07:20 Acuity: CADY 3 aa5 Triage Assessment: 07:20 General: Appears uncomfortable, Behavior is anxious. General: Pt states "I already took aa5 4 of the Ativan that my doctor gave me but it's not helping" . Pain: Complains of pain in chest. Cardiovascular: Heart tones S1 S2 present Rhythm is regular. Respiratory: Airway is patent Respiratory effort is even, unlabored, Respiratory pattern is regular, symmetrical. Derm: Skin is pink, warm \\T\\ dry. 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 - Social history:: Smoking status: Reported history of juuling and/or vaping. - Family history:: not pertinent. Assessment: 07:20 Reassessment: Pt verbalizing being upset about wait time, notified pt that there are no aa5 open beds in the ER at this time and reassured that MD will examine in triage room and orders will be completed from waiting area, pt verbalized understanding. . 07:21 Reassessment: Dr. Gutierrez examining pt in triage. . aa5 07:40 Reassessment: Was notified by ER registration staff that pt left from ER waiting room aa5 stating she was going to another hospital, was notified. . Vital Signs: 07:20 BP 115 / 76; Pulse 82; Resp 19 S; Temp 97.9(TE); Pulse Ox 100% on R/A; aa5 ED Course: 07:03 Patient arrived in ED. rg4 07:08 Hemanth Gutierrez MD is Attending Physician. rt 07:21 Arm band placed on. aa5 07:22 Triage completed. aa5 07:40 No provider procedures requiring assistance completed. Patient did not have IV access aa5 during this emergency room visit. Patient maintains SpO2 saturation greater than 95% on room air. Administered Medications: No medications were administered Outcome: 07:40 Discharge ordered by MD. rt 07:40 Patient left the ED. aa5 Signatures: Kaur Marquez RN RN aa5 Radha Javier 4 Brittney Martin Ryan, MD MD rt Corrections: (The following items were deleted from the chart) 08:25 07:47 Patient left the ED. eb aa5 08:28 07:20 Reassessment: Pt verbalizing being upset about wait time, notified pt that there aa5 are no open beds in the ER at this time but MD will examine in triage room and orders will be completed from waiting area, pt verbalized understanding. . aa5
[2023-03-13 10:10] VITALS: BP 115/76; TEMP 97.9; O2SAT 100
== END ==
LOC: ER 07:02
DX: R07.9 Chest pain, unspecified (principal); R06.02 Shortness of breath; F41.9 Anxiety disorder, unspecified

== ENCOUNTER → 2023-04-21 | Emergency (ER) | payer OTHER ==
[~2023-04-21] MED LIST: ACETAMINOPHEN 500 MG TAB ONE; NA CHLORIDE 0.9% 3,000 ML ONE
[2023-04-21 19:04] LABS: Basophils % 0.6 % (0-1.3); Hematocrit 38.3 % (36.0-45.0); Lymphocytes % 25.7 % (15.3-44.8); MCV 83.7 fL (80-100); MPV 8.8 fL (7.6-11.3); Platelets 170 thou/uL (152-406); RBC Red Blood Cell Count 4.57 M/uL (3.86-4.86)
[2023-04-21 19:05] LABS: Absolute Lymphocytes (CBC) 1.5 K/uL (0.7-4.9)
[2023-04-21 19:06] LABS: Specific Gravity 1.011 (1.005-1.030); Urine Bacteria <20 /HPF (<20); Urine Bilirubin NEGATIVE (Negative); Urine Blood Negative (Negative); Urine Clarity Turbid (Clear); Urine Color Colorless (Yellow); Urine Glucose NEGATIVE (Negative); Urine Mucus Slight /HPF (None Seen); Urine Protein NEGATIVE (Negative); Urine RBC <5 /HPF (None Seen); Urine Urobilinogen Normal (Normal)
[2023-04-21 19:10] LABS: Protime INR 1.1
[2023-04-21 19:24] LABS: Albumin 3.4 g/dL (3.4-5.0); Albumin/Globulin Ratio 0.9 (1.1-1.8); Anion Gap 9.2 mEq/L (5.0-15.0); Bilirubin Total 0.4 mg/dL (0.2-1.0); Potassium 3.2 mEq/L (3.5-5.1); Protein, Total 7.1 g/dL (6.4-8.2)
--- NOTE | 2023-04-21 19:48 | RAD REPORT ---
[facility] CLINICAL HISTORY: Fever;Dyspnea COMPARISON: Chest Single View dated 02/19/2022; Chest Single View dated 04/14/2019 TECHNIQUE: Portable AP view of the chest. FINDINGS: The lungs are clear. No pneumothorax or effusion. The cardiomediastinal contours are unre markable. IMPRESSION: No acute cardiopulmonary process.
--- NOTE | 2023-04-21 20:15 | RAD REPORT ---
EXAM DESCRIPTION: CT - Chest For Pe Angio - 04/21/2023 7:52 pm CLINICAL HISTORY: shortness of breath, fever COMPARISON: Abdomen Pelvis W Contrast dated 04/21/2023; Chest Single View dated 04/21/2023 TECHNIQUE: Thin axial CT images of the chest were obtained following administration of iodinated IV contrast. Multiplanar reconstructions, and maximum intensity projection reconstructions were generate d and reviewed. Exam utilizes a protocol for optimal evaluation of pulmonary arterial tree. All CT scans are performed using dose optimization technique as appropriate and may include automated exposure control or mA/KV adjustment according to patient size. FINDINGS: Slightly suboptimal contrast timing limits evaluation, due to technical malfunction. Allow ing for this limitation, no appreciable central pulmonary emboli or other suspicious finding. No acut e or significant aorta findings. Left trace layering effusion with subsegmental atelectasis. Micro nodularity in the left lower lobe m ore superiorly, such as seen on axial image 70. No suspicious masses. No pleural thickening or pleura l effusion. No pneumothorax. No abnormal mediastinal or hilar masses or lymphadenopathy seen. No chest wall mass or abnormal axill iary lymphadenopathy. IMPRESSION: No evidence of acute central pulmonary emboli allowing for the limitation mentioned abov e. Micro nodularity in the left lower lobe may relate to atelectasis or early airspace disease. Trace le ft layering pleural effusion with adjacent atelectasis.
[2023-04-21 20:17] LABS: SARS-CoV-2 Antigen Rapid Res Negative (Negative)
--- NOTE | 2023-04-21 20:39 | RAD REPORT ---
EXAM DESCRIPTION: CT - Abdomen Pelvis W Contrast - 04/21/2023 7:53 pm CLINICAL HISTORY: fever;Abd pain COMPARISON: No comparisons TECHNIQUE: Thin cut axial CT imaging of the abdomen and pelvis was performed following intravenous a dministration of iodinated contrast. Multiplanar reformats were generated and reviewed. All CT scans are performed using dose optimization technique as appropriate and may include automated exposure control or mA/KV adjustment according to patient size. FINDINGS: Lower lungs were better evaluated on dedicated CT of the chest. The liver, spleen, and pancreas show no suspicious findings. Gallbladder was surgically removed. Symmetric renal function is seen with no hydronephrosis or suspicious renal mass. Contrast excretion within the proximal urinary tracts, without suspicious luminal irregularity or filling defects. This limits evaluation for calculi. No dilated bowel loops or bowel wall thickening the, although there is scattered segments fluid diste ntion with short-segment air-fluid levels within nondistended small bowel. Trace fluid in the pelvis and right lower quadrant, nonspecific. No free air, fluid collections or inflammatory stranding. No h ernia, mass or bulky lymphadenopathy. The urinary bladder is without significant finding. No suspicious bony findings. IMPRESSION: Fluid opacified nondistended small bowel, may relate to enteritis or diarrheal state. Trace fluid in the pelvis and right lower quadrant, nonspecific, but may relate to ongoing enteritis. Status post cholecystectomy.
--- NOTE | 2023-04-21 21:09 | EDPHYS ---
Physician Documentation [facility] Name: Angeles Field Age: 22 yrs Sex: Female : 2000 Arrival Date: 04/21/2023 Time: 18:07 Bed 17 Private MD: ED Physician Luc Jones HPI: 04/20 19:31 This 22 yrs old Female presents to ER via Ambulatory with complaints of Breathing ms3 Difficulty, Fever - Post Surg.. 19:31 22-year-old female with past medical history of anxiety, panic attacks [place] [facility] [place] shortness of breath, cough, shortness of breath, bodyaches that began this morning. Patient notes she did have a cholecystectomy on Tuesday. Patient states she is having 10/10 abdominal pain. Patient denies any alleviating or inciting factors. 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 - Social history:: Smoking status: Patient denies any tobacco usage or history of. ROS: 19:31 Neck: Negative for injury, pain, and swelling, Cardiovascular: Negative for chest pain, ms3 and palpitations. Respiratory: Negative for shortness of breath, cough, wheezing, and pleuritic chest pain, 19:31 MS/Extremity: Negative for injury and deformity, Skin: Negative for injury, rash, and discoloration, 19:31 Constitutional: Positive for body aches, chills, fever, 19:31 Abdomen/GI: Positive for abdominal pain, Exam: 19:31 Constitutional: This is a well developed, well nourished patient who is awake, alert, ms3 and in no acute distress. Head/Face: Normocephalic, atraumatic. Neck: Trachea midline, no cervical lymphadenopathy. Supple, full range of motion without nuchal rigidity, or vertebral point tenderness. No Meningismus. Chest/axilla: Normal chest wall appearance and motion. Nontender with no deformity. 19:31 Respiratory: Lungs have equal breath sounds bilaterally, clear to auscultation and percussion. No rales, rhonchi or wheezes noted. No increased work of breathing, no retractions or nasal flaring. Abdomen/GI: Soft, non-tender, with normal bowel sounds. No distension or tympany. No guarding or rebound. No evidence of tenderness throughout. Skin: Warm, dry with normal turgor. Normal color with no rashes, no lesions, and no evidence of cellulitis. 19:31 Cardiovascular: Rate: tachycardic, Rhythm: regular, Pulses: no pulse deficits are appreciated, Heart sounds: normal, normal S1and S2, 19:31 ECG was reviewed by the Attending Physician. Vital Signs: 18:19 BP 128 / 79; Pulse 97; Resp 24 S; Temp 101(O); Pulse Ox 99% on R/A; Weight 95.25 kg aa5 (R); Height 5 ft. 9 in. (R); 18:30 BP 135 / 66; Pulse 86; Resp 18; Pulse Ox 100% on R/A; me1 19:00 BP 117 / 71; Pulse 89; Resp 18; Pulse Ox 99% on R/A; me1 20:00 BP 119 / 87; Pulse 86; Resp 16; Pulse Ox 98% on R/A; me1 20:01 Temp 100.1(O); me1 21:00 BP 113 / 71; Pulse 79; Resp 18; Pulse Ox 98% on R/A; me1 18:19 Body Mass Index 31.01 (95.25 kg, 175.26 cm) aa5 MDM: 18:25 Patient medically screened. ms3 20:11 Transition of care: After a detail discussion of the patient's case, care is ms3 transferred to Luc Jones MD. 20:37 ED course: EXAM DESCRIPTION: CT - Chest For Pe Angio - 04/21/2023 7:52 pm CLINICAL sp4 HISTORY: shortness of breath, fever COMPARISON: Abdomen Pelvis W Contrast dated 04/21/2023; Chest Single View dated 04/21/2023 TECHNIQUE: Thin axial CT images of the chest were obtained following administration of iodinated IV contrast. Multiplanar reconstructions, and maximum intensity projection reconstructions were generated and reviewed. Exam utilizes a protocol for optimal evaluation of pulmonary arterial tree. All CT scans are performed using dose optimization technique as appropriate and may include automated exposure control or mA/KV adjustment according to patient size. FINDINGS: Slightly suboptimal contrast timing limits evaluation, due to technical malfunction. Allowing for this limitation, no appreciable central pulmonary emboli or other suspicious finding. No acute or significant aorta findings. Left trace layering effusion with subsegmental atelectasis. Micro nodularity in the left lower lobe more superiorly, such as seen on axial image 70. No suspicious masses. No pleural thickening or pleural effusion. No pneumothorax. No abnormal mediastinal or hilar masses or lymphadenopathy seen. No chest wall mass or abnormal axilliary lymphadenopathy. IMPRESSION: No evidence of acute central pulmonary emboli allowing for the limitation mentioned above. Micro nodularity in the left lower lobe may relate to atelectasis or early airspace disease. Trace left layering pleural effusion with adjacent atelectasis. . 20:56 ED course: EXAM DESCRIPTION: CT - Abdomen Pelvis W Contrast - 04/21/2023 7:53 pm CLINICAL sp4 HISTORY: fever;Abd pain COMPARISON: No comparisons TECHNIQUE: Thin cut axial CT imaging of the abdomen and pelvis was performed following intravenous administration of iodinated contrast. Multiplanar reformats were generated and reviewed. All CT scans are performed using dose optimization technique as appropriate and may include automated exposure control or mA/KV adjustment according to patient size. FINDINGS: Lower lungs were better evaluated on dedicated CT of the chest. The liver, spleen, and pancreas show no suspicious findings. Gallbladder was surgically removed. Symmetric renal function is seen with no hydronephrosis or suspicious renal mass. Contrast excretion within the proximal urinary tracts, without suspicious luminal irregularity or filling defects. This limits evaluation for calculi. No dilated bowel loops or bowel wall thickening the, although there is scattered segments fluid distention with short-segment air-fluid levels within nondistended small bowel. Trace fluid in the pelvis and right lower quadrant, nonspecific. No free air, fluid collections or inflammatory stranding. No hernia, mass or bulky lymphadenopathy. The urinary bladder is without significant finding. No suspicious bony findings. IMPRESSION: Fluid opacified nondistended small bowel, may relate to enteritis or diarrheal state. Trace fluid in the pelvis and right lower quadrant, nonspecific, but may relate to ongoing enteritis. Status post cholecystectomy. . 21:04 Differential diagnosis: Anxiety Reaction asthma, Bronchitis pneumonia, Pulmonary sp4 Embolism. Data reviewed: vital signs, EMS record, lab test result(s), radiologic studies, CT scan. ED course: Patient tested positive for influenza B. Will prescribe Tamiflu. . 21:04 ED course: CT today is negative for postoperative complications. . sp4 04/20 18:26 Order name: Blood Culture Adult (2) ms3 04/20 18:26 Order name: CBC with Diff; Complete Time: 19:28 ms3 04/20 18:26 Order name: CMP; Complete Time: 19:28 ms3 04/20 18:26 Order name: Lactate w/ 2H reflex if indic.; Complete Time: 19:28 ms3 04/20 18:26 Order name: Protime (+inr); Complete Time: 19:28 ms3 04/20 18:26 Order name: Ptt, Activated; Complete Time: 19:28 ms3 04/20 18:26 Order name: Urinalysis w/ reflexes; Complete Time: 19:28 ms3 04/20 19:28 Order name: Flu; Complete Time: 20:56 ms3 04/20 19:28 Order name: SARS RAPID; Complete Time: 20:56 ms3 04/20 19:29 Order name: Glucose, Ancillary Testing; Complete Time: 20:56 EDMS 04/20 18:26 Order name: Chest Single View XRAY; Complete Time: 20:56 ms3 04/20 18:26 Order name: CT Chest For PE Angio; Complete Time: 20:56 ms3 04/20 18:26 Order name: CT Abd/Pelvis - IV Contrast Only; Complete Time: 20:56 ms3 04/20 18:26 Order name: EKG; Complete Time: 18:26 ms3 04/20 18:26 Order name: Accucheck; Complete Time: 19:25 ms3 04/20 18:26 Order name: Cardiac monitoring; Complete Time: 19:15 ms3 04/20 18:26 Order name: EKG - Nurse/Tech; Complete Time: 19:15 ms3 04/20 18:26 Order name: IV Saline Lock - Large Bore; Complete Time: 18:54 ms3 04/20 18:26 Order name: Labs collected and sent; Complete Time: 18:54 ms3 04/20 18:26 Order name: O2 Per Protocol; Complete Time: 18:54 ms3 04/20 18:26 Order name: O2 Sat Monitoring; Complete Time: 18:54 ms3 04/20 18:26 Order name: Vital Signs; Complete Time: 18:54 ms3 04/20 18:26 Order name: NPO; Complete Time: 18:33 ms3 EC:31 Rate is 87 beats/min. Rhythm is regular. QRS Vass is Normal. MD interval is normal. QRS ms3 interval is normal. Clinical impression: Normal ECG. Interpreted by me. Reviewed by me. Administered Medications: 18:58 Drug: Acetaminophen PO 1000 mg PO once Route: PO; me1 21:12 Follow up: Response: No adverse reaction; Temperature is decreased me1 18:58 Drug: NS 0.9% IV (30 ml/kg) 30 ml/kg IV at bolus once; Sepsis Protocol Route: IV; Rate: me1 bolus; Site: right antecubital; 21:12 Follow up: Response: No adverse reaction; IV Status: Order to discontinue infusion; IV me1 Intake: 2000ml Point of Care Testing: Blood Glucose: 19:25 Blood Glucose: 95 mg/dL; me1 Ranges: Critical Glucose Levels:Adult <50 mg/dl or >400 mg/dl <40 mg/dl or >180 mg/dl Disposition Summary: 04/21/23 21:08 Discharge Ordered Notes: Location: Home sp4 Problem: new sp4 Symptoms: have improved sp4 Condition: Stable sp4 Diagnosis - Other specified viral diseases sp4 - Influenza B acute sp4 Followup: sp4 - With: Private Physician - When: 7 - 10 days - Reason: Recheck today's complaints Discharge Instructions: - Discharge Summary Sheet sp4 - Influenza, Adult, [id number] sp4 Forms: - Patient Portal Instructions sp4 Prescriptions: - Ibuprofen 600 mg Oral Tablet - take 1 tablet ORAL route every 6 hours As needed take with food; 30 tablet; sp4 Refills: 0, Product Selection Permitted - Tamiflu 75 mg Oral capsule - take 1 tablet ORAL route every 12 hours for 5 days; 10 tablet; Refills: 0, sp4 Product Selection Permitted - ondansetron 8 mg Oral Tablet,disintegrating - take 1 tablet ORAL route every 8 hours PRN nausea; 30 tablet; Refills: 0, sp4 Product Selection Permitted Signatures: Dispatcher [employer] Kaur Rolon RN RN aa5 John Martinez DO DO ms3 Luc Jones MD MD sp4 Eddleman, Janet, RN RN me1
--- NOTE | 2023-04-21 21:09 | ER ---
Nurse's Notes [facility] Name: Angeles Field Age: 22 yrs Sex: Female : 2000 Arrival Date: 04/21/2023 Time: 18:07 Bed 17 Private MD: Diagnosis: Other specified viral diseases;Influenza B acute Presentation: 04/20 18:19 Onset of symptoms was April 20, 2023. aa5 18:19 Coronavirus screen: cough unrelated to allergies, fever. Ebola Screen: Patient denies aa5 travel to an Ebola-affected area in the 21 days before illness onset. Initial Sepsis Screen: Does the patient meet any 2 criteria? Temp <36.0*C (96.8*F)) or > 38.3*C (100.9*F). HR > 90 bpm. Yes Does the patient have a suspected source of infection? No. Patient's initial sepsis screen is negative. Risk Assessment: Do you want to hurt yourself or someone else? Patient reports no desire to harm self or others. 18:19 Method Of Arrival: Ambulatory aa5 18:19 Acuity: CADY 2 aa5 18:19 Chief complaint: Patient states: "I just started with body chest, cough, and fever me1 today". Pt reports had cholecystectomy by Dr. Palacios on Tuesday. Triage Assessment: 21:11 Respiratory: the patient has moderate shortness of breath. 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 - Social history:: Smoking status: Patient denies any tobacco usage or history of. Screenin:20 [facility] ED Fall Risk Assessment (Adult) History of falling in the last 3 months, me1 including since admission No falls in past 3 months (0 pts) Confusion or Disorientation No (0 pts) Intoxicated or Sedated No (0 pts) Impaired Gait No (0 pts) Mobility Assist Device Used No (0 pt) Altered Elimination No (0 pt) Score/Fall Risk Level 0 - 2 = Low Risk Maintained a safe environment, Provided non-skid footwear, Hourly rounding (assess needs \\T\\ fall precautionary measures) done. 18:20 Abuse screen: Denies threats or abuse. Nutritional screening: No deficits noted. me1 Tuberculosis screening: No symptoms or risk factors identified. Assessment: 18:20 General: Appears uncomfortable, ill, well groomed, well developed, well nourished, me1 Behavior is calm, cooperative, appropriate for age, Reports chills for 0-12 hours, fever for 0-12 hours, feeling ill for 0-12 hours, "I just started with body and chest aches, cough, and fever today". Pt reports had cholecystectomy by Dr. Palacios on Tuesday. Pain: Complains of pain in generalized Pain does not radiate. Pain currently is 5 out of 10 on a pain scale. Quality of pain is described as aching, Pain began 4 hours ago. Neuro: Level of Consciousness is awake, alert, obeys commands, Oriented to person, place, time, situation, Appropriate for age. Cardiovascular: Capillary refill < 3 seconds Patient's skin is warm and dry. Rhythm is sinus rhythm. Respiratory: Reports shortness of breath on exertion cough that is productive, pain with cough since this morning. Airway is patent Trachea midline Respiratory effort is even, unlabored, Respiratory pattern is regular, symmetrical, Breath sounds are clear bilaterally. Derm: dressings to abdomen from lap choly on Tuesday are clean and dry. Vital Signs: 18:19 BP 128 / 79; Pulse 97; Resp 24 S; Temp 101(O); Pulse Ox 99% on R/A; Weight 95.25 kg aa5 (R); Height 5 ft. 9 in. (R); 18:30 BP 135 / 66; Pulse 86; Resp 18; Pulse Ox 100% on R/A; me1 19:00 BP 117 / 71; Pulse 89; Resp 18; Pulse Ox 99% on R/A; me1 20:00 BP 119 / 87; Pulse 86; Resp 16; Pulse Ox 98% on R/A; me1 20:01 Temp 100.1(O); me1 21:00 BP 113 / 71; Pulse 79; Resp 18; Pulse Ox 98% on R/A; me1 18:19 Body Mass Index 31.01 (95.25 kg, 175.26 cm) aa5 ED Course: 18:09 Patient arrived in ED. mg5 18:14 John Martinez DO is Attending Physician. ms3 18:15 Arm band placed on. aa5 18:20 Triage completed. aa5 18:20 Patient has correct armband on for positive identification. Bed in low position. Call me1 light in reach. Side rails up X 1. Provided Education on: POC. Verbalized understanding. . 18:20 No provider procedures requiring assistance completed. me1 18:30 Janet Mclean, RN is Primary Nurse. me1 18:44 Chest Single View XRAY In Process Unspecified. EDMS 18:48 Initial lab(s) drawn, by me, sent to lab. First set of blood cultures drawn Urine me1 collected: clean catch specimen, clear. 18:53 Inserted saline lock: 20 gauge in right antecubital area, using aseptic technique. me1 18:54 CBC with Diff Sent. me1 18:54 CMP Sent. me1 18:54 Lactate w/ 2H reflex if indic. Sent. me1 18:54 Protime (+inr) Sent. me1 18:54 Ptt, Activated Sent. me1 18:54 Urinalysis w/ reflexes Sent. me1 18:55 Second set of blood cultures drawn by me. me1 19:15 Client placed on continuous cardiac and pulse oximetry monitoring. NIBP monitoring me1 applied. quality assurance monitor chassis on. Pulse ox on. NIBP on. 19:15 Blood Culture Adult (2) Sent. me1 19:15 EKG done, by ED staff, reviewed by John Martinez DO. me1 19:53 CT Chest For PE Angio In Process Unspecified. EDMS 19:54 CT Abd/Pelvis - IV Contrast Only In Process Unspecified. EDMS 20:01 SARS RAPID Sent. me1 20:01 Flu Sent. me1 20:07 Attending Physician role handed off by John Martinez DO sp4 20:07 Luc Jones MD is Attending Physician. sp4 21:27 IV discontinued, intact, bleeding controlled, No redness/swelling at site. Pressure me1 dressing applied. Administered Medications: 18:58 Drug: Acetaminophen PO 1000 mg PO once Route: PO; me1 21:12 Follow up: Response: No adverse reaction; Temperature is decreased me1 18:58 Drug: NS 0.9% IV (30 ml/kg) 30 ml/kg IV at bolus once; Sepsis Protocol Route: IV; Rate: me1 bolus; Site: right antecubital; 21:12 Follow up: Response: No adverse reaction; IV Status: Order to discontinue infusion; IV me1 Intake: 2000ml Medication: 18:20 VIS not applicable for this client. me1 Point of Care Testing: Blood Glucose: 19:25 Blood Glucose: 95 mg/dL; me1 Ranges: Intake: 21:12 IV: 2000ml; Total: 2000ml. me1 Outcome: 21:08 Discharge ordered by . sp4 21:27 Discharged to home ambulatory, with significant other, me1 21:27 Condition: stable 21:27 Discharge instructions given to patient, significant other, Instructed on discharge instructions, follow up and referral plans. medication usage, Demonstrated understanding of instructions, follow-up care, medications, Prescriptions given X 3, 21:28 Patient left the ED. me1 Signatures: Dispatcher [employer] EDMS Kaur Marquez RN RN aa5 John Martinez DO DO ms3 Luc Jones MD MD sp4 Janet Mclean RN RN me1 Hilaria Landa mg5 Corrections: (The following items were deleted from the chart) 18:21 18:19 BP 128 / 79; Pulse 97bpm; Resp 24bpm; Spontaneous; Pulse Ox 99% RA; Temp 101F aa5 Oral; aa5 20:57 18:19 Chief complaint: Patient states: "I just started with body chest, cough, and me1 fever today". Pt reports had cholecystectomy by Dr. Palacios on Tuesday. aa5
[2023-04-21 23:05] VITALS: BP 113/71; TEMP 100.1; O2SAT 98
== END ==
LOC: ER 18:07
DX: J10.1 Influenza due to other identified influenza virus with other respiratory manifestations (principal); Z90.49 Acquired absence of other specified parts of digestive tract; Z11.52 Encounter for screening for COVID-19
CPT/HCPCS: 96365; 93005; 87040 ×2; 85025; 81001; 36415; 85610; 82947; 83605; 85730; 80053; 87804 ×2; 71275; 74177; 71045; 99285; 96366; 87811; Q9967; J7030